=== PATIENT | female | born 1935 | race Caucasian/White ===

== ENCOUNTER → 2016-12-30 | Outpatient (CLI) | payer BC ==
[~2016-12-30] MED LIST: ACET-1047 PO; AZEL0.055 OP; AZEL137S6 NAE; AZEL30SP NAE; CEPH-571 PO; CHOL20007 PO; CYAN1SUB12 PO; DPH/ PO; FLUT0.0529 NAE; FLUT0.15 NAE; GABA-113 PO; GABA1CAP PO; HYDR-3983 PO; HYDR-5688 PO; LORA-741 PO; METR-163 PO; MULT-506 PO; NRN600 PO; OXYC-57 PO; PRED20TA PO; QSTP PO; RIVA1TAB4 PO; SACC250C3 PO; TRAM-10 PO; VNCS125 PO; VNTHFA/IN INH; [UNRECOGNIZED DRUG - CODE] PO
--- NOTE | 2016-12-30 09:59 | DIAGNOSTIC IMAGING REPORT ---
CT OF THE CHEST WITHOUT IV CONTRAST CLINICAL HISTORY: Right lung nodule. COMPARISON STUDY: Chest CT March 02, [address] of the abdomen and pelvis September 15, 2016. CT DOSE: 297.60 mGycm TECHNIQUE: Axial images of the chest were obtained without IV contrast. Images were reviewed in the axial, sagittal, and coronal planes. IV contrast was not administered for this examination. FINDINGS: No enlarged axillary, mediastinal or hilar lymph nodes are present. The heart is mildly enlarged. The central airways are patent. Scattered subpleural opacities represent atelectasis or scarring. There is no consolidation to suggest pneumonia. Note is made of a 7 mm right lower lobe nodule shown image 207 of [id number]. This is new since CT of March 02, 2016. This nodule has slightly decreased in size since exam of September 15, 2016 when it measured 9 mm. No new pulmonary nodules are present. The bony thorax and upper abdomen are unremarkable. IMPRESSION: 7 mm right lower lobe nodule. The nodule has likely slightly decreased in size since exam September 15, 2016. This nodule remains indeterminate and a follow-up chest CT in 6 months is recommended. Electronically signed by: Johnny Escalante M.D. 12/30/2016 9:58 AM Dictated Date/Time: 12/30/2016 9:38 AM
== END | disposition home or self-care (01) ==
LOC: C.CTS 09:19
PROVIDERS: ATTEND Internal Medicine Pulmonary Disease
DX: R91.1 Solitary pulmonary nodule (principal)

== ENCOUNTER → 2017-01-02 | Day surgery (SDC) | payer BC ==
[2016-12-25 13:24] VITALS: BMI 29.0
[~2017-01-02] VITALS: Ht 162.6 cm; Wt 75.5 kg
[~2017-01-02] MED LIST changes: +LIDOCAINE HCL 2% 2 ML VIAL (20MG/ML) ONE; +ONDANSETRON INJ 2 MG/ML 2 ML VIAL IV STA; +ONDANSETRON INJ 2 MG/ML 2 ML VIAL ONE; +PROPOFOL IV EMULSION 10 MG/ML 20 ML VIAL IV ONE
[2017-01-02 13:18] VITALS: Ht 162.6 cm; Wt 75.5 kg
--- NOTE | 2017-01-02 13:45 | Endo History and Physical ---
History & Physical Date of Service: Jan 02, 2017. Chief Complaint: hx c-diff and diverticulosis Referring Physician: Dr. Vasquez History of Present Illness For colonoscopy Past Medical History Arthritis, Hypertension, Kidney Disease, Other Past Surgical History Hx Cardiac Surgery: No Hx Internal Defibrillator: No Hx Pacemaker: No Hx Abdominal Surgery: Yes (D&C X4, HARMONY) Hx of Implantable Prosthesis: No Hx Post-Op Nausea and Vomiting: No Hx Cancer Surgery: No Hx Thoracic Surgery: No Hx Orthopedic: Yes (RT HEEL SURGERY FOR NODULE) Hx Urinary Tract Surgery: Yes (URETHRAL OPENING, KIDNEY STONE REMOVAL) Family History None Social History Smoking Status: Never Smoker Hx Substance Use: No Hx Alcohol Use: No Allergies Coded Allergies: Iodinated Diagnostic Agents (Verified Allergy, Intermediate, HIVES, ) Duloxetine (Verified Adverse Reaction, Mild, GI SYMPTOMS, 01/02/17) Headaches, Nauseated, Light Headed Fentanyl (Verified Adverse Reaction, Mild, GI SYMPTOMS, 01/02/17) Promethazine (Verified Adverse Reaction, Mild, MAKES HER LOOPY, 01/02/17) Sertraline (Verified Adverse Reaction, Mild, SHAKEY, 01/02/17) Current Medications Reported Home Medications Medications Dose Route/Sig Max Daily Dose Days Date Category Lomotil (Diphenoxylate W/ Atropine) 1 Tab Tab 1 Tab PO UD PRN 12/25/16 Reported Ventolin Hfa (Albuterol) 200 Puffs/05869 Mcg Aers 2-4 Puffs INH Q6H PRN 12/25/16 Reported Diltiazem Cd (Diltiazem Hcl Coated Beads) 300 Mg Cap 300 Mg PO QAM 09/06/16 Reported Xarelto (Rivaroxaban) 20 Mg Tab 20 Mg PO QPM 09/06/16 Reported Vitamin D3 (Cholecalciferol) 2,000 Unit Tab 2,000 Inter.unit PO QAM 09/06/16 Reported Ultram (Tramadol HCl) 50 Mg Tab 50 Mg PO Q4H PRN 03/02/16 Reported Multivitamin (Multivitamins) Tab 1 Tab PO QAM 02/03/14 Reported Ativan (Lorazepam) 0.5 Mg Tab 0.5-1 Mg PO BID PRN 02/03/14 Reported Flonase (Fluticasone Propionate (Nasal)) 50 Mcg/Act Spr 2 Sprays MAYDA AMHS PRN 02/03/14 Reported Vitamin B-12 (Cyanocobalamin) 2,500 Mcg Sub 2,500 Mcg PO QAM 02/03/14 Reported Astelin (Azelastine Hcl) 137 Mcg/Kula Spr 1 Kula MAYDA BID PRN 02/03/14 Reported Vital Signs Weight (Kilograms): 75.45 Height (Feet): 5 Height (Inches): 4 Date Time Temp Pulse Resp B/P Pulse Ox O2 Delivery O2 Flow Rate FiO2 01/02/17 13:31 36.9 92 18 148/83 96 Room Air Physical Exam General Appearance: WD/WN Respiratory/Chest: Respiratory effort: no dyspnea Cardiovascular: Heart Auscultation: RRR Abdomen: Inspection & Palpation: soft Assessment and Plan Diverticulitis for colonoscopy
--- NOTE | 2017-01-02 14:46 | GI REPORT ---
Procedure Date: 01/02/2017 1:58 PM Procedure: Colonoscopy Indications: Follow-up of diverticulitis Medicines: Propofol total dose 400 mg IV, Lidocaine 40 mg IV Complications: No immediate complications. Estimated Blood Loss: Estimated blood loss was minimal. Procedure: Pre-Anesthesia Assessment: - Prior to the procedure, a History and Physical was performed, and patient medications, allergies and sensitivities were reviewed. The patient's tolerance of previous anesthesia was reviewed. - The risks and benefits of the procedure and the sedation options and risks were discussed with the patient. All questions were answered and informed consent was obtained. After I obtained informed consent, the scope was passed under direct vision. Throughout the procedure, the patient's blood pressure, pulse, and oxygen saturations were monitored continuously. The scope was introduced through the anus and advanced to the cecum, identified by appendiceal orifice and ileocecal valve. The colonoscopy was performed without difficulty. The patient tolerated the procedure well. The quality of the bowel preparation was good. Findings: Multiple diverticula were found in the sigmoid colon. Non-bleeding internal hemorrhoids were found during endoscopy. The hemorrhoids were moderate. A 5 mm polyp was found in the distal transverse colon. The polyp was sessile. The polyp was removed with a hot snare. Resection and retrieval were complete. Estimated blood loss: none. A 5 mm polyp was found in the ascending colon. The polyp was sessile. The polyp was removed with a hot snare. Resection and retrieval were complete. Estimated blood loss: none. A 15 mm polyp was found at the hepatic flexure. The polyp was sessile. The polyp was removed with a piecemeal technique using a hot snare. Resection and retrieval were complete. To prevent bleeding post-intervention, one hemostatic clip was successfully placed (MR conditional). There was no bleeding at the end of the procedure. Impression: - Diverticulosis in the sigmoid colon. - Non-bleeding internal hemorrhoids. - One 5 mm polyp in the distal transverse colon, removed with a hot snare. Resected and retrieved. - One 5 mm polyp in the ascending colon, removed with a hot snare. Resected and retrieved. - One 15 mm polyp at the hepatic flexure, removed piecemeal using a hot snare. Resected and retrieved. Clip (MR conditional) was placed. Recommendation: - Discharge patient to home (ambulatory). - Continue present medications. - Await pathology results. - Return to primary care physician PRN. Mukesh Shah M.D. Mukesh Shah MD 01/02/2017 2:46:33 PM This report has been signed electronically. Note Initiated On: 01/02/2017 1:58 PM I attest to the content of the Intraoperative Record and orders documented therein, exceptions below
--- NOTE | 2017-01-02 14:47 | Discharge Instructions ---
Endoscopy Patient Instructions Date / Procedure(s) Performed Jan 02, 2017. Colonoscopy Allergy Information Coded Allergies: Iodinated Diagnostic Agents (Verified Allergy, Intermediate, HIVES, ) Duloxetine (Verified Adverse Reaction, Mild, GI SYMPTOMS, 01/02/17) Headaches, Nauseated, Light Headed Fentanyl (Verified Adverse Reaction, Mild, GI SYMPTOMS, 01/02/17) Promethazine (Verified Adverse Reaction, Mild, MAKES HER LOOPY, 01/02/17) Sertraline (Verified Adverse Reaction, Mild, SHAKEY, 01/02/17) Discharge Date / Findings Jan 02, 2017. Polyps, diverticulosis, hemorrhoids Medication Instructions Stopped Medication(s): don't take any supplements. Keep on her Xarelto. Restart Stopped Medication(s): resume meds Reported Home Medications Medications Dose Route/Sig Max Daily Dose Days Date Category Lomotil (Diphenoxylate W/ Atropine) 1 Tab Tab 1 Tab PO UD PRN 12/25/16 Reported Ventolin Hfa (Albuterol) 200 Puffs/43523 Mcg Aers 2-4 Puffs INH Q6H PRN 12/25/16 Reported Diltiazem Cd (Diltiazem Hcl Coated Beads) 300 Mg Cap 300 Mg PO QAM 09/06/16 Reported Xarelto (Rivaroxaban) 20 Mg Tab 20 Mg PO QPM 09/06/16 Reported Vitamin D3 (Cholecalciferol) 2,000 Unit Tab 2,000 Inter.unit PO QAM 09/06/16 Reported Ultram (Tramadol HCl) 50 Mg Tab 50 Mg PO Q4H PRN 03/02/16 Reported Multivitamin (Multivitamins) Tab 1 Tab PO QAM 02/03/14 Reported Ativan (Lorazepam) 0.5 Mg Tab 0.5-1 Mg PO BID PRN 02/03/14 Reported Flonase (Fluticasone Propionate (Nasal)) 50 Mcg/Act Spr 2 Sprays MAYDA AMHS PRN 02/03/14 Reported Vitamin B-12 (Cyanocobalamin) 2,500 Mcg Sub 2,500 Mcg PO QAM 02/03/14 Reported Astelin (Azelastine Hcl) 137 Mcg/Clear Spr 1 Clear MAYDA BID PRN 02/03/14 Reported Provider Instructions Activity Restrictions - No exercising or heavy lifting for 24 hours. - Do not drink alcohol the day of the procedure. - Do not drive a car or operate machinery until the day after the procedure. - Do not make any important decisions or sign important papers in 24 hours after the procedure. Following Day: - Return to full activity which may include returning to work/school. Diet Start your diet with liquids and light foods (jello, soup, juice, toast). Then eat your usual diet if not nauseated. Treatment For Common After Affects For mild abdominal pain, bloating, or excessive gas: - Rest - Eat lightly - Lie on right side Follow-Up Information Follow-up with Dr. Vasquez as scheduled Anesthesia Information What You Should Know You have had a procedure that required some medicine to reduce anxiety and discomfort. This treatment is called moderate sedation. After receiving the treatment, you may be sleepy, but you will be able to breathe on your own. The effects of the treatment may last for several hours. Follow these instructions along with Activity/Diet recommendations noted above: * Do NOT do anything where dizziness or clumsiness would be dangerous. * Rest quietly at home today, then you can be up and about tomorrow. * Have a responsible person stay with you the rest of today. * You may have had an I.V. today. If so, you may take the dressing off later today. Recommendations Call your doctor if: * Trouble breathing * Continuous vomiting for more than 24 hours * Temperature above 101 degrees * Severe abdominal pain or bloating * Pain not relieved by pain medicine ordered * There is increased drainage or redness from any incision * A large amount of rectal bleeding greater than 2-3 tablespoons. (If you had a polyp/s removed or have hemorrhoids, a small amount of blood - from the rectum is to be expected.) * You have any unanswered questions or concerns. IN THE EVENT OF A SERIOUS EMERGENCY, GO TO THE NEAREST EMERGENCY ROOM Your discharge instructions were prepared by provider Mukesh Shah. Patient Instructions Signature Page Janeth Newsome Patient (or Guardian) Signature/Date: I have read and understand the instructions given to me by my caregivers. Caregiver/RN/Doctor Signature/Date: The above-named patient and/or guardian has received patient instructions on this date. + Original Patient Signature Page (only) stays with chart. Please make copy for patient.
[2017-01-02 15:17] VITALS: BP 163/87; PULSE 87; O2SAT 98
--- NOTE | 2017-01-02 15:17 | Anesthesiology Progress Note ---
Anesthesia Post Op Note Date & Time Jan 02, 2017 at 15:16 Vital Signs Pain Intensity: 8 Vital Signs Past 12 Hours Date Time Temp Pulse Resp B/P Pulse Ox O2 Delivery O2 Flow Rate FiO2 01/02/17 15:02 91 18 170/80 100 Mask 10 01/02/17 15:02 88 18 172/75 100 Room Air 01/02/17 13:31 36.9 92 18 148/83 96 Room Air Notes Mental Status: alert / awake / arousable, participated in evaluation Pt Amnestic to Procedure: Yes Nausea / Vomiting: adequately controlled Pain: adequately controlled Airway Patency, RR, SpO2: stable & adequate BP & HR: stable & adequate Hydration State: stable & adequate Anesthetic Complications: no major complications apparent Patient had some abdominal discomfort in recovery room. Abdomen was soft, Dr Shah examined the patient and felt her pain to be related to gas. She is appropriate for home disposition
== END | disposition home or self-care (01) ==
LOC: C.GI 12:55
PROVIDERS: ATTEND Internal Medicine Gastroenterology
DX: D12.2 Benign neoplasm of ascending colon (principal); D12.3 Benign neoplasm of transverse colon; K57.30 Diverticulosis of large intestine without perforation or abscess without bleeding; K64.8 Other hemorrhoids; M19.90 Unspecified osteoarthritis, unspecified site; I10 Essential (primary) hypertension; Z98.890 Other specified postprocedural states; Z91.041 Radiographic dye allergy status; Z88.8 Allergy status to other drugs, medicaments and biological substances

== ENCOUNTER → 2017-03-25 | Outpatient (CLI) | payer BC ==
[~2017-03-25] MED LIST changes: -LIDOCAINE HCL 2% 2 ML VIAL (20MG/ML) ONE; -ONDANSETRON INJ 2 MG/ML 2 ML VIAL IV STA; -ONDANSETRON INJ 2 MG/ML 2 ML VIAL ONE; -PRED20TA PO; -PROPOFOL IV EMULSION 10 MG/ML 20 ML VIAL IV ONE
[2017-03-25 14:54] LABS: HEMATOCRIT 42.4 % (37-47); MEAN CELL VOLUME 88.3 fL (80-100); MEAN CORPUSCULAR HEMOGLOBIN 28.1 pg (25-34); MEAN CORPUSCULAR HGB CONC 31.8 g/dl (32-36); MEAN PLATELET VOLUME 10.6 fL (7.4-10.4); PLATELET COUNT 234 K/uL (130-400); WHITE BLOOD COUNT 8.09 K/uL (4.8-10.8)
[2017-03-25 15:08] LABS: URINE APPEARANCE CLEAR (CLEAR); URINE BILIRUBIN NEG (NEG); URINE COLOR YELLOW; URINE EPITHELIAL CELL AUTO >30 /lpf (0-5); URINE NITRITE NEG (NEG); URINE SPECIFIC GRAVITY 1.015 (1.000-1.030); UROBILINOGEN NEG (NEG)
[2017-03-25 15:10] LABS: MANUAL MICROSCOPIC REQUIRED? NO; REVIEW REQ? NO
[2017-03-25 15:12] LABS: BLOOD UREA NITROGEN 26 mg/dl (7-18); BUN/CREATININE RATIO 19.8 (10-20); CALCIUM 8.6 mg/dl (8.5-10.1); CARBON DIOXIDE 29 mmol/L (21-32); CHLORIDE 106 mmol/L (98-107); GLUCOSE 86 mg/dl (70-99); SODIUM 142 mmol/L (136-145)
[2017-03-25 15:13] LABS: PHOSPHORUS 2.5 mg/dl (2.5-4.9)
[2017-03-25 15:41] LABS: URINE PROTIEN/CREAT RATIO 0.1 (0-0.2); URINE TOTAL PROTEIN 13.3 mg/dl (0-11.9)
== END | disposition home or self-care (01) ==
LOC: C.LAB1850 12:00
PROVIDERS: ATTEND Internal Medicine Nephrology
DX: N18.3 Chronic kidney disease, stage 3 (moderate) (principal); I12.9 Hypertensive chronic kidney disease with stage 1 through stage 4 chronic kidney disease, or unspecified chronic kidney disease; E55.9 Vitamin D deficiency, unspecified

== ENCOUNTER 2017-07-09 11:21 | Emergency (ER) | payer BC ==
[~2017-07-09] VITALS: Ht 161.3 cm; Wt 82.0 kg
[~2017-07-09 11:21] MED LIST changes: -ACET-1047 PO; -AZEL0.055 OP; -AZEL30SP NAE; -CEPH-571 PO; -FLUT0.15 NAE; -GABA-113 PO; -GABA1CAP PO; -HYDR-3983 PO; -HYDR-5688 PO; -METR-163 PO; -NRN600 PO; -OXYC-57 PO; -QSTP PO; -SACC250C3 PO; -VNCS125 PO
[2017-07-09 11:26] VITALS: TEMP 36.9; Ht 161.3 cm; Wt 82.0 kg
[2017-07-09] MEDS ORDERED: HYDR-5688 PO ×2 (12:04→17:29)
[2017-07-09] MEDS ORDERED: AZEL0.055 OP (12:04)
[2017-07-09] MEDS ORDERED: FLUT0.15 NAE (12:04)
[2017-07-09] MEDS ORDERED: HYDROCODONE/ACETAMOPHEN 5/325MG TAB PO STA ×2 (12:16→15:28)
--- NOTE | 2017-07-09 12:45 | EMERGENCY ROOM VISIT NOTE ---
History Report prepared by Lanie: John Paul Karimi Under the Supervision of: Dr. Yrn Kim M.D. First contact with patient: 11:57 Chief Complaint: HIP PAIN Stated Complaint: HIP AND GROIN AREA-FELL X 2 DAYS DURING THE NIGHT History of Present Illness The patient is a 82 year old female who presents to the Emergency Room with complaints of worsening left hip pain starting two days ago after a fall. The patient states that she tripped over a rug, and her left leg got caught under her, and her fell on her left side and felt a pull in her groin area as well. She states that she did not hit her head during the fall. The patient denies any abdominal pain or shoulder pain. She states that she has chronic back pain. The patient denies any history of hip fracture. She states that she is currently on Xarelto for blood clots in her legs and lungs. Source of History: patient Onset: two days ago Position: other (left hip) Quality: other (pulling) Timing: worsening Associated Symptoms: + back pain, No abdominal pain Review of Systems See HPI for pertinent positives and negatives. A total of ten systems were reviewed and were otherwise negative. Past Medical & Surgical Medical Problems: (1) Acute on chronic renal insufficiency (2) Arthritis (3) C. difficile colitis (4) Chest wall contusion (5) Chest wall contusion (6) CKD (chronic kidney disease), stage III (7) Dehydration (8) Diverticulitis (9) Diverticulitis (10) Hypertension (11) IBS (irritable bowel syndrome) (12) Kidney stone (13) Monoclonal gammopathy (14) Near syncope (15) Nephrolithiasis (16) Right ventricular cardiac abnormality Surgical Problems: (1) Hx of cholecystectomy Family History Colon Polyp DAUGHTER (40s) Heart disease Hypertension Social History Smoking Status: Never Smoker Alcohol Use: none Drug Use: none Marital Status: Housing Status: lives with family Occupation Status: retired Current/Historical Medications Scheduled Azelastine Hcl (Ophth) (Azelastine Hcl), 1 DROPS OP BID Cholecalciferol (Vitamin D3), 2,000 INTER.UNIT PO QAM Cyanocobalamin (Vitamin B-12), 2,500 MCG PO QAM Diltiazem Hcl Coated Beads (Diltiazem Cd), 300 MG PO QAM Multivitamin (Multivitamin), 1 TAB PO QAM Rivaroxaban (Xarelto), 20 MG PO QPM Scheduled PRN Albuterol Hfa (Ventolin Hfa), 2-4 PUFFS INH Q6H PRN for Shortness of Breath Diphenoxylate W/ Atropine (Lomotil), 1 TAB PO UD PRN for Diarrhea Hydrocodone/Acetaminophen 5MG/325MG ([place] 5MG/325MG), 1 TAB PO TID PRN for back pain Hydrocodone/Acetaminophen 5MG/325MG ([place] 5MG/325MG), 1 TAB PO TID PRN for Pain Lorazepam (Ativan), 0.5-1 MG PO BID PRN for Anxiety Tramadol (Ultram), 50 MG PO Q4H PRN for Pain Miscellaneous Medications Fluticasone Propionate (Nasal) (Flonase Allergy Relief) Allergies Coded Allergies: Iodinated Diagnostic Agents (Verified Allergy, Intermediate, HIVES, ) Dicyclomine (Unverified Allergy, Unknown, nausea, 07/09/17) Duloxetine (Verified Adverse Reaction, Mild, GI SYMPTOMS, 07/09/17) Headaches, Nauseated, Light Headed Fentanyl (Verified Adverse Reaction, Mild, GI SYMPTOMS, 07/09/17) Promethazine (Verified Adverse Reaction, Mild, MAKES HER LOOPY, 07/09/17) Sertraline (Verified Adverse Reaction, Mild, SHAKEY, 07/09/17) Physical Exam Vital Signs Date Time Temp Pulse Resp B/P (MAP) Pulse Ox O2 Delivery O2 Flow Rate FiO2 07/09/17 17:52 87 139/81 95 07/09/17 14:45 82 18 141/77 92 Room Air 07/09/17 11:26 36.9 92 18 139/81 96 Room Air Physical Exam GENERAL: Awake, alert, well-appearing, in no distress HENT: Normocephalic, atraumatic. Oropharynx unremarkable. EYES: Normal conjunctiva. Sclera non-icteric. NECK: Supple. No nuchal rigidity. FROM. No JVD. RESPIRATORY: Clear to auscultation. CARDIAC: Regular rate, normal rhythm. Extremities warm and well perfused. Pulses equal. ABDOMEN: Soft, non-distended. No tenderness to palpation. No rebound or guarding. No masses. RECTAL: Deferred. MUSCULOSKELETAL: Diffuse back pain which is unchanged from baseline per patient. Chest examination reveals no tenderness. The back is symmetrical on inspection without obvious abnormality. There is no CVA tenderness to palpation. No joint edema. LOWER EXTREMITIES: Tenderness on the left inguinal area. No crepitus with external and internal rotation. Mild ecchymosis in the dorsal aspect of the left upper leg. No hematoma. Distal pulses and motor functions are intact. No shortening or passive rotation of the leg. Calves are equal size bilaterally and non-tender. No edema. No discoloration. NEURO: Normal sensorium. No sensory or motor deficits noted. SKIN: No rash or jaundice noted. Medical Decision & Procedures ER Provider Diagnostic Interpretation: Radiology results as stated below per my review and radiologist interpretation: LEFT FEMUR 2 VIEWS ROUTINE CLINICAL HISTORY: 82 years-old Female presenting with LEG PAIN, fall 2 days ago, left hip/groin pain. TECHNIQUE: Frontal and lateral views of the left femur were obtained. COMPARISON: None. FINDINGS: Degenerative changes of the hip. Relative joint space preservation. Tricompartmental degenerative change at the knee with relative preservation of the joint space. No acute fracture of the femur. Hip joint congruent. Small knee joint effusion may be present. IMPRESSION: No acute osseous injury of the left femur. Electronically signed by: Manuel Fletcher M.D. 07/09/2017 12:58 PM Dictated Date/Time: 07/09/2017 12:55 PM [~ rep ct add3]] LEFT PELVIS/UNILATERAL HIP 2-3VIEWS CLINICAL HISTORY: Left hip and groin pain following fall. COMPARISON: CT of the abdomen and pelvis September 15, 2016. FINDINGS: Sacroiliac joints and symphysis pubis are intact. There is no acute fracture within the pelvis or hips. There is mild to moderate arthritis of both hips with osteophytosis. IMPRESSION: No acute fracture within the pelvis or hips. Electronically signed by: Johnny Escalante M.D. 07/09/2017 12:56 PM Dictated Date/Time: 07/09/2017 12:53 PM LUMBAR SPINE WITHOUT HISTORY: 82 years-old Female acute low back pain status post fall COMPARISON: CT abdomen and pelvis of same day, CT abdomen and pelvis 09/15/2016 TECHNIQUE: Multiple axial CT images of the lumbar spine were obtained without contrast. A dose lowering technique was used consistent with the principals of ALARA. FINDINGS: No acute compression deformity identified. There is mild convex left curvature from L3-L5 of 10 degrees. No sacral fracture identified. The ribs at T12 are hypoplastic. Alternatively, there may be 6 lumbar segments, however for the purposes of the study 5 vertebral segments will be referenced. No acute fracture or dislocation is identified. The posterior elements appear intact. Bones are moderately demineralized. Severe multilevel intervertebral disc space narrowing, facet arthropathy and posterior disc osteophyte complex formation is present. These changes are most pronounced at L4-L5 where there is moderate to severe central canal and moderate bilateral foraminal narrowing. There is relative preservation of the disc space at L5-S1 and T12-L1. No acute intra-abdominal, intrapelvic or paraspinal abnormality identified. Please refer to the CT abdomen and pelvis study for further details. Colonic diverticulosis is present. There is atherosclerosis of the aorta. IMPRESSION: 1. Background moderate bone demineralization without acute lumbar spine fracture or subluxation. 2. Severe multilevel intervertebral disc space narrowing and facet arthropathy with posterior disc osteophyte complex formations. At L4-L5, there is moderate to severe central canal and moderate bilateral foraminal narrowing. 3. Colonic diverticulosis incidentally noted. The above report was generated using voice recognition software. It may contain grammatical, syntax or spelling errors. Electronically signed by: Kai Isaac M.D. 07/09/2017 4:30 PM Dictated Date/Time: 07/09/2017 4:25 PM ABD/PELVIS IV CONTRAST ONLY CLINICAL HISTORY: 82 years-old Female presenting with LEft hip pain, r/o occult fx / hematoma. TECHNIQUE: Multidetector CT of the abdomen and pelvis was performed after the administration of intravenous contrast. IV contrast: 112 mL of Optiray 320. A dose lowering technique was used consistent with the principles of ALARA (as low as reasonably achievable). COMPARISON: 09/15/2016. CT DOSE (mGy.cm): The estimated cumulative dose is 584.69 inclusive of the lumbar spine. FINDINGS: Television Analyzer topogram: Unremarkable. Lung bases: 7 mm solid pulmonary nodule in the right lower lobe (series 2 image 11). Minimal dependent changes likely atelectasis. Top normal heart size. No pericardial or pleural effusion. Liver: Normal morphology. No liver lesion. Patent hepatic vasculature. Biliary: Moderate intrahepatic and extrahepatic biliary ductal dilatation. This may in part be due to a reservoir effect in the post cholecystectomy state and advanced age. Gallbladder surgically absent. Pancreas: Moderate parenchymal atrophy. Spleen: Normal. Adrenal glands: Normal. Kidneys and ureters: Punctate nonobstructing calculus in the interpolar region of the right kidney (series 3 image 170). No hydronephrosis. Normal parenchymal enhancement. Ureters normal. Bladder: Normal. Pelvic organs: Uterus and ovaries normal. Bowel: Diverticulosis of the sigmoid and descending colon. Limited diverticulosis of the cecum. Normal appendix. No bowel obstruction. Small hiatal hernia. Peritoneal cavity: No free fluid or intraperitoneal gas. Vasculature: Atherosclerosis of the normal caliber abdominal aorta. IVC patent. Lymph nodes: No enlarged lymph nodes in the abdomen or pelvis. Abdominal wall: Normal. Musculoskeletal: Degenerative changes of the spine. No acute osseous injury. Specifically, the femoral necks are normal appearing. IMPRESSION: 1. No evidence of acute osseous injury. 2. No evidence of acute intra-abdominal pathology. 3. Punctate nonobstructing calculus in the right kidney. 4. 7 mm solid pulmonary nodule in the right lower lobe. Follow-up per Fleischner Society 2017 recommendations below. 5. Diverticulosis. 6. Biliary ductal dilatation is most likely due to a reservoir effect in the post cholecystectomy state and secondary to advanced age. Please refer to below summary of Fleischner Society 2017 recommendations for follow-up of incidental CT nodules (Kourtney Salguero et al. Guidelines for management of incidental pulmonary nodules detected on CT images: From the Fleischner Society 2017. Radiology 2017; 284: 228-243.) SOLID NODULES Single nodule; size <6 mm * Low risk patients: No routine follow-up * High risk patients: Optional CT at 12 months Single nodule; size 6-8 mm * Low risk patients: CT at 6-12 months, then consider CT at 18-24 months * High risk patients: CT at 6-12 months, then at 18-24 months Single nodule; size >8 mm * Either low or high risk patients: Considered CT at 3 months, PET/CT, or tissue sampling Multiple nodules; size <6 mm * Low risk patients: No routine follow up * High risk patients: Optional CT at 12 months Multiple nodules; size 6-8 mm * Low risk patients: CT at 3-6 months, then consider CT at 18-24 months * High risk patients: CT at 3-6 months, then at 18-24 months Multiple nodules; size >8 mm * Low risk patients: CT at 3-6 months, then consider at 18-24 months * High risk patients: CT at 3-6 months, then at 18-24 months Note: These guidelines apply to incidental nodules. These guidelines did not apply to patients younger than 35 years, immunocompromised patients, or patients with cancer. * Low risk patients: Minimal or absent history of smoking and/or other known risk factors * High risk patients: History of smoking, exposure to other carcinogens, emphysema, fibrosis, upper lobe location, family history of lung cancer, etc. * If a nodule up to 8 mm is partly solid or is ground glass further follow-up is required after 24 months to exclude possible slow growing adenocarcinoma SUBSOLID NODULES Single ground-glass nodule * Nodule size < 6 mm: No routine follow-up * Nodule size > or = 6 mm: CT at 6-12 months to confirm persistence, then CT every 2 years until 5 years Single part-solid nodule * Nodule size < 6 mm: No routine follow-up * Nodules size > or = 6 mm: CT at 3-6 months to confirm persistence. If unchanged and solid component remains < 6 mm, annual CT should be performed for 5 years Multiple nodules * Nodule size < 6 mm: CT at 3-6 months. If stable, consider CT at 2 and 4 years. * Nodules size > or = 6 mm: CT at 3-6 months. Subsequent management based on the most suspicious nodule(s) Electronically signed by: Manuel Fletcher M.D. 07/09/2017 4:26 PM Dictated Date/Time: 07/09/2017 4:21 PM Medications Administered Medications (Trade) Dose Ordered Sig/Rossy Route Start Time Stop Time Status Last Admin Dose Admin Acetaminophen/ Hydrocodone Bitart (Dol[place] 5/325 Tab) 1 tab NOW STAT PO 07/09/17 12:16 07/09/17 12:21 DC 07/09/17 12:25 1 TAB Acetaminophen/ Hydrocodone Bitart (D[place] 5/325 Tab) 1 tab NOW STAT PO 07/09/17 15:28 07/09/17 15:30 DC 07/09/17 15:46 1 TAB Prednisone (PredniSONE TAB) 60 mg NOW STAT PO 07/09/17 15:28 07/09/17 15:30 DC 07/09/17 15:45 60 MG Diphenhydramine HCl (Benadryl Cap) 25 mg NOW ONCE PO 07/09/17 15:30 07/09/17 15:31 DC 07/09/17 15:46 25 MG ED Course 1215: The patient was evaluated in room C8. A complete history and physical exam was performed. 1216: Dolton 5/325 1 Tab PO 1424: I reevaluated the patient, and she states that she still cannot walk. 1528: Prednisone 60mg PO, Dol[place] 5/325 1 Tab PO 1530: Benadryl Cap 25mg PO 1649: I reevaluated the patient, and I updated her on the treatment plan. I am going to talk to the trimming caser about getting her in-home PT. The patient agrees with the treatment plan. The patient will be discharged home. Medical Decision I reviewed the patient's past medical history, medications, and the nursing notes as described above. The patient's presentation and history were concerning for fracture, musculoskeletal strain, soft tissue injury. 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 Of note, denies HS or LOC. On arrival the patient is in NAD. AFVSS. ON exam the patient has mild ttp left hip and groin and minor echymosis on dorsal aspect of left upper leg without induration or fluctuance. . Has mild discomfort with ROM but FROM intact. XRays of pelvis, hip and femur negative for fx. However on re- evaluation the patient still reports significant pain and feels it is too difficulty to ambulate despite being given her home vicodin. Thus, CT of abd/ pelvis and Lspine done to r/o occult fx or hematoma. CTs were negative for acute injury. D/w patient likely need for PT. CM assisting and patient will f/u with her pcp to arrange home PT eval. Findings and plan for follow-up d/w patient. Patient agreeable and d/c'd per discharge instructions. Medication Reconcilliation Current Medication List: was personally reviewed by me Blood Pressure Screening Patient's blood pressure: Elevated blood pressure Blood pressure disposition: Elevated BP felt to be situational Impression Primary Impression: Muscle strain Additional Impressions: Contusion Groin strain Scribe Attestation The scribe's documentation has been prepared under my direction and personally reviewed by me in its entirety. I confirm that the note above accurately reflects all work, treatment, procedures, and medical decision making performed by me. Departure Information Dispostion Home / Self-Care Prescriptions Hydrocodone/Acetaminophen 5MG/325MG (Dolton 5MG/325MG) Tab 1 TAB PO TID Y for Pain for 3 Days, #9 TAB PRN PAIN Prov: Yrn Kim M.D. 07/09/17 Referrals Christiane Islas D.O. (PCP) Forms HOME CARE DOCUMENTATION FORM, IMPORTANT VISIT INFORMATION, WORK / SCHOOL INSTRUCTIONS Patient Instructions Bruises Contusions, ED Muscle Aching, ED Strain Groin, [facility] Additional Instructions Please follow up with your primary care physician in the next 1-3 days for re- evaluation. Your symptoms are likely due to a muscle strain and also a deep muscle bruise. Otherwise, your exam, extraneous, and CT scan did not show signs of an emergent condition at this time. Take Vicodin for pain as needed. Discussed with your doctor the possibility for arranging physical therapy. Return to the emergency department for worsening symptoms as described in the accompanying instructions. Problem Qualifiers
--- NOTE | 2017-07-09 12:57 | DIAGNOSTIC IMAGING REPORT ---
LEFT PELVIS/UNILATERAL HIP 2-3VIEWS CLINICAL HISTORY: Left hip and groin pain following fall. COMPARISON: CT of the abdomen and pelvis September 15, 2016. FINDINGS: Sacroiliac joints and symphysis pubis are intact. There is no acute fracture within the pelvis or hips. There is mild to moderate arthritis of both hips with osteophytosis. IMPRESSION: No acute fracture within the pelvis or hips. Electronically signed by: Johnny Escalante M.D. 07/09/2017 12:56 PM Dictated Date/Time: 07/09/2017 12:53 PM
--- NOTE | 2017-07-09 12:59 | DIAGNOSTIC IMAGING REPORT ---
LEFT FEMUR 2 VIEWS ROUTINE CLINICAL HISTORY: 82 years-old Female presenting with LEG PAIN, fall 2 days ago, left hip/groin pain. TECHNIQUE: Frontal and lateral views of the left femur were obtained. COMPARISON: None. FINDINGS: Degenerative changes of the hip. Relative joint space preservation. Tricompartmental degenerative change at the knee with relative preservation of the joint space. No acute fracture of the femur. Hip joint congruent. Small knee joint effusion may be present. IMPRESSION: No acute osseous injury of the left femur. Electronically signed by: Manuel Fletcher M.D. 07/09/2017 12:58 PM Dictated Date/Time: 07/09/2017 12:55 PM
--- NOTE | 2017-07-09 16:28 | DIAGNOSTIC IMAGING REPORT ---
ABD/PELVIS IV CONTRAST ONLY CLINICAL HISTORY: 82 years-old Female presenting with LEft hip pain, r/o occult fx / hematoma. TECHNIQUE: Multidetector CT of the abdomen and pelvis was performed after the administration of intravenous contrast. IV contrast: 112 mL of Optiray 320. A dose lowering technique was used consistent with the principles of ALARA (as low as reasonably achievable). COMPARISON: 09/15/2016. CT DOSE (mGy.cm): The estimated cumulative dose is 584.69 inclusive of the lumbar spine. FINDINGS: Feed Mill Supervisor topogram: Unremarkable. Lung bases: 7 mm solid pulmonary nodule in the right lower lobe (series 2 image 11). Minimal dependent changes likely atelectasis. Top normal heart size. No pericardial or pleural effusion. Liver: Normal morphology. No liver lesion. Patent hepatic vasculature. Biliary: Moderate intrahepatic and extrahepatic biliary ductal dilatation. This may in part be due to a reservoir effect in the post cholecystectomy state and advanced age. Gallbladder surgically absent. Pancreas: Moderate parenchymal atrophy. Spleen: Normal. Adrenal glands: Normal. Kidneys and ureters: Punctate nonobstructing calculus in the interpolar region of the right kidney (series 3 image 170). No hydronephrosis. Normal parenchymal enhancement. Ureters normal. Bladder: Normal. Pelvic organs: Uterus and ovaries normal. Bowel: Diverticulosis of the sigmoid and descending colon. Limited diverticulosis of the cecum. Normal appendix. No bowel obstruction. Small hiatal hernia. Peritoneal cavity: No free fluid or intraperitoneal gas. Vasculature: Atherosclerosis of the normal caliber abdominal aorta. IVC patent. Lymph nodes: No enlarged lymph nodes in the abdomen or pelvis. Abdominal wall: Normal. Musculoskeletal: Degenerative changes of the spine. No acute osseous injury. Specifically, the femoral necks are normal appearing. IMPRESSION: 1. No evidence of acute osseous injury. 2. No evidence of acute intra-abdominal pathology. 3. Punctate nonobstructing calculus in the right kidney. 4. 7 mm solid pulmonary nodule in the right lower lobe. Follow-up per Fleischner Society 2017 recommendations below. 5. Diverticulosis. 6. Biliary ductal dilatation is most likely due to a reservoir effect in the post cholecystectomy state and secondary to advanced age. Please refer to below summary of Fleischner Society 2017 recommendations for follow-up of incidental CT nodules (H Jose M et al. Guidelines for management of incidental pulmonary nodules detected on CT images: From the Fleischner Society 2017. Radiology 2017; 284: 228-243.) SOLID NODULES Single nodule; size <6 mm * Low risk patients: No routine follow-up * High risk patients: Optional CT at 12 months Single nodule; size 6-8 mm * Low risk patients: CT at 6-12 months, then consider CT at 18-24 months * High risk patients: CT at 6-12 months, then at 18-24 months Single nodule; size >8 mm * Either low or high risk patients: Considered CT at 3 months, PET/CT, or tissue sampling Multiple nodules; size <6 mm * Low risk patients: No routine follow up * High risk patients: Optional CT at 12 months Multiple nodules; size 6-8 mm * Low risk patients: CT at 3-6 months, then consider CT at 18-24 months * High risk patients: CT at 3-6 months, then at 18-24 months Multiple nodules; size >8 mm * Low risk patients: CT at 3-6 months, then consider at 18-24 months * High risk patients: CT at 3-6 months, then at 18-24 months Note: These guidelines apply to incidental nodules. These guidelines did not apply to patients younger than 35 years, immunocompromised patients, or patients with cancer. * Low risk patients: Minimal or absent history of smoking and/or other known risk factors * High risk patients: History of smoking, exposure to other carcinogens, emphysema, fibrosis, upper lobe location, family history of lung cancer, etc. * If a nodule up to 8 mm is partly solid or is ground glass further follow-up is required after 24 months to exclude possible slow growing adenocarcinoma SUBSOLID NODULES Single ground-glass nodule * Nodule size < 6 mm: No routine follow-up * Nodule size > or = 6 mm: CT at 6-12 months to confirm persistence, then CT every 2 years until 5 years Single part-solid nodule * Nodule size < 6 mm: No routine follow-up * Nodules size > or = 6 mm: CT at 3-6 months to confirm persistence. If unchanged and solid component remains < 6 mm, annual CT should be performed for 5 years Multiple nodules * Nodule size < 6 mm: CT at 3-6 months. If stable, consider CT at 2 and 4 years. * Nodules size > or = 6 mm: CT at 3-6 months. Subsequent management based on the most suspicious nodule(s) Electronically signed by: Manuel Fletcher M.D. 07/09/2017 4:26 PM Dictated Date/Time: 07/09/2017 4:21 PM
--- NOTE | 2017-07-09 16:32 | DIAGNOSTIC IMAGING REPORT ---
LUMBAR SPINE WITHOUT HISTORY: 82 years-old Female acute low back pain status post fall COMPARISON: CT abdomen and pelvis of same day, CT abdomen and pelvis 09/15/2016 TECHNIQUE: Multiple axial CT images of the lumbar spine were obtained without contrast. A dose lowering technique was used consistent with the principals of ALARA. FINDINGS: No acute compression deformity identified. There is mild convex left curvature from L3-L5 of 10 degrees. No sacral fracture identified. The ribs at T12 are hypoplastic. Alternatively, there may be 6 lumbar segments, however for the purposes of the study 5 vertebral segments will be referenced. No acute fracture or dislocation is identified. The posterior elements appear intact. Bones are moderately demineralized. Severe multilevel intervertebral disc space narrowing, facet arthropathy and posterior disc osteophyte complex formation is present. These changes are most pronounced at L4-L5 where there is moderate to severe central canal and moderate bilateral foraminal narrowing. There is relative preservation of the disc space at L5-S1 and T12-L1. No acute intra-abdominal, intrapelvic or paraspinal abnormality identified. Please refer to the CT abdomen and pelvis study for further details. Colonic diverticulosis is present. There is atherosclerosis of the aorta. IMPRESSION: 1. Background moderate bone demineralization without acute lumbar spine fracture or subluxation. 2. Severe multilevel intervertebral disc space narrowing and facet arthropathy with posterior disc osteophyte complex formations. At L4-L5, there is moderate to severe central canal and moderate bilateral foraminal narrowing. 3. Colonic diverticulosis incidentally noted. The above report was generated using voice recognition software. It may contain grammatical, syntax or spelling errors. Electronically signed by: Kai Isaac M.D. 07/09/2017 4:30 PM Dictated Date/Time: 07/09/2017 4:25 PM
[2017-07-09 17:52] VITALS: BP 139/81; PULSE 87; O2SAT 95
[2017-08-07] MEDS ORDERED: ACET-1047 PO (13:29)
[2017-08-07] MEDS ORDERED: SACC250C3 PO (13:29)
[2017-08-07] MEDS ORDERED: TRAM-10 PO (13:29)
[2017-08-07] MEDS ORDERED: LORA-741 PO (13:29)
[2017-08-07] MEDS ORDERED: VNCS125 PO (13:29)
[2017-08-07] MEDS ORDERED: QSTP PO (13:29)
== END 2017-07-09 17:53 | disposition home or self-care (01) ==
LOC: C.EDB 11:23 → C.EDC 17:53
DX: S76.012A Strain of muscle, fascia and tendon of left hip, initial encounter (principal); S39.011A Strain of muscle, fascia and tendon of abdomen, initial encounter; S70.02XA Contusion of left hip, initial encounter; S30.1XXA Contusion of abdominal wall, initial encounter; W01.0XXA Fall on same level from slipping, tripping and stumbling without subsequent striking against object, initial encounter; N20.0 Calculus of kidney; K57.30 Diverticulosis of large intestine without perforation or abscess without bleeding; M48.06 Spinal stenosis, lumbar region; I12.9 Hypertensive chronic kidney disease with stage 1 through stage 4 chronic kidney disease, or unspecified chronic kidney disease; N18.3 Chronic kidney disease, stage 3 (moderate); K57.92 Diverticulitis of intestine, part unspecified, without perforation or abscess without bleeding; K58.9 Irritable bowel syndrome, unspecified; Z87.442 Personal history of urinary calculi; Z86.19 Personal history of other infectious and parasitic diseases; Z87.828 Personal history of other (healed) physical injury and trauma; Z90.49 Acquired absence of other specified parts of digestive tract; Z79.899 Other long term (current) drug therapy; Z88.8 Allergy status to other drugs, medicaments and biological substances; Z91.041 Radiographic dye allergy status; Z82.49 Family history of ischemic heart disease and other diseases of the circulatory system; Z83.79 Family history of other diseases of the digestive system

== ENCOUNTER 2017-08-02 19:06 | Emergency (ER) | payer BC ==
[~2017-08-02] VITALS: Ht 160 cm; Wt 79.0 kg
[~2017-08-02 19:06] MED LIST changes: +AZEL0.055 OP; -AZEL137S6 NAE; -FLUT0.0529 NAE; +FLUT0.15 NAE; +HYDR-5688 PO
[2017-08-02 19:10] VITALS: TEMP 37.3; Ht 160 cm; Wt 79.0 kg
[2017-08-02] MEDS ORDERED: SODIUM CHLORIDE 0.9% 1000ML 1,000 ML IV STA (19:34)
[2017-08-02] MEDS ORDERED: ACETAMINOPHEN 325 MG TAB PO STA (19:34)
[2017-08-02] MEDS ORDERED: ONDANSETRON INJ 2 MG/ML 2 ML VIAL IV STA (19:34)
[2017-08-02] MEDS ORDERED: DiphenhydrAMINE HCL 50 MG/ML VIAL IV STA (19:34)
[2017-08-02] MEDS ORDERED: OPTIRAY 320 IV PRN (19:45)
[2017-08-02] MEDS: FENTANYL CITRATE INJ 50 MCG/1 ML 2 ML VIAL IV ONE ×2 (19:45→20:32)
[2017-08-02 20:29] LABS: BASO % 0.6 %; BASO ABS # 0.04 K/uL (0-0.2); COMPLETE YES; EOS % 0.7 %; HEMATOCRIT 41.1 % (37-47); IG% 0.1 %; LYMPH % 21.7 %; LYMPH ABS # 1.47 K/uL (1.2-3.4); MEAN CELL VOLUME 90.1 fL (80-100); MEAN CORPUSCULAR HEMOGLOBIN 28.1 pg (25-34); MEAN CORPUSCULAR HGB CONC 31.1 g/dl (32-36); NEUT % 67.9 %; PLATELET COUNT 227 K/uL (130-400); RED BLOOD COUNT 4.56 M/uL (4.2-5.4); WHITE BLOOD COUNT 6.76 K/uL (4.8-10.8)
[2017-08-02 20:45] LABS: ALT/SGPT 17 U/L (12-78); AST/SGOT 23 U/L (15-37); BLOOD UREA NITROGEN 14 mg/dl (7-18); CALCIUM 9.8 mg/dl (8.5-10.1); CARBON DIOXIDE 26 mmol/L (21-32); CHLORIDE 104 mmol/L (98-107); GLUCOSE 82 mg/dl (70-99); POTASSIUM 3.4 mmol/L (3.5-5.1); SODIUM 141 mmol/L (136-145)
--- NOTE | 2017-08-02 20:48 | DIAGNOSTIC IMAGING REPORT ---
CHEST ONE VIEW PORTABLE CLINICAL HISTORY: ABDOMINAL PAIN/GI COMPARISON STUDY: 03/19/2016 FINDINGS: The bones soft tissues and hemidiaphragms are normal. The cardiomediastinal silhouette is normal. The lungs are clear. The pulmonary vasculature is normal. IMPRESSION: Negative chest. The above report was generated using voice recognition software. It may contain grammatical, syntax or spelling errors. Electronically signed by: Leopoldo Díaz M.D. 08/02/2017 8:47 PM Dictated Date/Time: 08/02/2017 8:47 PM
[2017-08-02 20:50] LABS: ALKALINE PHOSPHATASE 156 U/L (45-117)
[2017-08-02 20:52] LABS: URINE APPEARANCE CLEAR (CLEAR); URINE BILIRUBIN NEG (NEG); URINE COLOR YELLOW; URINE EPITHELIAL CELL AUTO >30 /lpf (0-5); URINE NITRITE NEG (NEG); URINE PH 5.5 (4.5-7.5); URINE SPECIFIC GRAVITY 1.017 (1.000-1.030); UROBILINOGEN NEG (NEG); ZZUR CULT IF INDIC CLEAN CATCH YES
[2017-08-02 20:56] LABS: MANUAL MICROSCOPIC REQUIRED? NO; REVIEW REQ? NO
[2017-08-02] MEDS ORDERED: NRN600 PO (20:56)
[2017-08-02] MEDS ORDERED: CEFTRIAXONE SOD INJ 1 GM ADDVIAL IV STA (21:05)
[2017-08-02] MEDS ORDERED: MoRPHine SULFATE 10 MG/ML CARP/VIAL IV STA (21:28)
--- NOTE | 2017-08-02 21:43 | DIAGNOSTIC IMAGING REPORT ---
ABD/PELVIS IV CONTRAST ONLY CT DOSE: 503.16 mGy.cm HISTORY: Pain LLQ pain, prior h/o fall w/ L hip pain, on Xarelto TECHNIQUE: Multiaxial CT images of the abdomen and pelvis were performed following the use of intravenous contrast. A dose lowering technique was utilized adhering to the principles of ALARA. COMPARISON STUDY: 07/09/2017 FINDINGS: Lung bases are clear. Stable nodular density right lung base. Measurements remain 7 mm. Stable biliary ductal distention. Prior cholecystectomy. Spleen is uniform. Mild cortical scarring of the kidneys bilaterally. No evidence for hydronephrosis. Bowel pattern is considered nonobstructive. Moderate wall thickening of the sigmoid colon with no significant evidence of pericolonic infiltrative change. Mild wall thickening of the mid to distal descending colon. IMPRESSION: 1. Chronic sigmoid and descending colonic diverticulosis. 2. No evidence for acute diverticulitis. 3. No evidence for abscess collection or obstruction. 4. Stable nodule right lung base. The above report was generated using voice recognition software. It may contain grammatical, syntax or spelling errors. Electronically signed by: Leopoldo Díaz M.D. 08/02/2017 9:42 PM Dictated Date/Time: 08/02/2017 9:34 PM
[2017-08-02] MEDS ORDERED: TRAMADOL HCL 50 MG TAB PO STA (22:19)
[2017-08-02] MEDS ORDERED: ACETAMINOPHEN/CODEINE 300/30MG TAB PO ONE (22:30)
[2017-08-02] MEDS ORDERED: CEPH-571 PO (22:36)
[2017-08-02] MEDS ORDERED: TRAM-10 PO (22:36)
--- NOTE | 2017-08-02 22:37 | EMERGENCY ROOM VISIT NOTE ---
History Report prepared by Lanie: Steven Vuogn Under the Supervision of: Dr. Vitaliy Ledesma M.D. First contact with patient: 19:15 Chief Complaint: HIP PAIN Stated Complaint: PAIN IN LEFT HIP History of Present Illness The patient is a 82 year old white female with a past medical history who presents to the ED with a cc of persistent left hip pain beginning four weeks ago. Pain radiates into thigh and side. Was seen in the ED four weeks ago for a fall and had negative x-rays. Pain worsened two days ago. Sees a nurse and physical therapist at her house. Positive diarrhea, non-productive cough and nausea. Symptoms began along with worsened pain two days ago. Negative vomiting. Denies any recent trauma since her initial fall. Denies recent travel or recent antibiotic use. On Xarelto for DVT and PE. Hx of diverticulitis. Source of History: patient Onset: Four weeks ago Position: pelvis (left hip) Timing: other (persistent) Associated Symptoms: + cough (non-productive), + nausea, + diarrhea, No vomiting Review of Systems See HPI for pertinent positives and negatives. A total of ten systems were reviewed and were otherwise negative. Past Medical & Surgical Medical Problems: (1) Acute on chronic renal insufficiency (2) Arthritis (3) C. difficile colitis (4) Chest wall contusion (5) Chest wall contusion (6) CKD (chronic kidney disease), stage III (7) Dehydration (8) Diverticulitis (9) Diverticulitis (10) Hypertension (11) IBS (irritable bowel syndrome) (12) Kidney stone (13) Monoclonal gammopathy (14) Near syncope (15) Nephrolithiasis (16) Right ventricular cardiac abnormality Surgical Problems: (1) Hx of cholecystectomy Family History Colon Polyp DAUGHTER (40s) Heart disease Hypertension Social History Smoking Status: Never Smoker Alcohol Use: none Drug Use: none Marital Status: Housing Status: lives with family Occupation Status: retired Current/Historical Medications Scheduled Cephalexin (Keflex), 1 CAP PO BID Cholecalciferol (Vitamin D3), 2,000 INTER.UNIT PO QAM Cyanocobalamin (Vitamin B-12), 2,500 MCG PO QAM Diltiazem Hcl Coated Beads (Diltiazem Cd), 300 MG PO QAM Gabapentin (Gabapentin), 600 MG PO DAILY Multivitamin (Multivitamin), 1 TAB PO QAM Rivaroxaban (Xarelto), 20 MG PO QPM Scheduled PRN Albuterol Hfa (Ventolin Hfa), 2-4 PUFFS INH Q6H PRN for Shortness of Breath Diphenoxylate W/ Atropine (Lomotil), 1 TAB PO UD PRN for Diarrhea Hydrocodone/Acetaminophen 5MG/325MG ([place] 5MG/325MG), 1 TAB PO TID PRN for back pain Lorazepam (Ativan), 0.5-1 MG PO BID PRN for Anxiety Tramadol (Ultram), 50 MG PO Q4H PRN for Pain Tramadol (Ultram), 25 MG PO Q8H PRN for Pain Miscellaneous Medications Fluticasone Propionate (Nasal) (Flonase Allergy Relief) Allergies Coded Allergies: Fentanyl and Related (Unverified Allergy, Intermediate, VERY SICK, 08/02/17 ) Iodinated Diagnostic Agents (Verified Allergy, Intermediate, HIVES, ) Dicyclomine (Unverified Allergy, Unknown, nausea, 07/09/17) Acetaminophen (Unverified Adverse Reaction, Intermediate, NAUSEA, DIARHHEA , 08/02/17) Oxycodone (Unverified Adverse Reaction, Intermediate, NAUSEA, DIARHHEA, ) Duloxetine (Verified Adverse Reaction, Mild, GI SYMPTOMS, 07/09/17) Headaches, Nauseated, Light Headed Fentanyl (Verified Adverse Reaction, Mild, GI SYMPTOMS, 07/09/17) Promethazine (Verified Adverse Reaction, Mild, MAKES HER LOOPY, 07/09/17) Sertraline (Verified Adverse Reaction, Mild, SHAKEY, 07/09/17) Physical Exam Vital Signs Date Time Temp Pulse Resp B/P (MAP) Pulse Ox O2 Delivery O2 Flow Rate FiO2 08/02/17 22:22 99 18 178/93 92 Room Air 08/02/17 21:15 100 20 175/99 93 Room Air 08/02/17 20:38 96 08/02/17 19:10 37.3 96 18 166/95 98 Room Air Physical Exam GENERAL: Awake, alert, well-appearing, NAD HENT: Normocephalic, atraumatic. EYES: Normal conjunctiva. Sclera non-icteric. NECK: Supple. No nuchal rigidity. FROM. RESPIRATORY: CTAB, no rhonchi, wheezing, crackles CARDIAC: RRR, no MRG ABDOMEN: Soft, ND, BS+. LLQ TTP. MSK: No chest wall TTP, no LE edema. Left hip tenderness. Pain with straight leg raise and external rotation of the left leg. NVI distally in the LLE. NEURO: GCS 15, CN 2-12 intact, moves all 4s on command SKIN: No rash or jaundice noted. No areas of ecchymosis or petechiae. Medical Decision & Procedures ER Provider Diagnostic Interpretation: Radiology results as stated below per my review and radiologist interpretation: ABD/PELVIS IV CONTRAST ONLY FINDINGS: Lung bases are clear. Stable nodular density right lung base. Measurements remain 7 mm. Stable biliary ductal distention. Prior cholecystectomy. Spleen is uniform. Mild cortical scarring of the kidneys bilaterally. No evidence for hydronephrosis. Bowel pattern is considered nonobstructive. Moderate wall thickening of the sigmoid colon with no significant evidence of pericolonic infiltrative change. Mild wall thickening of the mid to distal descending colon. IMPRESSION: 1. Chronic sigmoid and descending colonic diverticulosis. 2. No evidence for acute diverticulitis. 3. No evidence for abscess collection or obstruction. 4. Stable nodule right lung base. The above report was generated using voice recognition software. It may contain grammatical, syntax or spelling errors. Electronically signed by: Leopoldo Díaz M.D. 08/02/2017 9:42 PM CHEST ONE VIEW PORTABLE FINDINGS: The bones soft tissues and hemidiaphragms are normal. The cardiomediastinal silhouette is normal. The lungs are clear. The pulmonary vasculature is normal. IMPRESSION: Negative chest. The above report was generated using voice recognition software. It may contain grammatical, syntax or spelling errors. Electronically signed by: Leopoldo Díaz M.D. 08/02/2017 8:47 PM Laboratory Results 08/02/17 20:15 Red Blood Count 4.56, Mean Corpuscular Volume 90.1, Mean Corpuscular Hemoglobin 28.1, Mean Corpuscular Hemoglobin Concent 31.1, Mean Platelet Volume 10.0, Neutrophils (%) (Auto) 67.9, Lymphocytes (%) (Auto) 21.7, Monocytes (%) (Auto) 9.0, Eosinophils (%) (Auto) 0.7, Basophils (%) (Auto) 0.6, Neutrophils # (Auto) 4.58, Lymphocytes # (Auto) 1.47, Monocytes # (Auto) 0.61, Eosinophils # (Auto) 0.05, Basophils # (Auto) 0.04 08/02/17 20:15 Test 08/02/17 20:15 08/02/17 20:36 White Blood Count 6.76 K/uL (4.8-10.8) Red Blood Count 4.56 M/uL (4.2-5.4) Hemoglobin 12.8 g/dL (12.0-16.0) Hematocrit 41.1 % (37-47) Mean Corpuscular Volume 90.1 fL (80-100) Mean Corpuscular Hemoglobin 28.1 pg (25-34) Mean Corpuscular Hemoglobin Concent 31.1 g/dl (32-36) Platelet Count 227 K/uL (130-400) Mean Platelet Volume 10.0 fL (7.4-10.4) Neutrophils (%) (Auto) 67.9 % Lymphocytes (%) (Auto) 21.7 % Monocytes (%) (Auto) 9.0 % Eosinophils (%) (Auto) 0.7 % Basophils (%) (Auto) 0.6 % Neutrophils # (Auto) 4.58 K/uL (1.4-6.5) Lymphocytes # (Auto) 1.47 K/uL (1.2-3.4) Monocytes # (Auto) 0.61 K/uL (0.11-0.59) Eosinophils # (Auto) 0.05 K/uL (0-0.5) Basophils # (Auto) 0.04 K/uL (0-0.2) RDW Standard Deviation 47.0 fL (36.4-46.3) RDW Coefficient of Variation 14.3 % (11.5-14.5) Immature Granulocyte % (Auto) 0.1 % Immature Granulocyte # (Auto) 0.01 K/uL (0.00-0.02) Anion Gap 11.0 mmol/L (3-11) Est Creatinine Clear Calc Drug Dose 34.3 ml/min Estimated GFR () 44.9 Estimated GFR (Non- 38.7 BUN/Creatinine Ratio 11.0 (10-20) Calcium Level 9.8 mg/dl (8.5-10.1) Total Bilirubin 0.7 mg/dl (0.2-1) Direct Bilirubin 0.1 mg/dl (0-0.2) Aspartate Amino Transf (AST/SGOT) 23 U/L (15-37) Alanine Aminotransferase (ALT/SGPT) 17 U/L (12-78) Alkaline Phosphatase 156 U/L (45-117) Troponin I < 0.015 ng/ml (0-0.045) Total Protein 6.6 gm/dl (6.4-8.2) Albumin 3.4 gm/dl (3.4-5.0) Lipase 78 U/L (73-393) Urine Color YELLOW Urine Appearance CLEAR (CLEAR) Urine pH 5.5 (4.5-7.5) Urine Specific [place] 1.017 (1.000-1.030) Urine Protein NEG (NEG) Urine Glucose (UA) NEG (NEG) Urine Ketones 1+ (NEG) Urine Occult Blood NEG (NEG) Urine Nitrite NEG (NEG) Urine Bilirubin NEG (NEG) Urine Urobilinogen NEG (NEG) Urine Leukocyte Esterase MODERATE (NEG) Urine WBC (Auto) 10-30 /hpf (0-5) Urine RBC (Auto) 0-4 /hpf (0-4) Urine Hyaline Casts (Auto) 5-10 /lpf (0-5) Urine Epithelial Cells (Auto) >30 /lpf (0-5) Urine Bacteria (Auto) NEG (NEG) Laboratory results reviewed by me Medications Administered Medications (Trade) Dose Ordered Sig/Rossy Route Start Time Stop Time Status Last Admin Dose Admin Sodium Chloride 1,000 ml @ 999 mls/hr Q1H1M STAT IV 08/02/17 19:34 08/02/17 20:34 DC 08/02/17 20:30 999 MLS/HR Ondansetron HCl (Zofran Inj) 4 mg NOW STAT IV 08/02/17 19:34 08/02/17 19:37 DC 08/02/17 20:31 4 MG Acetaminophen (Tylenol Tab) 650 mg NOW STAT PO 08/02/17 19:34 08/02/17 19:37 DC 08/02/17 20:32 650 MG Diphenhydramine HCl (Benadryl Inj) 25 mg NOW STAT IV 08/02/17 19:34 08/02/17 19:37 DC 08/02/17 20:31 25 MG Ceftriaxone Sodium (Rocephin Inj) 1 gm NOW STAT IV 08/02/17 21:05 08/02/17 21:06 DC 08/02/17 21:17 1 GM Morphine Sulfate (MoRPHine SULFATE INJ) 6 mg NOW STAT IV 08/02/17 21:28 08/02/17 21:29 DC 08/02/17 21:39 6 MG Tramadol HCl (Ultram Tab) 25 mg NOW STAT PO 08/02/17 22:19 08/02/17 22:20 DC 08/02/17 22:29 25 MG Acetaminophen/ Codeine Phosphate (Tylenol w/ Codeine #3 Tab) 1 tab NOW ONCE PO 08/02/17 22:30 08/02/17 22:31 DC 08/02/17 22:28 1 TAB ECG Indication: nausea Rate (beats per minute): 93 Rhythm: normal sinus Findings: RBBB, T-wave inversion (V1-V3, Lead 3 and AVF. ), other (Widened QRS) Comparison ECG Date: March 04, 2016 Change: no significant change ED Course 1920: The patient was evaluated in room C11B. A complete history and physical exam was performed. 2234: I reevaluated the patient. Discussed results and discharge instructions: she verbalized understanding and agreement. The patient is ready for discharge. Medical Decision The patient is a 82 year old white female with a past medical history who presents to the ED with a cc of persistent left hip pain beginning four weeks ago. Differential diagnosis: Etiologies such as fracture, dislocation, neurovascular compromise, compartment syndrome, soft tissue injury, as well as others were entertained. Patient was seen and evaluated at the bedside. Patient did have a prior fall approximately 1 month prior. Patient was still complaining of some mild left hip and left lower quadrant pain. Patient does have a history of diverticulitis. Patient said some mild diarrhea but without any blood. Patient had labs EKG troponin chest x-ray and CT of the abdomen pelvis. Patient 's pain improved. Patient's CT was negative. No diverticulitis and no blood within bellies given the prior history of Xarelto. Patient's labs are fairly unremarkable. Patient's UA questions infected. Patient was given antibiotics. Patient EKG no acute changes. Patient troponin negative. Patient was given strict follow-up, discharge, return precautions. Patient agreed with plan of care patient was safely discharged home. Medication Reconcilliation Current Medication List: was personally reviewed by me Blood Pressure Screening Patient's blood pressure: Elevated blood pressure Blood pressure disposition: Referred to PCP Impression Primary Impression: Left hip pain Additional Impression: UTI (urinary tract infection) Scribe Attestation The scribe's documentation has been prepared under my direction and personally reviewed by me in its entirety. I confirm that the note above accurately reflects all work, treatment, procedures, and medical decision making performed by me. Departure Information Dispostion Home / Self-Care Prescriptions Cephalexin (KEFLEX) 500 Mg Cap 1 CAP PO BID for 7 Days, #14 CAP Prov: Vitaliy Ledesma M.D. 08/02/17 Tramadol (Ultram) 50 Mg Tab 25 MG PO Q8H Y for Pain, #21 TAB Prov: Vitaliy Ledesma M.D. 08/02/17 Referrals Christiane Islas D.O. (PCP) Patient Instructions ED Sprain Hip, ED UTI Cystitis Female, Exercises Back Hip Lift, My [facility] Additional Instructions Please return to the emergency department if you have worsening or recurrent symptoms not amenable to at-home treatment. Please call for a follow-up appointment with her primary care physician. Please take your medications as prescribed. If you have other concerns and/or complaints please feel free to also call your primary care physician's office or return the ED for further evaluation, management, and treatment. You received narcotic or benzodiazepene medication while in the emergency room today. This is an addictive medication that may cause drowziness as well as constipation. Do not drive, operate heavy machinery, or drink alcohol under the influence of this medication. You may take tylenol 650 mg every 6 hours as needed for pain. Take tramadol for breakthrough pain. You have been examined and treated today on an emergency basis only. This is not a substitute for, or an effort to provide, complete comprehensive medical care. It is impossible to recognize and treat all injuries or illnesses in a single emergency department visit. It is therefore important that you follow up closely with [facility]. Call as soon as possible for an appointment. Thank you for your time and consideration. I look forward to speaking with you again soon. Please don't hesitate to call us if you have any questions. Problem Qualifiers Additional Impression: UTI (urinary tract infection) Urinary tract infection type: acute cystitis Hematuria presence: without hematuria Qualified Codes: N30.00 - Acute cystitis without hematuria
[2017-08-02 23:03] VITALS: BP 147/95; PULSE 101; O2SAT 92
[2017-08-07] MEDS ORDERED: ACET-1047 PO (13:29)
[2017-08-07] MEDS ORDERED: QSTP PO (13:29)
[2017-08-07] MEDS ORDERED: LORA-741 PO (13:29)
[2017-08-07] MEDS ORDERED: VNCS125 PO (13:29)
[2017-08-07] MEDS ORDERED: SACC250C3 PO (13:29)
[2017-08-07] MEDS ORDERED: TRAM-10 PO (13:29)
== END 2017-08-02 23:05 | disposition home or self-care (01) ==
LOC: C.EDB 19:07 → C.EDC 23:05
DX: M25.552 Pain in left hip (principal); N30.00 Acute cystitis without hematuria; Z86.718 Personal history of other venous thrombosis and embolism; Z86.711 Personal history of pulmonary embolism; M19.90 Unspecified osteoarthritis, unspecified site; N28.9 Disorder of kidney and ureter, unspecified; N18.3 Chronic kidney disease, stage 3 (moderate); K57.92 Diverticulitis of intestine, part unspecified, without perforation or abscess without bleeding; Z87.442 Personal history of urinary calculi; I12.9 Hypertensive chronic kidney disease with stage 1 through stage 4 chronic kidney disease, or unspecified chronic kidney disease; K58.9 Irritable bowel syndrome, unspecified; Z82.49 Family history of ischemic heart disease and other diseases of the circulatory system; Z79.899 Other long term (current) drug therapy; Z79.01 Long term (current) use of anticoagulants

== ENCOUNTER 2017-08-04 18:31 | Inpatient (IN) | payer BC, OTHER ==
[~2017-08-04] VITALS: Ht 160 cm; Wt 80.0 kg
[~2017-08-04 18:31] MED LIST changes: -AZEL0.055 OP; +CEPH-571 PO; +NRN600 PO
[2017-08-04] MEDS ORDERED: ONDANSETRON INJ 2 MG/ML 2 ML VIAL IV STA (19:59)
[2017-08-04] MEDS ORDERED: SODIUM CHLORIDE 0.9% 500ML 500 ML IV STA (19:59)
[2017-08-04] MEDS ORDERED: HYDROmorphone INJ 0.5 MG/0.5 ML SYR IV STA (19:59)
--- NOTE | 2017-08-04 20:15 | EMERGENCY ROOM VISIT NOTE ---
History Report prepared by Lanie: Adriana Boudreaux Under the Supervision of: Dr. Gustavo Altamirano M.D. First contact with patient: 19:52 Chief Complaint: NAUSEA Stated Complaint: NAUSEA, DIARRHEA History of Present Illness The patient is an 82 year old female who presents to the Emergency Room with complaints of persistent nausea starting 2 days ago. She is vomiting. She is unable to keep her medications down. She has also had diarrhea. She denies any abdominal pain. The patient was seen in the ED 2 days ago for hip pain. She was discharged on antibiotics for a UTI. She fell 4 weeks ago and has been having hip pain since. She has had imaging which did not show any fractures. She feels that there is something more wrong with her hip due to the persistent pain. She has taken oxycodone and hydrocodone for her pain since June. She is no longer taking either oxycodone or hydrocodone. Her thinks that the patient is having withdrawal symptoms. She is on Xarelto for a history of blood clots. Source of History: patient, spouse/significant other Onset: 2 days ago Position: other (global) Quality: other (nausea) Timing: other (persistent) Associated Symptoms: + vomiting, + diarrhea, No abdominal pain Note: Pt reports hip pain. Review of Systems See HPI for pertinent positives & negatives. A total of 10 systems reviewed and were otherwise negative. Past Medical & Surgical Medical Problems: (1) Acute on chronic renal insufficiency (2) Arthritis (3) C. difficile colitis (4) Chest wall contusion (5) Chest wall contusion (6) CKD (chronic kidney disease), stage III (7) Dehydration (8) Diverticulitis (9) Diverticulitis (10) Hypertension (11) IBS (irritable bowel syndrome) (12) Kidney stone (13) Monoclonal gammopathy (14) Near syncope (15) Nephrolithiasis (16) Right ventricular cardiac abnormality Surgical Problems: (1) Hx of cholecystectomy Family History Colon Polyp DAUGHTER (40s) Heart disease Hypertension Social History Smoking Status: Never Smoker Alcohol Use: none Drug Use: none Marital Status: Housing Status: lives with family Occupation Status: retired Current/Historical Medications Scheduled Azelastine Hcl-Fluticasone Pro (Dymista), 1 SPRY MAYDA BID Cephalexin (Keflex), 1 CAP PO BID Cholecalciferol (Vitamin D3), 2,000 INTER.UNIT PO QAM Cyanocobalamin (Vitamin B-12), 2,500 MCG PO QAM Diltiazem Hcl Coated Beads (Diltiazem Cd), 300 MG PO QAM Fluticasone Propionate (Nasal) (Flonase Allergy Relief), 2 SPRAYS MAYDA BID Gabapentin (Neurontin), 200 MG PO TID Gabapentin (Neurontin), 600 MG PO BID Metronidazole (Flagyl), 500 MG PO TID Multivitamin (Multivitamin), 1 TAB PO QAM Rivaroxaban (Xarelto), 20 MG PO QPM Scheduled PRN Albuterol Hfa (Ventolin Hfa), 2-4 PUFFS INH Q6H PRN for Shortness of Breath Diphenoxylate W/ Atropine (Lomotil), 1 TAB PO UD PRN for Diarrhea Hydrocodone/Acetaminophen 5MG/325MG ([place] 5MG/325MG), 1 TAB PO TID PRN for back pain Hydrocodone/Acetaminophen 7.5MG/325MG ([place] 7.5MG/325MG), 1 TAB PO TID PRN for Pain Lorazepam (Ativan), 0.5-1 MG PO BID PRN for Anxiety Oxycodone/Acetaminophen 5MG/325MG (Percocet 5MG/325MG), 1-2 TAB PO Q4H PRN for Pain Tramadol (Ultram), 50 MG PO Q4H PRN for Pain Tramadol (Ultram), 25 MG PO Q8H PRN for Pain Allergies Coded Allergies: Fentanyl and Related (Unverified Allergy, Intermediate, VERY SICK, 08/02/17 ) Iodinated Diagnostic Agents (Verified Allergy, Intermediate, HIVES, ) Dicyclomine (Unverified Allergy, Unknown, nausea, 07/09/17) Acetaminophen (Unverified Adverse Reaction, Intermediate, NAUSEA, DIARHHEA , 08/02/17) Oxycodone (Unverified Adverse Reaction, Intermediate, NAUSEA, DIARHHEA, ) Duloxetine (Verified Adverse Reaction, Mild, GI SYMPTOMS, 07/09/17) Headaches, Nauseated, Light Headed Fentanyl (Verified Adverse Reaction, Mild, GI SYMPTOMS, 07/09/17) Promethazine (Verified Adverse Reaction, Mild, MAKES HER LOOPY, 07/09/17) Sertraline (Verified Adverse Reaction, Mild, BASIL, 07/09/17) Physical Exam Vital Signs Date Time Temp Pulse Resp B/P (MAP) Pulse Ox O2 Delivery O2 Flow Rate FiO2 08/05/17 00:10 90 16 120/71 98 Room Air 08/04/17 22:11 92 20 195/97 94 Room Air 08/04/17 20:43 93 20 157/99 99 Room Air 08/04/17 20:43 95 08/04/17 18:41 36.8 87 22 174/99 99 Room Air Physical Exam GENERAL: Patient is a healthy-appearing well-nourished female HEAD: Normocephalic atraumatic EYES: Ocular movements intact pupils equal and react to light OROPHARYNX mucous membranes are moist no exudates present no erythema or edema present NECK: Supple no nuchal rigidity CHEST: Good equal expansion LUNGS: Clear and equal to auscultation CARDIAC: Normal S1 and S2 ABDOMEN: Soft nontender no guarding BACK: No CVA tenderness EXTREMITIES: No pain upon palpation normal muscle strength in all groups no clubbing cyanosis or edema. Good ROM of the left hip, left knee, left ankle. Neurovascularly intact. NEURO: Patient is following commands and answering questions appropriately. Alert and oriented x3 Cranial Nerves 2-12 grossly intact Medical Decision & Procedures ER Provider Diagnostic Interpretation: X-ray results as stated below per interpretation by me and the radiologist. Radiology results as stated below per my review and radiologist interpretation: PELVIS 1 OR 2 VIEW ROUTINE CLINICAL HISTORY: 82 years-old Female presenting with Pt c/o left hip pain. TECHNIQUE: Single frontal view of the pelvis was obtained. COMPARISON: Correlation made to CT of the abdomen and pelvis performed on 08/02/2017. FINDINGS: Osseous pelvis is intact. Degenerative changes of the pubic symphysis and lower lumbar spine. Hip joints congruent. Mild degenerative changes of the hips may be present. No joint space loss. IMPRESSION: No acute osseous injury of the pelvis. Mild degenerative changes of the left hip may be present. Electronically signed by: Manuel Fletcher M.D. 08/04/2017 8:45 PM Dictated Date/Time: 08/04/2017 8:43 PM L FEMUR 2 VIEWS ROUTINE CLINICAL HISTORY: 82 years-old Female presenting with Pt c/o left hip pain, fall one month ago, unable to bear weight. TECHNIQUE: Frontal and lateral views of the left femur were obtained. COMPARISON: 07/09/2017. FINDINGS: Left hip joint and knee joint congruent. Mild degenerative changes of the left hip joint suggested. No acute fracture or malalignment. More significant tricompartmental degenerative changes of the knee joint evident. IMPRESSION: 1. No acute osseous injury of the left femur. 2. Degenerative changes of the left knee. Electronically signed by: Manuel Fletcher M.D. 08/04/2017 8:47 PM Dictated Date/Time: 08/04/2017 8:45 PM PELVIS NO IV/ORAL CONT (CT) CLINICAL HISTORY: 82 years-old Female presenting with Pt c/o left hip pain. TECHNIQUE: Multidetector CT of the pelvis was performed without the use of intravenous contrast. IV contrast: None. A dose lowering technique was used consistent with the principles of ALARA (as low as reasonably achievable). COMPARISON: CT of the abdomen and pelvis from 08/02/2017. CT DOSE (mGy.cm): The estimated cumulative dose is 701.96 mGycm. FINDINGS: Product Mgr topogram: Unremarkable. Acute nondisplaced fracture of the superior and inferior left pubic rami subjacent to the pubic symphysis. In retrospect, this was present on the prior CT from 08/02/2017. Minimal extraperitoneal hemorrhage may be present along the superior aspect of the pubic symphysis. Sclerosis in the mid left inferior pubic ramus may suggest a second nondisplaced fracture, which may be acute or subacute (series 2 image 193). Adjacent ossification within the origin of the obturator externus may represent myositis ossificans. Degenerative changes of the lower lumbar spine. Sacroiliac joints and pubic symphysis congruent. Hip joints congruent. Mild degenerative changes of the hips may be present. No femoral neck fracture. Soft tissues of the pelvis demonstrate diverticulosis of the sigmoid colon. Normal noncontrast appearance of the uterus and ovaries. No free fluid in the pelvis. No inflammatory change. IMPRESSION: 1. Acute nondisplaced fracture of the superior and inferior left pubic rami subjacent to the pubic symphysis. A second fracture in the mid left inferior pubic ramus may be acute or subacute. Electronically signed by: Manuel Fletcher M.D. 08/04/2017 9:55 PM Dictated Date/Time: 08/04/2017 9:48 PM Laboratory Results 08/04/17 20:00 Red Blood Count 4.36, Mean Corpuscular Volume 90.1, Mean Corpuscular Hemoglobin 28.9, Mean Corpuscular Hemoglobin Concent 32.1, Mean Platelet Volume 10.0, Neutrophils (%) (Auto) 64.3, Lymphocytes (%) (Auto) 23.1, Monocytes (%) (Auto) 11.6, Eosinophils (%) (Auto) 0.4, Basophils (%) (Auto) 0.3, Neutrophils # (Auto ) 4.42, Lymphocytes # (Auto) 1.59, Monocytes # (Auto) 0.80, Eosinophils # (Auto ) 0.03, Basophils # (Auto) 0.02 08/04/17 20:00 Test 08/04/17 20:00 08/04/17 20:40 White Blood Count 6.88 K/uL (4.8-10.8) Red Blood Count 4.36 M/uL (4.2-5.4) Hemoglobin 12.6 g/dL (12.0-16.0) Hematocrit 39.3 % (37-47) Mean Corpuscular Volume 90.1 fL (80-100) Mean Corpuscular Hemoglobin 28.9 pg (25-34) Mean Corpuscular Hemoglobin Concent 32.1 g/dl (32-36) Platelet Count 225 K/uL (130-400) Mean Platelet Volume 10.0 fL (7.4-10.4) Neutrophils (%) (Auto) 64.3 % Lymphocytes (%) (Auto) 23.1 % Monocytes (%) (Auto) 11.6 % Eosinophils (%) (Auto) 0.4 % Basophils (%) (Auto) 0.3 % Neutrophils # (Auto) 4.42 K/uL (1.4-6.5) Lymphocytes # (Auto) 1.59 K/uL (1.2-3.4) Monocytes # (Auto) 0.80 K/uL (0.11-0.59) Eosinophils # (Auto) 0.03 K/uL (0-0.5) Basophils # (Auto) 0.02 K/uL (0-0.2) RDW Standard Deviation 47.2 fL (36.4-46.3) RDW Coefficient of Variation 14.3 % (11.5-14.5) Immature Granulocyte % (Auto) 0.3 % Immature Granulocyte # (Auto) 0.02 K/uL (0.00-0.02) Prothrombin Time 14.5 SECONDS (9.0-12.0) Prothromb Time International Ratio 1.3 (0.9-1.1) Anion Gap 15.0 mmol/L (3-11) Est Creatinine Clear Calc Drug Dose 37.4 ml/min Estimated GFR () 49.4 Estimated GFR (Non- 42.7 BUN/Creatinine Ratio 8.5 (10-20) Calcium Level 10.0 mg/dl (8.5-10.1) Total Bilirubin 0.6 mg/dl (0.2-1) Direct Bilirubin 0.2 mg/dl (0-0.2) Aspartate Amino Transf (AST/SGOT) 31 U/L (15-37) Alanine Aminotransferase (ALT/SGPT) 23 U/L (12-78) Alkaline Phosphatase 151 U/L (45-117) Total Protein 6.9 gm/dl (6.4-8.2) Albumin 3.6 gm/dl (3.4-5.0) Lipase 80 U/L (73-393) Urine Color DK YELLOW Urine Appearance CLEAR (CLEAR) Urine pH 5.5 (4.5-7.5) Urine Specific [place] 1.023 (1.000-1.030) Urine Protein 1+ (NEG) Urine Glucose (UA) NEG (NEG) Urine Ketones 3+ (NEG) Urine Occult Blood TRACE (NEG) Urine Nitrite NEG (NEG) Urine Bilirubin NEG (NEG) Urine Urobilinogen NEG (NEG) Urine Leukocyte Esterase NEG (NEG) Urine WBC (Auto) 1-5 /hpf (0-5) Urine RBC (Auto) 0-4 /hpf (0-4) Urine Hyaline Casts (Auto) 5-10 /lpf (0-5) Urine Epithelial Cells (Auto) >30 /lpf (0-5) Urine Bacteria (Auto) NEG (NEG) Urine Pathogenic Casts /lpf (0) Date/Time Source Procedure Growth Status 08/04/17 20:40 Stool C.difficile Toxin B Gene (PCR) - Final Positive for C. difficile toxin B gene Complete Labs reviewed by ED physician. Medications Administered Medications (Trade) Dose Ordered Sig/Rossy Route Start Time Stop Time Status Last Admin Dose Admin Sodium Chloride 500 ml @ 999 mls/hr Q31M STAT IV 08/04/17 19:59 08/04/17 20:29 DC 08/04/17 20:05 999 MLS/HR Hydromorphone HCl (Dilaudid Inj) 0.5 mg NOW STAT IV 08/04/17 19:59 08/04/17 20:02 DC 08/04/17 20:06 0.5 MG Ondansetron HCl (Zofran Inj) 4 mg NOW STAT IV 08/04/17 19:59 08/04/17 20:02 DC 08/04/17 20:06 4 MG Promethazine HCl 25 mg/Sodium Chloride 51 ml @ 204 mls/hr NOW STAT IV 08/04/17 21:30 08/04/17 21:44 DC 08/04/17 22:08 204 MLS/HR Metronidazole (Flagyl Tab) 500 mg NOW STAT PO 08/04/17 22:15 08/04/17 22:17 DC 08/04/17 22:50 500 MG ED Course 1953: Past medical records reviewed. The patient was evaluated in room B11B. A complete history and physical examination was performed. 1958: Zofran Inj 4 mg IV, Dilaudid Inj 0.5 mg IV, NSS 500 ml @ 999 mls/hr IV. 2129: Promethazine HCl 25 mg/Sodium Chloride 51 ml @ 204 mls/hr IV. 2214: Flagyl Tab 500 mg PO. 8: Upon reexamination the patient is resting comfortably. I discussed results and treatment plan with the patient. She verbalizes agreement and understanding. The patient will be evaluated for further management. 2235: I discussed the patient's case with Dr. Smith, [facility] [place], he has agreed to evaluate the patient for further management and care. 2334: Dr. Smith has evaluated the patient. He states that the patient would like to be discharged home and he believes that it is safe to do so. The patient will be discharged home. Medical Decision Differential diagnosis: Etiologies such as fracture, dislocation, neurovascular compromise, compartment syndrome, soft tissue injury, as well as others were entertained. This is an 82-year-old female who presents emergency department complaining of left hip pain. The patient has had multiple CAT scans. I first are with x- rays of the pelvis and femur which did not show any acute process. Because the patient continue to complain of pain I did send her for CAT scan of the pelvis. This was concerning for a pubic rami fracture. In addition the patient's stool is also positive for C. difficile. Based on post of these problems I recommended that the patient be admitted to the hospital. Medication Reconcilliation Current Medication List: was personally reviewed by me Blood Pressure Screening Patient's blood pressure: Elevated blood pressure Blood pressure disposition: Referred to PCP Consults Time Called: 2229 Consulting Physician: Dr. Smith, [facility] hospital[place] [facility] Returned Call: 2234 I discussed the patient's case with Dr. Smith, [facility] hospitalist service. He has agreed to evaluate the patient for further management and care. Impression Primary Impression: Pelvis fracture Additional Impression: C. difficile colitis Scribe Attestation The scribe's documentation has been prepared under my direction and personally reviewed by me in its entirety. I confirm that the note above accurately reflects all work, treatment, procedures, and medical decision making performed by me. Departure Information Dispostion Home / Self-Care Prescriptions Metronidazole (Flagyl) 500 Mg Tab 500 MG PO TID for 14 Days, #42 TAB Prov: Gustavo Altamirano MD 08/04/17 Oxycodone/Acetaminophen 5MG/325MG (PERCOCET 5MG/325MG) Tab 1-2 TAB PO Q4H Y for Pain, #14 TAB Prov: Gustavo Altamirano MD 08/04/17 Referrals No Doctor, Assigned (PCP) Christiane Islas D.O. [place], Douglas, M.D. Forms HOME CARE DOCUMENTATION FORM, IMPORTANT VISIT INFORMATION Patient Instructions Clostridium Difficile Toxin Stool, ED Fx Pelvis, My [facility] Additional Instructions Need follow up with Dr Bishop's office You were found to have an elevated blood pressure today (>120 sytolic or >90 diastolic). Per medicare guidelines, you need to follow up with this blood pressure screening with your Primary Care Physician (PCP). For a new PCP call [phone]. You received narcotic or benzodiazepene medication while in the emergency room today. This is an addictive medication that may cause drowziness as well as constipation. Do not drive, operate heavy machinery, or drink alcohol under the influence of this medication. Take Percocet for breakthrough pain You have been examined and treated today on an emergency basis only. This is not a substitute for, or an effort to provide, complete comprehensive medical care. It is impossible to recognize and treat all injuries or illnesses in a single emergency department visit. It is therefore important that you follow up closely with Dr Islas. Call as soon as possible for an appointment. Thank you for your time and consideration. I look forward to speaking with you again soon. Please don't hesitate to call us if you have any questions. Problem Qualifiers Primary Impression: Pelvis fracture Encounter type: initial encounter Pelvic bone location: unspecified part of pelvis Fracture type: closed Fracture alignment: nondisplaced Qualified Codes: S32.9XXA - Fracture of unspecified parts of lumbosacral spine and pelvis , initial encounter for closed fracture
[2017-08-04 20:16] LABS: BASO % 0.3 %; BASO ABS # 0.02 K/uL (0-0.2); COMPLETE YES; EOS % 0.4 %; HEMATOCRIT 39.3 % (37-47); IG% 0.3 %; LYMPH % 23.1 %; LYMPH ABS # 1.59 K/uL (1.2-3.4); MEAN CELL VOLUME 90.1 fL (80-100); MEAN CORPUSCULAR HEMOGLOBIN 28.9 pg (25-34); MEAN CORPUSCULAR HGB CONC 32.1 g/dl (32-36); MONO % 11.6 %; NEUT % 64.3 %; PLATELET COUNT 225 K/uL (130-400); RED BLOOD COUNT 4.36 M/uL (4.2-5.4); WHITE BLOOD COUNT 6.88 K/uL (4.8-10.8)
[2017-08-04] MEDS ORDERED: HYDR-3983 PO (20:22)
[2017-08-04] MEDS ORDERED: GABA1CAP PO (20:28)
[2017-08-04] MEDS ORDERED: GABA-113 PO (20:30)
[2017-08-04] MEDS ORDERED: AZEL30SP NAE (20:35)
--- NOTE | 2017-08-04 20:46 | DIAGNOSTIC IMAGING REPORT ---
PELVIS 1 OR 2 VIEW ROUTINE CLINICAL HISTORY: 82 years-old Female presenting with Pt c/o left hip pain. TECHNIQUE: Single frontal view of the pelvis was obtained. COMPARISON: Correlation made to CT of the abdomen and pelvis performed on 08/02/2017. FINDINGS: Osseous pelvis is intact. Degenerative changes of the pubic symphysis and lower lumbar spine. Hip joints congruent. Mild degenerative changes of the hips may be present. No joint space loss. IMPRESSION: No acute osseous injury of the pelvis. Mild degenerative changes of the left hip may be present. Electronically signed by: Manuel Fletcher M.D. 08/04/2017 8:45 PM Dictated Date/Time: 08/04/2017 8:43 PM
--- NOTE | 2017-08-04 20:48 | DIAGNOSTIC IMAGING REPORT ---
L FEMUR 2 VIEWS ROUTINE CLINICAL HISTORY: 82 years-old Female presenting with Pt c/o left hip pain, fall one month ago, unable to bear weight. TECHNIQUE: Frontal and lateral views of the left femur were obtained. COMPARISON: 07/09/2017. FINDINGS: Left hip joint and knee joint congruent. Mild degenerative changes of the left hip joint suggested. No acute fracture or malalignment. More significant tricompartmental degenerative changes of the knee joint evident. IMPRESSION: 1. No acute osseous injury of the left femur. 2. Degenerative changes of the left knee. Electronically signed by: Manuel Fletcher M.D. 08/04/2017 8:47 PM Dictated Date/Time: 08/04/2017 8:45 PM
[2017-08-04 20:52] LABS: BUN/CREATININE RATIO 8.5 (10-20); CREATININE 1.2 mg/dl (0.60-1.20); POTASSIUM 3.1 mmol/L (3.5-5.1)
[2017-08-04 21:11] LABS: URINE APPEARANCE CLEAR (CLEAR); URINE COLOR DK YELLOW; URINE EPITHELIAL CELL AUTO >30 /lpf (0-5); URINE NITRITE NEG (NEG); URINE PH 5.5 (4.5-7.5); URINE SPECIFIC GRAVITY 1.023 (1.000-1.030); UROBILINOGEN NEG (NEG)
[2017-08-04 21:16] LABS: MANUAL MICROSCOPIC REQUIRED? NO; REVIEW REQ? YES; URINE BILIRUBIN NEG (NEG)
[2017-08-04] MEDS ORDERED: PROMETHAZINE HCL INJ 25 MG in SODIUM CHLORIDE 0.9% 50ML 50 ML IV STA (21:30)
--- NOTE | 2017-08-04 21:57 | DIAGNOSTIC IMAGING REPORT ---
PELVIS NO IV/ORAL CONT (CT) CLINICAL HISTORY: 82 years-old Female presenting with Pt c/o left hip pain. TECHNIQUE: Multidetector CT of the pelvis was performed without the use of intravenous contrast. IV contrast: None. A dose lowering technique was used consistent with the principles of ALARA (as low as reasonably achievable). COMPARISON: CT of the abdomen and pelvis from 08/02/2017. CT DOSE (mGy.cm): The estimated cumulative dose is 701.96 mGycm. FINDINGS: [employer] [place] topogram: Unremarkable. Acute nondisplaced fracture of the superior and inferior left pubic rami subjacent to the pubic symphysis. In retrospect, this was present on the prior CT from 08/02/2017. Minimal extraperitoneal hemorrhage may be present along the superior aspect of the pubic symphysis. Sclerosis in the mid left inferior pubic ramus may suggest a second nondisplaced fracture, which may be acute or subacute (series 2 image 193). Adjacent ossification within the origin of the obturator externus may represent myositis ossificans. Degenerative changes of the lower lumbar spine. Sacroiliac joints and pubic symphysis congruent. Hip joints congruent. Mild degenerative changes of the hips may be present. No femoral neck fracture. Soft tissues of the pelvis demonstrate diverticulosis of the sigmoid colon. Normal noncontrast appearance of the uterus and ovaries. No free fluid in the pelvis. No inflammatory change. IMPRESSION: 1. Acute nondisplaced fracture of the superior and inferior left pubic rami subjacent to the pubic symphysis. A second fracture in the mid left inferior pubic ramus may be acute or subacute. Electronically signed by: Manuel Fletcher M.D. 08/04/2017 9:55 PM Dictated Date/Time: 08/04/2017 9:48 PM
[2017-08-04] MEDS ORDERED: METRONIDAZOLE 250 MG TAB PO STA (22:15)
[2017-08-04 22:45] LABS: INR 1.3 (0.9-1.1); PROTHROMBIN TIME (PATIENT) 14.5 SECONDS (9.0-12.0)
[2017-08-04] MEDS ORDERED: METR-163 PO (23:37)
[2017-08-04] MEDS ORDERED: OXYC-57 PO (23:37)
[2017-08-05] MEDS ORDERED: ALBUTEROL HFA 8 GM INHALER INH PRN (00:30)
[2017-08-05] MEDS ORDERED: LORAZEPAM 0.5 MG TAB PO PRN (00:30)
[2017-08-05] MEDS ORDERED: ALUMINUM/MAGNESIUM/SIMETH (MAALOX MAX) 30 ML UDC PO PRN (00:30)
[2017-08-05] MEDS ORDERED: ACETAMINOPHEN 325 MG TAB PO PRN (00:30)
--- NOTE | 2017-08-05 00:48 | History and Physical ---
History & Physical Date & Time of Service: Aug 05, 2017 at 00:21 Chief Complaint: Nausea, Diarrhea Primary Care Physician: Christiane Islas D.O. History of Present Illness Source: patient 82 y/o F Hx PE, HTN, renal calculi, CKD III, IBS - pt suffered a fall 3 days prior and has presented to the ER on 2 previous occasions c/o pelvic pain. An XR proved negative. She had a + UA and was discharged form the ER with a course of antibiotics. The pt presents to the ER once again with a complaint of worsening pelvic pain, difficulty ambulating and diarrhea. She denies fevers , vomiting or dysuria. She does state that she feels nauseous after taking her antibiotics. She was sent for a CT of the pelvis which revealed acute nondisplaced fractures of the superior and inferior left pubic rami and a second fracture in the mid left inferior pubic ramus. A stool sample proved + for C diff. The pt is able to ambulate with assistance and a walker, however, she is looked after by an elderly who is having difficulty with her current diarrhea and poor mobility. She is requesting placement in a rehab facility. Past Medical/Surgical History Medical Problems: (1) Arthritis Status: Chronic (2) Chest wall contusion Status: Resolved (3) Chest wall contusion Status: Resolved (4) Dehydration Status: Resolved (5) Diverticulitis Status: Resolved (6) Diverticulitis Status: Resolved (7) Hypertension Status: Chronic (8) IBS (irritable bowel syndrome) Status: Resolved (9) Kidney stone Status: Resolved (10) Near syncope Status: Resolved (11) Nephrolithiasis Status: Resolved Surgical Problems: (1) Hx of cholecystectomy Status: Resolved Family History Colon Polyp DAUGHTER (40s) Heart disease Hypertension Social History Smoking Status: Never Smoker Drug Use: none Marital Status: Occupational Status: retired Immunizations History of Influenza Vaccine: Yes History of Tetanus Vaccine?: No History of Pneumococcal: No History of Hepatitis B Vaccine: No Multi-Drug Resistant Organisms History of MDRO: No Allergies Coded Allergies: Fentanyl and Related (Unverified Allergy, Intermediate, VERY SICK, 08/02/17 ) Iodinated Diagnostic Agents (Verified Allergy, Intermediate, HIVES, ) Dicyclomine (Unverified Allergy, Unknown, nausea, 07/09/17) Acetaminophen (Unverified Adverse Reaction, Intermediate, NAUSEA, DIARHHEA , 08/02/17) Oxycodone (Unverified Adverse Reaction, Intermediate, NAUSEA, DIARHHEA, ) Duloxetine (Verified Adverse Reaction, Mild, GI SYMPTOMS, 07/09/17) Headaches, Nauseated, Light Headed Fentanyl (Verified Adverse Reaction, Mild, GI SYMPTOMS, 07/09/17) Promethazine (Verified Adverse Reaction, Mild, MAKES HER LOOPY, 07/09/17) Sertraline (Verified Adverse Reaction, Mild, SHAKEY, 07/09/17) Home Medications Scheduled Azelastine Hcl-Fluticasone Pro (Dymista), 1 SPRY MAYDA BID Cephalexin (Keflex), 1 CAP PO BID Cholecalciferol (Vitamin D3), 2,000 INTER.UNIT PO QAM Cyanocobalamin (Vitamin B-12), 2,500 MCG PO QAM Diltiazem Hcl Coated Beads (Diltiazem Cd), 300 MG PO QAM Fluticasone Propionate (Nasal) (Flonase Allergy Relief), 2 SPRAYS MAYDA BID Gabapentin (Neurontin), 200 MG PO TID Gabapentin (Neurontin), 600 MG PO BID Metronidazole (Flagyl), 500 MG PO TID Multivitamin (Multivitamin), 1 TAB PO QAM Rivaroxaban (Xarelto), 20 MG PO QPM Scheduled PRN Albuterol Hfa (Ventolin Hfa), 2-4 PUFFS INH Q6H PRN for Shortness of Breath Diphenoxylate W/ Atropine (Lomotil), 1 TAB PO UD PRN for Diarrhea Hydrocodone/Acetaminophen 5MG/325MG ([place] 5MG/325MG), 1 TAB PO TID PRN for back pain Hydrocodone/Acetaminophen 7.5MG/325MG ([place] 7.5MG/325MG), 1 TAB PO TID PRN for Pain Lorazepam (Ativan), 0.5-1 MG PO BID PRN for Anxiety Oxycodone/Acetaminophen 5MG/325MG (Percocet 5MG/325MG), 1-2 TAB PO Q4H PRN for Pain Tramadol (Ultram), 50 MG PO Q4H PRN for Pain Tramadol (Ultram), 25 MG PO Q8H PRN for Pain Review of Systems Constitutional: No fever, No chills, No sweats Eyes: No worsening of vision ENT: No hearing loss, No nasal symptoms Respiratory: No cough, No sputum, No wheezing Cardiovascular: No chest pain, No orthopnea, No PND Abdomen: + nausea, + diarrhea, No pain Musculoskeletal: + joint pain (pelvic pain) Genitourinary - Female: No dysuria, No urinary frequency, No urinary urgency Neurologic: No memory loss, No paralysis, No weakness Psychiatric: No depression symptoms Endocrine: No fatigue Hematologic / Lymphatic: No abnormal bleeding/bruising Integumentary: No rash Allergic / Immunologic: No environmental allergies Physical Exam Vital Signs Date Time Temp Pulse Resp B/P (MAP) Pulse Ox O2 Delivery O2 Flow Rate FiO2 08/05/17 00:10 90 16 120/71 98 Room Air 08/04/17 22:11 92 20 195/97 94 Room Air 08/04/17 20:43 93 20 157/99 99 Room Air 08/04/17 20:43 95 08/04/17 18:41 36.8 87 22 174/99 99 Room Air General Appearance: WD/WN, no apparent distress Head: normocephalic Eyes: normal inspection ENT: normal ENT inspection, pharynx normal Neck: supple, no JVD Respiratory/Chest: chest non-tender, lungs clear, normal breath sounds Cardiovascular: regular rate, rhythm, no edema, no gallop Abdomen/GI: normal bowel sounds, non tender, soft Back: normal inspection, no CVA tenderness, no muscle spasm Extremities/Musculoskelatal: normal inspection, no calf tenderness, normal capillary refill Neurologic/Psych: management trainee II-XII nml as tested, no motor/sensory deficits, alert, normal mood/affect, normal reflexes, oriented x 3 Skin: normal color, warm/dry Diagnostics Laboratory Results Results Past 24 Hours Test 08/04/17 20:00 08/04/17 20:40 Range/Units White Blood Count 6.88 4.8-10.8 K/uL Red Blood Count 4.36 4.2-5.4 M/uL Hemoglobin 12.6 12.0-16.0 g/dL Hematocrit 39.3 37-47 % Mean Corpuscular Volume 90.1 80-100 fL Mean Corpuscular Hemoglobin 28.9 25-34 pg Mean Corpuscular Hemoglobin Concent 32.1 32-36 g/dl Platelet Count 225 130-400 K/uL Mean Platelet Volume 10.0 7.4-10.4 fL Neutrophils (%) (Auto) 64.3 % Lymphocytes (%) (Auto) 23.1 % Monocytes (%) (Auto) 11.6 % Eosinophils (%) (Auto) 0.4 % Basophils (%) (Auto) 0.3 % Neutrophils # (Auto) 4.42 1.4-6.5 K/uL Lymphocytes # (Auto) 1.59 1.2-3.4 K/uL Monocytes # (Auto) 0.80 0.11-0.59 K/uL Eosinophils # (Auto) 0.03 0-0.5 K/uL Basophils # (Auto) 0.02 0-0.2 K/uL RDW Standard Deviation 47.2 36.4-46.3 fL RDW Coefficient of Variation 14.3 11.5-14.5 % Immature Granulocyte % (Auto) 0.3 % Immature Granulocyte # (Auto) 0.02 0.00-0.02 K/uL Prothrombin Time 14.5 9.0-12.0 SECONDS Prothromb Time International Ratio 1.3 0.9-1.1 Sodium Level 144 136-145 mmol/L Potassium Level 3.1 3.5-5.1 mmol/L Chloride Level 107 98-107 mmol/L Carbon Dioxide Level 22 21-32 mmol/L Anion Gap 15.0 3-11 mmol/L Blood Urea Nitrogen 10 7-18 mg/dl Creatinine 1.20 0.60-1.20 mg/dl Est Creatinine Clear Calc Drug Dose 37.4 ml/min Estimated GFR () 49.4 Estimated GFR (Non- 42.7 BUN/Creatinine Ratio 8.5 10-20 Random Glucose 81 70-99 mg/dl Calcium Level 10.0 8.5-10.1 mg/dl Total Bilirubin 0.6 0.2-1 mg/dl Direct Bilirubin 0.2 0-0.2 mg/dl Aspartate Amino Transf (AST/SGOT) 31 15-37 U/L Alanine Aminotransferase (ALT/SGPT) 23 12-78 U/L Alkaline Phosphatase 151 45-117 U/L Total Protein 6.9 6.4-8.2 gm/dl Albumin 3.6 3.4-5.0 gm/dl Lipase 80 73-393 U/L Urine Color DK YELLOW Urine Appearance CLEAR CLEAR Urine pH 5.5 4.5-7.5 Urine Specific [place] 1.023 1.000-1.030 Urine Protein 1+ NEG Urine Glucose (UA) NEG NEG Urine Ketones 3+ NEG Urine Occult Blood TRACE NEG Urine Nitrite NEG NEG Urine Bilirubin NEG NEG Urine Urobilinogen NEG NEG Urine Leukocyte Esterase NEG NEG Urine WBC (Auto) 1-5 0-5 /hpf Urine RBC (Auto) 0-4 0-4 /hpf Urine Hyaline Casts (Auto) 5-10 0-5 /lpf Urine Epithelial Cells (Auto) >30 0-5 /lpf Urine Bacteria (Auto) NEG NEG Urine Pathogenic Casts 0 /lpf Microbiology Results 08/04/17 C.difficile Toxin B Gene (PCR) - Final, Complete Positive for C. difficile toxin B gene 08/04/17 Shiga Toxin Test, Received Pending 08/04/17 Stool Culture, Received Pending Diagnostic Radiology CT Pelvis: Acute nondisplaced fracture of the superior and inferior left pubic rami subjacent to the pubic symphysis. A second fracture in the mid left inferior pubic ramus may be acute or subacute. Impression Assessment and Plan 82 y/o F Hx PE, HTN, renal calculi, CKD III, IBS - pt suffered a fall 3 days prior and has presented to the ER on 2 previous occasions c/o pelvic pain. An XR proved negative. She had a + UA and was discharged form the ER with a course of antibiotics. The pt presents to the ER once again with a complaint of worsening pelvic pain, difficulty ambulating and diarrhea. She denies fevers , vomiting or dysuria. She does state that she feels nauseous after taking her antibiotics. She was sent for a CT of the pelvis which revealed acute nondisplaced fractures of the superior and inferior left pubic rami and a second fracture in the mid left inferior pubic ramus. A stool sample proved + for C diff. The pt is able to ambulate with assistance and a walker, however, she is looked after by an elderly who is having difficulty with her current diarrhea and poor mobility. She is requesting placement in a rehab facility. 1) C diff colitis - pt placed on Vancocin as Flagyl may cause her nausea. Placed on isolation. 2) Pelvic fractures - will consult PT/OT - may require placement or home rehab - she could not proceed dierctly to rehab due to her C diff. 3) HTN - cont Diltiazem 4) CKD - IVF provided - creat at baseline 5) Hx of PE - pt takes daily Xarelto 6) UTI - UA is negative - will DC Keflex Full code - Xarelto prophylaxis Total time for this admit including review of labs, meds, imaging - discussion with pt and ER attending - 33 min Level of Care Med/Surg Resuscitation Status FULL RESUSCITATION VTE Prophylaxis VTE Risk Assessment Done? Y/N: Yes Risk Level: High Given or contraindicated: Other Anticoagulation
[2017-08-05] MEDS ORDERED: MAGNESIUM SULFATE 1GM / D5W 1 GM in PREMIXED IN D5W 100 ML IV ONE (02:15)
[2017-08-05] MEDS ORDERED: D5NSS + 20MEQ KCL 1,000 ML IV SCH (02:15)
[2017-08-05] MEDS: HYDROCODONE/ACETAMINOPHEN 7.5/325MG TAB PO PRN ×3 (02:23→21:43)
[2017-08-05] MEDS: ONDANSETRON INJ 2 MG/ML 2 ML VIAL IV PRN ×3 (02:23→15:33)
[2017-08-05 02:31] VITALS: BP 183/89; PULSE 86; TEMP 36.9; O2SAT 93; Ht 160 cm; Wt 80.0 kg
[2017-08-05] MEDS: POTASSIUM CHLR 10 MEQ / WTR 10 MEQ in PREMIXED WATER 100 ML IV SCH ×2 (03:04→03:47)
[2017-08-05] MEDS ORDERED: IV FLUIDS COMPLETED PRN (03:45)
[2017-08-05 04:28] VITALS: BP 175/82
[2017-08-05 07:06] VITALS: BP 168/79; PULSE 84; TEMP 36.9; O2SAT 91
[2017-08-05 08:25] LABS: BUN/CREATININE RATIO 8.1 (10-20); CREATININE 1.3 mg/dl (0.60-1.20); POTASSIUM 3.3 mmol/L (3.5-5.1)
[2017-08-05] MEDS ORDERED: POTASSIUM CHLORIDE 20 MEQ TABCR PO STA (08:44)
[2017-08-05] MEDS ORDERED: GABAPENTIN 300 MG CAP PO SCH (09:00)
[2017-08-05] MEDS: FLUTICASONE PROPIONATE NA SPR 16 GM BTL NAE SCH ×2 (09:00→20:22)
[2017-08-05] MEDS: GABAPENTIN 100 MG CAP PO SCH ×3 (09:00→20:23)
[2017-08-05] MEDS: MULTIVITAMIN TAB PO SCH (09:00)
[2017-08-05] MEDS: VANCOMYCIN HCL 125 MG/2.5ML SOLN PO SCH ×4 (09:08→20:23)
[2017-08-05] MEDS: RASPBERRY SYRUP 5 ML UDP PO SCH ×4 (09:09→20:23)
[2017-08-05] MEDS: CYANOCOBALAMIN 2,500 MCG SUBL TAB PO SCH (09:14)
[2017-08-05] MEDS: CHOLECALCIFEROL 1000 INTER.UNIT TAB PO SCH (09:15)
[2017-08-05 09:28] VITALS: BP 158/88; PULSE 92
[2017-08-05] MEDS: DILTIAZEM HCL 300 MG CAPCR PO SCH (09:29)
[2017-08-05] MEDS ORDERED: NURSING VERBAL MED ORDER ONE ×2 (14:45→21:30)
[2017-08-05] MEDS ORDERED: HYDROmorphone INJ 0.5 MG/0.5 ML SYR IV PRN (15:00)
[2017-08-05] MEDS ORDERED: PROMETHAZINE HCL INJ 12.5 MG in SODIUM CHLORIDE 0.9% 50ML 50 ML IV PRN (15:00)
[2017-08-05] MEDS ORDERED: HydrALAZINE HCL 20 MG/ML VIAL IV. PRN (15:15)
[2017-08-05 15:24] VITALS: BP 137/76; PULSE 76; TEMP 36.9; O2SAT 92
[2017-08-05] MEDS ORDERED: HYDROCODONE/ACETAMINOPHEN 7.5/325MG TAB PO ONE (15:30)
[2017-08-05] MEDS: NSS + 20MEQ KCL 1000ML 1,000 ML IV SCH (15:39)
--- NOTE | 2017-08-05 16:02 | Medical Student: [facility] ---
Med Student Progress Note Date of Service Aug 05, 2017. Subjective Pt evaluation today including: conversation w/ patient, physical exam, chart review, lab review, review of studies, review of inpatient medication list Pain: severe with movement PO Intake: decreased appetite due to pain Voiding: no voiding problems This is 82 year-old female with hx of DVT, PE, HTN, diverticulitis, IBS, arthritis, and recent UTI presented to ER on 08/04 with worsening left hip pain, difficulty ambulation, nausea, vomiting, and diarrhea. Of note, patient had a fall 5 weeks ago. She presented to the ER twice since on 07/09 and mostly recent on 08/02 with complaints of worsening left hip pain that interferes with her activity. Both times, X-ray pelvis 07/[address] abd/pelvis 08/02 showed no fractures. During ER visit on 08/02, her UA also showed elevated urine WBC and leukocyte esterase, and she was subsequently discharged on Keflex. Pt stated that she only took 1 pill of Keflex before throwing up and did not take anymore. Over the past 4 weeks, she also saw her PCP who prescribed her percocet which she could only took for 1 day before feeling nauseous, and then switched to [place]. Since 08/02, her pain got worse and she also developed diarrhea. She was tested with C-diff in the ER this time and CT pelvis also showed acute nondisplaced fracture of superior and inferior rami. She was put on 1 dose of Flagyl before switching to Vancomycin due to nausea. UA was clean so Keflex was stopped. She also received dilaudid injection for pain control. Today, patient states that her pain still bad, especially with movement. With movement, she rates her pain as 8-9/10 and if she sits still, it is 6/10. Pain is described as sharp pain located in groin area and goes deep to the left side/ hip, no radiation down left leg. She is able to ambulate but have severe pain when putting weight on her left leg. Left toes also feel numb, which comes and goes. She also feel nauseous with taking pills but did not vomit. Diarrhea is still frequent. She went 2x in the morning. Denies blood. No dysuria. Pt also denies SARAVIA, dizziness, fever, chills, chest pain, SOB, or abdominal pain. Review of Systems Constitutional: No fever, No chills, No sweats Respiratory: No cough, No sputum, No shortness of breath Cardiac: No chest pain Abdomen: + nausea, + vomiting, + diarrhea, No pain, No constipation Musculoskeletal: + joint pain, + muscle pain Female : No dysuria Neurologic: + numbness/tingling (numbness in left toes) Objective Vital Signs Date Time Temp Pulse Resp B/P (MAP) Pulse Ox O2 Delivery O2 Flow Rate FiO2 08/05/17 09:28 92 158/88 (111) 08/05/17 08:00 Room Air 08/05/17 07:06 36.9 84 16 168/79 (108) 91 Room Air 08/05/17 04:28 175/82 (113) 08/05/17 02:31 36.9 86 18 183/89 93 Room Air 08/05/17 01:04 87 08/05/17 00:10 90 16 120/71 98 Room Air 08/04/17 22:11 92 20 195/97 94 Room Air 08/04/17 20:43 93 20 157/99 99 Room Air 08/04/17 20:43 95 08/04/17 18:41 36.8 87 22 174/99 99 Room Air Physical Exam General Appearance: + moderate distress, + obese Eyes: bilateral eyes normal inspection ENT: hearing grossly normal Respiratory/Chest: lungs clear, normal breath sounds, no respiratory distress Cardiovascular: regular rate, rhythm, no murmur Abdomen: normal bowel sounds, non tender, soft Extremities: normal inspection, + pertinent finding (ROM restricted by pain. However, equal pedal pulses b/l) Neurologic/Psychiatric: alert, normal mood/affect, oriented x 3 Skin: no rash Laboratory Results Last 24 Hours Test 08/04/17 20:00 08/04/17 20:40 08/05/17 07:26 08/05/17 09:14 White Blood Count 6.88 K/uL Red Blood Count 4.36 M/uL Hemoglobin 12.6 g/dL Hematocrit 39.3 % Mean Corpuscular Volume 90.1 fL Mean Corpuscular Hemoglobin 28.9 pg Mean Corpuscular Hemoglobin Concent 32.1 g/dl Platelet Count 225 K/uL Mean Platelet Volume 10.0 fL Neutrophils (%) (Auto) 64.3 % Lymphocytes (%) (Auto) 23.1 % Monocytes (%) (Auto) 11.6 % Eosinophils (%) (Auto) 0.4 % Basophils (%) (Auto) 0.3 % Neutrophils # (Auto) 4.42 K/uL Lymphocytes # (Auto) 1.59 K/uL Monocytes # (Auto) 0.80 K/uL Eosinophils # (Auto) 0.03 K/uL Basophils # (Auto) 0.02 K/uL RDW Standard Deviation 47.2 fL RDW Coefficient of Variation 14.3 % Immature Granulocyte % (Auto) 0.3 % Immature Granulocyte # (Auto) 0.02 K/uL Prothrombin Time 14.5 SECONDS Prothromb Time International Ratio 1.3 Sodium Level 144 mmol/L 143 mmol/L Potassium Level 3.1 mmol/L 3.3 mmol/L Chloride Level 107 mmol/L 110 mmol/L Carbon Dioxide Level 22 mmol/L 25 mmol/L Anion Gap 15.0 mmol/L 8.0 mmol/L Blood Urea Nitrogen 10 mg/dl 11 mg/dl Creatinine 1.20 mg/dl 1.30 mg/dl Est Creatinine Clear Calc Drug Dose 37.4 ml/min 34.6 ml/min Estimated GFR () 49.4 44.9 Estimated GFR (Non- 42.7 38.7 BUN/Creatinine Ratio 8.5 8.1 Random Glucose 81 mg/dl 85 mg/dl Calcium Level 10.0 mg/dl 9.0 mg/dl Total Bilirubin 0.6 mg/dl Direct Bilirubin 0.2 mg/dl Aspartate Amino Transf (AST/SGOT) 31 U/L Alanine Aminotransferase (ALT/SGPT) 23 U/L Alkaline Phosphatase 151 U/L Total Protein 6.9 gm/dl Albumin 3.6 gm/dl Lipase 80 U/L Urine Color DK YELLOW Urine Appearance CLEAR Urine pH 5.5 Urine Specific [place] 1.023 Urine Protein 1+ Urine Glucose (UA) NEG Urine Ketones 3+ Urine Occult Blood TRACE Urine Nitrite NEG Urine Bilirubin NEG Urine Urobilinogen NEG Urine Leukocyte Esterase NEG Urine WBC (Auto) 1-5 /hpf Urine RBC (Auto) 0-4 /hpf Urine Hyaline Casts (Auto) 5-10 /lpf Urine Epithelial Cells (Auto) >30 /lpf Urine Bacteria (Auto) NEG Urine Pathogenic Casts /lpf 25-Hydroxy Vitamin D Total 36.2 ng/ml Medications Current Inpatient Medications Medications (Trade) Dose Ordered Sig/Rossy Route Start Time Stop Time Status Last Admin Dose Admin Vancomycin HCl (Vancomycin Oral Soln) 125 mg QID PO 08/05/17 09:00 08/19/17 08:59 08/05/17 12:45 125 MG Acetaminophen (Tylenol Tab) 650 mg Q4H PRN PO 08/05/17 00:30 09/04/17 00:29 Al Hydrox/Mg Hydrox/Simethicone (Maalox Max Susp) 15 ml Q4H PRN PO 08/05/17 00:30 09/04/17 00:29 Ondansetron HCl (Zofran Inj) 4 mg Q6H PRN IV 08/05/17 00:30 09/04/17 00:29 08/05/17 09:30 4 MG Albuterol (Ventolin Hfa Inhaler) 2 puffs Q6H PRN INH 08/05/17 00:30 09/04/17 00:29 Diltiazem HCl (Cardizem Cd Cap) 300 mg QAM PO 08/05/17 09:00 09/04/17 08:59 08/05/17 09:29 300 MG Fluticasone Propionate (Flonase Nasal [place]) 2 sprays BID MAYDA 08/05/17 09:00 09/04/17 08:59 Gabapentin (Neurontin Cap) 200 mg TID PO 08/05/17 09:00 09/04/17 08:59 Gabapentin (Neurontin Cap) 600 mg BID PO 08/05/17 09:00 09/04/17 08:59 Acetaminophen/ Hydrocodone Bitart ([place] 7.5/325 Tab) 1 tab TID PRN PO 08/05/17 00:30 08/19/17 00:29 08/05/17 11:28 1 TAB Lorazepam (Ativan Tab) 1 mg BID PRN PO 08/05/17 00:30 09/04/17 00:29 Multivitamins (Multivitamin Tab) 1 tab QAM PO 08/05/17 09:00 09/04/17 08:59 Rivaroxaban (Xarelto Tab) 20 mg QPM PO 08/05/17 21:00 09/04/17 20:59 Cholecalciferol (Vitamin D Tab) 2,000 inter.unit QAM PO 08/05/17 09:00 09/04/17 08:59 08/05/17 09:15 2,000 INTER.UNIT Cyanocobalamin (Vitamin B-12 Tab) 2,500 mcg QAM PO 08/05/17 09:00 09/04/17 08:59 08/05/17 09:14 2,500 MCG Raspberry (Raspberry Syrup 5ml Cup) 5 ml QID PO 08/05/17 09:00 08/19/17 08:59 08/05/17 12:45 5 ML Miscellaneous (Iv Fluids Completed) 1 ea PRN PRN N/A 08/05/17 03:45 08/05/18 03:44 Assessment and Plan Assessment and Plan: This is 82 year-old female with hx of DVT, PE, HTN, diverticulitis, IBS, arthritis, and recent UTI presented to ER on 08/04 with worsening left hip pain, difficulty ambulation, nausea, vomiting, and diarrhea after a fall 5 weeks ago. Left pelvic pain CT pelvis showed acute nondisplaced fracture of superior and inferior left rami. Pt has a lot of pain rated 8-9/10 and nausea - Ortho consulted. - OT/PT consulted. - Pain is not well-controlled. Add dilaudid IV for breakthrough pain. Continue [place] 7.5/325 - Promethazine for nausea - Vit D-25 is wnl (36.2). Recommend for patient to have DEXA scan in 6 months as outpatient to check for osteoporosis. C-diff infection Diarrhea is still ongoing. No blood in stool. - Vancomycin PO 125mg QID - Hydration - Check electrolytes daily. - Stool culture pending. Giardia and Norovirus result pending CKD stage 3 Cr today goes up slightly from yesterday 1.2->1.3, probably due to diarrhea and dehydration. - Monitor. - Hydration. HTN Not very well controlled (168/79 this morning). Could be due to pain - Continue diltiazem 300mg PO daily - Hydralazine IV prn. PE/DVT prophylaxis It does not seem like pt will need surgery for her fracture. There is confined small hemorrhage where the fractures are. - Continue Xarelto Continued [facility] stay due to: inadequate oral pain control, ambulation difficulties Discharge planning: rehab hospital
[2017-08-05] MEDS: RIVAROXABAN 10 MG TAB PO SCH (20:23)
[2017-08-05 22:55] VITALS: BP 162/82; PULSE 68; TEMP 36.8; O2SAT 94
--- NOTE | 2017-08-05 23:59 | Progress Note ---
Progress Note Date of Service Aug 05, 2017. Progress Note Admitted after midnight. Pt seen and examined earlier this afternoon. Diarrhea has slowed down, UOP low today, increased fluids. COntinues on po Vanco. Increased frequency of hydrocodone for pain and added IV dilaudid as was having severe pelvic pain left side especially with movement. Awaiting Ortho and PT evals for disposition and weight bearing status. Vitals reviewed NAD, sitting in chair, pleasant RRR no mgr CTAB no wcr Abd +BS, soft NT ND Ext no edema -continue pain control, treatment of C. diff. -if lacey po pain meds, could potentially discharge tomorrow
--- NOTE | 2017-08-06 00:41 | ORTHOPEDIC CONSULTATION ---
DATE OF CONSULTATION: 08/05/2017 HISTORY OF PRESENT ILLNESS: This is an 82-year-old female seen at the request of Buster Smith, Niya Singh and Christiane Islas DO, for new onset left-sided superior and inferior pubic rami fractures. The patient apparently had a fall sometime in June and then reportedly had another fall 3 days prior and presented to the Emergency Department on 2 prior occasions complaining of pelvic pain. She had radiographs on several occasions which demonstrated no obvious fractures. She had a positive UA and was discharged from the ER with a course of antibiotics. The patient then presented back to the ER earlier today at approximately midnight with worsening pelvic pain and difficulty ambulating with associated diarrhea. She had no fevers or chills, or vomiting or dysuria. She had nausea after taking her antibiotics. She had a CT of the pelvis which demonstrated an acute minimally displaced fracture of the left superior and inferior pubic ramus. She had a stool sample which was positive for C. difficile and was then admitted to the hospital for the above-noted complaints. PAST MEDICAL HISTORY: Arthritis, chest wall contusion, dehydration, diverticulitis, hypertension, irritable bowel syndrome, kidney stone, syncope, and nephrolithiasis. PAST SURGICAL HISTORY: Cholecystectomy. ALLERGIES: FENTANYL, IODINATED CONTRAST AGENTS, DICYCLOMINE, ACETAMINOPHEN, OXYCODONE, DULOXETINE, PROMETHAZINE AND SERTRALINE. MEDICATIONS: Please see the significant list present in the medical record. SOCIAL HISTORY: She denies tobacco, alcohol or drug use. She is and lives with her spouse. She is retired from [employer]. PHYSICAL EXAMINATION: GENERAL: This is an 82-year-old female sitting upright at her bedside hospital room. She is alert and oriented x3. Speech clear and fluent. Affect is appropriate. Cranial nerves II-XII grossly intact. Trachea is midline. No obvious JVD. EXTREMITIES: Examination of the lower extremities demonstrates skin warm, dry and intact. Cap refill less than 2 seconds. Dorsalis pedis and posterior tibial pulses are 2/4. She has no obvious bruising, ecchymosis or significant edema to either lower extremity. She does have tenderness to palpation of the left groin and left superior and inferior pubic ramus and adjacent to the symphysis pubis. She has some discomfort with bed transfers and with active hip flexion on the left. Negative heel strike, discomfort with log roll localized to the symphysis pubis. RADIOGRAPHS: CT scans were reviewed demonstrating a minimally displaced left superior and inferior pubic ramus fracture, also noted was mild to moderate degenerative changes of bilateral hips with subchondral sclerosis and marginal osteophytes. Lumbar spine degenerative disk disease L3, L4, L5. LABORATORY: Reviewed. IMPRESSION: 1. Minimally displaced fracture, left superior and inferior pubic rami fractures. 2. Degenerative joint disease, bilateral hips, mild to moderate. 3. Lumbar spine degenerative disk disease. RECOMMENDATIONS: For protected weightbearing with a walker, assist x1 with physical therapy and occupational therapy for bed transfers, mobility and safety cues. Maintain use walker with limited weightbearing, left lower extremity for a period of 6 [address] Follow up with Dr. Tapia in clinic 6 weeks for reassessment and radiographic evaluation of the pelvis.
[2017-08-06] MEDS: NSS + 20MEQ KCL 1000ML 1,000 ML IV SCH ×3 (03:04→22:18)
[2017-08-06] MEDS: HYDROCODONE/ACETAMINOPHEN 7.5/325MG TAB PO PRN ×2 (03:05→07:38)
[2017-08-06 06:12] LABS: BASO % 0.6 %; BASO ABS # 0.04 K/uL (0-0.2); COMPLETE YES; EOS % 5.4 %; HEMATOCRIT 36.5 % (37-47); IG% 0.3 %; LYMPH % 32.5 %; LYMPH ABS # 2.15 K/uL (1.2-3.4); MEAN CELL VOLUME 92.2 fL (80-100); MEAN CORPUSCULAR HEMOGLOBIN 29.3 pg (25-34); MEAN CORPUSCULAR HGB CONC 31.8 g/dl (32-36); MONO % 12.8 %; NEUT % 48.4 %; PLATELET COUNT 209 K/uL (130-400); RED BLOOD COUNT 3.96 M/uL (4.2-5.4); WHITE BLOOD COUNT 6.62 K/uL (4.8-10.8)
[2017-08-06 06:55] LABS: BUN/CREATININE RATIO 9.4 (10-20); CALCIUM 8.8 mg/dl (8.5-10.1); CREATININE 1.3 mg/dl (0.60-1.20); MAGNESIUM 1.8 mg/dl (1.8-2.4); POTASSIUM 4.2 mmol/L (3.5-5.1)
[2017-08-06 07:38] VITALS: BP 157/83; PULSE 67; TEMP 36.7; O2SAT 94
[2017-08-06] MEDS: DILTIAZEM HCL 300 MG CAPCR PO SCH (07:44)
[2017-08-06] MEDS: FLUTICASONE PROPIONATE NA SPR 16 GM BTL NAE SCH ×2 (07:45→21:00)
[2017-08-06] MEDS: MULTIVITAMIN TAB PO SCH (07:45)
[2017-08-06] MEDS: GABAPENTIN 100 MG CAP PO SCH ×3 (07:45→21:00)
[2017-08-06] MEDS: CYANOCOBALAMIN 2,500 MCG SUBL TAB PO SCH (09:08)
[2017-08-06] MEDS: VANCOMYCIN HCL 125 MG/2.5ML SOLN PO SCH ×4 (09:09→22:09)
[2017-08-06] MEDS: CHOLECALCIFEROL 1000 INTER.UNIT TAB PO SCH (09:09)
[2017-08-06] MEDS: RASPBERRY SYRUP 5 ML UDP PO SCH ×4 (09:09→22:09)
[2017-08-06] MEDS: ONDANSETRON INJ 2 MG/ML 2 ML VIAL IV PRN ×2 (09:15→16:08)
[2017-08-06 15:13] VITALS: BP 158/78; PULSE 70; TEMP 36.8; O2SAT 91
--- NOTE | 2017-08-06 16:20 | Hospitalist Progress Note ---
Hospitalist Progress Note Date of Service Aug 06, 2017. Subjective Pt evaluation today including: conversation w/ patient, conversation w/ family , physical exam Pt had some nausea today. Still having some diarrhea but has slowed down. No CP or SOB, some mild abd pain. Pelvic pain down to a 5/10 All Other Systems: Reviewed and Negative Objective Vital Signs Date Time Temp Pulse Resp B/P (MAP) Pulse Ox O2 Delivery O2 Flow Rate FiO2 08/06/17 15:13 36.8 70 18 158/78 (104) 91 Room Air 08/06/17 07:40 Room Air 08/06/17 07:38 36.7 67 16 157/83 (107) 94 Room Air 08/05/17 22:55 36.8 68 18 162/82 (108) 94 Room Air 08/05/17 20:03 Room Air 08/05/17 15:30 Room Air 08/05/17 15:24 36.9 76 18 137/76 (96) 92 Room Air Physical Exam General Appearance: WD/WN, no apparent distress (sitting in chair, very pleasant) Eyes: normal inspection, sclerae normal ENT: hearing grossly normal Neck: trachea midline Respiratory/Chest: lungs clear, normal breath sounds, no respiratory distress, no accessory muscle use Cardiovascular: regular rate, rhythm, no murmur, + pertinent finding (1+ pitting edema legs bilat) Abdomen: normal bowel sounds, soft, + tenderness (mild in lower abd without guarding or rebound) Extremities: non-tender, no calf tenderness Neurologic/Psychiatric: alert, normal mood/affect, oriented x 3 Skin: normal color, warm/dry, no rash Laboratory Results Last 24 Hours Test 08/06/17 05:42 White Blood Count 6.62 K/uL Red Blood Count 3.96 M/uL Hemoglobin 11.6 g/dL Hematocrit 36.5 % Mean Corpuscular Volume 92.2 fL Mean Corpuscular Hemoglobin 29.3 pg Mean Corpuscular Hemoglobin Concent 31.8 g/dl Platelet Count 209 K/uL Mean Platelet Volume 10.0 fL Neutrophils (%) (Auto) 48.4 % Lymphocytes (%) (Auto) 32.5 % Monocytes (%) (Auto) 12.8 % Eosinophils (%) (Auto) 5.4 % Basophils (%) (Auto) 0.6 % Neutrophils # (Auto) 3.20 K/uL Lymphocytes # (Auto) 2.15 K/uL Monocytes # (Auto) 0.85 K/uL Eosinophils # (Auto) 0.36 K/uL Basophils # (Auto) 0.04 K/uL RDW Standard Deviation 51.3 fL RDW Coefficient of Variation 15.2 % Immature Granulocyte % (Auto) 0.3 % Immature Granulocyte # (Auto) 0.02 K/uL Sodium Level 145 mmol/L Potassium Level 4.2 mmol/L Chloride Level 116 mmol/L Carbon Dioxide Level 22 mmol/L Anion Gap 7.0 mmol/L Blood Urea Nitrogen 12 mg/dl Creatinine 1.30 mg/dl Est Creatinine Clear Calc Drug Dose 34.6 ml/min Estimated GFR () 44.9 Estimated GFR (Non- 38.7 BUN/Creatinine Ratio 9.4 Random Glucose 77 mg/dl Calcium Level 8.8 mg/dl Magnesium Level 1.8 mg/dl Assessment and Plan Mrs. 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 She suffered a fall 4 weeks prior and has presented to the ER on 2 previous occasions c/o pelvic pain. An XR proved negative initially, as did a CT abd/ pel. She had a + UA and was discharged form the ER with a course of antibiotics. She took one dose of keflex and then developed profuse diarrhea the day prior to admission. She was found to have C. diff diarrhea on admission. She was sent for a CT of the pelvis which revealed acute nondisplaced fractures of the superior and inferior left pubic rami and a second fracture in the mid left inferior pubic ramus. The pt is able to ambulate with assistance and a walker, however, she is looked after by an elderly who is having difficulty with her current diarrhea and poor mobility. She is requesting placement in a rehab facility. C diff colitis - 1st recurrence, uncomplicated, precipitated by antibiotic usage -start probiotics -Vancomycin po 125mg qid x 10 days -cholestyramine for diarrhea but in past has caused heartburn -avoid antibiotic use in future unless absolutely necessary, consider prophylactic Vanco po along with antibiotics Nausea-seems to be related to opioid use for pain as this has been a chronic problem for her -Zofran, phenergan prn -try to take tramadol today instead of hydrocodone to see if helps -continue IVFs until taking adequate po Pelvic fractures - Ortho evaluated and recommended limited weight bearing on LLE x 6 weeks with assistance and PT -PT/OT recommend Acute Rehab-awaiting auth approval -f/u Ortho Dr. Tapia in 6 weeks -pain control with tramadol, hydrocodone, tylenol -Vit D level good at 36-continue Vit D supplementation -recommend DEXA scan within 6 months if not already being followed for osteoporosis HTN - uncontrolled here but in setting of significant pain -continue Diltiazem -cosider adding on another agent if needed -IV hydralazine prn BP>180/110 CKD Stage III - IVF provided -baseline belt cutter 1.2-1.3 -avoid nephrotoxins -OVF as above -renally dose meds Hx of PE & DVT-massive PE/saddle embolus in 02/2016 mentioned in previous documents that may have been provoked by sedentary lifestyle for several months leading up to it, but did have at least a partial hypercoag w/u from review of records. Elevated homocysteine level noted but I did not see MTHFR gene mutation testing. Other testing was negative. She has a h/o IgM monoclonal gammopathy and follows with Heme -continue Xarelto 20mg daily for prophylaxis Anemia of CKD-Hgb mildly low and at baseline, some dilutional effect as well. COlonoscopy no source of bleeding in 12/2016, had 3 TAs -follow CBC Anxiety -continue Ativan prn Pulm nodule- right lower lobe pulmonary nodule decreased in size to 7mm in 2016 from 9mm in 09/2016 -follows with Pulm -was supposed to have repeat Chest CT 06/2017-overdue -should have CT Chest after discharge in outpt setting Proph-Xarelto Dispo-FULL CODE, to rehab vs SNF when auth approved
--- NOTE | 2017-08-06 16:28 | Medical Student: [facility] ---
Med Student Progress Note Date of Service Aug 06, 2017. Subjective Pt evaluation today including: conversation w/ patient, physical exam, chart review, lab review, review of studies, review of inpatient medication list Pain: controlled with pain meds PO Intake: better Voiding: no voiding problems This is 82 year-old female with hx of DVT, PE, HTN, diverticulitis, IBS, arthritis, and recent UTI presented to ER on 08/04 with worsening left hip pain, difficulty ambulation, nausea, vomiting, and diarrhea. Ortho saw pt yesterday and recommended minimal weight bearing on the left leg for 6 weeks. PT/OT saw pt and she did well with exercise. Pain is well-controlled, rated 5/10. No more diarrhea this morning (3 bm with soft/mucous stools yesterday, no blood in stool ). Still feel nauseous with po antibiotics but attributes that to not having anything to eat before taking pills. Denies SARAVIA, fever, chills, vomiting, CP, SOB , or abdominal pain. Review of Systems Constitutional: No fever, No chills Respiratory: No cough, No sputum, No shortness of breath, No dyspnea on exertion Cardiac: No chest pain Abdomen: + nausea, No pain, No vomiting, No diarrhea Musculoskeletal: + problem reported (left-sided pain underneath abdomen ) Female : No dysuria Objective Vital Signs Date Time Temp Pulse Resp B/P (MAP) Pulse Ox O2 Delivery O2 Flow Rate FiO2 08/06/17 07:40 Room Air 08/06/17 07:38 36.7 67 16 157/83 (107) 94 Room Air 08/05/17 22:55 36.8 68 18 162/82 (108) 94 Room Air 08/05/17 20:03 Room Air 08/05/17 15:30 Room Air 08/05/17 15:24 36.9 76 18 137/76 (96) 92 Room Air Physical Exam General Appearance: no apparent distress, + obese ENT: hearing grossly normal Respiratory/Chest: lungs clear, normal breath sounds, no respiratory distress Cardiovascular: regular rate, rhythm, no murmur Abdomen: normal bowel sounds, non tender, soft Extremities: normal inspection, + pertinent finding (pedal pulses equally b/l) Neurologic/Psychiatric: alert, normal mood/affect, oriented x 3 Skin: normal color Laboratory Results Last 24 Hours Test 08/06/17 05:42 White Blood Count 6.62 K/uL Red Blood Count 3.96 M/uL Hemoglobin 11.6 g/dL Hematocrit 36.5 % Mean Corpuscular Volume 92.2 fL Mean Corpuscular Hemoglobin 29.3 pg Mean Corpuscular Hemoglobin Concent 31.8 g/dl Platelet Count 209 K/uL Mean Platelet Volume 10.0 fL Neutrophils (%) (Auto) 48.4 % Lymphocytes (%) (Auto) 32.5 % Monocytes (%) (Auto) 12.8 % Eosinophils (%) (Auto) 5.4 % Basophils (%) (Auto) 0.6 % Neutrophils # (Auto) 3.20 K/uL Lymphocytes # (Auto) 2.15 K/uL Monocytes # (Auto) 0.85 K/uL Eosinophils # (Auto) 0.36 K/uL Basophils # (Auto) 0.04 K/uL RDW Standard Deviation 51.3 fL RDW Coefficient of Variation 15.2 % Immature Granulocyte % (Auto) 0.3 % Immature Granulocyte # (Auto) 0.02 K/uL Sodium Level 145 mmol/L Potassium Level 4.2 mmol/L Chloride Level 116 mmol/L Carbon Dioxide Level 22 mmol/L Anion Gap 7.0 mmol/L Blood Urea Nitrogen 12 mg/dl Creatinine 1.30 mg/dl Est Creatinine Clear Calc Drug Dose 34.6 ml/min Estimated GFR () 44.9 Estimated GFR (Non- 38.7 BUN/Creatinine Ratio 9.4 Random Glucose 77 mg/dl Calcium Level 8.8 mg/dl Magnesium Level 1.8 mg/dl Medications Current Inpatient Medications Medications (Trade) Dose Ordered Sig/Rossy Route Start Time Stop Time Status Last Admin Dose Admin Vancomycin HCl (Vancomycin Oral Soln) 125 mg QID PO 08/05/17 09:00 08/19/17 08:59 08/06/17 12:49 125 MG Acetaminophen (Tylenol Tab) 650 mg Q4H PRN PO 08/05/17 00:30 09/04/17 00:29 Al Hydrox/Mg Hydrox/Simethicone (Maalox Max Susp) 15 ml Q4H PRN PO 08/05/17 00:30 09/04/17 00:29 08/06/17 11:13 15 ML Ondansetron HCl (Zofran Inj) 4 mg Q6H PRN IV 08/05/17 00:30 09/04/17 00:29 08/06/17 09:15 4 MG Albuterol (Ventolin Hfa Inhaler) 2 puffs Q6H PRN INH 08/05/17 00:30 09/04/17 00:29 Diltiazem HCl (Cardizem Cd Cap) 300 mg QAM PO 08/05/17 09:00 09/04/17 08:59 08/06/17 07:44 300 MG Fluticasone Propionate (Flonase Nasal [place]) 2 sprays BID MAYDA 08/05/17 09:00 09/04/17 08:59 Gabapentin (Neurontin Cap) 200 mg TID PO 08/05/17 09:00 09/04/17 08:59 Lorazepam (Ativan Tab) 1 mg BID PRN PO 08/05/17 00:30 09/04/17 00:29 Multivitamins (Multivitamin Tab) 1 tab QAM PO 08/05/17 09:00 09/04/17 08:59 Rivaroxaban (Xarelto Tab) 20 mg QPM PO 08/05/17 21:00 09/04/17 20:59 08/05/17 20:23 20 MG Cholecalciferol (Vitamin D Tab) 2,000 inter.unit QAM PO 08/05/17 09:00 09/04/17 08:59 08/06/17 09:09 2,000 INTER.UNIT Cyanocobalamin (Vitamin B-12 Tab) 2,500 mcg QAM PO 08/05/17 09:00 09/04/17 08:59 08/06/17 09:08 2,500 MCG Raspberry (Raspberry Syrup 5ml Cup) 5 ml QID PO 08/05/17 09:00 08/19/17 08:59 08/06/17 12:50 5 ML Miscellaneous (Iv Fluids Completed) 1 ea PRN PRN N/A 08/05/17 03:45 08/05/18 03:44 Hydromorphone HCl (Dilaudid Inj) 0.5 mg Q4 PRN IV 08/05/17 15:00 08/19/17 14:59 Promethazine HCl 12.5 mg/Sodium Chloride 50.5 ml @ 204 mls/hr Q6H PRN IV 08/05/17 15:00 09/04/17 14:59 Potassium Chloride/Sodium Chloride 1,000 ml @ 100 mls/hr Q10H IV 08/05/17 15:30 09/04/17 15:29 08/06/17 12:51 100 MLS/HR Acetaminophen/ Hydrocodone Bitart ([place] 7.5/325 Tab) 1 tab Q4H PRN PO 08/05/17 15:15 08/19/17 15:14 08/06/17 07:38 1 TAB Hydralazine HCl (HydrALAZINE INJ) 10 mg Q8H PRN IV. 08/05/17 15:15 09/04/17 15:14 Assessment and Plan Assessment and Plan: This is 82 year-old female with hx of DVT, PE, HTN, diverticulitis, IBS, arthritis, and recent UTI presented to ER on 08/04 with worsening left hip pain, difficulty ambulation, nausea, vomiting, and diarrhea after a fall 5 weeks ago. Left pelvic pain CT pelvis showed acute nondisplaced fracture of superior and inferior left rami. Pt has a lot of pain rated 8-9/10 and nausea - Ortho consulted - recommended minimal weight bearing on the left leg for [address] Tapia in 6 weeks. - OT/PT consulted. Recommended acute inpatient rehab - Pain is well-controlled. Pt did not have any Dilaudid injection today. [place] works well but cause patient nauseated. Will try Tramadol. - Promethazine for nausea but pt did not take any. Pt took zofran only - Compression stockings to reduce/prevent further swelling - Vit D-25 is wnl (36.2). Recommend for patient to have DEXA scan in 6 months as outpatient to check for osteoporosis. C-diff infection 1 bout of diarrhea today. No blood in stool. - Vancomycin PO 125mg QID - Hydration - Check electrolytes daily. - Stool culture - negative for salmonella. Giardia and Norovirus result pending CKD stage 3 Cr is stable around 1.3 today. - Monitor. - Hydration. HTN Not very well controlled but better compared to yesterday (158/78 this morning) . Could be due to pain - Continue diltiazem 300mg PO daily - Hydralazine IV prn. Hx of PE/DVT. Pt is currently on Xarelto for PE/DVT prophylaxis since the event. It does not seem like pt will need surgery for her fracture. There is confined small hemorrhage where the fractures are. - Continue Xarelto Continued [facility] stay due to: other (insurance clearance) Discharge planning: rehab hospital
[2017-08-06] MEDS ORDERED: SACCHAROMYCES BOUL (FLORASTOR) 250 MG CAP PO ONE (16:30)
[2017-08-06] MEDS: TRAMADOL HCL 50 MG TAB PO PRN ×2 (17:07→23:31)
[2017-08-06] MEDS: CHOLESTYRAMINE LIGHT 4 GM PKT PO SCH (20:56)
[2017-08-06] MEDS: RIVAROXABAN 10 MG TAB PO SCH (22:08)
[2017-08-06 23:38] VITALS: BP 161/76; PULSE 71; TEMP 37; O2SAT 94
[2017-08-07] MEDS: ONDANSETRON INJ 2 MG/ML 2 ML VIAL IV PRN (05:09)
[2017-08-07] MEDS: TRAMADOL HCL 50 MG TAB PO PRN ×2 (06:37→11:21)
[2017-08-07 06:42] LABS: BASO % 0.7 %; BASO ABS # 0.04 K/uL (0-0.2); COMPLETE YES; HEMATOCRIT 35.5 % (37-47); IG% 0.2 %; LYMPH % 31.9 %; LYMPH ABS # 1.76 K/uL (1.2-3.4); MEAN CELL VOLUME 92.7 fL (80-100); MEAN CORPUSCULAR HEMOGLOBIN 28.5 pg (25-34); MEAN CORPUSCULAR HGB CONC 30.7 g/dl (32-36); MEAN PLATELET VOLUME 10.3 fL (7.4-10.4); MONO % 14.7 %; NEUT % 46.5 %; PLATELET COUNT 178 K/uL (130-400); RED BLOOD COUNT 3.83 M/uL (4.2-5.4); WHITE BLOOD COUNT 5.52 K/uL (4.8-10.8)
[2017-08-07 07:23] LABS: BUN/CREATININE RATIO 7.8 (10-20); CALCIUM 8.6 mg/dl (8.5-10.1); CREATININE 0.97 mg/dl (0.60-1.20); MAGNESIUM 1.7 mg/dl (1.8-2.4); POTASSIUM 4.4 mmol/L (3.5-5.1)
[2017-08-07 07:24] VITALS: BP 153/81; PULSE 76; TEMP 36.5; O2SAT 94
[2017-08-07] MEDS: NSS + 20MEQ KCL 1000ML 1,000 ML IV SCH (08:45)
[2017-08-07] MEDS: DILTIAZEM HCL 300 MG CAPCR PO SCH (08:47)
[2017-08-07] MEDS: GABAPENTIN 100 MG CAP PO SCH ×2 (08:48→13:24)
[2017-08-07] MEDS: CHOLECALCIFEROL 1000 INTER.UNIT TAB PO SCH (08:48)
[2017-08-07] MEDS: FLUTICASONE PROPIONATE NA SPR 16 GM BTL NAE SCH (08:48)
[2017-08-07] MEDS: MULTIVITAMIN TAB PO SCH (08:48)
[2017-08-07] MEDS: VANCOMYCIN HCL 125 MG/2.5ML SOLN PO SCH ×2 (08:49→13:00)
[2017-08-07] MEDS: RASPBERRY SYRUP 5 ML UDP PO SCH ×2 (08:49→13:00)
[2017-08-07] MEDS: CYANOCOBALAMIN 2,500 MCG SUBL TAB PO SCH (08:50)
[2017-08-07] MEDS ORDERED: MAGNESIUM SULFATE 1GM / D5W 1 GM in PREMIXED IN D5W 100 ML IV ONE (09:00)
[2017-08-07] MEDS ORDERED: SACCHAROMYCES BOUL (FLORASTOR) 250 MG CAP PO SCH (09:00)
[2017-08-07] MEDS: CHOLESTYRAMINE LIGHT 4 GM PKT PO SCH (09:52)
[2017-08-07 10:12] VITALS: BP 168/80; PULSE 77; O2SAT 96
[2017-08-07 13:28] VITALS: BP 168/80; PULSE 77; TEMP 36.5; O2SAT 96
[2017-08-07] MEDS ORDERED: ACET-1047 PO (13:29)
[2017-08-07] MEDS ORDERED: QSTP PO (13:29)
[2017-08-07] MEDS ORDERED: TRAM-10 PO (13:29)
[2017-08-07] MEDS ORDERED: SACC250C3 PO (13:29)
[2017-08-07] MEDS ORDERED: LORA-741 PO (13:29)
[2017-08-07] MEDS ORDERED: VNCS125 PO (13:29)
--- NOTE | 2017-08-07 13:56 | Discharge Instructions ---
Discharge Instructions Date of Service Aug 07, 2017. Admission Reason for Admission: Clostridium Difficile Colitis, Pelvis Fractures Discharge Discharge Diagnosis / Problem: Clostridium Difficile Colitis, Pelvis Fractures Discharge Goals Goal(s): Improve disease control, Diagnostic testing, Therapeutic intervention Activity Recommendations Activity Level: Assistance Required Therapies: Physical Therapy, Weight Bearing Status (partial weight bearing on left x 6 weeks, with use of walker), Occupational Therapy . Additional Information Patient informed of condition: Yes Advance Directives: No DNR: No Level of Care: Skilled Communicable Disease: Yes (Clostridium difficile) Prognosis: Stable Oxygen at (LPM): N/A Pickard Catheter: No Instructions / Follow-Up Instructions / Follow-Up Mrs. 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 She suffered a fall 4 weeks prior and has presented to the ER on 2 previous occasions c/o pelvic pain. An XR proved negative initially, as did a CT abd/ pel. She had a + UA and was discharged form the ER with a course of antibiotics. She took one dose of keflex and then developed profuse diarrhea the day prior to admission. She was found to have C. diff diarrhea on admission. She was sent for a CT of the pelvis which revealed acute nondisplaced fractures of the superior and inferior left pubic rami and a second fracture in the mid left inferior pubic ramus. The pt is able to ambulate with assistance and a walker, however, she is looked after by an elderly who is having difficulty with her current diarrhea and poor mobility. She is requesting placement in a rehab facility. C diff colitis - 1st recurrence, uncomplicated, precipitated by antibiotic usage -continue probiotics daily with Florastor -Vancomycin po 125mg qid x 10 days-today day #3/10 -cholestyramine for diarrhea but in past has caused heartburn-tolerating ok here so far -avoid antibiotic use in future unless absolutely necessary, consider prophylactic Vanco po along with antibiotics Nausea-seems to be related to opioid use for pain as this has been a chronic problem for her-much improved with stopping hydrocodone and using Ultram instead -Zofran, phenergan given prn -discontinue IVFs Pelvic fractures - Ortho evaluated and recommended limited weight bearing on LLE x 6 weeks with assistance and PT -PT/OT to continue at [facility] -f/u Ortho Dr. Tapia in 6 weeks -pain control with tramadol, tylenol -Vit D level good at 36-continue Vit D supplementation -recommend DEXA scan within 6 months if not already being followed for osteoporosis HTN - uncontrolled here but in setting of significant pain, now is improved with pain control -continue Diltiazem CKD Stage III - IVF provided -baseline guidance secretary 1.2-1.3, guidance secretary on day of discharge is actually 0.97 -avoid nephrotoxins -renally dose meds Hx of PE & DVT-massive PE/saddle embolus in 02/2016 mentioned in previous documents that may have been provoked by sedentary lifestyle for several months leading up to it, but did have at least a partial hypercoag w/u from review of records. Elevated homocysteine level noted but I did not see MTHFR gene mutation testing. Other testing was negative. She has a h/o IgM monoclonal gammopathy and follows with Heme as an outpatient -continue Xarelto 20mg daily for prophylaxis Anemia of CKD-Hgb mildly low and at baseline, some dilutional effect as well. Colonoscopy no source of bleeding in 12/2016, had 3 TAs removed -follow CBC periodically -f/u with Hematology routinely as above Anxiety -continue Ativan prn Pulm nodule- right lower lobe pulmonary nodule decreased in size to 7mm in 2016 from 9mm in 09/2016 -follows with Pulm -was supposed to have repeat Chest CT 06/2017-overdue -should have CT Chest after discharge in outpt setting Proph-Xarelto Dispo-FULL CODE, to SNF today Current Hospital Diet Patient's current hospital diet: AHA Diet (Heart Healthy) Discharge Diet Recommended Diet: AHA Diet (Heart Healthy) Procedures Procedures Performed: CT pelvis Femur xray Pelvis xray Pending Studies Studies pending at discharge: no Physician Orders On Transfer Special Precautions: Fall risk Dressing Changes: None IV Therapy: None Vital Signs: Routine Weigh: Routine Additional Orders: F/u Orthopedics Dr. Tapia in 6 weeks POLST Discussion: Not Applicable Laboratory Results Last 24 Hours Test 08/07/17 06:15 White Blood Count 5.52 K/uL Red Blood Count 3.83 M/uL Hemoglobin 10.9 g/dL Hematocrit 35.5 % Mean Corpuscular Volume 92.7 fL Mean Corpuscular Hemoglobin 28.5 pg Mean Corpuscular Hemoglobin Concent 30.7 g/dl Platelet Count 178 K/uL Mean Platelet Volume 10.3 fL Neutrophils (%) (Auto) 46.5 % Lymphocytes (%) (Auto) 31.9 % Monocytes (%) (Auto) 14.7 % Eosinophils (%) (Auto) 6.0 % Basophils (%) (Auto) 0.7 % Neutrophils # (Auto) 2.57 K/uL Lymphocytes # (Auto) 1.76 K/uL Monocytes # (Auto) 0.81 K/uL Eosinophils # (Auto) 0.33 K/uL Basophils # (Auto) 0.04 K/uL RDW Standard Deviation 50.3 fL RDW Coefficient of Variation 14.8 % Immature Granulocyte % (Auto) 0.2 % Immature Granulocyte # (Auto) 0.01 K/uL Sodium Level 146 mmol/L Potassium Level 4.4 mmol/L Chloride Level 116 mmol/L Carbon Dioxide Level 24 mmol/L Anion Gap 6.0 mmol/L Blood Urea Nitrogen 8 mg/dl Creatinine 0.97 mg/dl Est Creatinine Clear Calc Drug Dose 46.3 ml/min Estimated GFR () 63.9 Estimated GFR (Non- 55.2 BUN/Creatinine Ratio 7.8 Random Glucose 77 mg/dl Calcium Level 8.6 mg/dl Magnesium Level 1.7 mg/dl Medical Emergencies . Who to Call and When: Medical Emergencies: If at any time you feel your situation is an emergency, please call 911 immediately. . Non-Emergent Contact Non-Emergency issues call your: Primary Care Provider Call Non-Emergent contact if: you have a fever, your pain is not controlled, your pain is worsening, your pain is unusual for you, your pain is concerning you, you have any medication questions . . "Provider Documentation" section prepared by Niya Singh. . Core Measure Problem Core Measures: None [place] Drug Monitoring Program Search Results: patient reviewed within database, no issues identified
--- NOTE | 2017-08-07 13:58 | Medical Student: [facility] ---
Med Student Progress Note Date of Service Aug 07, 2017. Subjective Pt evaluation today including: conversation w/ patient, physical exam, chart review, lab review, review of studies, review of inpatient medication list Pain: controlled with pain meds PO Intake: normal Voiding: no voiding problems This is 82 year-old female with hx of DVT, PE, HTN, diverticulitis, IBS, arthritis, and recent UTI presented to ER on 08/04 with worsening left hip pain, difficulty ambulation, nausea, vomiting, and diarrhea. Today, pain is controlled with Ultram, which does not cause patient nauseated. Mild nausea with abx but not as bad as yesterday. Pt still has diarrhea but states that it seems to get better each time. Had 1 diarrhea this morning. Some swelling in legs. Denies SARAVIA, fever, chills, vomiting, CP, SOB, or abdominal pain. Review of Systems Constitutional: No fever, No chills Respiratory: No cough, No sputum, No shortness of breath, No dyspnea on exertion Cardiac: No chest pain Abdomen: + nausea (mild), + diarrhea (better), No pain, No vomiting, No constipation Musculoskeletal: + problem reported (pain on left hip ) Female : No dysuria Objective Vital Signs Date Time Temp Pulse Resp B/P (MAP) Pulse Ox O2 Delivery O2 Flow Rate FiO2 08/07/17 07:24 36.5 76 18 153/81 (105) 94 Room Air 08/07/17 07:15 Room Air 08/06/17 23:38 37.0 71 16 161/76 (104) 94 Room Air 08/06/17 23:11 Room Air 08/06/17 15:40 Room Air 08/06/17 15:13 36.8 70 18 158/78 (104) 91 Room Air Physical Exam General Appearance: no apparent distress, + obese Eyes: bilateral eyes normal inspection ENT: hearing grossly normal Respiratory/Chest: lungs clear, normal breath sounds, no respiratory distress Cardiovascular: regular rate, rhythm, no murmur Abdomen: normal bowel sounds, non tender, soft Extremities: + swelling (mild, has stockings on), + pertinent finding (pedal pulses are equal 2+ b/l) Neurologic/Psychiatric: alert, normal mood/affect, oriented x 3 Skin: normal color Laboratory Results Last 24 Hours Test 08/07/17 06:15 White Blood Count 5.52 K/uL Red Blood Count 3.83 M/uL Hemoglobin 10.9 g/dL Hematocrit 35.5 % Mean Corpuscular Volume 92.7 fL Mean Corpuscular Hemoglobin 28.5 pg Mean Corpuscular Hemoglobin Concent 30.7 g/dl Platelet Count 178 K/uL Mean Platelet Volume 10.3 fL Neutrophils (%) (Auto) 46.5 % Lymphocytes (%) (Auto) 31.9 % Monocytes (%) (Auto) 14.7 % Eosinophils (%) (Auto) 6.0 % Basophils (%) (Auto) 0.7 % Neutrophils # (Auto) 2.57 K/uL Lymphocytes # (Auto) 1.76 K/uL Monocytes # (Auto) 0.81 K/uL Eosinophils # (Auto) 0.33 K/uL Basophils # (Auto) 0.04 K/uL RDW Standard Deviation 50.3 fL RDW Coefficient of Variation 14.8 % Immature Granulocyte % (Auto) 0.2 % Immature Granulocyte # (Auto) 0.01 K/uL Sodium Level 146 mmol/L Potassium Level 4.4 mmol/L Chloride Level 116 mmol/L Carbon Dioxide Level 24 mmol/L Anion Gap 6.0 mmol/L Blood Urea Nitrogen 8 mg/dl Creatinine 0.97 mg/dl Est Creatinine Clear Calc Drug Dose 46.3 ml/min Estimated GFR () 63.9 Estimated GFR (Non- 55.2 BUN/Creatinine Ratio 7.8 Random Glucose 77 mg/dl Calcium Level 8.6 mg/dl Magnesium Level 1.7 mg/dl Medications Current Inpatient Medications Medications (Trade) Dose Ordered Sig/Rossy Route Start Time Stop Time Status Last Admin Dose Admin Vancomycin HCl (Vancomycin Oral Soln) 125 mg QID PO 08/05/17 09:00 08/19/17 08:59 08/07/17 08:49 125 MG Acetaminophen (Tylenol Tab) 650 mg Q4H PRN PO 08/05/17 00:30 09/04/17 00:29 Al Hydrox/Mg Hydrox/Simethicone (Maalox Max Susp) 15 ml Q4H PRN PO 08/05/17 00:30 09/04/17 00:29 08/06/17 11:13 15 ML Ondansetron HCl (Zofran Inj) 4 mg Q6H PRN IV 08/05/17 00:30 09/04/17 00:29 08/07/17 05:09 4 MG Albuterol (Ventolin Hfa Inhaler) 2 puffs Q6H PRN INH 08/05/17 00:30 09/04/17 00:29 Diltiazem HCl (Cardizem Cd Cap) 300 mg QAM PO 08/05/17 09:00 09/04/17 08:59 08/07/17 08:47 300 MG Fluticasone Propionate (Flonase Nasal [place]) 2 sprays BID MAYDA 08/05/17 09:00 09/04/17 08:59 Gabapentin (Neurontin Cap) 200 mg TID PO 08/05/17 09:00 09/04/17 08:59 08/06/17 21:00 200 MG Lorazepam (Ativan Tab) 1 mg BID PRN PO 08/05/17 00:30 09/04/17 00:29 Multivitamins (Multivitamin Tab) 1 tab QAM PO 08/05/17 09:00 09/04/17 08:59 Rivaroxaban (Xarelto Tab) 20 mg QPM PO 08/05/17 21:00 09/04/17 20:59 08/06/17 22:08 20 MG Cholecalciferol (Vitamin D Tab) 2,000 inter.unit QAM PO 08/05/17 09:00 09/04/17 08:59 08/07/17 08:48 2,000 INTER.UNIT Cyanocobalamin (Vitamin B-12 Tab) 2,500 mcg QAM PO 08/05/17 09:00 09/04/17 08:59 08/07/17 08:50 2,500 MCG Raspberry (Raspberry Syrup 5ml Cup) 5 ml QID PO 08/05/17 09:00 08/19/17 08:59 08/07/17 08:49 5 ML Miscellaneous (Iv Fluids Completed) 1 ea PRN PRN N/A 08/05/17 03:45 08/05/18 03:44 Hydromorphone HCl (Dilaudid Inj) 0.5 mg Q4 PRN IV 08/05/17 15:00 08/19/17 14:59 Promethazine HCl 12.5 mg/Sodium Chloride 50.5 ml @ 204 mls/hr Q6H PRN IV 08/05/17 15:00 09/04/17 14:59 Potassium Chloride/Sodium Chloride 1,000 ml @ 100 mls/hr Q10H IV 08/05/17 15:30 09/04/17 15:29 08/07/17 08:45 100 MLS/HR Acetaminophen/ Hydrocodone Bitart ([place] 7.5/325 Tab) 1 tab Q4H PRN PO 08/05/17 15:15 08/19/17 15:14 08/06/17 07:38 1 TAB Hydralazine HCl (HydrALAZINE INJ) 10 mg Q8H PRN IV. 08/05/17 15:15 09/04/17 15:14 Cholestyramine Resin (Questran Powder Light) 4 gm BID@, PO 08/06/17 22:00 09/05/17 21:59 08/07/17 09:52 4 GM Tramadol HCl (Ultram Tab) 50 mg Q4H PRN PO 08/06/17 16:15 09/05/17 16:14 08/07/17 06:37 50 MG Saccharomyces Boulardii (Florastor Cap) 250 mg DAILY PO 08/07/17 09:00 09/06/17 08:59 08/07/17 08:47 250 MG Assessment and Plan Assessment and Plan: This is 82 year-old female with hx of DVT, PE, HTN, diverticulitis, IBS, arthritis, and recent UTI presented to ER on 08/04 with worsening left hip pain, difficulty ambulation, nausea, vomiting, and diarrhea after a fall 5 weeks ago. Left pelvic pain CT pelvis showed acute nondisplaced fracture of superior and inferior left rami. Pt has a lot of pain rated 8-9/10 and nausea - Ortho consulted - recommended minimal weight bearing on the left leg for [address] Tapia in 6 weeks. - OT/PT consulted. Recommended acute inpatient rehab - Tramadol works. Not cause patient nauseated. Stop [place]. Increase Tramadol to 100mg - Continue zofran for nausea, which is getting better. - Continue compression stockings to reduce/prevent further swelling - Vit D-25 is wnl (36.2). Recommend for patient to have DEXA scan in 6 months as outpatient to check for osteoporosis. C-diff infection Diarrhea is getting better. - Continue Vancomycin PO 125mg QID for total 10 days. - Hydration - Check electrolytes daily. Mg is low today 1.7. Mg Sulfate 1g administered. - Stool culture - negative for salmonella. Giardia and Norovirus result pending CKD stage 3 Cr is better at 0.97 - Monitor. - Stop IVF. Patient has elevated Na and Cl, probably 2/2 to IVF Anemia Hgb continues to go down 10.9 today (11.6 yesterday and 13.5 in March 2017). No blood visible in stool. If blood is positive, could be due to C-diff infection. Pt has colonoscopy in Dec 2016 with no source of bleeding - Monitor Hgb - Check CBC again as outpatient after C-diff is cleared. - Follow with Heme HTN Not very well controlled but better compared to yesterday (153/81 this morning) . Could be due to pain - Continue diltiazem 300mg PO daily - Hydralazine IV prn. - Follow with PCP as outpatient for medication adjustment if continue having persistent high blood pressure. Hx of PE/DVT. Pt is currently on Xarelto for PE/DVT prophylaxis since the event. It does not seem like pt will need surgery for her fracture. There is confined small hemorrhage where the fractures are. - Continue Xarelto 20mg for prophylaxis Dispo: [facility]. Full code. Continued [facility] stay due to: other (insurance clearance) Discharge planning: fdc facility
--- NOTE | 2017-08-07 14:06 | Discharge Summary ---
Discharge Summary Date of Service Aug 07, 2017. 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 Immunizations: Have You Had Influenza Vaccine: Yes History of Tetanus Vaccine?: No History of Pneumococcal: No History of Hepatitis B Vaccine: No Procedures: CT Pelvis Pelvis xray Femur xray Consultations: Orthopedics Medication Reconciliation New Medications: Acetaminophen (Mapap) 325 Mg Tab 650 MG PO Q4H PRN for Pain or Fever for 30 Days Cholestyramine (Cholestyramine Light) 4 Gm Pack 4 GM PO BID@10,22 for 7 Days Saccharomyces Boulardii (Florastor) 250 Mg Cap 250 MG PO DAILY for 30 Days, #30 CAP Vancomycin HCl (Vancomycin HCl) 125 Mg/2.5 Ml Susp 125 MG PO QID for 7 Days Changed Medications: Lorazepam (Ativan) 0.5 Mg Tab 0.5 MG PO BID PRN for Anxiety for 3 Days, #6 TAB (Changed from: 0.5-1 MG) Tramadol (Ultram) 50 Mg Tab 100 MG PO Q6H PRN for Pain for 3 Days, #24 TAB (Changed from: 50 MG; Q4H) Continued Medications: Albuterol Hfa (Ventolin Hfa) 200 Puffs/36000 Mcg Aers 2-4 PUFFS INH Q6H PRN for Shortness of Breath Azelastine Hcl-Fluticasone Pro (Dymista) 1 Spr Spr 1 SPRY MAYDA BID, GM Cholecalciferol (Vitamin D3) 2,000 Unit Tab 2000 INTER.UNIT PO QAM Cyanocobalamin (Vitamin B-12) 2,500 Mcg Sub 2500 MCG PO QAM Diltiazem Hcl Coated Beads (Diltiazem Cd) 300 Mg Cap 300 MG PO QAM Gabapentin (Neurontin) 100 Mg Cap 200 MG PO TID, CAP Multivitamin (Multivitamin) Tab 1 TAB PO QAM Rivaroxaban (Xarelto) 20 Mg Tab 20 MG PO QPM, TAB Discontinued Medications: Cephalexin (Keflex) 500 Mg Cap 1 CAP PO BID for 7 Days, #14 CAP Diphenoxylate W/ Atropine (Lomotil) 1 Tab Tab 1 TAB PO UD PRN for Diarrhea Fluticasone Propionate (Nasal) (Flonase Allergy Relief) 50 Mcg/Act Spr 2 SPRAYS MAYDA BID Gabapentin (Neurontin) 300 Mg Cap 600 MG PO BID, CAP Hydrocodone/Acetaminophen 5MG/325MG ([place] 5MG/325MG) Tab 1 TAB PO TID PRN for back pain for 30 Days, #60 TAB PRN PAIN Hydrocodone/Acetaminophen 7.5MG/325MG ([place] 7.5MG/325MG) Tab 1 TAB PO TID PRN for Pain, TAB PRN PAIN Metronidazole (Flagyl) 500 Mg Tab 500 MG PO TID for 14 Days, #42 TAB Oxycodone/Acetaminophen 5MG/325MG (Percocet 5MG/325MG) Tab 1-2 TAB PO Q4H PRN for Pain, #14 TAB Tramadol (Ultram) 50 Mg Tab 25 MG PO Q8H PRN for Pain, #21 TAB Discharge Exam Feeling much better, no nausea, pain controlled with tramadol, diarrhea has slowed down. Afebrile. Physical Exam General Appearance: WD/WN, no apparent distress (sitting in chair, very pleasant) Eyes: normal inspection, sclerae normal ENT: hearing grossly normal Neck: trachea midline Respiratory/Chest: lungs clear, normal breath sounds, no respiratory distress, no accessory muscle use Cardiovascular: regular rate, rhythm, no murmur, + pertinent finding (1+ pitting edema legs bilat) Abdomen: normal bowel sounds, soft, no TTP Extremities: non-tender, no calf tenderness Neurologic/Psychiatric: alert, normal mood/affect, oriented x 3 Skin: normal color, warm/dry, no rash Review of Systems: Constitutional: No fever, No chills Eyes: No problem reported ENT: No problem reported Respiratory: No shortness of breath Cardiovascular: No chest pain Abdomen: + diarrhea (but has slowed way down), No pain, No nausea, No vomiting Musculoskeletal: + joint pain (left hip) Genitourinary - Female: No problem reported Neurologic: No problem reported Psychiatric: No problem reported Endocrine: No problem reported Hematologic / Lymphatic: + clotting problems Integumentary: No problem reported Hospital Course Mrs. 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 She suffered a fall 4 weeks prior and has presented to the ER on 2 previous occasions c/o pelvic pain. An XR proved negative initially, as did a CT abd/ pel. She had a + UA and was discharged form the ER with a course of antibiotics. She took one dose of keflex and then developed profuse diarrhea the day prior to admission. She was found to have C. diff diarrhea on admission. She was sent for a CT of the pelvis which revealed acute nondisplaced fractures of the superior and inferior left pubic rami and a second fracture in the mid left inferior pubic ramus. The pt is able to ambulate with assistance and a walker, however, she is looked after by an elderly who is having difficulty with her current diarrhea and poor mobility. She is requesting placement in a rehab facility. C diff colitis - 1st recurrence, uncomplicated, precipitated by antibiotic usage -continue probiotics daily with Florastor -Vancomycin po 125mg qid x 10 days-today day #310 -cholestyramine for diarrhea but in past has caused heartburn-tolerating ok here so far -avoid antibiotic use in future unless absolutely necessary, consider prophylactic Vanco po along with antibiotics Nausea-seems to be related to opioid use for pain as this has been a chronic problem for her-much improved with stopping hydrocodone and using Ultram instead -Zofran, phenergan given prn -discontinue IVFs Pelvic fractures - Ortho evaluated and recommended limited weight bearing on LLE x 6 weeks with assistance and PT -PT/OT to continue at [facility] -f/u Ortho Dr. Tapia in 6 weeks -pain control with tramadol, tylenol -Vit D level good at 36-continue Vit D supplementation -recommend DEXA scan within 6 months if not already being followed for osteoporosis HTN - uncontrolled here but in setting of significant pain, now is improved with pain control -continue Diltiazem CKD Stage III - IVF provided -baseline cardiovascular tech 1.2-1.3, cardiovascular tech on day of discharge is actually 0.97 -avoid nephrotoxins -renally dose meds Hx of PE & DVT-massive PE/saddle embolus in 02/2016 mentioned in previous documents that may have been provoked by sedentary lifestyle for several months leading up to it, but did have at least a partial hypercoag w/u from review of records. Elevated homocysteine level noted but I did not see MTHFR gene mutation testing. Other testing was negative. She has a h/o IgM monoclonal gammopathy and follows with Heme as an outpatient -continue Xarelto 20mg daily for prophylaxis Anemia of CKD-Hgb mildly low and at baseline, some dilutional effect as well. Colonoscopy no source of bleeding in 12/2016, had 3 TAs removed -follow CBC periodically -f/u with Hematology routinely as above Anxiety -continue Ativan prn Pulm nodule- right lower lobe pulmonary nodule decreased in size to 7mm in 2016 from 9mm in 09/2016 -follows with Pulm -was supposed to have repeat Chest CT 06/2017-overdue -should have CT Chest after discharge in outpt setting Proph-Xarelto Dispo-FULL CODE, to SNF today Total Time Spent: Greater than 30 minutes This includes examination of the patient, discharge planning, medication reconciliation, and communication with other providers. Discharge Instructions Please refer to the electronic Patient Visit Report (Discharge Instructions) for additional information. Follow-Up PCP in 1-2 weeks after discharge from [facility] in 6 weeks Additional Copies To Carlos Tapia D.O.; Christiane Islas D.O.
[2017-08-07] MEDS ORDERED: TRAMADOL HCL 50 MG TAB PO PRN (14:30)
--- NOTE | 2017-08-07 16:26 | Medical Student: [facility] ---
Discharge Summary Admission Date: Aug 06, 2017 at 11:54 Discharge Date: Aug 07, 2017 Discharge Disposition: longterm facility Principal Diagnosis: Pelvic fractures, C.diff infection Problems/Secondary Diagnoses: DVT, PE, HTN, diverticulitis, IBS, arthritis, kidney stone, and CKD stage III Immunizations: Have You Had Influenza Vaccine: Yes History of Tetanus Vaccine?: No History of Pneumococcal: No History of Hepatitis B Vaccine: No Procedures: none Consultations: Dr. Tapia, Orthopaedic consultation Medications: Current Inpatient Medications Medications (Trade) Dose Ordered Sig/Rossy Route Start Time Stop Time Status Last Admin Dose Admin Vancomycin HCl (Vancomycin Oral Soln) 125 mg QID PO 08/05/17 09:00 08/19/17 08:59 08/07/17 13:00 125 MG Acetaminophen (Tylenol Tab) 650 mg Q4H PRN PO 08/05/17 00:30 09/04/17 00:29 Al Hydrox/Mg Hydrox/Simethicone (Maalox Max Susp) 15 ml Q4H PRN PO 08/05/17 00:30 09/04/17 00:29 08/06/17 11:13 15 ML Ondansetron HCl (Zofran Inj) 4 mg Q6H PRN IV 08/05/17 00:30 09/04/17 00:29 08/07/17 05:09 4 MG Albuterol (Ventolin Hfa Inhaler) 2 puffs Q6H PRN INH 08/05/17 00:30 09/04/17 00:29 Diltiazem HCl (Cardizem Cd Cap) 300 mg QAM PO 08/05/17 09:00 09/04/17 08:59 08/07/17 08:47 300 MG Fluticasone Propionate (Flonase Nasal [place]) 2 sprays BID MAYDA 08/05/17 09:00 09/04/17 08:59 Gabapentin (Neurontin Cap) 200 mg TID PO 08/05/17 09:00 09/04/17 08:59 08/06/17 21:00 200 MG Lorazepam (Ativan Tab) 1 mg BID PRN PO 08/05/17 00:30 09/04/17 00:29 Multivitamins (Multivitamin Tab) 1 tab QAM PO 08/05/17 09:00 09/04/17 08:59 Rivaroxaban (Xarelto Tab) 20 mg QPM PO 08/05/17 21:00 09/04/17 20:59 08/06/17 22:08 20 MG Cholecalciferol (Vitamin D Tab) 2,000 inter.unit QAM PO 08/05/17 09:00 09/04/17 08:59 08/07/17 08:48 2,000 INTER.UNIT Cyanocobalamin (Vitamin B-12 Tab) 2,500 mcg QAM PO 08/05/17 09:00 09/04/17 08:59 08/07/17 08:50 2,500 MCG Raspberry (Raspberry Syrup 5ml Cup) 5 ml QID PO 08/05/17 09:00 08/19/17 08:59 08/07/17 13:00 5 ML Miscellaneous (Iv Fluids Completed) 1 ea PRN PRN N/A 08/05/17 03:45 08/05/18 03:44 Hydromorphone HCl (Dilaudid Inj) 0.5 mg Q4 PRN IV 08/05/17 15:00 08/19/17 14:59 Promethazine HCl 12.5 mg/Sodium Chloride 50.5 ml @ 204 mls/hr Q6H PRN IV 08/05/17 15:00 09/04/17 14:59 Hydralazine HCl (HydrALAZINE INJ) 10 mg Q8H PRN IV. 08/05/17 15:15 09/04/17 15:14 Cholestyramine Resin (Questran Powder Light) 4 gm BID@10,22 PO 08/06/17 22:00 09/05/17 21:59 08/07/17 09:52 4 GM Saccharomyces Boulardii (Florastor Cap) 250 mg DAILY PO 08/07/17 09:00 09/06/17 08:59 08/07/17 08:47 250 MG Tramadol HCl (Ultram Tab) 100 mg Q6H PRN PO 08/07/17 14:30 09/05/17 14:29 Discharge Exam Review of Systems: Constitutional: No fever, No chills Respiratory: No cough, No sputum, No shortness of breath, No dyspnea on exertion, No dyspnea at rest Cardiovascular: No chest pain Abdomen: + nausea (mild), + diarrhea (better), No pain, No vomiting Musculoskeletal: + problem reported (left hip pain) Genitourinary - Female: No dysuria Neurologic: No vertigo Physical Exam: General Appearance: no apparent distress, + obese Eyes: normal inspection ENT: hearing grossly normal Respiratory/Chest: lungs clear, normal breath sounds, no respiratory distress Cardiovascular: regular rate, rhythm, no murmur Abdomen / GI: normal bowel sounds, non tender, soft Extremities: no calf tenderness, + swelling (1+), + pertinent finding ( stocking in place) Neurologic/Psychiatric: alert, normal mood/affect, oriented x 3 Skin: normal color Hospital Course This is 82 year-old female with hx of DVT, PE, HTN, diverticulitis, IBS, arthritis, and recent UTI presented to ER on 08/04 with worsening left hip pain, difficulty ambulation, nausea, vomiting, and diarrhea. Of note, patient had a fall 5 weeks ago. She presented to the ER twice since on 07/09 and mostly recent on 08/02 with complaints of worsening left hip pain that interferes with her activity. Both times, X-ray pelvis 07/[address] abd/pelvis 08/02 showed no fractures. During ER visit on 08/02, her UA also showed elevated urine WBC and leukocyte esterase, and she was subsequently discharged on Keflex. Pt stated that she only took 1 pill of Keflex before throwing up and did not take anymore. Over the past 4 weeks, she also saw her PCP who prescribed her percocet which she could only took for 1 day before feeling nauseous, and then switched to [place]. Since 08/02, her pain got worse and she also developed diarrhea. She was tested with C-diff in the ER this time and CT pelvis also showed acute nondisplaced fracture of superior and inferior rami. She was put on 1 dose of Flagyl before switching to Vancomycin due to nausea. UA was clean so Keflex was stopped. She also received dilaudid injection for pain control. Left pelvic pain CT pelvis also showed acute nondisplaced fracture of superior and inferior rami. - Ortho consulted - recommended minimal weight bearing on the left leg for 6 weeks. Patient will follow with Dr. Tapia in 6 weeks. - Pain is well-controlled with Tramadol. Nausea is controlled with zofran - Vit D-25 is wnl (36.2). Recommend for patient to have DEXA scan in 6 months as outpatient to check for osteoporosis. C-diff infection Symptoms get better. - Vancomycin PO 125mg QID day 3 of 10-day course. Finish course of Abx - Hydration - Stool culture - negative for salmonella. Giardia and Norovirus result pending CKD stage 3 - stable. - Pt has elevated Cr at 1.3, probably due to dehydration. IVF was administered during stay and Cr at discharge is 0.97 Anemia Pt has chronic anemia. She has colonoscopy in 12/2016 with no source of bleeding. Hgb at discharge is 10.9 - Could be due to anemia of chronic disease with normochromic and normocytic or 2/2 C.diff infection. - Follow with Heme as outpatient. ?CBC again after C-diff is clear. HTN Not very well controlled BP hovers around 150s/80s. - Pt continue take diltiazem 300mg PO daily and have hydralazine as needed but patient did not need it during her stay. - Follow with PCP if persistent elevated BP. Hx of PE/DVT. Pt has hx of DVT and massive PE 02/2016. Pt is currently on Xarelto for PE/DVT prophylaxis since the event. - Continue Xarelto 20mg PO. - Follow with insurance professional. Total Time Spent: Greater than 30 minutes This includes examination of the patient, discharge planning, medication reconciliation, and communication with other providers. Discharge Instructions You were admitted to the hospital due to difficulty ambulating secondary to a fall. CT showed that you have fractures in your pelvic bone. You saw Dr. Tapia during your stay here and he recommended minimal weight bearing on your left leg. You also got C.diff infection and were treated with antibiotic vancomycin. When you go to [facility] and later home, please: - Take Tramadol (Ultram) 100mg every 6 hours as needed for pain. - Avoid bearing weight on your left leg. - Continue taking vancomycin 125mg 4x a day for the next 7 days to complete 10- day course. - Continue taking cholestyramine, probiotic, and Florastor capsule to help your diarrhea. Keep yourself hydrated. - Resume the rest of your home medications. Follow-Up - Follow with your PCP in 1 week when you go home. - Follow up with Dr. Tapia in 6 weeks. - Follow with your insurance professional.
[2017-08-08 18:09] LABS: NOROVIRUS RNA** TC 19098X NOT DETECTED; O&P GIARDIA AG NOT DETECTED (NOT DETECTED)
== END 2017-08-07 15:35 | DRG 372 ==
LOC: C.EDB 18:34 → C.MSN 08-05 00:20 → ENRESERV 08-05 01:26 → OBSVTOIN 08-06 11:54
PROVIDERS: ADMIT Internal Medicine; ATTEND Family Medicine
DX: A04.7 Enterocolitis due to Clostridium difficile (principal); N39.0 Urinary tract infection, site not specified; S32.502A Unspecified fracture of left pubis, initial encounter for closed fracture; W19.XXXA Unspecified fall, initial encounter; T36.1X5A Adverse effect of cephalosporins and other beta-lactam antibiotics, initial encounter; R11.0 Nausea; T40.2X5A Adverse effect of other opioids, initial encounter; M16.0 Bilateral primary osteoarthritis of hip; M51.36 Other intervertebral disc degeneration, lumbar region; I12.9 Hypertensive chronic kidney disease with stage 1 through stage 4 chronic kidney disease, or unspecified chronic kidney disease; N18.3 Chronic kidney disease, stage 3 (moderate); D63.1 Anemia in chronic kidney disease; D47.2 Monoclonal gammopathy; E55.9 Vitamin D deficiency, unspecified; F41.9 Anxiety disorder, unspecified; R91.1 Solitary pulmonary nodule; Z86.711 Personal history of pulmonary embolism; Z87.442 Personal history of urinary calculi; Z87.19 Personal history of other diseases of the digestive system; Z90.49 Acquired absence of other specified parts of digestive tract; Z79.01 Long term (current) use of anticoagulants; Z79.899 Other long term (current) drug therapy; Z82.49 Family history of ischemic heart disease and other diseases of the circulatory system; Z83.79 Family history of other diseases of the digestive system; Z91.041 Radiographic dye allergy status; Z88.5 Allergy status to narcotic agent; Z88.6 Allergy status to analgesic agent; Z88.8 Allergy status to other drugs, medicaments and biological substances

== ENCOUNTER → 2017-09-24 | Outpatient (CLI) | payer BC ==
[~2017-09-24] MED LIST changes: +ACET-1047 PO; +AZEL30SP NAE; -CEPH-571 PO; -DPH/ PO; -FLUT0.15 NAE; +GABA1CAP PO; -HYDR-5688 PO; -NRN600 PO; +QSTP PO; +SACC250C3 PO; +VNCS125 PO
[2017-09-24 16:53] LABS: HEMATOCRIT 38.8 % (37-47); MEAN CELL VOLUME 89.4 fL (80-100); MEAN CORPUSCULAR HGB CONC 32.5 g/dl (32-36); MEAN PLATELET VOLUME 10.5 fL (7.4-10.4); PLATELET COUNT 253 K/uL (130-400); RED BLOOD COUNT 4.34 M/uL (4.2-5.4); WHITE BLOOD COUNT 8.27 K/uL (4.8-10.8)
[2017-09-24 17:11] LABS: URINE APPEARANCE CLOUDY (CLEAR); URINE COLOR DK YELLOW; URINE EPITHELIAL CELL AUTO >30 /lpf (0-5); URINE NITRITE NEG (NEG); URINE SPECIFIC GRAVITY 1.024 (1.000-1.030); UROBILINOGEN NEG (NEG)
[2017-09-24 17:16] LABS: MANUAL MICROSCOPIC REQUIRED? NO; REVIEW REQ? YES
[2017-09-24 17:17] LABS: URINE BILIRUBIN NEG (NEG)
[2017-09-24 17:55] LABS: URINE TOTAL PROTEIN 31.9 mg/dl (0-11.9)
[2017-09-24 18:00] LABS: BLOOD UREA NITROGEN 20 mg/dl (7-18); BUN/CREATININE RATIO 13.3 (10-20); CALCIUM 9.4 mg/dl (8.5-10.1); CARBON DIOXIDE 24 mmol/L (21-32); CHLORIDE 105 mmol/L (98-107); CREATININE 1.48 mg/dl (0.60-1.20); GLUCOSE 84 mg/dl (70-99); POTASSIUM 3.3 mmol/L (3.5-5.1); SODIUM 139 mmol/L (136-145)
[2017-09-24 18:01] LABS: PHOSPHORUS 2.5 mg/dl (2.5-4.9)
== END | disposition home or self-care (01) ==
LOC: C.LAB1850 15:57
PROVIDERS: ATTEND Internal Medicine Nephrology
DX: E55.9 Vitamin D deficiency, unspecified (principal)

== ENCOUNTER → 2017-11-30 | Outpatient (CLI) | payer BC ==
--- NOTE | 2017-11-30 13:11 | DIAGNOSTIC IMAGING REPORT ---
(CHEST) THORAX WITHOUT CT DOSE: 397.61 mGy.cm CLINICAL HISTORY: 82 years-old Female with R91.1 Pulmonary nodule, right TECHNIQUE: Multiaxial CT images of the chest were performed without contrast. A dose lowering technique was utilized adhering to the principles of ALARA. COMPARISON: CT chest 12/30/2016, CT abdomen and pelvis 09/15/2016 and 09/06/2016. CTA of the chest 03/02/2016. FINDINGS: Thyroid is mildly heterogeneous. Mildly enlarged subcarinal lymph node measures 1.8 x 1.1 cm. Mildly prominent right paratracheal lymph node measures 8 mm in short axis. These findings are unchanged from prior study and are indeterminate. Heart is normal in size without pericardial effusion. Coronary arterial disease. Mild atherosclerosis of the aorta. There is no pneumothorax, pleural effusion or focal airspace consolidation. Linear subsegmental areas of consolidative type opacity are present within the left lung apex and lung bases suggesting areas of pleural-parenchymal scarring. 7 x 5 mm ovoid solid pulmonary nodule of the right lower lobe is again seen on image 23 series 4 which is unchanged from study dated 12/30/2016 and has decreased in size from 09/06/2016. No new or enlarging pulmonary nodules are identified. 3 mm area of pleural-based nodularity adjacent to the posterior basal segment left lower lobe is unchanged and may reflect a focal area of scarring. Central airways are patent. Curvilinear 4 mm calcification is seen within the anterior aspect of the interpolar right kidney which is unchanged compatible with calculus. 2 mm nonobstructing calculus involves the posterior interpolar right kidney. No acute amount the of the imaged upper abdomen. Soft tissues are unremarkable. Bones appear intact. Multilevel endplate spurring of the spine. IMPRESSION: 1. Unchanged size and appearance of the ovoid solid pulmonary nodule of the right lower lobe measuring 7 x 5 mm. This has decreased in size from study dated 09/06/2016 where it measured almost 9 mm. 2. No new or enlarging pulmonary nodules identified. 3. No acute intrathoracic abnormality. 4. Mildly prominent peritracheal and mildly enlarged subcarinal lymph nodes are unchanged and likely reactive. 5. Right-sided nephrolithiasis. Please refer to below summary of Fleischner criteria recommendations for follow-up of incidental CT nodules (Kourtney Salguero, Guidelines for management of small pulmonary nodules detected on CT scans: A statement from the Fleischner Society, Radiology 237: [id number].) SOLID NODULES Solitary nodule size: 6-8 mm * Low risk patients: follow-up at 6-12 months, then consider further follow-up at 18-24 months * high risk patients: initial follow-up CT at 6-12 months and then at 18-24 months if no change Note: newly detected indeterminate nodule in persons 35 years of age or older. * Low risk patients: minimal or absent history of smoking and/or other known risk factors * high risk patients: history of smoking or of other known risk factors (e.g. first degree relative with lung cancer, or exposure to asbestos, radon, uranium) * if a nodule up to 8 mm is partly solid or is ground glass further follow-up is required after 24 months to exclude possible slow growing adenocarcinoma (OMAR) The above report was generated using voice recognition software. It may contain grammatical, syntax or spelling errors. Electronically signed by: Kai Isaac M.D. 11/30/2017 1:10 PM Dictated Date/Time: 11/30/2017 1:00 PM
== END | disposition home or self-care (01) ==
LOC: C.CTS 12:34
PROVIDERS: ATTEND Internal Medicine Critical Care Medicine
DX: R91.1 Solitary pulmonary nodule (principal); N20.0 Calculus of kidney

== ENCOUNTER → 2018-01-19 | Outpatient (CLI) | payer BC ==
[~2018-01-19] MED LIST changes: +GABA100C13 PO; -GABA1CAP PO
--- NOTE | 2018-01-19 14:45 | DIAGNOSTIC IMAGING REPORT ---
(CHEST) THORAX WITHOUT CT DOSE: 457.97 mGycm CLINICAL HISTORY: 83 years-old Female with R91.1 Pulmonary nodule, [id number] Mediastinal adenopathyI do un. Follow-up study in a patient with pulmonary nodules TECHNIQUE: Multiaxial CT images of the chest were performed without contrast. A dose lowering technique was utilized adhering to the principles of ALARA. COMPARISON: CT chest 11/30/2017, 12/30/2016, CTA of the chest 03/02/2016. FINDINGS: No dominant thyroid nodule identified. Unchanged mildly enlarged subcarinal lymph node measuring up to 11 mm in short axis. Right paratracheal lymph node has slightly decreased in size, now 7 mm. No additional pathologically enlarged lymph nodes about the chest are identified. Heart is normal in size without pericardial effusion. Coronary arterial disease. There is no thoracic aortic aneurysm that a 5. Mild atherosclerosis of the aorta. There is no pneumothorax or pleural effusion. Ovoid solid nodule of the posterior basal segment right lower lobe seen on image 182 series 4 has slightly decreased in size from comparison study 11/30/2017, now measuring 6 x 4 mm, previously 7 x 5 mm. Linear subsegmental left lower lobe and left upper lobe pleural-based opacities are unchanged suggesting areas of scarring. Unchanged 2 mm solid nodule of the right lung apex. No new or enlarging pulmonary nodules are identified. Central airways are patent. No acute abnormality of the imaged upper abdomen. The soft tissues are unremarkable. The bones appear intact. IMPRESSION: 1. No acute intrathoracic abnormality identified. 2. Slightly decreased size of the solid pulmonary nodule of the posterior basal segment right lower lobe, now measuring 6 x 4 mm. Unchanged 2 mm solid nodule of the right lung apex. 3. Subsegmental pleural-parenchymal scarring of the lung bases and apical posterior segment left upper lobe. 4. Indeterminate mild subcarinal adenopathy redemonstrated. Please refer to below summary of Fleischner criteria recommendations for follow-up of incidental CT nodules (Kourtney Salguero, Guidelines for management of small pulmonary nodules detected on CT scans: A statement from the Fleischner Society, Radiology 237: [phone].) SOLID NODULES Solitary nodule size: <6 mm * Low risk patients: no follow-up needed * high risk patients: optional CT at 12 months Solitary nodule size: 6-8 mm * Low risk patients: follow-up at 6-12 months, then consider further follow-up at 18-24 months * high risk patients: initial follow-up CT at 6-12 months and then at 18-24 months if no change Solitary nodule size: >8 mm * either low or high risk patients - consider follow-up CT at 3 months, and/or CT-PET, and/or biopsy Multiple nodules size: <6 mm * Low risk patients: no routine follow-up * high risk patients: optional CT at 12 months Multiple nodules size: 6-8 mm * Low risk patients: follow-up at 3-6 months, then consider further follow-up at 18-24 months * high risk patients: follow-up at 3-6 months, then at 18-24 months if no change Multiple nodules size: >8 mm * Low risk patients: follow-up at 3-6 months, then consider further follow-up at 18-24 months * high risk patients: follow-up at 3-6 months, then at 18-24 months if no change Note: newly detected indeterminate nodule in persons 35 years of age or older. * Low risk patients: minimal or absent history of smoking and/or other known risk factors * high risk patients: history of smoking or of other known risk factors (e.g. first degree relative with lung cancer, or exposure to asbestos, radon, uranium) * if a nodule up to 8 mm is partly solid or is ground glass further follow-up is required after 24 months to exclude possible slow growing adenocarcinoma (OMAR) The above report was generated using voice recognition software. It may contain grammatical, syntax or spelling errors. Electronically signed by: Kai Isaac M.D. 01/19/2018 2:44 PM Dictated Date/Time: 01/19/2018 2:34 PM
== END | disposition home or self-care (01) ==
LOC: C.CTS 14:13
PROVIDERS: ATTEND Internal Medicine Critical Care Medicine
DX: R59.0 Localized enlarged lymph nodes (principal); R91.8 Other nonspecific abnormal finding of lung field; J98.4 Other disorders of lung

== ENCOUNTER 2019-04-04 18:53 | Inpatient (IN) ==
[2019-04-04] MEDS ORDERED: ONDANSETRON 4 MG TAB PO STA (20:08)
[2019-04-04] MEDS ORDERED: MoRPHine SULFATE 4 MG/ML 1 ML CARP\\VIAL IM STA (20:08)
[2019-04-04] MEDS ORDERED: ONDANSETRON 4 MG OD TAB ONE (20:15)
--- NOTE | 2019-04-04 20:40 | XRay Report ---
XR ribs LT min 3V w CXR1V CLINICAL HISTORY: fall onto left side, pleuritic pain, tender ribs trauma. Pain. COMPARISON STUDY: No previous studies for comparison. FINDINGS: Negative chest. Fracture left seventh rib midaxillary line. Remaining ribs are unremarkable. No evidence pneumothorax . IMPRESSION: Healing fracture left seventh rib. Lungs are clear. The above report was generated using voice recognition software. It may contain grammatical, syntax or spelling errors. Electronically signed by: Leopoldo Díaz M.D. 04/04/2019 8:38 PM
[2019-04-04] MEDS ORDERED: HYDROmorphone INJ 0.5 MG/0.5 ML SYR IV STA (21:05)
--- NOTE | 2019-04-04 21:22 | Emergency Department Note ---
ED Visit Note I, Madelyn Fry, PGY-2, saw and assisted in the care of this patient with Dr. Rich. . Resident Activity Tracking Resident Involvement: Resident Care Provided Care Provided: Adult ED
[2019-04-04 22:07] LABS: Alanine Aminotransferase 84 U/L (12-78); Albumin Level 3.5 gm/dl (3.4-5.0); Aspartate Aminotransferase 24 U/L (15-37); BUN Creatinine Ratio 13.1 (10-20); Blood Urea Nitrogen 18 mg/dl (7-18); Calcium 9.9 mg/dl (8.5-10.1); Carbon Dioxide 26 mmol/L (21-32); Chloride 104 mmol/L (98-107); Est GFR (African American) 41.5; Est GFR (Non-African American) 35.8; Glucose 85 mg/dl (70-99); Potassium 3.7 mmol/L (3.5-5.1); Sodium 141 mmol/L (136-145)
[2019-04-04 22:10] LABS: Alkaline Phosphatase 168 U/L (45-117); Bilirubin,Total 0.6 mg/dl (0.2-1); Globulin 3.6 gm/dl (2.5-4.0); Total Protein 7.1 gm/dl (6.4-8.2)
[2019-04-04 23:10] LABS: Basophils # (auto) 0.02 K/uL (0-0.2); Basophils % (auto) 0.2 %; Eosinophils # (auto) 0.04 K/uL (0-0.5); Eosinophils % (auto) 0.5 %; Hematocrit (blood only) 39.7 % (37-47); Immature Granulocytes # (auto) 0.03 K/uL (0.00-0.02); Immature Granulocytes % (auto) 0.3 %; Lymphocytes # (auto) 1.95 K/uL (1.2-3.4); Lymphocytes % (auto) 22.5 %; Mean Corpuscular Hgb Conc 32.7 g/dL (32-36); Mean Corpuscular Volume 86.7 fL (80-100); Mean Platelet Volume 9.7 fL (7.4-10.4); Monocytes # (auto) 0.94 K/uL (0.11-0.59); Monocytes % (auto) 10.9 %; Neutrophils # (auto) 5.68 K/uL (1.4-6.5); Neutrophils % (auto) 65.6 %; Platelet Count 234 K/uL (130-400); RDW Coefficient of Variation 14.8 % (11.5-14.5); RDW Standard Deviation 46.8 fL (36.4-46.3); Red Blood Count 4.58 M/uL (4.2-5.4); White Blood Count 8.66 K/uL (4.8-10.8)
--- NOTE | 2019-04-04 23:48 | History & Physical Report ---
Date of Service April 04, 2019 Assessment & Plan (1) Back contusion: Intractable back pain/healing left seventh rib fracture/back contusion- Patient had been seen at the ED on 04/01, with a negative work-up at that time, was sent home with additional pain medication in the form of oxycodone, to go along with her recently increased Butrans. Her pain was not able to be controlled, and she represented to the emergency department today, 04/04. The use of anti-inflammatories is somewhat limited due to her being on apixaban. We will try Voltaren gel to be used topically 4 times daily, K pad, continuing her baseline Butrans dose, tramadol as needed mild pain, hydrocodone as needed moderate pain, and Dilaudid IV as needed severe pain. We will consult [facility], as she has been seen by Dr. Bishop in the past for other orthopedic issues Present on Admission?: Yes (2) Broken rib: As above. Present on Admission?: Yes (3) Intractable pain: As above. Present on Admission?: Yes (4) Failure of outpatient treatment: As noted above. Present on Admission?: Yes (5) DVT (deep venous thrombosis): DVT/PE history- Continue apixaban 5 mg p.o. twice daily. Present on Admission?: Yes (6) Pulmonary embolism: As above. Present on Admission?: Yes (7) Hypertension: Continue Cardizem CD 300 mg p.o. every morning Present on Admission?: Yes (8) GERD (gastroesophageal reflux disease): Continue pantoprazole 40 mg daily Present on Admission?: Yes History of Present Illness Chief Complaint: The patient presents to the emergency department with complaint of persistent severe posterior left lower rib cage to left pelvic girdle pain for which she was first seen at the ED on 04/01 after a fall on 03/29. Primary Care Provider: Christiane Islas DO The patient is an 84-year-old female who fell on 03/29, injuring her left back area. She was seen in the emergency department on 04/01, had negative CT of chest, abdomen and pelvis, thoracic spine and lumbar spine. She was given oxycodone to take at home, in addition to recently increased Butrans, however, her pain has not improved, and she presents to the emergency department for reassessment tonight. X-ray tonight shows a healing left seventh posterior rib fracture. She does report chronic arthritic pain in most of her joints, for which her Butrans was recently increased in the outpatient setting. Allergies Allergy/AdvReac Type Severity Reaction Status Date / Time fentanyl Allergy Intermediate VERY SICK Verified 04/01/19 15:41 Iodinated Contrast- Oral and Allergy Intermediate HIVES Verified 04/01/19 15:41 IV Dye dicyclomine Allergy Unknown nausea Verified 04/01/19 15:41 oxycodone AdvReac Intermediate NAUSEA, Verified 04/01/19 15:41 DIARRHEA duloxetine AdvReac Mild GI SYMPTOMS Verified 04/01/19 15:41 metronidazole AdvReac Mild Vomiting Verified 04/01/19 15:41 promethazine AdvReac Mild MAKES HER Verified 04/01/19 15:41 LOOPY sertraline AdvReac Mild SHAKEY Verified 04/01/19 15:41 Home Medications Home Medications Medication Instructions Recorded Confirmed Type albuterol sulfate 2 puff INHALATION Q6H PRN 08/01/18 04/04/19 History azelastine 1 spray INTRANASAL DAILY PRN 08/01/18 04/04/19 History cholecalciferol (vitamin D3) 2,000 unit PO QAM 08/01/18 04/04/19 History [Vitamin D3] cyanocobalamin (vitamin B-12) 2,500 mcg PO QAM 08/01/18 04/04/19 History fluticasone propionate [Flonase 2 spray INTRANASAL BID PRN 08/01/18 04/04/19 History Allergy Relief] tramadol 50 mg PO BID PRN 08/01/18 04/04/19 History apixaban 5 mg tablet 5 mg PO BID 12/16/18 04/04/19 History buprenorphine 10 mcg/hour weekly 1 patch TD WK 12/16/18 04/04/19 History transdermal patch lorazepam 0.5 mg tablet 0.5 mg PO BID PRN tab 12/16/18 04/04/19 History multivitamin tablet 1 tab PO QAM 12/16/18 04/04/19 History ondansetron 4 mg disintegrating 4 mg PO TID PRN 12/16/18 04/04/19 History tablet pantoprazole 40 mg tablet,delayed 40 mg PO QAM 12/16/18 04/04/19 History release diltiazem HCl 300 mg PO QAM 01/14/19 04/04/19 History budesonide 9 mg PO DAILY 04/01/19 04/04/19 History hydrocortisone-pramoxine 1 applic NC TID 04/01/19 04/04/19 History [Proctofoam HC] ketoconazole 1 applic TOPICAL BID 04/01/19 04/04/19 History oxycodone 5 mg PO Q6H PRN #8 tab 04/01/19 04/04/19 Rx Past Med/Surg History Medical History DVT (deep venous thrombosis) (Chronic) legs Pulmonary embolism (Resolved) Nephrolithiasis (Resolved) IBS (irritable bowel syndrome) (Resolved) Hypertension (Chronic) Arthritis (Chronic) CKD (chronic kidney disease), stage III (Chronic) 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) Anxiety Blindness of right eye Diverticular disease GERD (gastroesophageal reflux disease) Kidney stones On anticoagulant therapy eliquis Sleep apnea cpap Surgical History History of cholecystectomy (Resolved) History of bilateral cataract extraction History of colonoscopy History of cystoscopy History of dilatation and curettage x3 History of esophagogastroduodenoscopy (EGD) History of tooth extraction upper teeth Hx of left breast biopsy benign Hx of right breast biopsy benign S/P foot surgery, right benign nodule Family History Father Myocardial infarction Other No family history of adverse response to anesthesia Social History Preferred Language: Moroccan Communication Ability: Effective Masonry 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 Required: No Beliefs That Will Affect Care: None marital status: Current Living Situation: Spouse Feels Safe at Home: Yes Safety Concerns: Feels Safe At This Time Smoking Status: Never smoker Second Hand Exposure: Yes ( smoked) Hx Alcohol Use: No Hx Substance Use: No Review of Systems Review of Systems: The patient denies chest pain, palpitations, shortness of breath, dyspnea on exertion, cough, lower extremity swelling, sore throat, fevers, chills, sweats, weight change, fatigue, nausea, vomiting, diarrhea , constipation, abdominal pain, pelvic pain, blood in urine or stool, dysuria, urinary frequency or urgency, lightheadedness, dizziness, headache, memory loss, loss of consciousness, rash, abnormal bruising or bleeding, focal or generalized weakness, neck pain, or night sweats. The review of systems is otherwise negative other than for that already noted above, and at least 10 systems have been reviewed. Physical Exam Physical Exam: The patient is awake, alert and oriented 3, well developed and well nourished, normocephalic and atraumatic, lying in bed and in no acute distress. HEENT--PERRL, EOMI, mucous membranes and oropharynx dry. Neck--supple. No JVD. No bruits. Thyroid normal, trachea midline, no adenopathy. Heart--normal S1 and S2. No murmurs, rubs or gallops. Lungs--clear bilaterally, no respiratory distress, no accessory muscle use. Abdomen--normal bowel sounds and soft. Nontender. Nondistended, no hernias or masses, no organomegaly. Extremities--no cyanosis or clubbing. No edema. There are good distal pulses b/l. Dermatologic--normal skin turgor, normal color, no abnormal lymph nodes, no rash. Neurologic--cranial nerves II through XII grossly intact. Rheumatologic--range of motion limited by pain, in particular reproducible over left lower rib cage area. Psychiatric--normal affect. Results & Data Vital Signs (Past 12 Hours) Vital Signs Temp Pulse Pulse Resp BP BP Pulse Ox 04/04/19 23:13 78 16 182/100 H 99 04/04/19 22:19 82 L 04/04/19 22:00 75 20 163/91 H 95 04/04/19 21:09 74 20 149/89 H 96 04/04/19 19:09 98.1 F 90 20 138/114 H 95 Laboratory Results Laboratory Results WBC 8.66 K/uL (4.8-10.8) 04/04/19 23:02 RBC 4.58 M/uL (4.2-5.4) 04/04/19 23:02 Hgb 13.0 g/dL (12.0-16.0) 04/04/19 23:02 Hct 39.7 % (37-47) 04/04/19 23:02 MCV 86.7 fL (80-100) 04/04/19 23:02 MCH 28.4 pg (25-34) 04/04/19 23:02 MCHC 32.7 g/dL (32-36) 04/04/19 23:02 RDW Std Deviation 46.8 fL (36.4-46.3) H 04/04/19 23:02 RDW Coeff of Deny 14.8 % (11.5-14.5) H 04/04/19 23:02 Plt Count 234 K/uL (130-400) 04/04/19 23:02 MPV 9.7 fL (7.4-10.4) 04/04/19 23:02 Immature Gran % (Auto) 0.3 % 04/04/19 23:02 Neut % (Auto) 65.6 % 04/04/19 23:02 Lymph % (Auto) 22.5 % 04/04/19 23:02 [place] % (Auto) 10.9 % 04/04/19 23:02 Eos % (Auto) 0.5 % 04/04/19 23:02 Baso % (Auto) 0.2 % 04/04/19 23:02 Immature Gran # (Auto) 0.03 K/uL (0.00-0.02) H 04/04/19 23:02 Neut # (Auto) 5.68 K/uL (1.4-6.5) 04/04/19 23:02 Lymph # (Auto) 1.95 K/uL (1.2-3.4) 04/04/19 23:02 [place] # (Auto) 0.94 K/uL (0.11-0.59) H 04/04/19 23:02 Eos # (Auto) 0.04 K/uL (0-0.5) 04/04/19 23:02 Baso # (Auto) 0.02 K/uL (0-0.2) 04/04/19 23:02 Absolute Nucleated RBC Cancelled 04/04/19 21:06 Nucleated RBC % (auto) Cancelled 04/04/19 21:06 Cancelled 04/04/19 21:06 Cancelled 04/04/19 21:06 Cancelled 04/04/19 21:06 Cancelled 04/04/19 21:06 Reactive Lymphs % (Man) Cancelled 04/04/19 21:06 Cancelled 04/04/19 21:06 Cancelled 04/04/19 21:06 Cancelled 04/04/19 21:06 Metamyelocytes % (Man) Cancelled 04/04/19 21:06 Myelocytes % (Man) Cancelled 04/04/19 21:06 Promyelocytes % (Man) Cancelled 04/04/19 21:06 Cancelled 04/04/19 21:06 Plasma Cell % (Manual) Cancelled 04/04/19 21:06 Cancelled 04/04/19 21:06 Nucleated RBC % Cancelled 04/04/19 21:06 Cancelled 04/04/19 21:06 Band Neutrophils # Cancelled 04/04/19 21:06 Total Absolute Neuts Cancelled 04/04/19 21:06 Cancelled 04/04/19 21:06 Cancelled 04/04/19 21:06 Reactive Lymphs # Cancelled 04/04/19 21:06 Total Abs Lymphocytes Cancelled 04/04/19 21:06 Cancelled 04/04/19 21:06 Cancelled 04/04/19 21:06 Cancelled 04/04/19 21:06 Metamyelocytes # (Man) Cancelled 04/04/19 21:06 Cancelled 04/04/19 21:06 Promyelocytes # (Man) Cancelled 04/04/19 21:06 Blast Cells # (Man) Cancelled 04/04/19 21:06 Plasma Cell # (Manual) Cancelled 04/04/19 21:06 Cancelled 04/04/19 21:06 Nucleated RBCs # (Man) Cancelled 04/04/19 21:06 Hypersegmented Neuts Cancelled 04/04/19 21:06 Hyposegmented Neuts Cancelled 04/04/19 21:06 Hypogranular Neuts Cancelled 04/04/19 21:06 Large Granular Lymphs Cancelled 04/04/19 21:06 # Lrg Granular Lymphs Cancelled 04/04/19 21:06 Cancelled 04/04/19 21:06 Cancelled 04/04/19 21:06 Cancelled 04/04/19 21:06 Cancelled 04/04/19 21:06 Cancelled 04/04/19 21:06 Cancelled 04/04/19 21:06 Cancelled 04/04/19 21:06 Cancelled 04/04/19 21:06 Cancelled 04/04/19 21:06 Cancelled 04/04/19 21:06 Cancelled 04/04/19 21:06 RBC Morphology Cancelled 04/04/19 21:06 Cancelled 04/04/19 21:06 Cancelled 04/04/19 21:06 Cancelled 04/04/19 21:06 Cancelled 04/04/19 21:06 Cancelled 04/04/19 21:06 Cancelled 04/04/19 21:06 Cancelled 04/04/19 21:06 Cancelled 04/04/19 21:06 Cancelled 04/04/19 21:06 Cancelled 04/04/19 21:06 Cancelled 04/04/19 21:06 Cancelled 04/04/19 21:06 Cancelled 04/04/19 21:06 Cancelled 04/04/19 21:06 Cancelled 04/04/19 21:06 Cancelled 04/04/19 21:06 Acanthocytes (Spur) Cancelled 04/04/19 21:06 Rouleaux Cancelled 04/04/19 21:06 Cancelled 04/04/19 21:06 Cancelled 04/04/19 21:06 RBC Morph Comment Cancelled 04/04/19 21:06 Sezary Cell Cancelled 04/04/19 21:06 Sodium 141 mmol/L (136-145) 04/04/19 21:06 Potassium 3.7 mmol/L (3.5-5.1) 04/04/19 21:06 Chloride 104 mmol/L (98-107) 04/04/19 21:06 Carbon Dioxide 26 mmol/L (21-32) 04/04/19 21:06 10.0 (3-11) 04/04/19 21:06 BUN 18 mg/dl (7-18) 04/04/19 21:06 1.37 mg/dl (0.6-1.2) H 04/04/19 21:06 Est Cr Clr Drug Dosing Not Reportable 04/04/19 21:06 Est GFR ( Amer) 41.5 04/04/19 21:06 Est GFR (Non-Af Amer) 35.8 04/04/19 21:06 13.1 (10-20) 04/04/19 21:06 Glucose 85 mg/dl (70-99) 04/04/19 21:06 Calcium 9.9 mg/dl (8.5-10.1) 04/04/19 21:06 0.6 mg/dl (0.2-1) 04/04/19 21:06 AST 24 U/L (15-37) 04/04/19 21:06 ALT 84 U/L (12-78) H 04/04/19 21:06 168 U/L (45-117) H 04/04/19 21:06 7.1 gm/dl (6.4-8.2) 04/04/19 21:06 3.5 gm/dl (3.4-5.0) 04/04/19 21:06 3.6 gm/dl (2.5-4.0) 04/04/19 21:06 1.0 (0.9-2) 04/04/19 21:06 Diagnostic Findings [place] [phone] CT Scan Report Patient: MILANA CARTER DAdmit Date: 04/01/19 MR#: [id number]: [address] [facility] Acct ID:[id number]: Date: 1935[facility] Zip: [place] [address] Age: 84Location: ED Sex: F Room/Bed: Att Phy: Diagnosis: FALL, BACK PAIN Liane Phy: Christiane Islas D.O.Service Date: 04/01/19 Fam Phy: Interpreting Phy: Leopoldo Díaz MD Admit Phy: Ordering Phy: Ru Carr DO cc: ~ CT thoracic spine wo con CT DOSE: HISTORY: Pain fall back pain TECHNIQUE: Multiaxial CT images of the thoracic spine were performed and reformatted in the sagittal and coronal plane without the use of contrast. A dose lowering technique was utilized adhering to the principles of ALARA. COMPARISON: None. FINDINGS: No fractures. No subluxation. Paraspinal soft tissues are unremarkable. IMPRESSION: No fractures within the thoracic spine. Moderate degenerative disc changes throughout The above report was generated using voice recognition software. It may contain grammatical, syntax or spelling errors. Electronically signed by: Leopoldo Díaz M.D. 04/01/2019 4:45 PM Dictated: 04/01/191642 Transcribed: 04/01/191642 [facility], [place] [phone] CT Scan Report Patient: MILANA CARTER Date: 04/01/19 MR#: [id number]: [address] [place] [address] Acct ID:[id number]: Date: 1935[facility] Zip: [place] [address] Age: 84Location: ED Sex: F Room/Bed: Att Phy: Diagnosis: FALL, BACK PAIN Liane Phy: Christiane Islas D.O.Service Date: 04/01/19 Fam Phy: Interpreting Phy: Leopoldo Díaz MD Admit Phy: Ordering Phy: Ru Carr DO cc: ~ CT thoracic spine wo con CT DOSE: HISTORY: Pain fall back pain TECHNIQUE: Multiaxial CT images of the thoracic spine were performed and reformatted in the sagittal and coronal plane without the use of contrast. A dose lowering technique was utilized adhering to the principles of ALARA. COMPARISON: None. FINDINGS: No fractures. No subluxation. Paraspinal soft tissues are unremarkable. IMPRESSION: No fractures within the thoracic spine. Moderate degenerative disc changes throughout The above report was generated using voice recognition software. It may contain grammatical, syntax or spelling errors. Electronically signed by: Leopoldo Díaz M.D. 04/01/2019 4:45 PM Dictated: 04/01/191642 Transcribed: 04/01/191642 [facility], [place] [phone] CT Scan Report Patient: MILANA CARTER Date: 04/01/19 MR#: [id number]: [address] [place] [address] Acct ID:[id number]: Date: 1935[facility] Zip: [place] [address] Age: 84Location: ED Sex: F Room/Bed: Att Phy: Diagnosis: FALL, BACK PAIN Liane Phy: Christiane IslasDBarryO.Service Date: 04/01/19 Fam Phy: Interpreting Phy: Omer Gavin MD Admit Phy: Ordering Phy: Ru Carr, DO cc: ~ ABDOMEN AND PELVIS CT WITHOUT CONTRAST CT DOSE: 886.64 mGy.cm HISTORY: fall lower back pain TECHNIQUE: Multiaxial CT images of the abdomen and pelvis were performed without contrast. A dose lowering technique was utilized adhering to the principles of ALARA. COMPARISON STUDY: Abdomen and pelvis CT 08/01/2018. FINDINGS: Stable 5 mm nodule within the right lower lobe. No pneumoperitoneum. No pneumatosis. Old, healed left pubic bone fractures. No acute fractures identified. The gallbladder is surgically absent. The unenhanced pancreas, spleen, and adrenal glands are unremarkable. Bilateral nephrolithiasis. No hydronephrosis. A 6 mm exophytic hypodense lesion within the left kidney is too small to characterize but favors a cyst. Moderate intrahepatic bile duct dilatation has slightly progressed. No retroperitoneal lymphadenopathy. The uterus and bilateral adnexa are unremarkable. Mild bladder wall thickening with associated fast rating. Colonic diverticulosis. No evidence for diverticulitis. Suboptimal evaluation for bowel pathology due to the lack of intravenous and oral contrast. However, there is no definite bowel wall thickening or obstruction. Normal appendix. IMPRESSION: 1. No acute traumatic process within the abdomen or pelvis. 2. Bilateral nephrolithiasis. No hydronephrosis. 3. Slight progression of the moderate intrahepatic bile duct dilatation. Recommend correlation with LFTs to exclude an obstructive process. Nonemergent GI consultation should also be considered for further evaluation. 4. Stable 5 mm nodule within the right lower lobe. Electronically signed by: Omer Gavin M.D. 04/01/2019 4:55 PM Dictated: 04/01/191645 Transcribed: 04/01/19 164 [place], [place] [phone] CT Scan Report Patient: MILANA CARTER DAdpaual Date: 04/01/19 MR#: [id number]: [address] [place] [address] Acct ID:[id number]: Date: 1935[facility] Zip: [place] [address] Age: 84Location: ED Sex: F Room/Bed: Att Phy: Diagnosis: FALL, BACK PAIN Liane Phy: Christiane Islas D.OBarryService Date: 04/01/19 [facility] Phy: Interpreting Phy: Leopoldo Díaz MD Admit Phy: Ordering Phy: Ru Carr DO cc: ~ CT chest wo con CT DOSE: HISTORY: Pain. Trauma. diffuse l sided back pain s/p fall TECHNIQUE: Multiaxial CT images of the chest were performed without contrast. A dose lowering technique was utilized adhering to the principles of ALARA. COMPARISON: 01/19/2018 FINDINGS: Lungs are considered clear. Moderate atherosclerotic change thoracic aorta unchanged. No focal infiltrate. Several small mediastinal and/or hilar nodes unchanged from the prior study. No new or interval finding. IMPRESSION: No acute process. The above report was generated using voice recognition software. It may contain grammatical, syntax or spelling errors. Electronically signed by: Leopoldo Díaz M.D. 04/01/2019 4:43 PM Dictated: 04/01/19 [facility] Transcribed: 04/01/[address] [place] [address] XRay Report Patient: MILANA CARTER Date: 04/04/19 MR#: [id number]: [address] [facility] Acct ID:[id number]: Date: 1935[facility] Zip: [place] [address] Age: 84Location: ED Sex: F Room/Bed: Att Phy: Diagnosis: BACK PAIN Liane Phy: Christiane Islas D.O.Service Date: 04/04/19 [facility] Phy: Interpreting Phy: Leopoldo Díaz MD Admit Phy: Ordering Phy: Madelyn Fry MD cc: ~ XR ribs LT min 3V w [id number] CLINICAL HISTORY: fall onto left side, pleuritic pain, tender ribs trauma. Pain. COMPARISON STUDY: No previous studies for comparison. FINDINGS: Negative chest. Fracture left seventh rib midaxillary line. Remaining ribs are unremarkable. No evidence pneumothorax. IMPRESSION: Healing fracture left seventh rib. Lungs are clear. The above report was generated using voice recognition software. It may contain grammatical, syntax or spelling errors. Electronically signed by: Leopoldo Díaz M.D. 04/04/2019 8:38 PM Code Status & VTE Plan Code Status Full code VTE Prophylaxis Plan VTE Prophylaxis will be ordered: Yes (1) Back contusion Encounter type: initial encounter Laterality: unspecified laterality Qualified Code(s): S20.229A - Contusion of unspecified back wall of thorax, initial encounter (2) Broken rib Encounter type: initial encounter Fracture type: closed Laterality: left Rib fracture type: single rib Qualified Code(s): S22.32XA - Fracture of one rib, left side, initial encounter for closed fracture (3) Hypertension Hypertension type: essential hypertension Qualified Code(s): I10 - Essential (primary) hypertension
--- NOTE | 2019-04-04 23:50 | Emergency Department Note ---
Entered by Trixie Gutierrez acting as a scribe for Robin Rich MD History of Present Illness General Chief complaint: Back Injury/Pain Stated complaint: BACK PAIN Time Seen by Provider: 04/04/19 19:30 Source: patient History of Present Illness Onset (ago): day(s) 6 Location: back Pain Consistency: + other (worsening ) Maximum Pain Intensity: 8 Relieved By: not by medication (Motrin and Percocet) Associated symptoms: + other (positive difficulty walking; negative urinary symptoms; negative problems with bowel movements; negative numbness; negative tingling ) Treatments prior to arrival: other (Percocet and Motrin) The patient is a 84 year old female who presents to the Emergency Room with complaints of worsening back pain that began 6 days prior to arrival. The patient states that she fell prior to her back pain beginning and hit her back during her fall. The patient states that she was seen in the ED 3 days after her fall. She states that her pain has now localized to the left side of her rib cage and down her back. The patient states that she has had trouble walking during this time. The patient denies urinary symptoms, problems with bowel movements, numbness, and tingling, incontinence, abdominal pain, difficulty breathing. The patient states that she took Percocet and Motrin at home for her symptoms, but states that this did not relieve her symptoms. Home Medications Home Medications Medication Instructions Recorded Confirmed Type albuterol sulfate 2 puff INHALATION Q6H PRN 08/01/18 04/04/19 History azelastine 1 spray INTRANASAL DAILY PRN 08/01/18 04/04/19 History cholecalciferol (vitamin D3) 2,000 unit PO QAM 08/01/18 04/04/19 History [Vitamin D3] cyanocobalamin (vitamin B-12) 2,500 mcg PO QAM 08/01/18 04/04/19 History fluticasone propionate [Flonase 2 spray INTRANASAL BID PRN 08/01/18 04/04/19 History Allergy Relief] tramadol 50 mg PO BID PRN 08/01/18 04/04/19 History apixaban 5 mg tablet 5 mg PO BID 12/16/18 04/04/19 History buprenorphine 10 mcg/hour weekly 1 patch TD WK 12/16/18 04/04/19 History transdermal patch lorazepam 0.5 mg tablet 0.5 mg PO BID PRN tab 12/16/18 04/04/19 History multivitamin tablet 1 tab PO QAM 12/16/18 04/04/19 History ondansetron 4 mg disintegrating 4 mg PO TID PRN 12/16/18 04/04/19 History tablet pantoprazole 40 mg tablet,delayed 40 mg PO QAM 12/16/18 04/04/19 History release diltiazem HCl 300 mg PO QAM 01/14/19 04/04/19 History budesonide 9 mg PO DAILY 04/01/19 04/04/19 History hydrocortisone-pramoxine 1 applic NM TID 04/01/19 04/04/19 History [Proctofoam HC] ketoconazole 1 applic TOPICAL BID 04/01/19 04/04/19 History oxycodone 5 mg PO Q6H PRN #8 tab 04/01/19 04/04/19 Rx Allergies Allergy/AdvReac Type Severity Reaction Status Date / Time fentanyl Allergy Intermediate VERY SICK Verified 04/01/19 15:41 Iodinated Contrast- Oral and Allergy Intermediate HIVES Verified 04/01/19 15:41 IV Dye dicyclomine Allergy Unknown nausea Verified 04/01/19 15:41 oxycodone AdvReac Intermediate NAUSEA, Verified 04/01/19 15:41 DIARRHEA duloxetine AdvReac Mild GI SYMPTOMS Verified 04/01/19 15:41 metronidazole AdvReac Mild Vomiting Verified 04/01/19 15:41 promethazine AdvReac Mild MAKES HER Verified 04/01/19 15:41 LOOPY sertraline AdvReac Mild SHAKEY Verified 04/01/19 15:41 Past Med/Surg History Medical History DVT (deep venous thrombosis) (Chronic) legs Pulmonary embolism (Resolved) Nephrolithiasis (Resolved) IBS (irritable bowel syndrome) (Resolved) Hypertension (Chronic) Arthritis (Chronic) CKD (chronic kidney disease), stage III (Chronic) 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) Anxiety Blindness of right eye Diverticular disease GERD (gastroesophageal reflux disease) Kidney stones On anticoagulant therapy eliquis Sleep apnea cpap Surgical History History of cholecystectomy (Resolved) History of bilateral cataract extraction History of colonoscopy History of cystoscopy History of dilatation and curettage x3 History of esophagogastroduodenoscopy (EGD) History of tooth extraction upper teeth Hx of left breast biopsy benign Hx of right breast biopsy benign S/P foot surgery, right benign nodule Family History Father Myocardial infarction Other No family history of adverse response to anesthesia Social History Preferred Language: Vincentian Communication Ability: Effective Beliefs That Will Affect Care: None marital status: Current Living Situation: Spouse Feels Safe at Home: Yes Smoking Status: Never smoker Second Hand Exposure: Yes ( smoked) Hx Alcohol Use: No Hx Substance Use: No Review of Systems See HPI for pertinent positives & negatives. and A total of 10 systems reviewed and were otherwise negative Physical Exam Vital Signs Vital Signs - 24 hr 04/04/19 19:09 04/04/19 21:09 04/04/19 22:00 Temperature 36.7 C Temperature Source Oral Sepsis Recent Fever Within 48 Hours No Sepsis New/Unexplained Change in Mental Status No Sepsis Action Taken by Nursing No Action Required Pulse Rate 90 Pulse Rate [Finger] 74 75 Respiratory Rate 20 20 20 Blood Pressure 138/114 H Blood Pressure [Right Arm] 149/89 H 163/91 H Blood Pressure Mean 122 Blood Pressure Mean [Right Arm] 109 115 Pulse Oximetry 95 96 95 Oxygen Delivery Method Room Air Room Air Room Air Oxygen Flow Rate 04/04/19 22:19 04/04/19 23:13 Temperature Temperature Source Sepsis Recent Fever Within 48 Hours Sepsis New/Unexplained Change in Mental Status Sepsis Action Taken by Nursing Pulse Rate Pulse Rate [Finger] 78 Respiratory Rate 16 Blood Pressure Blood Pressure [Right Arm] 182/100 H Blood Pressure Mean Blood Pressure Mean [Right Arm] 127 Pulse Oximetry 82 L 99 Oxygen Delivery Method Room Air Nasal Cannula Nasal Cannula Oxygen Flow Rate 0 2 Constitutional: Vital signs reviewed. Eyes: Pupils are equal round reactive to light. Conjunctiva are noninjected. ENT: Pharynx is clear without erythema or exudate. Mucous membranes are moist. Neck supple without meningeal signs. Respiratory: Clear to auscultation bilaterally. Breath sounds are equal bilaterally. Cardiovascular: Regular rate and rhythm. No rubs or gallops. GI: Soft, nondistended and nontender. Bowel sounds are present. Musculoskeletal: No peripheral edema. No lower extremity tenderness. Significant tenderness to the left lower ribs in axillary line without crepitus or flail segment. Integumentary: No cyanosis. Neurological: The patient is awake and alert. No focal deficits. Psychiatric: Normal affect. Course 0: The patient was seen and evaluated by the resident Madelyn Fry. 2007: The patient was evaluated in room C7, and a complete history and physical examination were performed. 2103: I reevaluated the patient and she states that she has worsening rib pain because of the movement from her x-rays. 2213: Dr. Fry discussed the case with Dr. [facility] who accepts the patient for further evaluation. Administered Medications Discontinued Medications Hydromorphone HCl (Dilaudid) 0.5 mg IV NOW STA Stop: 04/04/19 21:06 Last Admin: 04/04/19 21:54 Dose: 0.5 mg Documented by: [id number] Morphine Sulfate (Morphine Sulfate) 4 mg IM NOW STA Stop: 04/04/19 20:09 Last Admin: 04/04/19 20:19 Dose: 4 mg Documented by: [id number] Ondansetron HCl (Zofran) 4 mg PO NOW STA Stop: 04/04/19 20:09 Last Admin: 04/04/19 20:20 Dose: Not Given Documented by: [id number] Ondansetron HCl (Zofran Odt) Confirm Administered Dose 4 mg .ROUTE .STK-MED ONE Stop: 04/04/19 20:16 Last Admin: 04/04/19 20:20 Dose: 4 mg Documented by: [id number] Medical Decision Making Differential Diagnosis Differential diagnoses include rib fracture, rib contusion, pneumothorax, hemothorax, strain, and others were considered. Medical Records Attestation: I reviewed the patient's medical records. (The patient was seen in the ED on 04/01/19 after a mechanical fall with back pain. Multiple scans were done of the patient's abdomen and back. The patient was diagnosed with a contusion. The patient also had elevated LFTs and was referred to GI. ) Home Medications Current Medication List: was personally reviewed by me Laboratory Data Attestation: I reviewed the patient's lab results. Result diagrams: 04/04/19 23:02 04/04/19 21:06 Lab Results 04/04/19 04/04/19 04/04/19 Range/Units 21:06 21:06 23:02 WBC Cancelled 8.66 RBC Cancelled 4.58 Hgb Cancelled 13.0 Hct Cancelled 39.7 MCV Cancelled 86.7 MCH Cancelled 28.4 MCHC Cancelled 32.7 RDW Std Deviation Cancelled 46.8 H RDW Coeff of Deny Cancelled 14.8 H Plt Count Cancelled 234 MPV Cancelled 9.7 Immature Gran % (Auto) Cancelled 0.3 Neut % (Auto) Cancelled 65.6 Lymph % (Auto) Cancelled 22.5 [place] % (Auto) Cancelled 10.9 Eos % (Auto) Cancelled 0.5 Baso % (Auto) Cancelled 0.2 Immature Gran # (Auto) Cancelled 0.03 H Neut # (Auto) Cancelled 5.68 Lymph # (Auto) Cancelled 1.95 [place] # (Auto) Cancelled 0.94 H Eos # (Auto) Cancelled 0.04 Baso # (Auto) Cancelled 0.02 Absolute Nucleated RBC Cancelled Nucleated RBC % (auto) Cancelled Neutrophils % (Manual) Cancelled Band Neutrophils % Cancelled Lymphocytes % (Manual) Cancelled Prolymphocyte % Cancelled Reactive Lymphs % (Man) Cancelled Monocytes % (Manual) Cancelled Eosinophils % (Manual) Cancelled Basophils % (Manual) Cancelled Metamyelocytes % (Man) Cancelled Myelocytes % (Man) Cancelled Promyelocytes % (Man) Cancelled Blast Cells % (Manual) Cancelled Plasma Cell % (Manual) Cancelled Other Cells % Cancelled Nucleated RBC % Cancelled Neutrophils # (Manual) Cancelled Band Neutrophils # Cancelled Total Absolute Neuts Cancelled Lymphocytes # (Manual) Cancelled Prolymphocyte # Cancelled Reactive Lymphs # Cancelled Total Abs Lymphocytes Cancelled Monocytes # (Manual) Cancelled Eosinophils # (Manual) Cancelled Basophils # (Manual) Cancelled Metamyelocytes # (Man) Cancelled Myelocytes # (Manual) Cancelled Promyelocytes # (Man) Cancelled Blast Cells # (Man) Cancelled Plasma Cell # (Manual) Cancelled Other Cells # Cancelled Nucleated RBCs # (Man) Cancelled Hypersegmented Neuts Cancelled Hyposegmented Neuts Cancelled Hypogranular Neuts Cancelled Large Granular Lymphs Cancelled # Lrg Granular Lymphs Cancelled Hairy Cells Cancelled Smudge Cells Cancelled Toxic Granulation Cancelled Toxic Vacuolation Cancelled Dohle Bodies Cancelled Iggy Rods Cancelled Platelet Estimate Cancelled Hypogranular Platelets Cancelled Clumped Platelets Cancelled Giant Platelets Cancelled Platelet Satelliting Cancelled RBC Morphology Cancelled Polychromasia Cancelled Hypochromasia Cancelled Poikilocytosis Cancelled Basophilic Stippling Cancelled Anisocytosis Cancelled Microcytosis Cancelled Macrocytosis Cancelled Spherocytes Cancelled Pappenheimer Bodies Cancelled Sickle Cells Cancelled Target Cells Cancelled Tear Drop Cells Cancelled Ovalocytes Cancelled Stomatocytes Cancelled [place] Bodies Cancelled Echinocytes Cancelled Acanthocytes (Spur) Cancelled Rouleaux Cancelled RBC Agglutinates Cancelled Schistocytes Cancelled RBC Morph Comment Cancelled Sezary Cell Cancelled Sodium 141 (136-145) mmol/L Potassium 3.7 (3.5-5.1) mmol/L Chloride 104 (98-107) mmol/L Carbon Dioxide 26 (21-32) mmol/L Anion Gap 10.0 (3-11) BUN 18 (7-18) mg/dl Creatinine 1.37 H (0.6-1.2) mg/dl Est Cr Clr Drug Dosing Not Reportable Est GFR ( Amer) 41.5 Est GFR (Non-Af Amer) 35.8 BUN/Creatinine Ratio 13.1 (10-20) Glucose 85 (70-99) mg/dl Calcium 9.9 (8.5-10.1) mg/dl Total Bilirubin 0.6 (0.2-1) mg/dl AST 24 (15-37) U/L ALT 84 H (12-78) U/L Alkaline Phosphatase 168 H (45-117) U/L Total Protein 7.1 (6.4-8.2) gm/dl Albumin 3.5 (3.4-5.0) gm/dl Globulin 3.6 (2.5-4.0) gm/dl Albumin/Globulin Ratio 1.0 (0.9-2) Imaging Data Radiologist's Impression: Radiology results as stated below per my review and the radiologist's interpretation: XR ribs LT min 3V w CXR1V CLINICAL HISTORY: fall onto left side, pleuritic pain, tender ribs trauma. Pain. COMPARISON STUDY: No previous studies for comparison. FINDINGS: Negative chest. Fracture left seventh rib midaxillary line. Remaining ribs are unremarkable. No evidence pneumothorax. IMPRESSION: Healing fracture left seventh rib. Lungs are clear. The above report was generated using voice recognition software. It may contain grammatical, syntax or spelling errors. Electronically signed by: Leopoldo Díaz M.D. 04/04/2019 8:38 PM Blood Pressure Blood Pressure Findings: Elevated blood pressure Blood Pressure Disposition: further management by hospitalist MDM Narrative I did evaluate the patient as noted above. The patient is presenting with persistent pain after her fall several days ago. She was given IM morphine for pain. On exam she is tender over the left lower ribs. I did order and personally reviewed the images of the patient's chest/rib x-ray as described above. She does have a nondisplaced seventh rib fracture. On reassessment the patient states her pain is worse. She stated that moving around for the x-ray made it worse. IV access was established. I did treat her with Dilaudid 0.5 mg IV. I did order and review the patient's blood work as noted in the electronic medical record. Her white count is not elevated. She is not anemic. Her LFTs are improved from her previous visit. On reassessment her pain is not improved. She is chronically on opiates and so she may be opiate tolerant. She will be hospitalized for further care and evaluation as she cannot move about. The case was discussed with the hospitalist and manager of case management. Resident Physician Supervision Note: I did perform an independent evaluation and examination of this patient as described. I also saw this patient in conjunction with the resident, Dr. Fry, and guided management for the patient. Impression & Plan Broken rib, Intractable pain Discharge Plan Visit Data Chief Complaint: Back Injury/Pain Stated Complaint: BACK PAIN ED Provider: Robin Rich ED Midlevel Provider: Madelyn Fry Discharge Problem: Broken rib, Intractable pain Patient Disposition: Being Evaluated by Hospitalist Forms Stand Alone Forms: My [employer] Prescriptions Prescriptions: No Action lorazepam 0.5 mg tablet 0.5 mg PO BID PRN (Reason: Anxiety) RF: 0 apixaban [Eliquis] 5 mg tablet 5 mg PO BID RF: 0 multivitamin tablet 1 tab PO QAM RF: 0 pantoprazole [Protonix] 40 mg tablet,delayed release (DR/EC) 40 mg PO QAM RF: 0 ondansetron 4 mg tablet,disintegrating 4 mg PO TID PRN (Reason: Nausea) RF: 0 buprenorphine [Butrans] 10 mcg/hour patch weekly 1 patch TD WK RF: 0 albuterol sulfate 90 mcg/actuation Hfa Aerosol Inhaler 2 puff INHALATION Q6H PRN (Reason: Wheezing) RF: 0 cholecalciferol (vitamin D3) [Vitamin D3] 2,000 unit Tablet 2,000 unit PO QAM RF: 0 cyanocobalamin (vitamin B-12) 2,500 mcg Tablet,Chewable 2,500 mcg PO QAM RF: 0 azelastine 137 mcg (0.1 %) aerosol,spray 1 spray Intranasal DAILY PRN (Reason: Allergic Symptoms) RF: 0 tramadol 50 mg Tablet 50 mg PO BID PRN (Reason: Pain) RF: 0 fluticasone propionate [Flonase Allergy Relief] 50 mcg/actuation [place],Suspension 2 spray INTRANASAL BID PRN (Reason: Allergy Symptoms) RF: 0 diltiazem HCl 300 mg Tablet Extended Release 24 Hr 300 mg PO QAM RF: 0 Proctofoam HC 1-1 % Foam 1 applic NM TID RF: 0 ketoconazole 2 % Cream 1 applic TOPICAL BID RF: 0 budesonide 9 mg Tablet,Delayed And Ext.Release 9 mg PO DAILY RF: 0 oxycodone 5 mg tablet 5 mg PO Q6H PRN (Reason: pain) Qty: 8 RF: 0 Referrals Referrals: Christiane Islas DO [Primary Care Provider] - Discharge Problem: Broken rib Qualifiers: Encounter type: initial encounter Rib fracture type: single rib Fracture type: closed Laterality: left Qualified Code(s): S22.32XA - Fracture of one rib, left side, initial encounter for closed fracture The scribe's documentation has been prepared under my direction and personally reviewed by me in its entirety. I confirm that the note above accurately reflects all work, treatment, procedures, and medical decision making performed by me.
[2019-04-05] MEDS ORDERED: OXYCODONE HCL IR 5 MG TAB (IMMEDIATE RELEASE) PO PRN ×2 (00:41→11:00)
[2019-04-05] MEDS ORDERED: LORazepam 0.5 MG TAB PO PRN (00:41)
[2019-04-05] MEDS ORDERED: ACETAMINOPHEN 325 MG TAB PO PRN (00:41)
[2019-04-05] MEDS ORDERED: ONDANSETRON 4 MG OD TAB PO PRN (00:41)
[2019-04-05] MEDS ORDERED: POLYETHYLENE (MIRALAX) 17 GM PACK PO PRN (00:41)
[2019-04-05] MEDS ORDERED: ALUMINUM/MAGNESIUM SUSP 30 ML UDC PO PRN (00:41)
[2019-04-05] MEDS ORDERED: ALBUTEROL HFA 8 GM INHALER INH PRN (00:41)
[2019-04-05] MEDS ORDERED: MAGNESIUM HYDROXIDE SUSP 30 ML UDC PO PRN (00:41)
[2019-04-05] MEDS: APIXABAN 5 MG TABLET PO SCH ×3 (02:24→21:02)
[2019-04-05] MEDS: TRAMADOL HCL 50 MG TABLET PO PRN ×3 (02:30→15:50)
[2019-04-05] MEDS: HYDROmorphone INJ 0.5 MG/0.5 ML SYR IV PRN ×3 (05:47→22:20)
[2019-04-05] MEDS: AZELASTINE~ORDER AWAITING ACTION SCH ×2 (08:58→15:34)
[2019-04-05] MEDS: CYANOCOBALAMIN (VITAMIN B-12) 2,500 MCG TAB.SUBL SL SCH (08:59)
[2019-04-05] MEDS: dilTIAZem HCL 300 MG CAPCR PO SCH (08:59)
[2019-04-05] MEDS: CHOLECALCIFEROL 1,000 UNITS TAB PO SCH (08:59)
[2019-04-05] MEDS: BUDESONIDE EC 3 MG CAP PO SCH ×2 (08:59→09:10)
[2019-04-05] MEDS: KETOCONAZOLE 2% CR 15 GM TUBE EXT SCH ×2 (09:00→21:03)
[2019-04-05] MEDS: MULTIVITAMIN TAB PO SCH ×2 (09:00→09:12)
[2019-04-05] MEDS: PANTOprazole 40 MG TAB PO SCH (09:04)
[2019-04-05] MEDS: ONDANSETRON INJ 2 MG/ML 2 ML VIAL IV PRN ×2 (09:16→18:50)
[2019-04-05] MEDS: DICLOFENAC SOD 1% GEL 100 GM TUBE EXT SCH ×4 (11:08→21:02)
--- NOTE | 2019-04-05 19:02 | Hospitalist Progress Note ---
Date of Service April 05, 2019 Assessment & Plan (1) Back contusion: - Recent fall resulting in L 7th Rib Fx/Contusion - XR shows healing of this fx - admitted for intractable pain from Rib Fx - Difficulty with pain management - she was seen in the ED on 04/01 and was prescribed Oxycodone 5 mg which the patient reports had minimal relief -- Reports this made her nauseous and since she only had 8 tablets she rationed the supply out as long as possible so pain usually was unbearable when she would take something - Her Buprenorphine patch was recently increased - new patch applied on Thursday and is changed weekly - Given that she is not opiate niave the dose given likely would have limited effects and unfortunately seemed to give extra GI upset - Tolerating Tramadol and Dilaudid - did increase Tramadol to Q6H but do have limitations given her underlying renal function - Continue Voltaren gel, K-pad, other supportive measures - Orthopedics consulted on admission - unlikely need for intervention - appreciate any further modalities? Present on Admission?: Yes (2) Failure of outpatient treatment: - As described above - multifactorial between smaller dose in a non-opiate naive patient vs rationing of limited supply until pain is unbearable (3) Abnormal transaminases: - ON 04/01 she was noted to have an elevated AST/ALT with normal Bili - no GI issues at the time and currently ALT slightly elevated but improved and AST WNL - She does endorse having recent diarrhea and taking Budesonide to help these symptoms - maybe a viral GI bug? - However, her CT from 04/01 showed a slight progression of the moderate intrahepatic bile duct dilatation - She continues to have a normal bili so likely not obstructive process; she does follow with GI - Dr. Shah and was supposed to see him today actually - May need a thorough workup to include Hepatitis panel (Hep C) possibly liver U/S; trend LFTs (which again are already improving) - some of this may have alr maggie been completed as outpatient - no abdominal pain/no jaundice - can be assessed in outpatient setting (4) DVT (deep venous thrombosis): - H/O DVT/PE - Continue Eliquis 5 mg BID -- Given her age and nearing a Cr of 1.5 this will neeed to be monitored as outpatient for possible reduction of dose to 2.5 mg BID if Cr continues to rise (5) Hypertension: - Continue Diltiazem 300 mg daily (6) GERD (gastroesophageal reflux disease): - Continue Pantoprazole 40 mg daily (7) DVT prophylaxis: - Eliquis Disposition: Pending pain regimen developed, possible home tomorrow Subjective Pt reports feeling overall well but continues with pain rated in 8-10 range. Reports some pain relief with oral medications but did require IV medication this AM. Throughout the day not requiring much in regards to pain medication Did discuss utilizing a pillow to help brace for coughing, etc. She did have her pain patch recently increased as well. Does seem to get nauseous from Oxy and morphine - doing well with Tramadol and Dilaudid She is not opiate niave so likely her original dosing of Oxycodone wouldn't really supply relief. No signs of sedation or respiratory compromise She states she was told she could not use Tylenol because of her blood thinner. Not sure why this would have been said however she did have an acute rise in her LFTs a few days ago which are already improving - possibly this was from Tylenol use as she reports she was taking some vs maybe even viral illness as she reports a few days of diarrhea. She recently finished a course of Budesonide to help with the diarrhea Review of Systems Constitutional: no fever, no chills, no body aches and no anorexia Eyes: no worsening vision Ear, Nose, Mouth, Throat: no nasal congestion, no dry mouth and no sore throat Respiratory: no cough and no dyspnea Cardiovascular: + chest pain (correlation with known rib fracture/recent fall); no palpitations and no edema Gastrointestinal: + nausea; no abdominal pain, no vomiting, no constipation and no diarrhea/loose stools Genitourinary: no dysuria Integumentary: no rash Neurologic: + falls Physical Exam Constitutional: WD/WN, vitals as above Eyes: + anicteric sclerae ENMT: Ears: no hearing impairment Neck: normal visual inspection and trachea midline Respiratory: normal respiratory effort, lungs clear to auscultation Cardiovascular: RRR, no murmur, no edema Gastrointestinal (Abdomen): Inspection/Auscultation: normal bowel sounds Percussion/Palpation: abdomen soft; abdomen nontender Musculoskeletal: Head/Neck/Chest: normocephalic and head atraumatic Extremities: no cyanosis and no clubbing Skin: no rashes, warm and dry Neurologic: moves all extremities Psychiatric: A+Ox3, euthymic affect Results & Data Vital Signs (Past 12 Hours) Vital Signs Temp Pulse Resp BP Pulse Ox 04/05/19 15:01 36.8 C 69 17 130/77 95 04/05/19 07:19 36.6 C 73 15 132/74 94 (1) Back contusion Encounter type: initial encounter Laterality: unspecified laterality Qualified Code(s): S20.229A - Contusion of unspecified back wall of thorax, initial encounter (2) Hypertension Hypertension type: essential hypertension Qualified Code(s): I10 - Essential (primary) hypertension
--- NOTE | 2019-04-05 21:50 | Orthopedic Consultation ---
Date of Consultation April 05, 2019 Assessment & Plan (1) Broken rib: Pain control with lidoderm patches. PT/OT, activity modification. Return to office for repeat XRs in 2 weeks, . Return to nearest ED if developing SOB or CP. Thank you for the consultation. History of Present Illness Reason for Consultation: Left flank pain/rib fracture Attending Physician: Elliott Kelly DO History of Present Illness The patient is a 84 year old female who presents secondary to intractable left flank pain after a fall sustained on 03/30/19. Seen in ED on 04/01/[address], returned 04/04/19 with a positive XR for healing rib fracture. Denies associated injury. + localized tenderness at the level of her rib fracture. Worse with twisting, better with rest. Allergies Allergy/AdvReac Type Severity Reaction Status Date / Time fentanyl Allergy Intermediate VERY SICK Verified 04/01/19 15:41 Iodinated Contrast- Oral and Allergy Intermediate HIVES Verified 04/01/19 15:41 IV Dye dicyclomine Allergy Unknown nausea Verified 04/01/19 15:41 oxycodone AdvReac Intermediate NAUSEA, Verified 04/01/19 15:41 DIARRHEA duloxetine AdvReac Mild GI SYMPTOMS Verified 04/01/19 15:41 metronidazole AdvReac Mild Vomiting Verified 04/01/19 15:41 promethazine AdvReac Mild MAKES HER Verified 04/01/19 15:41 LOOPY sertraline AdvReac Mild SHAKEY Verified 04/01/19 15:41 Home Medications Home Medications Medication Instructions Recorded Confirmed Type albuterol sulfate 2 puff INHALATION Q6H PRN 08/01/18 04/04/19 History azelastine 1 spray INTRANASAL DAILY PRN 08/01/18 04/04/19 History cholecalciferol (vitamin D3) 2,000 unit PO QAM 08/01/18 04/04/19 History [Vitamin D3] cyanocobalamin (vitamin B-12) 2,500 mcg PO QAM 08/01/18 04/04/19 History fluticasone propionate [Flonase 2 spray INTRANASAL BID PRN 08/01/18 04/04/19 History Allergy Relief] tramadol 50 mg PO BID PRN 08/01/18 04/04/19 History apixaban 5 mg tablet 5 mg PO BID 12/16/18 04/04/19 History buprenorphine 10 mcg/hour weekly 1 patch TD WK 12/16/18 04/04/19 History transdermal patch lorazepam 0.5 mg tablet 0.5 mg PO BID PRN tab 12/16/18 04/04/19 History multivitamin tablet 1 tab PO QAM 12/16/18 04/04/19 History ondansetron 4 mg disintegrating 4 mg PO TID PRN 12/16/18 04/04/19 History tablet pantoprazole 40 mg tablet,delayed 40 mg PO QAM 12/16/18 04/04/19 History release diltiazem HCl 300 mg PO QAM 01/14/19 04/04/19 History hydrocortisone-pramoxine 1 applic SC TID 04/01/19 04/04/19 History [Proctofoam HC] ketoconazole 1 applic TOPICAL BID 04/01/19 04/04/19 History oxycodone 5 mg PO Q6H PRN #8 tab 04/01/19 04/04/19 Rx Patient History Medical History DVT (deep venous thrombosis) (Chronic) legs Pulmonary embolism (Resolved) Nephrolithiasis (Resolved) IBS (irritable bowel syndrome) (Resolved) Hypertension (Chronic) Arthritis (Chronic) CKD (chronic kidney disease), stage III (Chronic) 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) Anxiety Blindness of right eye Diverticular disease GERD (gastroesophageal reflux disease) Kidney stones On anticoagulant therapy eliquis Sleep apnea cpap Surgical History History of cholecystectomy (Resolved) History of bilateral cataract extraction History of colonoscopy History of cystoscopy History of dilatation and curettage x3 History of esophagogastroduodenoscopy (EGD) History of tooth extraction upper teeth Hx of left breast biopsy benign Hx of right breast biopsy benign S/P foot surgery, right benign nodule Family History Father Myocardial infarction Other No family history of adverse response to anesthesia Social History Preferred Language: Persian Communication Ability: Effective Legal Project Manager Required: No Beliefs That Will Affect Care: None marital status: Current Living Situation: Spouse Feels Safe at Home: Yes Safety Concerns: Feels Safe At This Time Smoking Status: Never smoker Second Hand Exposure: Yes ( smoked) Hx Alcohol Use: No Hx Substance Use: No Review of Systems Review of Systems: All systems reviewed & are unremarkable except as noted in HPI & below Constitutional: as per Subjective / HPI Physical Exam Physical Exam: Localized point tenderness to the left flank at the level of the 7th rib. No CVA tenderness. Negative straight leg raise. Constitutional: WD/WN, vitals as above Results & Data Vital Signs (Past 12 Hours) Vital Signs Temp Pulse Resp BP Pulse Ox 04/05/19 15:01 36.8 C 69 17 130/77 95 Diagnostic Findings [place] [phone] XRay Report Patient: MILANA CARTER Date: 04/04/19 MR#: [id number]: 100 [facility] Acct ID:[id number]: Date: 1935[facility] Zip: [place] [address] Age: 84Location: ED Sex: F Room/Bed: Att Phy: Diagnosis: BACK PAIN Liane Phy: Christiane Islas,D.OBarryService Date: 04/04/19 Fam Phy: Interpreting Phy: Leopoldo Díaz MD Admit Phy: Ordering Phy: Madelyn Fry MD cc: ~ XR ribs LT min 3V w CXR1V CLINICAL HISTORY: fall onto left side, pleuritic pain, tender ribs trauma. Pain. COMPARISON STUDY: No previous studies for comparison. FINDINGS: Negative chest. Fracture left seventh rib midaxillary line. Remaining ribs are unremarkable. No evidence pneumothorax. IMPRESSION: Healing fracture left seventh rib. Lungs are clear. (1) Broken rib Encounter type: initial encounter Fracture type: closed Laterality: left Rib fracture type: single rib Qualified Code(s): S22.32XA - Fracture of one rib, left side, initial encounter for closed fracture
[2019-04-06] MEDS: AZELASTINE~ORDER AWAITING ACTION SCH ×2 (01:07→07:03)
[2019-04-06 08:11] LABS: Albumin Level 2.9 gm/dl (3.4-5.0); BUN Creatinine Ratio 12.9 (10-20); Calcium 9.3 mg/dl (8.5-10.1); Creatinine Clr Calc Pharmacy 31.2 ml/min; Est GFR (African American) 41.9; Est GFR (Non-African American) 36.1; Potassium 4.1 mmol/L (3.5-5.1)
[2019-04-06 08:14] LABS: Albumin Globulin Ratio 0.9 (0.9-2); Bilirubin,Total 0.5 mg/dl (0.2-1); Globulin 3.2 gm/dl (2.5-4.0); Total Protein 6.1 gm/dl (6.4-8.2)
[2019-04-06] MEDS: KETOCONAZOLE 2% CR 15 GM TUBE EXT SCH (08:53)
[2019-04-06] MEDS: DICLOFENAC SOD 1% GEL 100 GM TUBE EXT SCH ×2 (08:55→12:23)
[2019-04-06] MEDS: MULTIVITAMIN TAB PO SCH (08:56)
[2019-04-06] MEDS: APIXABAN 5 MG TABLET PO SCH (08:57)
[2019-04-06] MEDS: dilTIAZem HCL 300 MG CAPCR PO SCH (08:57)
[2019-04-06] MEDS: PANTOprazole 40 MG TAB PO SCH (08:57)
[2019-04-06] MEDS: CYANOCOBALAMIN (VITAMIN B-12) 2,500 MCG TAB.SUBL SL SCH (08:58)
[2019-04-06] MEDS: CHOLECALCIFEROL 1,000 UNITS TAB PO SCH (08:58)
[2019-04-06] MEDS ORDERED: LIDOCAINE 5% 1 PATCH TD SCH (09:00)
[2019-04-06] MEDS: ONDANSETRON INJ 2 MG/ML 2 ML VIAL IV PRN (09:40)
[2019-04-06] MEDS: TRAMADOL HCL 50 MG TABLET PO PRN (09:44)
[2019-04-06 14:07] VITALS: BP 162/84; PULSE 74; TEMP 97.9; O2SAT 95
--- NOTE | 2019-04-06 17:48 | Discharge Summary ---
Date of Service April 06, 2019 Admission HPI Per Admitting Provider The patient is an 84-year-old female who fell on 03/29, injuring her left back area. She was seen in the emergency department on 04/01, had negative CT of chest, abdomen and pelvis, thoracic spine and lumbar spine. She was given oxycodone to take at home, in addition to recently increased Butrans, however, her pain has not improved, and she presents to the emergency department for reassessment tonight. X-ray tonight shows a healing left seventh posterior rib fracture. She does report chronic arthritic pain in most of her joints, for which her Butrans was recently increased in the outpatient setting. Principal Diagnosis Intractable Pain related to Back Contusion/Healing L 7th Rib Fracture Discharge Exam Constitutional WD/WN, vitals as above Eyes + anicteric sclerae ENMT Ears: no hearing impairment Neck normal visual inspection and trachea midline Respiratory normal respiratory effort, lungs clear to auscultation Cardiovascular RRR, no murmur, no edema Gastrointestinal (Abdomen) Inspection/Auscultation: normal bowel sounds Percussion/Palpation: abdomen soft; abdomen nontender Musculoskeletal Head/Neck/Chest: normocephalic and head atraumatic Extremities: no cyanosis and no clubbing Skin no rashes, warm and dry Neurologic moves all extremities Psychiatric A+Ox3, euthymic affect Discharge Data Allergies Allergy/AdvReac Type Severity Reaction Status Date / Time fentanyl Allergy Intermediate VERY SICK Verified 04/01/19 15:41 Iodinated Contrast- Oral and Allergy Intermediate HIVES Verified 04/01/19 15:41 IV Dye dicyclomine Allergy Unknown nausea Verified 04/01/19 15:41 oxycodone AdvReac Intermediate NAUSEA, Verified 04/01/19 15:41 DIARRHEA duloxetine AdvReac Mild GI SYMPTOMS Verified 04/01/19 15:41 metronidazole AdvReac Mild Vomiting Verified 04/01/19 15:41 promethazine AdvReac Mild MAKES HER Verified 04/01/19 15:41 LOOPY sertraline AdvReac Mild SHAKEY Verified 04/01/19 15:41 Consultations 04/04/19 22:16 ED Decision to Admit Stat 04/05/19 00:41 Consult Case Management - Discharge Planning Routine 04/05/19 03:35 Consult Orthopedic Surgery Routine Hospital Course (1) Back contusion: - Recent fall resulting in L 7th Rib Fx/Contusion - XR shows healing of this fx - admitted for intractable pain from Rib Fx - Difficulty with pain management - she was seen in the ED on 04/01 and was prescribed Oxycodone 5 mg which the patient reports had minimal relief -- Reports this made her nauseous and since she only had 8 tablets she rationed the supply out as long as possible so pain usually was unbearable when she would take something - Her Buprenorphine patch was recently increased - new patch applied on Thursday and is changed weekly - Given that she is not opiate naive the dose given likely would have limited effects and unfortunately seemed to give extra GI upset - Tolerating Tramadol and Dilaudid - did increase Tramadol to Q6H but do have limitations given her underlying renal function and Rx provided for Tramadol - Continue Voltaren gel (if insurance covers, heating pad, other supportive measures - Orthopedics consulted on admission - plan to F/U in 2 weeks with repeat XRays (2) Failure of outpatient treatment: - As described above - multifactorial between smaller dose in a non-opiate naive patient vs rationing of limited supply until pain is unbearable (3) Abnormal transaminases: - On 04/01 she was noted to have an elevated AST/ALT with normal Bili - no GI issues at the time and currently now WNL - She does endorse having recent diarrhea and taking Budesonide to help these symptoms - maybe a viral GI bug? - However, her CT from 04/01 showed a slight progression of the moderate intrahepatic bile duct dilatation - She continues to have a normal bili so likely not obstructive process; she does follow with GI - Dr. Shah and was supposed to see him on 04/05 but was here - Maybe medication induced? - May need a thorough workup to include Hepatitis panel (Hep C) possibly liver U/S; trend LFTs (which again are already resolved) - some of this may have already been completed as outpatient - no abdominal pain/no jaundice - can be assessed in outpatient setting (4) DVT (deep venous thrombosis): - H/O DVT/PE - Continue Eliquis 5 mg BID -- Given her age and nearing a Cr of 1.5 this will need to be monitored as outpatient for possible reduction of dose to 2.5 mg BID if Cr continues to rise (5) Hypertension: - Continue Diltiazem 300 mg daily (6) GERD (gastroesophageal reflux disease): - Continue Pantoprazole 40 mg daily Total Time Total Time Spent Total Time Spent (In Minutes): Greater than 30 minutes Discharge Plan Discharge Items Patient Disposition: Home - Self-Care Reason For Visit: INTRACTABLE BACK PAIN Discharge Diagnosis: Pain related to Rib Fracture Discharge Goals: Decrease discomfort, Improve disease control and Increase independence Activity: Resume your previous activity Non-emergency contact: Primary Care Provider Call non-emergency contact if: you have any medication questions, your symptoms worsen and your pain is worsening Follow-up/Referrals: Christiane Islas DO [Primary Care Provider] - Diet: Heart Healthy Addtl Provider Instructions: Back contusion/Rib Fracture - Thankfully the XRay shows that this rib fracture is healing - this is located on the left side on the 7th rib - Tramadol seems to be the pain medication that is working the best for you. This can be taken every 6 hours as needed for pain. - Hopefully the pain continues to lessen each day. - If you do need to cough or do a lot of moving, sometimes a pillow to help splint the ribs can help. - Continue your current pain patch and can use over the counter patches. Will send a prescription for some Voltaren, but unfortunately like the patches a lot of times insurance will not pay for these. But there will be a prescription if by chance they do - Can continue utilizing a heating pad to this area if it helps - Your orthopedic doctors recommend to follow-up with them in 2 weeks for repeat Xray. If you do not get a call from them in a couple days please call their office Elevated Liver Tests: - The other day your liver tests were bumped up above the normal range. Today they are normal. - This could have been from an acute GI illness, medications,.... - Recommend to have these routinely checked. You do have a widened bile duct but no obvious signs of obstruction in this to cause your bump in the liver - Your family doctor or GI doctor may want to do more tests to see if there is some fatty liver changes (caused by cholesterol, etc) or maybe check you for hepatitis. As some people could have had exposures to hepatitis when they were younger (you may have seen commercials on TV for Hepatitis C). This is a blood test, your family doctor may have already done this routinely so you can talk with her about this. Prescriptions: New diclofenac sodium 1 % gel 4 gm TOP QID 7 Days Qty: 112 RF: 0 tramadol 50 mg Tablet 50 mg PO Q6H PRN (Reason: pain) 20 Days Qty: 60 RF: 0 ondansetron 4 mg Tablet,Disintegrating 4 mg PO TID PRN (Reason: nausea and vomiting) 7 Days Qty: 21 RF: 0 Continued lorazepam 0.5 mg tablet 0.5 mg PO BID PRN (Reason: Anxiety) RF: 0 apixaban [Eliquis] 5 mg tablet 5 mg PO BID RF: 0 multivitamin tablet 1 tab PO QAM RF: 0 pantoprazole [Protonix] 40 mg tablet,delayed release (DR/EC) 40 mg PO QAM RF: 0 buprenorphine [Butrans] 10 mcg/hour patch weekly 1 patch TD WK RF: 0 albuterol sulfate 90 mcg/actuation Hfa Aerosol Inhaler 2 puff INHALATION Q6H PRN (Reason: Wheezing) RF: 0 cholecalciferol (vitamin D3) [Vitamin D3] 2,000 unit Tablet 2,000 unit PO QAM RF: 0 cyanocobalamin (vitamin B-12) 2,500 mcg Tablet,Chewable 2,500 mcg PO QAM RF: 0 azelastine 137 mcg (0.1 %) aerosol,spray 1 spray Intranasal DAILY PRN (Reason: Allergic Symptoms) RF: 0 fluticasone propionate [Flonase Allergy Relief] 50 mcg/actuation Goldvein,Suspension 2 spray INTRANASAL BID PRN (Reason: Allergy Symptoms) RF: 0 diltiazem HCl 300 mg Tablet Extended Release 24 Hr 300 mg PO QAM RF: 0 Proctofoam HC 1-1 % Foam 1 applic IN TID RF: 0 ketoconazole 2 % Cream 1 applic TOPICAL BID RF: 0 ondansetron 4 mg tablet,disintegrating 4 mg PO TID PRN (Reason: Nausea) 5 Days Qty: 15 RF: 0 Discontinued tramadol 50 mg Tablet 50 mg PO BID PRN (Reason: Pain) RF: 0 oxycodone 5 mg tablet 5 mg PO Q6H PRN (Reason: pain) Qty: 8 RF: 0 Stand-Alone Forms: [employer] [facility] [employer], Op[facility] Pain [facility] [employer]/Other Patient Handouts: Spirometer Incentive Discharge Orders: Discharge Order (Routine); Ordered 04/06/19 Ordered By: Elliott Kelly Admission Data Admit Date/Time: 04/04/19 23:47 Attending Provider: Elliott Kelly Admit Provider: Adonis Dominguez Primary Care Provider: Christiane Islas Other Providers: Adonis Dominguez ; Mike Shaffer Service: Medical Other Interventions: Discharge Summary Assessment (RN) Last Done: 04/06/19 10:09 DC Date/Time DO NOT enter until pt leaves facility: 04/06/19 13:47 Supervising Physician Co-Signing Physician Notes Attending note: patient seen and examined with Ramandeep Lubin PA-C. I agree with her discharge summary. Patient feeling well, minimal left rib pain from fracture. Went all night without needing Ultram. Took one this morning around 1030. Eating well, breathing is stable. Reminded patient of the importance of taking deep breaths. - Left rib fracture, intractable pain improved with Ultram will d/c to home, PCP follow up
== END 2019-04-06 13:47 | disposition home or self-care (01) | DRG 948 ==
LOC: ED 18:53 → 3W 23:47 → SUATTDRO 23:47 → 3W 04-05 00:11
DX: Z88.6 Allergy status to analgesic agent; M15.9 Polyosteoarthritis, unspecified; Z86.718 Personal history of other venous thrombosis and embolism; N18.3 Chronic kidney disease, stage 3 (moderate); S30.1XXA Contusion of abdominal wall, initial encounter; R74.0 Nonspecific elevation of levels of transaminase and lactic acid dehydrogenase [LDH]; Z88.5 Allergy status to narcotic agent; Z91.041 Radiographic dye allergy status; R79.89 Other specified abnormal findings of blood chemistry; Z79.01 Long term (current) use of anticoagulants; Z86.711 Personal history of pulmonary embolism; Z79.891 Long term (current) use of opiate analgesic; S22.069A Unspecified fracture of T7-T8 vertebra, initial encounter for closed fracture; G47.30 Sleep apnea, unspecified; Z79.899 Other long term (current) drug therapy; K21.9 Gastro-esophageal reflux disease without esophagitis; W19.XXXA Unspecified fall, initial encounter; Z88.1 Allergy status to other antibiotic agents; D47.2 Monoclonal gammopathy; K83.8 Other specified diseases of biliary tract; G89.11 Acute pain due to trauma; Z88.8 Allergy status to other drugs, medicaments and biological substances; I12.9 Hypertensive chronic kidney disease with stage 1 through stage 4 chronic kidney disease, or unspecified chronic kidney disease; S20.229A Contusion of unspecified back wall of thorax, initial encounter; Z77.22 Contact with and (suspected) exposure to environmental tobacco smoke (acute) (chronic)

== ENCOUNTER 2020-09-03 15:03 | Inpatient (IN) ==
[2020-09-03] MEDS ORDERED: DEXAMETHASONE SOD INJ 10 MG/ML VIAL IV ONE (15:28)
[2020-09-03] MEDS ORDERED: ALBUT/IPRATROP 3MG/0.5MG NEB 3 ML VIAL INH STA (15:28)
[2020-09-03] MEDS ORDERED: ACETAMINOPHEN 500 MG TAB PO STA (15:31)
[2020-09-03 16:11] LABS: Basophils # (auto) 0.01 K/uL (0-0.2); Basophils % (auto) 0.2 %; Hematocrit (blood only) 36.7 % (37-47); Hemoglobin 11.5 g/dL (12.0-16.0); Immature Granulocytes # (auto) 0.02 K/uL (0.00-0.02); Immature Granulocytes % (auto) 0.3 %; Lymphocytes % (auto) 19.4 %; Mean Corpuscular Hemoglobin 26.9 pg (25-34); Mean Corpuscular Hgb Conc 31.3 g/dL (32-36); Mean Corpuscular Volume 85.9 fL (80-100); Mean Platelet Volume 11.5 fL (7.4-10.4); Monocytes # (auto) 0.87 K/uL (0.11-0.59); Neutrophils % (auto) 66.1 %; Platelet Count 182 K/uL (130-400); RDW Coefficient of Variation 15.1 % (11.5-14.5); RDW Standard Deviation 47.1 fL (36.4-46.3); Red Blood Count 4.27 M/uL (4.2-5.4)
[2020-09-03 16:29] LABS: Albumin Level 2.7 gm/dl (3.4-5.0); BUN Creatinine Ratio 15.3 (10-20); Calcium 8.5 mg/dl (8.5-10.1); Creatinine Clr Calc Pharmacy 18.9 ml/min; Est GFR (African American) 24.7; Est GFR (Non-African American) 21.4; Magnesium 1.9 mg/dl (1.8-2.4); Potassium 3.8 mmol/L (3.5-5.1)
[2020-09-03 16:34] LABS: Albumin Globulin Ratio 0.7 (0.9-2); Bilirubin,Total 0.9 mg/dl (0.2-1); Globulin 3.7 gm/dl (2.5-4.0); Total Protein 6.4 gm/dl (6.4-8.2); Troponin I 0.035 ng/ml (0-0.045)
[2020-09-03 16:38] LABS: INR 1.2 (0.9-1.1); Partial Thromboplastin Ratio 1.3; Partial Thromboplastin Time 35.3 Seconds (21.0-31.0)
[2020-09-03 16:55] LABS: D Dimer 1540 ug/L FEU (0-500)
[2020-09-03] MEDS ORDERED: SODIUM CHLORIDE 0.9% 250 ML IV ONE (17:18)
--- NOTE | 2020-09-03 17:22 | XRay Report ---
XR chest 1V portable HISTORY: 85 years-old Female Dyspnea acute shortness of breath COMPARISON: Chest and rib radiographs 04/04/2019 TECHNIQUE: Portable AP view of the chest FINDINGS: Cardiac silhouette is mildly enlarged. Unchanged right hemidiaphragmatic elevation. There is no pneum othorax, pleural effusion or overt pulmonary edema. Patchy bilateral alveolar opacities are most pron ounced within the mid lung zones, right greater than left and left lung base. Degenerative changes of the shoulders and spine. IMPRESSION: Patchy bilateral alveolar opacities are suggestive of multifocal pneumonia. Follow-up nayla ging after treatment course is recommended to document resolution. ACT 112: Negative or not required by law. The above report was generated using voice recognition software. It may contain grammatical, syntax o r spelling errors. Electronically signed by: Kai Isaac M.D. 09/03/2020 5:21 PM
[2020-09-03] MEDS ORDERED: SODIUM CHLORIDE 0.9% 1000ML 1,000 ML IV SCH (17:30)
--- NOTE | 2020-09-03 19:55 | History & Physical Report ---
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 and came to the ED because her O2 sats were low on home pulse ox in the setting of known COVID Sats mid-90s on 2L b/l multifocal PNA noted on CXR Started on zosyn (2) COVID-19: COVID + on 08/24 + and admitted to [facility] currently Prior asx Ddimer 1540 (3) Essential hypertension: continue home meds (4) Hypothyroidism: continue home meds (5) GERD without esophagitis: continue home meds (6) Pulmonary emboli: Eliquis as prior (7) CKD (chronic kidney disease), stage III: Baseline cr 1.4-1.8 Cr 2.0 on admission Monitor on IVF (8) IBS (irritable bowel syndrome): Noted (9) DVT prophylaxis: Eliquis as prior History of Present Illness Primary Care Provider: Christiane Islas, DO 85 y/o F c/o low O2 sats and fever. Pt's was dx with COVID. She was tested and found to be positive on 08/24. She has felt fine until yesterday evening, when she started having "shakes all over". Her has COPD and therefore there is a pulse ox in their home. She slept with it on and noted it was getting lower. She continued to feel worse today and her daughter came over. She states that her pulse ox was in the 70s at home. She denies any SOB, she just felt very fatigued and noted a fever. Her daughter thought she should come to the ED. Pt denies chest pain, abd pain, n/v/c/d, LE pain or swelling. Allergies Allergy/AdvReac Type Severity Reaction Status Date / Time fentanyl Allergy Intermediate VERY SICK Verified 09/03/20 18:39 Iodinated Contrast Media Allergy Intermediate HIVES Verified 09/03/20 18:39 dicyclomine Allergy Unknown nausea Verified 09/03/20 18:39 oxycodone AdvReac Intermediate NAUSEA, Verified 09/03/20 18:39 DIARRHEA duloxetine AdvReac Mild GI SYMPTOMS Verified 09/03/20 18:39 metronidazole AdvReac Mild Vomiting Verified 09/03/20 18:39 promethazine AdvReac Mild MAKES HER Verified 09/03/20 18:39 LOOPY sertraline AdvReac Mild SHAKEY Verified 09/03/20 18:39 Home Medications Home Medications Medication Instructions Recorded Confirmed Type cholecalciferol (vitamin D3) 2,000 unit PO QAM 08/01/18 09/03/20 History [Vitamin D3] cyanocobalamin (vitamin B-12) 2,500 mcg PO QAM 08/01/18 09/03/20 History fluticasone propionate [Flonase 2 spray INTRANASAL BID PRN 08/01/18 09/03/20 History Allergy Relief] lorazepam 0.5 mg tablet 0.5 mg PO BID PRN tab 12/16/18 09/03/20 History multivitamin 1 tab PO QAM 12/16/18 09/03/20 History pantoprazole 40 mg tablet,delayed 40 mg PO QAM 12/16/18 09/03/20 History release diltiazem HCl 300 mg PO QAM 01/14/19 09/03/20 History azelastine 137 mcg (0.1 %) nasal 1 spray INTRANASAL BID ml 05/23/19 09/03/20 History spray aerosol ondansetron HCl 8 mg tablet 8 mg PO DAILY PRN tab 05/23/19 09/03/20 History Lactobacillus acidophilus 1 cap PO DAILY 07/14/19 09/03/20 History apixaban 5 mg tablet 5 mg PO BID 07/14/19 09/03/20 History pramoxine 1 % topical foam See Rx Instructions .ROUTE 07/14/19 09/03/20 History .COMPLEX gm tramadol 50 mg tablet 50 mg PO DAILY PRN tab 07/14/19 09/03/20 History albuterol sulfate 90 mcg/actuation 2 puff INHALATION Q6H PRN 07/30/20 09/03/20 History aerosol inhaler buprenorphine [Butrans] 20 mcg TRANSDERMAL Q7D 09/03/20 09/03/20 History Past Med/Surg History Medical History Anxiety Arthritis Blindness of right eye CKD (chronic kidney disease), stage III Diverticular disease DVT (deep venous thrombosis) legs Epidermal cyst GERD (gastroesophageal reflux disease) Hypertension IBS (irritable bowel syndrome) Kidney stones Monoclonal gammopathy Nephrolithiasis On anticoagulant therapy eliquis Pulmonary embolism Right ventricular cardiac abnormality Sleep apnea cpap Vitamin D deficiency Surgical History History of bilateral cataract extraction History of cholecystectomy History of colonoscopy History of cystoscopy History of dilatation and curettage x3 History of epidermal inclusion cyst excision (04/27/20) Excision of chest wall cyst in clinic on [address] Santiago History of esophagogastroduodenoscopy (EGD) History of tooth extraction upper teeth Hx of left breast biopsy benign Hx of right breast biopsy benign S/P foot surgery, right benign nodule Family History Father Myocardial infarction Hypertension Other No family history of adverse response to anesthesia Social History (Updated 09/03/20 @ 19:49 by Marifer Rose DO) Smoking Status: Never smoker Second Hand Exposure: Yes ( smoked, but not in the home); Hx Alcohol Use: No Hx Substance Use: No Preferred Language: [place] Communication Ability: Effective Chain Saw Driver Required: No Beliefs That Will Affect Care: None marital status: Current Living Situation: Spouse current occupational status: retired Feels Safe at Home: Yes Assistive Devices: CPAP, Denture - Upper, Glasses and Walker Review of Systems Review of Systems: Pertinent positives and negatives reviewed in HPI--all others negative Physical Exam Constitutional: WD/WN, vitals as above Eyes: normal visual guzman by confrontation and + anicteric sclerae Neck: normal visual inspection and trachea midline Respiratory: normal respiratory effort; no respiratory distress Auscultation: + diminished lung sounds and + crackles; no wheezes Cardiovascular: Rate/Rhythm: regular rate and regular rhythm Gastrointestinal (Abdomen): Inspection/Auscultation: abdomen not distended Percussion/Palpation: abdomen soft; abdomen nontender Musculoskeletal: Head/Neck/Chest: normocephalic and head atraumatic negative for edema, peripheral pulses intact Skin: no rashes, warm and dry Neurologic: awake; not confused Speech / Cognition: normal speech Psychiatric: A+Ox3, euthymic affect Results & Data Results & Data ([facility]) Vital Signs (Past 12 Hours) Vital Signs Temp Pulse Pulse Resp BP Pulse Ox 09/03/20 19:00 68 17 106/56 L 95 09/03/20 18:39 68 20 108/46 L 96 09/03/20 18:00 72 16 103/54 L 95 09/03/20 17:30 70 19 103/50 L 95 09/03/20 17:18 37.1 C 09/03/20 17:17 74 21 103/49 L 93 09/03/20 16:29 76 22 102/47 L 96 09/03/20 16:11 74 16 98 09/03/20 16:00 79 24 111/56 L 96 09/03/20 15:31 96 09/03/20 15:30 84 24 117/56 L 97 09/03/20 15:23 37.6 C H 84 28 H 116/61 88 L Diagnostic Findings CXR: b/l multifocal PNA ECG Findings: + RBBB Code Status & VTE Plan Code Status Full code VTE Prophylaxis Plan VTE Prophylaxis will be ordered: Yes PG Care Time/CCT Total # of Minutes Spent Total Time Spent with Patient: Total time spent is greater than 50% in coordination of care (as documented) at patient's floor/unit and/or counseling patient: Coding Level of Care Code 30860 Initial Inpt Care Lvl 3 Diagnoses PNA (pneumonia) J18.9 COVID-19 U07.1 Essential hypertension I10 Hypothyroidism E03.9 GERD without esophagitis K21.9 Pulmonary emboli I26.92 Pulmonary embolism type: saddle Chronicity: chronic Acute cor pulmonale presence: without acute cor pulmonale CKD (chronic kidney disease), stage III N18.3 IBS (irritable bowel syndrome) K58.9 DVT prophylaxis Z29.9 (1) Pulmonary emboli Pulmonary embolism type: saddle Chronicity: chronic Acute cor pulmonale presence: without acute cor pulmonale Qualified Code(s): I26.92 - Saddle embolus of pulmonary artery without acute cor pulmonale
[2020-09-03] MEDS ORDERED: INFLUENZA VIRUS QUAD VACCINE 0.5 ML SYR IM ONE (20:57)
[2020-09-03] MEDS ORDERED: INFLUENZA ADMINISTRATION CHARGE ONE (20:57)
[2020-09-03] MEDS ORDERED: FLUTICASONE PROPIONATE NA SPR 16 GM BTL PRN (20:59)
[2020-09-03] MEDS ORDERED: ACETAMINOPHEN 325 MG TAB PO PRN (20:59)
[2020-09-03] MEDS ORDERED: MAGNESIUM HYDROXIDE SUSP 30 ML UDC PO PRN (20:59)
[2020-09-03] MEDS ORDERED: NON-FORMULARY MEDICATION (Ondansetron Hcl 8 MG) PO PRN (20:59)
[2020-09-03] MEDS ORDERED: ALBUTEROL HFA 8 GM INHALER INH PRN (20:59)
[2020-09-03] MEDS ORDERED: PIPERACILL/TAZOBAC CONSULT ACTIVE PRN (20:59)
[2020-09-03] MEDS ORDERED: ONDANSETRON 4 MG OD TAB PO PRN (21:25)
[2020-09-03] MEDS ORDERED: PIPERACILLIN/TAZOBACTAM 3.375 GM in DEXTROSE 5% 100 ML IV ONE (21:30)
[2020-09-03] MEDS: SODIUM CHLORIDE 0.45 % 1,000 ML IV SCH (21:57)
[2020-09-03] MEDS: APIXABAN 5 MG TABLET PO SCH (21:58)
[2020-09-03] MEDS: AZELASTINE~ORDER AWAITING ACTION SCH (21:58)
--- NOTE | 2020-09-04 00:37 | Emergency Department Note ---
History of Present Illness General Chief complaint: Shortness of Breath/Dyspnea Time Seen by Provider: 09/03/20 15:06 Source: patient and RN notes reviewed Mode of arrival: ambulatory Limitations: no limitations History of Present Illness Provider complaint: Shortness of breath Maximum Pain Intensity: 9 This patient is an 85-year-old female who presents emergency department with complaints of shortness of breath that made escalated over the last 24 to 48 hours. Patient states her is currently admitted to the hospital with Covid. She has been using his oxygen concentrator at home today. She has had a low-grade fever less than 101 degrees. She has not taken any Tylenol today. Patient states she has been fatigued with body aches and chills but denies any severe chest pain. She has not had any vomiting or diarrhea. Home Medications Home Medications Medication Instructions Recorded Confirmed Type cholecalciferol (vitamin D3) 2,000 unit PO QAM 08/01/18 09/03/20 History [Vitamin D3] cyanocobalamin (vitamin B-12) 2,500 mcg PO QAM 08/01/18 09/03/20 History fluticasone propionate [Flonase 2 spray INTRANASAL BID PRN 08/01/18 09/03/20 History Allergy Relief] lorazepam 0.5 mg tablet 0.5 mg PO BID PRN tab 12/16/18 09/03/20 History multivitamin 1 tab PO QAM 12/16/18 09/03/20 History pantoprazole 40 mg tablet,delayed 40 mg PO QAM 12/16/18 09/03/20 History release diltiazem HCl 300 mg PO QAM 01/14/19 09/03/20 History azelastine 137 mcg (0.1 %) nasal 1 spray INTRANASAL BID ml 05/23/19 09/03/20 History spray aerosol ondansetron HCl 8 mg tablet 8 mg PO DAILY PRN tab 05/23/19 09/03/20 History Lactobacillus acidophilus 1 cap PO DAILY 07/14/19 09/03/20 History apixaban 5 mg tablet 5 mg PO BID 07/14/19 09/03/20 History pramoxine 1 % topical foam See Rx Instructions .ROUTE 07/14/19 09/03/20 History .COMPLEX gm tramadol 50 mg tablet 50 mg PO DAILY PRN tab 07/14/19 09/03/20 History albuterol sulfate 90 mcg/actuation 2 puff INHALATION Q6H PRN 07/30/20 09/03/20 History aerosol inhaler buprenorphine [Butrans] 20 mcg TRANSDERMAL Q7D 09/03/20 09/03/20 History Allergies Allergy/AdvReac Type Severity Reaction Status Date / Time fentanyl Allergy Intermediate VERY SICK Verified 09/03/20 18:39 Iodinated Contrast Media Allergy Intermediate HIVES Verified 09/03/20 18:39 dicyclomine Allergy Unknown nausea Verified 09/03/20 18:39 oxycodone AdvReac Intermediate NAUSEA, Verified 09/03/20 18:39 DIARRHEA duloxetine AdvReac Mild GI SYMPTOMS Verified 09/03/20 18:39 metronidazole AdvReac Mild Vomiting Verified 09/03/20 18:39 promethazine AdvReac Mild MAKES HER Verified 09/03/20 18:39 LOOPY sertraline AdvReac Mild SHAKEY Verified 09/03/20 18:39 Past Med/Surg History Medical History (Updated 09/05/20 @ 23:23 by Martina Valderrama MD) Anxiety Arthritis Blindness of right eye CKD (chronic kidney disease), stage III Diverticular disease DVT (deep venous thrombosis) legs Epidermal cyst GERD (gastroesophageal reflux disease) Hypertension IBS (irritable bowel syndrome) Kidney stones Monoclonal gammopathy Nephrolithiasis On anticoagulant therapy eliquis Pulmonary embolism Right ventricular cardiac abnormality Sleep apnea cpap Vitamin D deficiency Surgical History History of bilateral cataract extraction History of cholecystectomy History of colonoscopy History of cystoscopy History of dilatation and curettage x3 History of epidermal inclusion cyst excision (04/27/20) Excision of chest wall cyst in clinic on [address] Santiago History of esophagogastroduodenoscopy (EGD) History of tooth extraction upper teeth Hx of left breast biopsy benign Hx of right breast biopsy benign S/P foot surgery, right benign nodule Family History Father Myocardial infarction Hypertension Other No family history of adverse response to anesthesia Social History Smoking Status: Never smoker Second Hand Exposure: Yes ( smoked, but not in the home); Hx Alcohol Use: No Hx Substance Use: No Preferred Language: Gibraltarian Communication Ability: Effective Advertising Executive Required: No Beliefs That Will Affect Care: None marital status: Current Living Situation: Spouse current occupational status: retired Other Information That Helps Us Care for You: No Feels Safe at Home: Yes Safety Concerns: Feels Safe At This Time Assistive Devices: Oxygen - Continuous Review of Systems See HPI for pertinent positives & negatives. and A total of 10 systems reviewed and were otherwise negative Physical Exam Vital Signs Vital Signs - 24 hr 09/03/20 15:23 09/03/20 15:30 09/03/20 15:31 Temperature 37.6 C H Temperature Source Oral Pulse Rate 84 84 Pulse Rate [Right Finger] Pulse Rate from SpO2 Sensor 84 Respiratory Rate 28 H 24 Respiratory Effort / Characteristics Spontaneous Short of Breath Respiratory Depth Normal Respiratory Pattern Regular Blood Pressure 116/61 117/56 L Blood Pressure Mean 79 73 Blood Pressure Position Lying Pulse Oximetry 88 L 97 96 Oxygen Delivery Method Room Air Nasal Cannula Nasal Cannula Nasal Cannula Oxygen Flow Rate 0 3 3 Sepsis Recent Fever Within 48 Hours Yes Sepsis New/Unexplained Change in Mental Status N/A Sepsis Action Taken by Nursing No Action Required Fraction of Inspired Oxygen - Titration 3 Pulse Oximetry Post Tiitration 96 09/03/20 16:00 09/03/20 16:11 09/03/20 16:29 Temperature Temperature Source Pulse Rate 79 76 Pulse Rate [Right Finger] 74 Pulse Rate from SpO2 Sensor 80 76 Respiratory Rate 24 16 22 Respiratory Effort / Characteristics Non-Labored Spontaneous Respiratory Depth Respiratory Pattern Blood Pressure 111/56 L 102/47 L Blood Pressure Mean 84 75 Blood Pressure Position Pulse Oximetry 96 98 96 Oxygen Delivery Method Nasal Cannula Nasal Cannula Nasal Cannula Oxygen Flow Rate 3 3 3 Sepsis Recent Fever Within 48 Hours Sepsis New/Unexplained Change in Mental Status Sepsis Action Taken by Nursing Fraction of Inspired Oxygen - Titration Pulse Oximetry Post Tiitration 09/03/20 17:17 09/03/20 17:18 09/03/20 17:30 Temperature 37.1 C Temperature Source Oral Pulse Rate 74 70 Pulse Rate [Right Finger] Pulse Rate from SpO2 Sensor 73 70 Respiratory Rate 21 19 Respiratory Effort / Characteristics Respiratory Depth Respiratory Pattern Blood Pressure 103/49 L 103/50 L Blood Pressure Mean 66 66 Blood Pressure Position Pulse Oximetry 93 95 Oxygen Delivery Method Nasal Cannula Nasal Cannula Oxygen Flow Rate 3 3 Sepsis Recent Fever Within 48 Hours Sepsis New/Unexplained Change in Mental Status Sepsis Action Taken by Nursing Fraction of Inspired Oxygen - Titration Pulse Oximetry Post Tiitration 09/03/20 18:00 09/03/20 18:39 09/03/20 19:00 Temperature Temperature Source Pulse Rate 72 68 68 Pulse Rate [Right Finger] Pulse Rate from SpO2 Sensor 71 68 Respiratory Rate 16 20 17 Respiratory Effort / Characteristics Respiratory Depth Respiratory Pattern Blood Pressure 103/54 L 108/46 L 106/56 L Blood Pressure Mean 66 57 73 Blood Pressure Position Pulse Oximetry 95 96 95 Oxygen Delivery Method Nasal Cannula Nasal Cannula Nasal Cannula Oxygen Flow Rate 3 4 3 Sepsis Recent Fever Within 48 Hours Sepsis New/Unexplained Change in Mental Status Sepsis Action Taken by Nursing Fraction of Inspired Oxygen - Titration Pulse Oximetry Post Tiitration 09/03/20 19:30 09/03/20 19:31 Temperature Temperature Source Pulse Rate 61 59 L Pulse Rate [Right Finger] Pulse Rate from SpO2 Sensor 62 60 Respiratory Rate 17 16 Respiratory Effort / Characteristics Respiratory Depth Respiratory Pattern Blood Pressure 98/52 L Blood Pressure Mean 75 Blood Pressure Position Pulse Oximetry 93 94 Oxygen Delivery Method Oxygen Flow Rate Sepsis Recent Fever Within 48 Hours Sepsis New/Unexplained Change in Mental Status Sepsis Action Taken by Nursing Fraction of Inspired Oxygen - Titration Pulse Oximetry Post Tiitration Vital signs reviewed. Noted to be hypoxic on room air General: Well-appearing 85-year-old female HEENT: No scleral icterus, PERRLA, neck supple. Cardiovascular: Regular rate and rhythm, no extra sounds. Pulmonary: Coarse breath sounds bilaterally, normal work of breathing. Abdomen: Soft, nontender, nondistended, positive bowel sounds. Musculoskeletal: No peripheral edema, atraumatic Neurologic: Patient awake alert and oriented x 3 Skin: Warm, dry, no rash Course Administered Medications Acetaminophen (Acetaminophen 325 Mg Tab) 650 mg PO Q4H PRN PRN Reason: Pain or Fever Stop: 10/03/20 20:58 Last Admin: 09/04/20 03:32 Dose: 650 mg Documented by: [id number] Apixaban (Apixaban 5 Mg Tablet) 5 mg PO BID ROSA ELENA Stop: 10/03/20 20:59 Last Admin: 09/05/20 20:57 Dose: 5 mg Documented by: [id number] Admin: 09/05/20 07:43 Dose: 5 mg Documented by: [id number] Admin: 09/04/20 19:35 Dose: 5 mg Documented by: [id number] Admin: 09/04/20 09:32 Dose: 5 mg Documented by: [id number] Admin: 09/03/20 21:58 Dose: 5 mg Documented by: [id number] Azithromycin (Azithromycin 250 Mg Tab) 250 mg PO DAILY@1700 [facility] Stop: 09/08/20 17:01 Last Admin: 09/05/20 16:55 Dose: 250 mg Documented by: [id number] Calcium Carbonate (Calcium Carbonate 500 Mg Chewable Tab) 1,000 mg PO TID PRN PRN Reason: Indigestion Stop: 10/04/20 16:17 Last Admin: 09/04/20 18:26 Dose: 1,000 mg Documented by: [id number] Cyanocobalamin (Cyanocobalamin 500 Mcg Tablet (Vitamin B-12)) 2,500 mcg [facility] Stop: 10/04/20 08:59 Last Admin: 09/05/20 08:21 Dose: 2,500 mcg Documented by: [id number] Admin: 09/04/20 08:04 Dose: 2,500 mcg Documented by: [id number] Dexamethasone (Dexamethasone 1 Mg Tab) 6 mg PO DAILY [facility] Stop: 09/14/20 16:29 Last Admin: 09/05/20 07:43 Dose: 6 mg Documented by: [id number] Admin: 09/04/20 18:28 Dose: 6 mg Documented by: [id number] Diltiazem HCl (Diltiazem Hcl 300 Mg Capcr) 300 mg PO [facility]AJIM [facility] Stop: 10/04/20 08:59 Last Admin: 09/05/20 08:21 Dose: 300 mg Documented by: [id number] Admin: 09/04/20 08:04 Dose: 300 mg Documented by: [id number] Ceftriaxone Sodium 1,000 mg/ (Dextrose) 50 mls @ 100 mls/hr IV Q24H [facility]; Protocol Stop: 09/11/20 16:59 Last Infusion: 09/05/20 17:24 Dose: 0 mls/hr Documented by: [id number] Admin: 09/05/20 16:54 Dose: 100 mls/hr Documented by: [id number] Infusion: 09/04/20 20:01 Dose: 0 mls/hr Documented by: [id number] Admin: 09/04/20 19:03 Dose: 100 mls/hr Documented by: [id number] Lactobacillus Acidoph/Casei/Rhamnos (Advanced Probiotic 1250 Mg Capsule) 2 cap PO DAILY ROSA ELENA Stop: 10/04/20 08:59 Last Admin: 09/05/20 08:21 Dose: 2 cap Documented by: [id number] Admin: 09/04/20 08:04 Dose: 2 cap Documented by: [id number] Loperamide HCl (Loperamide Hcl 2 Mg Cap) 2 mg PO Q6H PRN PRN Reason: Diarrhea Stop: 10/04/20 16:17 Last Admin: 09/05/20 21:29 Dose: 2 mg Documented by: [id number] Admin: 09/05/20 17:35 Dose: 2 mg Documented by: [id number] Admin: 09/04/20 18:28 Dose: 2 mg Documented by: [id number] Lorazepam (Lorazepam 0.5 Mg Tab) 0.5 mg PO BID PRN PRN Reason: Anxiety Stop: 10/03/20 20:58 Last Admin: 09/05/20 21:29 Dose: 0.5 mg Documented by: [id number] Admin: 09/05/20 08:51 Dose: 0.5 mg Documented by: [id number] Admin: 09/04/20 19:35 Dose: 0.5 mg Documented by: [id number] Admin: 09/04/20 09:39 Dose: 0.5 mg Documented by: [id number] Miscellaneous (Azelastine~Order Awaiting Action) 1 ea N/A QS ROSA ELENA Stop: 10/03/20 21:29 Last Admin: 09/05/20 22:38 Dose: Not Given Documented by: [id number] Admin: 09/05/20 16:27 Dose: Not Given Documented by: [id number] Admin: 09/05/20 09:20 Dose: Not Given Documented by: [id number] Admin: 09/05/20 01:40 Dose: Not Given Documented by: [id number] Admin: 09/04/20 15:13 Dose: Not Given Documented by: [id number] Admin: 09/04/20 07:41 Dose: Not Given Documented by: [id number] Admin: 09/04/20 01:11 Dose: Not Given Documented by: [id number] Admin: 09/03/20 21:58 Dose: Not Given Documented by: [id number] Miscellaneous (Proctofoam Hc~Order Awaiting Action) 1 ea N/A QS ROSA ELENA Stop: 10/04/20 07:59 Last Admin: 09/05/20 22:38 Dose: Not Given Documented by: [id number] Admin: 09/05/20 16:27 Dose: Not Given Documented by: [id number] Admin: 09/05/20 09:20 Dose: Not Given Documented by: [id number] Admin: 09/05/20 01:41 Dose: Not Given Documented by: [id number] Admin: 09/04/20 15:13 Dose: Not Given Documented by: [id number] Admin: 09/04/20 07:42 Dose: Not Given Documented by: [id number] Miscellaneous (Check Butrans Patch Placement) 1 ea N/A QS [facility] Stop: 10/04/20 00:00 Last Admin: 09/05/20 16:27 Dose: 1 ea Documented by: [id number] Admin: 09/05/20 08:21 Dose: 1 ea Documented by: [id number] Admin: 09/05/20 01:40 Dose: 1 ea Documented by: [id number] Admin: 09/04/20 15:43 Dose: 1 ea Documented by: [id number] Admin: 09/04/20 08:05 Dose: 1 ea Documented by: [id number] Admin: 09/04/20 00:00 Dose: 1 ea Documented by: [id number] Multivitamins (Multivitamin Tab) 1 tab PO [facility] Stop: 10/04/20 08:59 Last Admin: 09/05/20 08:20 Dose: 1 tab Documented by: [id number] Admin: 09/04/20 08:04 Dose: 1 tab Documented by: [id number] Ondansetron HCl (Ondansetron Inj 2 Mg/Ml 2 Ml Vial) 4 mg IV Q6H PRN PRN Reason: Nausea Stop: 10/03/20 20:58 Last Admin: 09/05/20 08:51 Dose: 4 mg Documented by: [id number] Admin: 09/04/20 10:46 Dose: 4 mg Documented by: [id number] Ondansetron HCl (Ondansetron 4 Mg Od Tab) 8 mg PO DAILY PRN PRN Reason: Nausea Stop: 10/03/20 21:24 Last Admin: 09/04/20 18:28 Dose: 8 mg Documented by: [id number] Pantoprazole Sodium (Pantoprazole 40 Mg Tab) 40 [facility] Stop: 10/04/20 08:59 Last Admin: 09/05/20 08:20 Dose: 40 mg Documented by: [id number] Admin: 09/04/20 08:04 Dose: 40 mg Documented by: [id number] Tramadol HCl (Tramadol Hcl 50 Mg Tablet) 50 mg PO DAILY PRN PRN Reason: Pain Stop: 10/03/20 20:58 Last Admin: 09/05/20 21:28 Dose: 50 mg Documented by: [id number] Admin: 09/05/20 08:51 Dose: 50 mg Documented by: [id number] Admin: 09/04/20 19:35 Dose: 50 mg Documented by: [id number] Admin: 09/04/20 13:53 Dose: 50 mg Documented by: [id number] Vitamin D (Cholecalciferol 1,000 Units 25 Mcg Tab) 2,000 units PO QAM ROSA ELENA Stop: 10/04/20 08:59 Last Admin: 09/05/20 08:21 Dose: 2,000 units Documented by: [id number] Admin: 09/04/20 08:04 Dose: 2,000 units Documented by: [id number] Discontinued Medications Acetaminophen (Acetaminophen 500 Mg Tab) 1,000 mg PO NOW STA Stop: 09/03/20 15:32 Last Admin: 09/03/20 15:50 Dose: 1,000 mg Documented by: [id number] Albuterol (Albut/Ipratrop 3mg/0.5mg Neb 3 Ml Vial) 3 ml INH NOW STA Stop: 09/03/20 15:29 Last Admin: 09/03/20 16:11 Dose: 3 ml Documented by: [id number] Azithromycin (Azithromycin 250 Mg Tab) 500 mg PO NOW ONE Stop: 09/04/20 16:21 Last Admin: 09/04/20 18:28 Dose: 500 mg Documented by: [id number] Dexamethasone (Dexamethasone Sod Inj 10 Mg/Ml Vial) 6 mg IV NOW ONE Stop: 09/03/20 15:29 Last Admin: 09/03/20 15:50 Dose: 6 mg Documented by: [id number] Sodium Chloride (Nss) 250 mls @ 999 mls/hr IV .Q16M ONE Stop: 09/03/20 17:33 Last Infusion: 09/03/20 17:39 Dose: 0 mls/hr Documented by: [id number] Admin: 09/03/20 17:23 Dose: 999 mls/hr Documented by: [id number] Sodium Chloride (Nss 1000ml) 1,000 mls @ 150 mls/hr IV .[id number] ROSA ELENA Stop: 10/03/20 17:29 Last Infusion: 09/03/20 21:54 Dose: 0 mls/hr Documented by: [id number] Admin: 09/03/20 17:23 Dose: 150 mls/hr Documented by: [id number] Sodium Chloride (1/2 Nss) 1,000 mls @ 80 mls/hr IV .[id number] ROSA ELENA Stop: 10/03/20 20:58 Last Infusion: 09/04/20 19:19 Dose: 0 mls/hr Documented by: [id number] Admin: 09/04/20 10:46 Dose: 80 mls/hr Documented by: [id number] Infusion: 09/04/20 10:27 Dose: 80 mls/hr Documented by: [id number] Admin: 09/03/20 21:57 Dose: 80 mls/hr Documented by: [id number] Piperacillin Sod/Tazobactam (Sod 3.375 gm/ Dextrose) 115 mls @ 28.75 mls/hr IV Q8H ROSA ELENA; Protocol Stop: 09/11/20 01:59 Last Infusion: 09/04/20 13:42 Dose: 0 mls/hr Documented by: [id number] Admin: 09/04/20 09:33 Dose: 30 mls/hr Documented by: [id number] Infusion: 09/04/20 06:25 Dose: 0 mls/hr Documented by: [id number] Admin: 09/04/20 02:25 Dose: 28.8 mls/hr Documented by: [id number] Piperacillin Sod/Tazobactam (Sod 3.375 gm/ Dextrose) 115 mls @ 230 mls/hr IV ONE ONE; Protocol Stop: 09/03/20 21:59 Last Infusion: 09/03/20 23:01 Dose: 0 mls/hr Documented by: [id number] Admin: 09/03/20 21:57 Dose: 230 mls/hr Documented by: [id number] Influenza Virus Vaccine Quadrival (Influenza Virus Quad Vaccine 0.5 Ml Syr) 0.5 ml IM .ONCE ONE Stop: 09/03/20 20:58 Last Admin: 09/04/20 07:39 Dose: Not Given Documented by: [id number] Miscellaneous (Butrans Patch~Order Awaiting Action) 1 ea N/A QS ROSA ELENA Stop: 10/03/20 21:29 Last Admin: 09/04/20 01:21 Dose: Not Given Documented by: [id number] Admin: 09/04/20 01:11 Dose: Not Given Documented by: [id number] Medical Decision Making Differential Diagnosis Reactive airway disease, pneumonia, pneumothorax, COPD, CHF, infections, cardiac ischemia, pulmonary embolism, musculoskeletal, gastrointestinal, as well as other pathologies. Medical Records Attestation: I reviewed the patient's medical records. Home Medications Current Medication List: was personally reviewed by me Laboratory Data Attestation: I reviewed the patient's lab results. Result diagrams: 09/05/20 07:10 09/05/20 07:10 Lab Results 09/03/20 09/03/20 09/03/20 Range/Units 15:44 15:44 15:44 WBC 6.20 (4.8-10.8) K/uL RBC 4.27 (4.2-5.4) M/uL Hgb 11.5 L (12.0-16.0) g/dL Hct 36.7 L (37-47) % MCV 85.9 (80-100) fL MCH 26.9 (25-34) pg MCHC 31.3 L (32-36) g/dL RDW Std Deviation 47.1 H (36.4-46.3) fL RDW Coeff of Deny 15.1 H (11.5-14.5) % Plt Count 182 (130-400) K/uL MPV 11.5 H (7.4-10.4) fL Immature Gran % (Auto) 0.3 % Neut % (Auto) 66.1 % Lymph % (Auto) 19.4 % Riley % (Auto) 14.0 % Eos % (Auto) 0.0 % Baso % (Auto) 0.2 % Neut # (Auto) 4.10 (1.4-6.5) K/uL Lymph # (Auto) 1.20 (1.2-3.4) K/uL Riley # (Auto) 0.87 H (0.11-0.59) K/uL Eos # (Auto) 0.00 (0-0.5) K/uL Baso # (Auto) 0.01 (0-0.2) K/uL Immature Gran # (Auto) 0.02 (0.00-0.02) K/uL PT 13.0 H (9.0-12.0) Seconds INR 1.2 H (0.9-1.1) APTT 35.3 H (21.0-31.0) Seconds PTT Ratio 1.3 D-Dimer 1540 H* (0-500) ug/L FEU Sodium 137 (136-145) mmol/L Potassium 3.8 (3.5-5.1) mmol/L Chloride 103 (98-107) mmol/L Carbon Dioxide 31 (21-32) mmol/L Anion Gap 3.0 (3-11) BUN 32 H (7-18) mg/dl Creatinine 2.09 H (0.6-1.2) mg/dl Est Cr Clr Drug Dosing 18.9 ml/min Est GFR ( Amer) 24.7 Est GFR (Non-Af Amer) 21.4 BUN/Creatinine Ratio 15.3 (10-20) Glucose 87 (70-99) mg/dl Calcium 8.5 (8.5-10.1) mg/dl Magnesium 1.9 (1.8-2.4) mg/dl Total Bilirubin 0.9 (0.2-1) mg/dl AST 45 H (15-37) U/L ALT 28 (12-78) U/L Alkaline Phosphatase 114 (45-117) U/L Troponin I 0.035 (0-0.045) ng/ml Total Protein 6.4 (6.4-8.2) gm/dl Albumin 2.7 L (3.4-5.0) gm/dl Globulin 3.7 (2.5-4.0) gm/dl Albumin/Globulin Ratio 0.7 L (0.9-2) Imaging Data Attestation: I personally reviewed and interpreted this imaging study as follows: Radiologist's Impression: XR chest 1V portable HISTORY: 85 years-old Female Dyspnea acute shortness of breath COMPARISON: Chest and rib radiographs 04/04/2019 TECHNIQUE: Portable AP view of the chest FINDINGS: Cardiac silhouette is mildly enlarged. Unchanged right hemidiaphragmatic elevation. There is no pneumothorax, pleural effusion or overt pulmonary edema. Patchy bilateral alveolar opacities are most pronounced within the mid lung zones, right greater than left and left lung base. Degenerative changes of the shoulders and spine. IMPRESSION: Patchy bilateral alveolar opacities are suggestive of multifocal pneumonia. Follow-up imaging after treatment course is recommended to document resolution. ACT 112: Negative or not required by law. The above report was generated using voice recognition software. It may contain grammatical, syntax or spelling errors. Electronically signed by: Kai Isaac M.D. 09/03/2020 5:21 PM Dictated: 09/03/201718 Transcribed: 09/03/201718 ECG Data Attestation: I personally reviewed and interpreted this ECG as follows: Indication: + SOB/dyspnea Rate (beats per minute): 78 Rhythm: + normal sinus ECG Intervals/blocks: + Left anterior fascicular block, + Right Bundle branch block and + Normal QT-c ECG ST segments: + Normal ST segments ECG Findings: no PACs and no PVCs Blood Pressure Blood Pressure Findings: Low blood pressure Blood Pressure Disposition: further management by hospitalist MDM Narrative This patient was evaluated and appeared to be in no significant distress. Patient does have an oxygen requirement but is maintained on nasal cannula. IV access was obtained and laboratory work was drawn. An order for cardiac monitoring was placed and the patient is noted to be in a normal sinus rhythm at 84 bpm. Chest x-ray was obtained and reveals a multifocal pneumonia consistent with her known Covid diagnosis. Patient was given 6 mg of IV dexamethasone, a DuoNeb treatment and hydrated with normal saline solution. Patient was given 1000 mg of p.o. Tylenol. Case was discussed with the hospitalist service who will evaluate the patient for further management. Impression & Plan Pneumonia due to 2019 novel coronavirus, Hypoxia Discharge Plan Visit Data Chief Complaint: Shortness of Breath/Dyspnea ED Provider: Martina Valderrama Discharge Problem: Pneumonia due to 2019 novel coronavirus, Hypoxia Patient Disposition: Admitted As Inpatient Discharge Instructions Interventions: ED Discharge Assessment Last Done: 09/03/20 20:20
[2020-09-04] MEDS: AZELASTINE~ORDER AWAITING ACTION SCH ×3 (01:11→15:13)
[2020-09-04] MEDS: PIPERACILLIN/TAZOBACTAM 3.375 GM in DEXTROSE 5% 100 ML IV SCH ×2 (02:25→09:33)
[2020-09-04 03:47] LABS: Appearance Urine Turbid (Clear); Bacteria Urine Automated 3+ (Negative); Blood Urine 1+ (Negative); Color Urine Dark Yellow; Epithelial Cell Urine Auto >30 /lpf (0-5); Glucose Urine UA Negative (Negative); Ketones Urine Trace (Negative); Leukocyte Esterase Urine 2+ (Negative); Nitrite Urine Negative (Negative); Protein Urine 1+ (Negative); Specific Gravity Urine 1.023 (1.000-1.030); Urobilinogen Urine Negative (Negative); WBC Urine Automated >30 /hpf (0-5)
[2020-09-04 04:10] LABS: Bilirubin Urine 1+ (Negative); Ictotest Urine Positive (Negative)
[2020-09-04 04:15] LABS: RBC Urine Automated 0-4 /hpf (0-4)
--- NOTE | 2020-09-04 05:38 | Electrocardiogram Report ---
Test Reason : Blood Pressure : / mmHG Vent. Rate : 078 BPM Atrial Rate : 078 BPM P-R Int : 154 ms QRS Dur : 142 ms QT Int : 396 ms P-R-T Axes : -18 -56 013 degrees QTc Int : 451 ms Normal sinus rhythm Right bundle branch block Left anterior fascicular block Bifascicular block Moderate voltage criteria for LVH, may be normal variant Abnormal ECG When compared with ECG of 01-APR-2019 15:31, No significant change was found Confirmed by Boris Blanchard ([id number]) on 09/04/2020 5:38:01 AM Referred By: Confirmed By:Boris Blanchard
[2020-09-04 07:06] LABS: Basophils # (auto) 0.01 K/uL (0-0.2); Basophils % (auto) 0.2 %; Hematocrit (blood only) 35.7 % (37-47); Hemoglobin 10.9 g/dL (12.0-16.0); Immature Granulocytes # (auto) 0.01 K/uL (0.00-0.02); Immature Granulocytes % (auto) 0.2 %; Lymphocytes # (auto) 0.87 K/uL (1.2-3.4); Lymphocytes % (auto) 19.3 %; Mean Corpuscular Hemoglobin 26.3 pg (25-34); Mean Corpuscular Hgb Conc 30.5 g/dL (32-36); Mean Platelet Volume 10.5 fL (7.4-10.4); Monocytes # (auto) 0.29 K/uL (0.11-0.59); Monocytes % (auto) 6.4 %; Neutrophils # (auto) 3.33 K/uL (1.4-6.5); Neutrophils % (auto) 73.9 %; Platelet Count 165 K/uL (130-400); RDW Coefficient of Variation 15.2 % (11.5-14.5); RDW Standard Deviation 48.2 fL (36.4-46.3); Red Blood Count 4.15 M/uL (4.2-5.4); White Blood Count 4.51 K/uL (4.8-10.8)
[2020-09-04 07:41] LABS: BUN Creatinine Ratio 18.1 (10-20); Calcium 8.3 mg/dl (8.5-10.1); Creatinine Clr Calc Pharmacy 18.5 ml/min; Est GFR (African American) 24.5; Est GFR (Non-African American) 21.1; Phosphorus 3.3 mg/dl (2.5-4.9); Potassium 3.8 mmol/L (3.5-5.1)
[2020-09-04] MEDS: MULTIVITAMIN TAB PO SCH (08:04)
[2020-09-04] MEDS: ADVANCED PROBIOTIC 1250 MG CAPSULE PO SCH (08:04)
[2020-09-04] MEDS: dilTIAZem HCL 300 MG CAPCR PO SCH (08:04)
[2020-09-04] MEDS: CYANOCOBALAMIN 500 MCG TABLET (VITAMIN B-12) PO SCH (08:04)
[2020-09-04] MEDS: CHOLECALCIFEROL 1,000 UNITS 25 MCG TAB PO SCH (08:04)
[2020-09-04] MEDS: PANTOprazole 40 MG TAB PO SCH (08:04)
[2020-09-04] MEDS: [UNRECOGNIZED DRUG - OTHER] SCH ×3 (08:05→15:43)
[2020-09-04] MEDS ORDERED: LACTOBACILLUS ACIDOPHILUS PO SCH (09:00)
[2020-09-04] MEDS: APIXABAN 5 MG TABLET PO SCH ×2 (09:32→19:35)
[2020-09-04] MEDS: LORazepam 0.5 MG TAB PO PRN ×2 (09:39→19:35)
[2020-09-04] MEDS: ONDANSETRON INJ 2 MG/ML 2 ML VIAL IV PRN (10:46)
[2020-09-04] MEDS: SODIUM CHLORIDE 0.45 % 1,000 ML IV SCH (10:46)
[2020-09-04] MEDS: traMADol HCL 50 MG TABLET PO PRN ×2 (13:53→19:35)
--- NOTE | 2020-09-04 16:12 | Hospitalist Progress Note ---
Date of Service September 04, 2020 Assessment & Plan (1) PNA (pneumonia): Hypoxic on RA on presentation. B/l multifocal PNA noted on CXR on admission. - Continue ceftriaxone/azithromycin - Start dexamethasone for - Procalcitonin in AM (2) COVID-19: COVID + on 08/24. - Will start dexamethasone given new O2 requirement (3) Essential hypertension: BP presently 110/60. - Continue home diltiazem (4) Hypothyroidism: Last TSH was in 03/2020. - Continue home levothyroxine - Check TSH in the AM (5) GERD without esophagitis: No GERD today. - Continue home med (6) CKD (chronic kidney disease), stage III: Baseline Cr. 1.6-1.8, eGFR ~25. - Cr 2.0 on admission; presumed to be pre-renal from some dehydration due to sickness. - Was on IV fluids; will hold now as she is taking good PO intake - Monitor Cr (7) Pulmonary emboli: Prior PE. - Continue Eliquis (given this was for DVT/PE, NO renal dosing per UpToDate) (8) IBS (irritable bowel syndrome): Noted. Presently having diarrhea, possibly IBS vs. Covid. - Will check C. diff given hx of it - If negative, Imodium PRN (9) DVT prophylaxis: Eliquis Admission and Anticipated Discharge Date Admission Date: September 03, 2020 Subjective Doing well today overall. No major concerns. No shortness of breath. Minimal cough. Reports no fevers/chills, chest pain, abdominal pain, nausea, or vomiting. Physical Exam Constitutional: WD/WN, vitals as above Eyes: EOM intact bilaterally; no conjunctival abnormality ENMT: external ear and nose normal, oropharynx normal Neck: trachea midline, no thyromegaly normal visual inspection Respiratory: normal respiratory effort, lungs clear to auscultation no respiratory distress Cardiovascular: RRR, no murmur, no edema Gastrointestinal (Abdomen): Inspection/Auscultation: abdomen normal to inspection; abdomen not distended Musculoskeletal: no cyanosis or clubbing, extremities motor strength 5/5 Skin: no rashes, warm and dry Neurologic: moves all extremities and awake Psychiatric: Orientation: alert, oriented to person and cooperative Results & Data Results & Data ([facility]) Vital Signs (Past 12 Hours) Vital Signs Temp Pulse Resp BP Pulse Ox Pulse Ox 09/04/20 15:41 93 09/04/20 15:40 36.2 C L 57 L 16 111/61 85 L 09/04/20 12:05 36.4 C L 60 16 122/56 L 92 09/04/20 11:42 85 L 09/04/20 08:03 36.5 C 62 18 114/68 95 09/04/20 07:54 36.3 C L 61 18 105/66 95 PG Care Time/CCT Total # of Minutes Spent Total Time Spent with Patient: Total time spent is greater than 50% in coordination of care (as documented) at patient's floor/unit and/or counseling patient: Coding Level of Care Code 00285 Subseq Hosp Care Lvl 3 Diagnoses PNA (pneumonia) J18.9 COVID-19 U07.1 Essential hypertension I10 Hypothyroidism E03.9 GERD without esophagitis K21.9 CKD (chronic kidney disease), stage III N18.3 Pulmonary emboli 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
[2020-09-04] MEDS ORDERED: CALCIUM CARBONATE 500 MG CHEWABLE TAB PO PRN (16:18)
[2020-09-04] MEDS ORDERED: AZITHROMYCIN 250 MG TAB PO ONE (16:20)
[2020-09-04] MEDS: dexAMETHasone 1 MG TAB PO SCH (18:28)
[2020-09-04] MEDS: LOPERAMIDE HCL 2 MG CAP PO PRN (18:28)
[2020-09-04] MEDS: cefTRIAXone SODIUM 1,000 MG in DEXTROSE 5% 50 ML IV SCH (19:03)
[2020-09-05] MEDS: [UNRECOGNIZED DRUG - OTHER] SCH ×3 (01:40→16:27)
[2020-09-05] MEDS: AZELASTINE~ORDER AWAITING ACTION SCH ×4 (01:40→22:38)
[2020-09-05] MEDS: APIXABAN 5 MG TABLET PO SCH ×2 (07:43→20:57)
[2020-09-05] MEDS: dexAMETHasone 1 MG TAB PO SCH (07:43)
[2020-09-05 07:51] LABS: Hemoglobin 11.1 g/dL (12.0-16.0); Mean Corpuscular Hemoglobin 26.9 pg (25-34); Mean Corpuscular Hgb Conc 32.6 g/dL (32-36); Mean Corpuscular Volume 82.5 fL (80-100); Mean Platelet Volume 11.1 fL (7.4-10.4); Platelet Count 222 K/uL (130-400); RDW Coefficient of Variation 14.9 % (11.5-14.5); RDW Standard Deviation 44.8 fL (36.4-46.3); Red Blood Count 4.12 M/uL (4.2-5.4); White Blood Count 11.75 K/uL (4.8-10.8)
[2020-09-05] MEDS: MULTIVITAMIN TAB PO SCH (08:20)
[2020-09-05] MEDS: PANTOprazole 40 MG TAB PO SCH (08:20)
[2020-09-05] MEDS: CHOLECALCIFEROL 1,000 UNITS 25 MCG TAB PO SCH (08:21)
[2020-09-05] MEDS: CYANOCOBALAMIN 500 MCG TABLET (VITAMIN B-12) PO SCH (08:21)
[2020-09-05] MEDS: ADVANCED PROBIOTIC 1250 MG CAPSULE PO SCH (08:21)
[2020-09-05] MEDS: dilTIAZem HCL 300 MG CAPCR PO SCH (08:21)
[2020-09-05 08:24] LABS: BUN Creatinine Ratio 20.9 (10-20); Calcium 8.8 mg/dl (8.5-10.1); Creatinine Clr Calc Pharmacy 19.6 ml/min; Est GFR (African American) 26.3; Est GFR (Non-African American) 22.7; Magnesium 1.8 mg/dl (1.8-2.4); Potassium 3.6 mmol/L (3.5-5.1)
[2020-09-05 08:35] LABS: Phosphorus 3.3 mg/dl (2.5-4.9); Thyroid Stimulating Hormone 0.751 uIu/ml (0.300-4.500)
[2020-09-05] MEDS: ONDANSETRON INJ 2 MG/ML 2 ML VIAL IV PRN (08:51)
[2020-09-05] MEDS: traMADol HCL 50 MG TABLET PO PRN ×2 (08:51→21:28)
[2020-09-05] MEDS: LORazepam 0.5 MG TAB PO PRN ×2 (08:51→21:29)
[2020-09-05] MEDS: cefTRIAXone SODIUM 1,000 MG in DEXTROSE 5% 50 ML IV SCH (16:54)
[2020-09-05] MEDS: AZITHROMYCIN 250 MG TAB PO SCH (16:55)
[2020-09-05] MEDS: LOPERAMIDE HCL 2 MG CAP PO PRN ×2 (17:35→21:29)
--- NOTE | 2020-09-05 21:18 | Hospitalist Progress Note ---
Date of Service September 05, 2020 Assessment & Plan (1) PNA (pneumonia): Hypoxic on RA on presentation. B/l multifocal PNA noted on CXR on admission. - Started dexamethasone for severe Covid on 09/04 - 6 mg PO daily x 10 days. - S/p convalescent plasma on 09/05. - Patient declined remdesivir as she wants to go home tomorrow. - Procalcitonin on 09/05 was 0.95 - Continue ceftriaxone/azithromycin for possible bacterial superinfection. (2) COVID-19: COVID + on 08/24. - Started dexamethasone given new O2 requirement - as above - Convalescent plasma as above (3) Essential hypertension: BP presently 130/75. - Continue home diltiazem (4) Hypothyroidism: Last TSH was in 03/2020. This admission, TSH was 0.75. - Continue home levothyroxine (5) GERD without esophagitis: No GERD today. - Continue home med (6) CKD (chronic kidney disease), stage III: Baseline Cr. 1.6-1.8, eGFR ~25. - Cr 2.0 on admission; presumed to be pre-renal from some dehydration due to sickness. - Was on IV fluids; will hold now as she is taking good PO intake - Monitor Cr -> Still stable today. Possibly new baseline? Patient appears euvolemic on exam and not critically ill. (7) Pulmonary emboli: Prior PE. - Continue Eliquis (given this was for DVT/PE, NO renal dosing per UpToDate) (8) IBS (irritable bowel syndrome): Noted. Presently having diarrhea, possibly IBS vs. Covid vs. abx. C.diff negative on 09/05. - Imodium PRN (9) DVT prophylaxis: Eliquis Admission and Anticipated Discharge Date Admission Date: September 03, 2020 Subjective Overall feels quite well. Reports no fevers/chills, chest pain, shortness of breath, abdominal pain, nausea, or vomiting. Physical Exam Constitutional: WD/WN, vitals as above Eyes: EOM intact bilaterally; no conjunctival abnormality ENMT: external ear and nose normal, oropharynx normal Neck: trachea midline, no thyromegaly normal visual inspection Respiratory: normal respiratory effort, lungs clear to auscultation no respiratory distress Cardiovascular: RRR, no murmur, no edema Gastrointestinal (Abdomen): Inspection/Auscultation: abdomen normal to inspection; abdomen not distended Musculoskeletal: no cyanosis or clubbing, extremities motor strength 5/5 Skin: no rashes, warm and dry Neurologic: moves all extremities and awake Psychiatric: Orientation: alert, oriented to person and cooperative Results & Data Results & Data ([facility]) Vital Signs (Past 12 Hours) Vital Signs Temp Pulse Pulse Resp BP Pulse Ox 09/05/20 19:35 37.3 C 75 18 128/75 91 09/05/20 15:53 68 09/05/20 15:26 36.9 C 66 20 118/69 92 09/05/20 11:01 36.6 C 68 18 114/71 94 PG Care Time/CCT Total # of Minutes Spent Total Time Spent with Patient: Total time spent is greater than 50% in coordination of care (as documented) at patient's floor/unit and/or counseling patient: Coding Level of Care Code 34507 Subseq Hosp Care Lvl 3 Diagnoses PNA (pneumonia) J18.9 COVID-19 U07.1 Essential hypertension I10 Hypothyroidism E03.9 GERD without esophagitis K21.9 CKD (chronic kidney disease), stage III N18.3 Pulmonary emboli 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
[2020-09-06] MEDS: [UNRECOGNIZED DRUG - OTHER] SCH ×4 (00:05→23:48)
[2020-09-06 05:58] LABS: Hematocrit (blood only) 29.6 % (37-47); Hemoglobin 9.6 g/dL (12.0-16.0); Mean Corpuscular Hemoglobin 26.7 pg (25-34); Mean Corpuscular Hgb Conc 32.4 g/dL (32-36); Mean Corpuscular Volume 82.5 fL (80-100); Mean Platelet Volume 10.8 fL (7.4-10.4); Nucleated RBC # (auto) 0.02 K/uL (0-0); Nucleated RBC % (auto) 0.2 %; Platelet Count 234 K/uL (130-400); RDW Coefficient of Variation 14.9 % (11.5-14.5); RDW Standard Deviation 45.4 fL (36.4-46.3); Red Blood Count 3.59 M/uL (4.2-5.4); White Blood Count 8.12 K/uL (4.8-10.8)
[2020-09-06 06:34] LABS: BUN Creatinine Ratio 25.9 (10-20); Calcium 8.4 mg/dl (8.5-10.1); Creatinine Clr Calc Pharmacy 23.4 ml/min; Est GFR (African American) 32.5; Potassium 3.5 mmol/L (3.5-5.1)
[2020-09-06] MEDS: LORazepam 0.5 MG TAB PO PRN ×2 (08:03→21:00)
[2020-09-06] MEDS: ONDANSETRON INJ 2 MG/ML 2 ML VIAL IV PRN (08:03)
[2020-09-06] MEDS: traMADol HCL 50 MG TABLET PO PRN ×2 (08:03→21:00)
[2020-09-06] MEDS: CHOLECALCIFEROL 1,000 UNITS 25 MCG TAB PO SCH (08:04)
[2020-09-06] MEDS: APIXABAN 5 MG TABLET PO SCH ×2 (08:04→20:43)
[2020-09-06] MEDS: PANTOprazole 40 MG TAB PO SCH (08:04)
[2020-09-06] MEDS: MULTIVITAMIN TAB PO SCH (08:04)
[2020-09-06] MEDS: CYANOCOBALAMIN 500 MCG TABLET (VITAMIN B-12) PO SCH (08:04)
[2020-09-06] MEDS: ADVANCED PROBIOTIC 1250 MG CAPSULE PO SCH (08:04)
[2020-09-06] MEDS: dexAMETHasone 1 MG TAB PO SCH (08:05)
[2020-09-06] MEDS: dilTIAZem HCL 300 MG CAPCR PO SCH (08:05)
[2020-09-06] MEDS: AZELASTINE~ORDER AWAITING ACTION SCH ×2 (08:06→16:53)
--- NOTE | 2020-09-06 12:07 | Hospitalist Progress Note ---
Date of Service September 06, 2020 Assessment & Plan (1) PNA (pneumonia): Hypoxic on RA on presentation. B/l multifocal PNA noted on CXR on admission. - Started dexamethasone for severe Covid on 09/04 - 6 mg PO daily x 10 days. - S/p convalescent plasma on 09/05. - Patient declined remdesivir - Procalcitonin on 09/05 was 0.95 - Continue ceftriaxone/azithromycin for possible bacterial superinfection, treat for 5-7 days hold on discharge today as still on 3L and desaturates easily family more comfortable with her in the hospital (2) COVID-19: COVID + on 08/24. - Started dexamethasone given new O2 requirement - as above - Convalescent plasma as above with mild hypoxia (3) Essential hypertension: BP stable - Continue home diltiazem (4) Hypothyroidism: Last TSH was in 03/2020. This admission, TSH was 0.75. - Continue home levothyroxine (5) GERD without esophagitis: No GERD today. - Continue home med (6) CKD (chronic kidney disease), stage III: Baseline Cr. 1.6-1.8, eGFR ~25. - Cr 2.0 on admission; presumed to be pre-renal from some dehydration due to sickness. - Was on IV fluids; will hold now as she is taking good PO intake - Monitor Cr -> 1.6 today (7) Pulmonary emboli: Prior PE. - Continue Eliquis (given this was for DVT/PE, NO renal dosing per UpToDate) (8) IBS (irritable bowel syndrome): Noted. Presently having diarrhea, possibly IBS vs. Covid vs. abx. C.diff negative on 09/05. - Imodium PRN (9) DVT prophylaxis: Eliquis Admission and Anticipated Discharge Date Admission Date: September 03, 2020 Subjective patient not in any distress, she is on 3L NC the RN took her off the nasal canula and she dropped into the 70's on room air she is eating okay she says she is quite weak reviewed chart, reviewed labs, urine culture with E coli, she is on Rocephin discussed possible discharge but I feel it might be a little too soon, she lives alone, she is weaker than normal she agrees, will see how she does the next 24-48 hours and look into discharge Review of Systems Review of Systems: All systems reviewed & are unremarkable except as noted in Subjective Constitutional: + fatigue and + weakness; no fever, no chills and no sweats Respiratory: + cough, + dyspnea and + dyspnea on exertion; no sputum productio n Cardiovascular: no chest pain and no edema Gastrointestinal: no abdominal pain, no nausea, no vomiting, no constipation and no diarrhea/loose stools Physical Exam Constitutional: well developed, well nourished, cooperative and comfortable; no acute distress Neck: trachea midline, no thyromegaly Respiratory: normal respiratory effort, lungs clear to auscultation Cardiovascular: RRR, no murmur, no edema Gastrointestinal (Abdomen): normal bowel sounds, soft, nontender, no hepatosplenomegaly Musculoskeletal: no cyanosis or clubbing, extremities motor strength 5/5 Skin: no rashes, warm and dry Neurologic: patellar DTR's 2+ bilat, sensation intact and PERRL, EOMI, accommodation nl, no face palsy, no dysarthria Psychiatric: A+Ox3, euthymic affect Lymphatic: no cervical or axillary lymphadenopathy Results & Data Results & Data ([facility]) Vital Signs (Past 12 Hours) Vital Signs Temp Pulse Pulse Resp BP BP Pulse Ox 09/06/20 11:47 36.6 C 70 18 122/74 90 09/06/20 08:15 91 09/06/20 08:01 36.5 C 76 18 135/64 76 L 09/06/20 04:13 36.8 C 77 22 131/67 93 09/06/20 00:15 36.8 C 72 18 125/73 90 09/06/20 00:13 36.9 C 72 18 125/73 90 Laboratory Results Laboratory Results - last 24 hr 09/05/20 09/05/20 09/06/20 11:36 16:00 05:24 WBC 8.12 RBC 3.59 L Hgb 9.6 L Hct 29.6 L MCV 82.5 MCH 26.7 MCHC 32.4 RDW Std Deviation 45.4 RDW Coeff of Deny 14.9 H Plt Count 234 MPV 10.8 H Absolute Nucleated RBC 0.02 H Nucleated RBC % (auto) 0.2 Sodium Potassium Chloride Carbon Dioxide Anion Gap BUN Creatinine Est Cr Clr Drug Dosing Est GFR ( Amer) Est GFR (Non-Af Amer) BUN/Creatinine Ratio Glucose Calcium Stl C. diff Tox B Gene Negative Cdiff Gene Blood Type O Positive Antibody Screen NEGATIVE 09/06/20 05:24 WBC RBC Hgb Hct MCV MCH MCHC RDW Std Deviation RDW Coeff of Deny Plt Count MPV Absolute Nucleated RBC Nucleated RBC % (auto) Sodium 137 Potassium 3.5 Chloride 104 Carbon Dioxide 30 Anion Gap 3.0 BUN 43 H Creatinine 1.67 H D Est Cr Clr Drug Dosing 23.4 Est GFR ( Amer) 32.5 Est GFR (Non-Af Amer) 28.0 BUN/Creatinine Ratio 25.9 H Glucose 115 H Calcium 8.4 L Stl C. diff Tox B Gene Blood Type Antibody Screen Medications Administered Current Inpatient Medications Acetaminophen (Acetaminophen 325 Mg Tab) 650 mg PO Q4H PRN PRN Reason: Pain or Fever Stop: 10/03/20 20:58 Last Admin: 09/04/20 03:32 Dose: 650 mg Documented by: Albuterol (Albuterol Hfa 8 Gm Inhaler) 2 puffs INH Q6H PRN PRN Reason: Shortness Of Breath Stop: 10/03/20 20:58 Apixaban (Apixaban 5 Mg Tablet) 5 mg PO BID COUNT INCLUDES THE [facility] Stop: 10/03/20 20:59 Last Admin: 09/06/20 08:04 Dose: 5 mg Documented by: Azithromycin (Azithromycin 250 Mg Tab) 250 mg PO DAILY@1700 COUNT INCLUDES THE [facility] Stop: 09/08/20 17:01 Last Admin: 09/05/20 16:55 Dose: 250 mg Documented by: Calcium Carbonate (Calcium Carbonate 500 Mg Chewable Tab) 1,000 mg PO TID PRN PRN Reason: Indigestion Stop: 10/04/20 16:17 Last Admin: 09/04/20 18:26 Dose: 1,000 mg Documented by: Cyanocobalamin (Cyanocobalamin 500 Mcg Tablet (Vitamin B-12)) 2,500 mcg PO QAM COUNT INCLUDES THE [facility] Stop: 10/04/20 08:59 Last Admin: 09/06/20 08:04 Dose: 2,500 mcg Documented by: Dexamethasone (Dexamethasone 1 Mg Tab) 6 mg PO DAILY COUNT INCLUDES THE [facility] Stop: 09/14/20 16:29 Last Admin: 09/06/20 08:05 Dose: 6 mg Documented by: Diltiazem HCl (Diltiazem Hcl 300 Mg Capcr) 300 mg PO QAM COUNT INCLUDES THE [facility] Stop: 10/04/20 08:59 Last Admin: 09/06/20 08:05 Dose: 300 mg Documented by: Fluticasone Propionate (Fluticasone Propionate Na Spr 16 Gm Btl) 2 sprays NA BID PRN PRN Reason: Allergy Symptoms Stop: 10/03/20 20:58 Ceftriaxone Sodium 1,000 mg/ (Dextrose) 50 mls @ 100 mls/hr IV Q24H ROSA ELENA; Protocol Stop: 09/11/20 16:59 Last Infusion: 09/05/20 17:24 Dose: Infused Documented by: Lactobacillus Acidoph/Casei/Rhamnos (Advanced Probiotic 1250 Mg Capsule) 2 cap PO DAILY ROSA ELENA Stop: 10/04/20 08:59 Last Admin: 09/06/20 08:04 Dose: 2 cap Documented by: Loperamide HCl (Loperamide Hcl 2 Mg Cap) 2 mg PO Q6H PRN PRN Reason: Diarrhea Stop: 10/04/20 16:17 Last Admin: 09/05/20 21:29 Dose: 2 mg Documented by: Lorazepam (Lorazepam 0.5 Mg Tab) 0.5 mg PO BID PRN PRN Reason: Anxiety Stop: 10/03/20 20:58 Last Admin: 09/06/20 08:03 Dose: 0.5 mg Documented by: Magnesium Hydroxide (Magnesium Hydroxide Susp 30 Ml Udc) 30 ml PO Q12H PRN PRN Reason: Constipation Stop: 10/03/20 20:58 Miscellaneous (Azelastine~Order Awaiting Action) 1 ea N/A QS ROSA ELENA Stop: 10/03/20 21:29 Last Admin: 09/06/20 08:06 Dose: Not Given Documented by: Miscellaneous (Proctofoam Hc~Order Awaiting Action) 1 ea N/A QS ROSA ELENA Stop: 10/04/20 07:59 Last Admin: 09/06/20 08:06 Dose: Not Given Documented by: Miscellaneous (Check Butrans Patch Placement) 1 ea N/A QS ROSA ELENA Stop: 10/04/20 00:00 Last Admin: 09/06/20 08:05 Dose: 1 ea Documented by: Miscellaneous (Butrans Patch~Order Awaiting Action) 1 ea N/A QS ROSA ELENA Stop: 10/06/20 07:59 Last Admin: 09/06/20 09:13 Dose: Not Given Documented by: Miscellaneous (Butrans Patch Remove & Waste) 1 ea N/A Q7D@0859 COUNT INCLUDES THE [facility] Stop: 10/07/20 08:58 Multivitamins (Multivitamin Tab) 1 tab PO [facility] Stop: 10/04/20 08:59 Last Admin: 09/06/20 08:04 Dose: 1 tab Documented by: Ondansetron HCl (Ondansetron Inj 2 Mg/Ml 2 Ml Vial) 4 mg IV Q6H PRN PRN Reason: Nausea Stop: 10/03/20 20:58 Last Admin: 09/06/20 08:03 Dose: 4 mg Documented by: Ondansetron HCl (Ondansetron 4 Mg Od Tab) 8 mg PO DAILY PRN PRN Reason: Nausea Stop: 10/03/20 21:24 Last Admin: 09/04/20 18:28 Dose: 8 mg Documented by: Pantoprazole Sodium (Pantoprazole 40 Mg Tab) 40 mg PO [facility] Stop: 10/04/20 08:59 Last Admin: 09/06/20 08:04 Dose: 40 mg Documented by: Tramadol HCl (Tramadol Hcl 50 Mg Tablet) 50 mg PO DAILY PRN PRN Reason: Pain Stop: 10/03/20 20:58 Last Admin: 09/06/20 08:03 Dose: 50 mg Documented by: Vitamin D (Cholecalciferol 1,000 Units 25 Mcg Tab) 2,000 units PO [facility] Stop: 10/04/20 08:59 Last Admin: 09/06/20 08:04 Dose: 2,000 units Documented by: PG Care Time/CCT Total # of Minutes Spent Total Time Spent with Patient: Total time spent is greater than 50% in coordination of care (as documented) at patient's floor/unit and/or counseling patient: Coding Level of Care Code 04390 Subseq Hosp Care Lvl 3 Diagnoses PNA (pneumonia) J18.9 COVID-19 U07.1 Essential hypertension I10 Hypothyroidism E03.9 GERD without esophagitis K21.9 CKD (chronic kidney disease), stage III N18.3 Pulmonary emboli I26.92 Acute cor pulmonale presence: without acute cor pulmonale Chronicity: chronic Pulmonary embolism type: saddle IBS (irritable bowel syndrome) K58.9 DVT prophylaxis Z29.9 (1) Pulmonary emboli Acute cor pulmonale presence: without acute cor pulmonale Chronicity: chronic Pulmonary embolism type: saddle Qualified Code(s): I26.92 - Saddle embolus of pulmonary artery without acute cor pulmonale
[2020-09-06] MEDS: AZITHROMYCIN 250 MG TAB PO SCH (16:52)
[2020-09-06] MEDS: cefTRIAXone SODIUM 1,000 MG in DEXTROSE 5% 50 ML IV SCH (16:53)
[2020-09-06] MEDS: LOPERAMIDE HCL 2 MG CAP PO PRN (18:17)
[2020-09-07] MEDS: AZELASTINE~ORDER AWAITING ACTION SCH ×3 (01:24→16:23)
[2020-09-07 05:56] LABS: Hematocrit (blood only) 30.7 % (37-47); Hemoglobin 9.7 g/dL (12.0-16.0); Mean Corpuscular Hemoglobin 26.6 pg (25-34); Mean Corpuscular Hgb Conc 31.6 g/dL (32-36); Mean Corpuscular Volume 84.1 fL (80-100); Mean Platelet Volume 10.9 fL (7.4-10.4); Platelet Count 256 K/uL (130-400); RDW Standard Deviation 46.8 fL (36.4-46.3); Red Blood Count 3.65 M/uL (4.2-5.4); White Blood Count 5.96 K/uL (4.8-10.8)
[2020-09-07 06:37] LABS: BUN Creatinine Ratio 25.7 (10-20); Calcium 8.9 mg/dl (8.5-10.1); Creatinine Clr Calc Pharmacy 24.9 ml/min; Est GFR (Non-African American) 30.2; Potassium 4.1 mmol/L (3.5-5.1)
[2020-09-07] MEDS: APIXABAN 5 MG TABLET PO SCH ×2 (08:14→20:35)
[2020-09-07] MEDS: CHOLECALCIFEROL 1,000 UNITS 25 MCG TAB PO SCH (08:14)
[2020-09-07] MEDS: dexAMETHasone 1 MG TAB PO SCH (08:15)
[2020-09-07] MEDS: CYANOCOBALAMIN 500 MCG TABLET (VITAMIN B-12) PO SCH (08:15)
[2020-09-07] MEDS: ADVANCED PROBIOTIC 1250 MG CAPSULE PO SCH (08:16)
[2020-09-07] MEDS: PANTOprazole 40 MG TAB PO SCH (08:16)
[2020-09-07] MEDS: dilTIAZem HCL 300 MG CAPCR PO SCH (08:16)
[2020-09-07] MEDS: MULTIVITAMIN TAB PO SCH (08:16)
[2020-09-07] MEDS: [UNRECOGNIZED DRUG - OTHER] SCH ×2 (08:17→16:23)
[2020-09-07] MEDS: traMADol HCL 50 MG TABLET PO PRN ×2 (08:31→20:32)
[2020-09-07] MEDS: LORazepam 0.5 MG TAB PO PRN ×2 (08:31→20:33)
[2020-09-07] MEDS ORDERED: BUTRANS PATCH REMOVE & WASTE SCH ×2 (08:59→15:00)
[2020-09-07] MEDS ORDERED: BUTRANS 20 MCG EXT SCH (15:00)
[2020-09-07] MEDS: cefTRIAXone SODIUM 1,000 MG in DEXTROSE 5% 50 ML IV SCH (16:48)
[2020-09-07] MEDS: AZITHROMYCIN 250 MG TAB PO SCH (16:48)
[2020-09-07] MEDS: LOPERAMIDE HCL 2 MG CAP PO PRN (16:58)
--- NOTE | 2020-09-07 17:06 | Hospitalist Progress Note ---
Date of Service September 07, 2020 Assessment & Plan (1) PNA (pneumonia): Hypoxic on RA on presentation. B/l multifocal PNA noted on CXR on admission. - Started dexamethasone for severe Covid on 09/04 - 6 mg PO daily x 10 days. - S/p convalescent plasma on 09/05. - Patient declined remdesivir, at this point it would be too late in disease - Procalcitonin on 09/05 was 0.95 - Continue ceftriaxone/azithromycin for possible bacterial superinfection, treat for 5-7 days can transfer to PO Zithromax and Cefdinir on discharge will get two step tomorrow, plan for discharge to home tomorrow afternoon (2) COVID-19: COVID + on 08/24. - Started dexamethasone given new O2 requirement - as above - Convalescent plasma as above with mild hypoxia at 3L, stable for three days plan for two step tomorrow (3) Essential hypertension: BP stable - Continue home diltiazem (4) Hypothyroidism: Last TSH was in 03/2020. This admission, TSH was 0.75. - Continue home levothyroxine (5) GERD without esophagitis: No GERD today. - Continue home med (6) CKD (chronic kidney disease), stage III: Baseline Cr. 1.6-1.8, eGFR ~25. - Cr 2.0 on admission; presumed to be pre-renal from some dehydration due to sickness. - Was on IV fluids; will hold now as she is taking good PO intake - Monitor Cr -> 1.5 today (7) Pulmonary emboli: Prior PE. - Continue Eliquis (given this was for DVT/PE, NO renal dosing per UpToDate) (8) IBS (irritable bowel syndrome): Noted. - Imodium PRN no diarrhea at this time (9) DVT prophylaxis: Eliquis Admission and Anticipated Discharge Date Admission Date: September 03, 2020 Subjective patient is breathing comfortably, still on 3L, she ambulated from her bed to the sink and toilet no need for walker or assistance she is eating well reviewed labs, CBC and BMP stable discussed going home tomorrow, will get a two step prior to discharge updated her daughter over the phone, she agrees with patient going home tomorrow Review of Systems Review of Systems: All systems reviewed & are unremarkable except as noted in Subjective Constitutional: + weakness; no fever, no chills, no sweats and no fatigue Respiratory: + cough, + dyspnea, + dyspnea on exertion and + sputum production Cardiovascular: no chest pain and no edema Gastrointestinal: no abdominal pain, no nausea, no vomiting, no constipation and no diarrhea/loose stools Physical Exam Constitutional: well developed, well nourished, cooperative and comfortable; no acute distress Neck: trachea midline, no thyromegaly Respiratory: normal respiratory effort, lungs clear to auscultation Cardiovascular: RRR, no murmur, no edema Gastrointestinal (Abdomen): normal bowel sounds, soft, nontender, no hepatosplenomegaly Musculoskeletal: no cyanosis or clubbing, extremities motor strength 5/5 Skin: no rashes, warm and dry Neurologic: patellar DTR's 2+ bilat, sensation intact and PERRL, EOMI, accommodation nl, no face palsy, no dysarthria Psychiatric: A+Ox3, euthymic affect Lymphatic: no cervical or axillary lymphadenopathy Results & Data Results & Data ([facility]) Vital Signs (Past 12 Hours) Vital Signs Temp Pulse Resp BP Pulse Ox 09/07/20 16:03 36.2 C L 54 L 24 143/72 H 93 09/07/20 11:22 36.4 C L 59 L 19 148/66 H 91 09/07/20 07:52 36.7 C 67 18 157/71 H 90 Laboratory Results Laboratory Results - last 24 hr 09/07/20 09/07/20 05:30 05:30 WBC 5.96 RBC 3.65 L Hgb 9.7 L Hct 30.7 L MCV 84.1 MCH 26.6 MCHC 31.6 L RDW Std Deviation 46.8 H RDW Coeff of Dney 15.0 H Plt Count 256 MPV 10.9 H Sodium 139 Potassium 4.1 D Chloride 106 Carbon Dioxide 29 Anion Gap 4.0 BUN 40 H Creatinine 1.57 H Est Cr Clr Drug Dosing 24.9 Est GFR ( Amer) 35.0 Est GFR (Non-Af Amer) 30.2 BUN/Creatinine Ratio 25.7 H Glucose 123 H Calcium 8.9 Medications Administered Current Inpatient Medications Acetaminophen (Acetaminophen 325 Mg Tab) 650 mg PO Q4H PRN PRN Reason: Pain or Fever Stop: 10/03/20 20:58 Last Admin: 09/04/20 03:32 Dose: 650 mg Documented by: Albuterol (Albuterol Hfa 8 Gm Inhaler) 2 puffs INH Q6H PRN PRN Reason: Shortness Of Breath Stop: 10/03/20 20:58 Apixaban (Apixaban 5 Mg Tablet) 5 mg PO BID [facility] Stop: 10/03/20 20:59 Last Admin: 09/07/20 08:14 Dose: 5 mg Documented by: Azithromycin (Azithromycin 250 Mg Tab) 250 mg PO DAILY@1700 [facility] Stop: 09/08/20 17:01 Last Admin: 09/07/20 16:48 Dose: 250 mg Documented by: Calcium Carbonate (Calcium Carbonate 500 Mg Chewable Tab) 1,000 mg PO TID PRN PRN Reason: Indigestion Stop: 10/04/20 16:17 Last Admin: 09/04/20 18:26 Dose: 1,000 mg Documented by: Cyanocobalamin (Cyanocobalamin 500 Mcg Tablet (Vitamin B-12)) 2,500 mcg PO QAM [facility] Stop: 10/04/20 08:59 Last Admin: 09/07/20 08:15 Dose: 2,500 mcg Documented by: Dexamethasone (Dexamethasone 1 Mg Tab) 6 mg PO DAILY [facility] Stop: 09/14/20 16:29 Last Admin: 09/07/20 08:15 Dose: 6 mg Documented by: Diltiazem HCl (Diltiazem Hcl 300 Mg Capcr) 300 mg PO QAM [facility] Stop: 10/04/20 08:59 Last Admin: 09/07/20 08:16 Dose: 300 mg Documented by: Fluticasone Propionate (Fluticasone Propionate Na Spr 16 Gm Btl) 2 sprays NA BID PRN PRN Reason: Allergy Symptoms Stop: 10/03/20 20:58 Ceftriaxone Sodium 1,000 mg/ (Dextrose) 50 mls @ 100 mls/hr IV Q24H [facility]; Protocol Stop: 09/11/20 16:59 Last Infusion: 09/07/20 17:18 Dose: Infused Documented by: Lactobacillus Acidoph/Casei/Rhamnos (Advanced Probiotic 1250 Mg Capsule) 2 cap PO DAILY [facility] Stop: 10/04/20 08:59 Last Admin: 09/07/20 08:16 Dose: 2 cap Documented by: Loperamide HCl (Loperamide Hcl 2 Mg Cap) 2 mg PO Q6H PRN PRN Reason: Diarrhea Stop: 10/04/20 16:17 Last Admin: 09/07/20 16:58 Dose: 2 mg Documented by: Lorazepam (Lorazepam 0.5 Mg Tab) 0.5 mg PO BID PRN PRN Reason: Anxiety Stop: 10/03/20 20:58 Last Admin: 09/07/20 08:31 Dose: 0.5 mg Documented by: Magnesium Hydroxide (Magnesium Hydroxide Susp 30 Ml Udc) 30 ml PO Q12H PRN PRN Reason: Constipation Stop: 10/03/20 20:58 Miscellaneous (Azelastine~Order Awaiting Action) 1 ea N/A QS [facility] Stop: 10/03/20 21:29 Last Admin: 09/07/20 16:23 Dose: Not Given Documented by: Miscellaneous (Proctofoam Hc~Order Awaiting Action) 1 ea N/A QS [facility] Stop: 10/04/20 07:59 Last Admin: 09/07/20 16:24 Dose: Not Given Documented by: Miscellaneous (Check Butrans Patch Placement) 1 ea N/A QS [facility] Stop: 10/04/20 00:00 Last Admin: 09/07/20 16:23 Dose: 1 ea Documented by: Miscellaneous (Butrans Patch~Order Awaiting Action) 1 ea N/A QS [facility] Stop: 10/06/20 07:59 Last Admin: 09/07/20 16:23 Dose: Not Given Documented by: Miscellaneous (Butrans Patch Remove & Waste) 1 ea N/A TODAY@1500 [facility] Stop: 09/07/20 23:59 Last Admin: 09/07/20 16:22 Dose: Not Given Documented by: Miscellaneous (Butrans Patch Remove & Waste) 1 ea N/A Q7D@0859 [facility] Stop: 10/08/20 08:58 Multivitamins (Multivitamin Tab) 1 tab PO QAM [facility] Stop: 10/04/20 08:59 Last Admin: 09/07/20 08:16 Dose: 1 tab Documented by: Butrans 20 Mcg Patch - Non-Formulary Patient's Own Med 1 ea EXT TODAY@1500 [facility] Stop: 09/07/20 23:59 Last Admin: 09/07/20 16:22 Dose: Not Given Documented by: Ondansetron HCl (Ondansetron Inj 2 Mg/Ml 2 Ml Vial) 4 mg IV Q6H PRN PRN Reason: Nausea Stop: 10/03/20 20:58 Last Admin: 09/06/20 08:03 Dose: 4 mg Documented by: Ondansetron HCl (Ondansetron 4 Mg Od Tab) 8 mg PO DAILY PRN PRN Reason: Nausea Stop: 10/03/20 21:24 Last Admin: 09/04/20 18:28 Dose: 8 mg Documented by: Pantoprazole Sodium (Pantoprazole 40 Mg Tab) 40 mg PO QAM [facility] Stop: 10/04/20 08:59 Last Admin: 09/07/20 08:16 Dose: 40 mg Documented by: Tramadol HCl (Tramadol Hcl 50 Mg Tablet) 50 mg PO DAILY PRN PRN Reason: Pain Stop: 10/03/20 20:58 Last Admin: 09/07/20 08:31 Dose: 50 mg Documented by: Vitamin D (Cholecalciferol 1,000 Units 25 Mcg Tab) 2,000 units PO [facility] Stop: 10/04/20 08:59 Last Admin: 09/07/20 08:14 Dose: 2,000 units Documented by: PG Care Time/CCT Total # of Minutes Spent Total Time Spent with Patient: Total time spent is greater than 50% in coordination of care (as documented) at patient's floor/unit and/or counseling patient: Coding Level of Care Code 59506 Subseq Hosp Care Lvl 2 Diagnoses PNA (pneumonia) J18.9 COVID-19 U07.1 Essential hypertension I10 Hypothyroidism E03.9 GERD without esophagitis K21.9 CKD (chronic kidney disease), stage III N18.3 Pulmonary emboli I26.92 Acute cor pulmonale presence: without acute cor pulmonale Chronicity: chronic Pulmonary embolism type: saddle IBS (irritable bowel syndrome) K58.9 DVT prophylaxis Z29.9 (1) Pulmonary emboli Acute cor pulmonale presence: without acute cor pulmonale Chronicity: chronic Pulmonary embolism type: saddle Qualified Code(s): I26.92 - Saddle embolus of pulmonary artery without acute cor pulmonale
[2020-09-08] MEDS: AZELASTINE~ORDER AWAITING ACTION SCH ×2 (00:58→08:04)
[2020-09-08] MEDS: [UNRECOGNIZED DRUG - OTHER] SCH ×2 (00:58→08:04)
[2020-09-08] MEDS ORDERED: SODIUM CHLORIDE 0.65% NA SOLN 45 ML (OCEAN) ONE (03:21)
[2020-09-08] MEDS: dexAMETHasone 1 MG TAB PO SCH (08:11)
[2020-09-08] MEDS: PANTOprazole 40 MG TAB PO SCH (08:11)
[2020-09-08] MEDS: dilTIAZem HCL 300 MG CAPCR PO SCH (08:11)
[2020-09-08] MEDS: MULTIVITAMIN TAB PO SCH (08:11)
[2020-09-08] MEDS: CHOLECALCIFEROL 1,000 UNITS 25 MCG TAB PO SCH (08:11)
[2020-09-08] MEDS: ADVANCED PROBIOTIC 1250 MG CAPSULE PO SCH (08:11)
[2020-09-08] MEDS: APIXABAN 5 MG TABLET PO SCH (08:12)
[2020-09-08] MEDS: CYANOCOBALAMIN 500 MCG TABLET (VITAMIN B-12) PO SCH (08:12)
[2020-09-08] MEDS ORDERED: BUTRANS PATCH REMOVE & WASTE SCH (08:59)
[2020-09-08] MEDS: traMADol HCL 50 MG TABLET PO PRN (09:22)
[2020-09-08] MEDS: LORazepam 0.5 MG TAB PO PRN (09:22)
--- NOTE | 2020-09-08 16:37 | Discharge Summary ---
Date of Service September 08, 2020 Admission HPI Per Admitting Provider 85 y/o F c/o low O2 sats and fever. Pt's was dx with COVID. She was tested and found to be positive on 08/24. She has felt fine until yesterday evening, when she started having "shakes all over". Her has COPD and therefore there is a pulse ox in their home. She slept with it on and noted it was getting lower. She continued to feel worse today and her daughter came over. She states that her pulse ox was in the 70s at home. She denies any SOB, she just felt very fatigued and noted a fever. Her daughter thought she should come to the ED. Pt denies chest pain, abd pain, n/v/c/d, LE pain or swelling. Principal Diagnosis COVID 19 pneumonia Discharge Exam Constitutional well developed, well nourished, cooperative and comfortable; no acute distress Neck trachea midline, no thyromegaly Respiratory normal respiratory effort, lungs clear to auscultation Cardiovascular RRR, no murmur, no edema Gastrointestinal (Abdomen) normal bowel sounds, soft, nontender, no hepatosplenomegaly Musculoskeletal no cyanosis or clubbing, extremities motor strength 5/5 Skin no rashes, warm and dry Neurologic patellar DTR's 2+ bilat, sensation intact and PERRL, EOMI, accommodation nl, no face palsy, no dysarthria Psychiatric A+Ox3, euthymic affect Lymphatic no cervical or axillary lymphadenopathy Discharge Data Allergies Allergy/AdvReac Type Severity Reaction Status Date / Time fentanyl Allergy Intermediate VERY SICK Verified 09/03/20 18:39 Iodinated Contrast Media Allergy Intermediate HIVES Verified 09/03/20 18:39 dicyclomine Allergy Unknown nausea Verified 09/03/20 18:39 oxycodone AdvReac Intermediate NAUSEA, Verified 09/03/20 18:39 DIARRHEA duloxetine AdvReac Mild GI SYMPTOMS Verified 09/03/20 18:39 metronidazole AdvReac Mild Vomiting Verified 09/03/20 18:39 promethazine AdvReac Mild MAKES HER Verified 09/03/20 18:39 LOOPY sertraline AdvReac Mild SHAKEY Verified 09/03/20 18:39 Consultations 09/03/20 17:59 ED Decision to Admit Stat 09/03/20 20:59 Consult Case Management - Discharge Planning Routine Hospital Course (1) PNA (pneumonia): Hypoxic on RA on presentation. B/l multifocal PNA noted on CXR on admission. - Started dexamethasone for severe Covid on 09/04 - 6 mg PO daily x 10 days will complete 4 more days at home, responded well - S/p convalescent plasma on 09/05. - Patient declined remdesivir, at this point it would be too late in disease - Procalcitonin on 09/05 was 0.95 - treated with ceftriaxone/azithromycin for possible bacterial superinfection, completed 6 days of antibiotics, no further treatment needed on discharge two step today shows she needs 2L at rest and 5L on exertion (2) COVID-19: COVID + on 08/24. - Started dexamethasone given new O2 requirement - as above - Convalescent plasma as above finish 4 more days of Dexamethasone at home oxygen: 2L at rest and 5L on exertion, anticipate coming off oxygen after 2 weeks (3) Essential hypertension: BP stable - Continue home diltiazem (4) Hypothyroidism: Last TSH was in 03/2020. This admission, TSH was 0.75. - Continue home levothyroxine (5) GERD without esophagitis: No GERD today. - Continue home med (6) CKD (chronic kidney disease), stage III: Baseline Cr. 1.6-1.8, eGFR ~25. - Cr 2.0 on admission; presumed to be pre-renal from some dehydration due to sickness. - Was on IV fluids; will hold now as she is taking good PO intake - Monitor Cr -> 1.5 today (7) Pulmonary emboli: Prior PE. - Continue Eliquis (given this was for DVT/PE, NO renal dosing per UpToDate) (8) IBS (irritable bowel syndrome): Noted. - Imodium PRN no diarrhea at this time Total Time Total Time Spent Total Time Spent (In Minutes): 39 minutes Total Time Includes: Examination of the Patient, Discharge Planning, Medication Reconciliation and Other (15 minute talk with daughter over the phone) Discharge Plan Discharge Items Patient Disposition: Home - Self-Care Reason For Visit: PNA, HYPOXIA Discharge Diagnosis: COVID 19 pneumonia Acute hypoxic respiratory failure Condition on Discharge: Good Goals: improve strength and mobility stay well hydrated and well nourished gradually wean off oxygen Activity: Resume your previous activity Bathing: No limitations Exercise/Sports: Gradually increase as tolerated Non-emergency contact: Primary Care Provider Call non-emergency contact if: you have any medication questions, your symptoms worsen and you have a fever Follow-up/Referrals: Christiane Islas DO [Primary Care Provider] - Diet: Regular Addtl Attending Provider Instructions: Medications: - DEXAMETHASONE: 6mg every morning for 4 more days, that will complete 10 days total COVID 19 pneumonia with hypoxia (low oxygen) you were treated inpatient with 6 days of Dexamethasone and 6 days of antibiotics no further need for antibiotics complete 4 more days of dexamethasone at this time you need 2L oxygen at rest and at night and you can increase to 5L with exertion around the house I would anticipate you can be weaned off oxygen in the next 2 weeks, you can check your pulse ox at home, want you > 90% please get rest, stay well hydrated and well nourished, you should fully recover in another week I would remain on quarantine in your home until next Thursday if your family comes into help you they should wear a mask and they should stay briefly Pending Studies at Discharge: No Stand-Alone Forms: My [facility] DailyLook, Smoking Cessation Medications and DC Order Prescriptions: New dexamethasone 2 mg tablet 6 mg PO DAILY 4 Days Qty: 12 RF: 0 Continued lorazepam 0.5 mg tablet 0.5 mg PO BID PRN (Reason: Anxiety) RF: 0 multivitamin tablet 1 tab PO QAM RF: 0 pantoprazole [Protonix] 40 mg tablet,delayed release (DR/EC) 40 mg PO QAM RF: 0 ondansetron HCl 8 mg tablet 8 mg PO DAILY PRN (Reason: Nausea) RF: 0 tramadol 50 mg tablet 50 mg PO DAILY PRN (Reason: Pain) RF: 0 pramoxine 1 % foam See Rx Instructions .ROUTE .COMPLEX RF: 0 Lactobacillus acidophilus [Acidophilus] capsule 1 cap PO DAILY RF: 0 apixaban 5 mg tablet 5 mg PO BID RF: 0 albuterol sulfate 90 mcg/actuation HFA aerosol inhaler 2 puff inhalation Q6H PRN (Reason: Shortness Of Breath) RF: 0 cholecalciferol (vitamin D3) [Vitamin D3] 2,000 unit Tablet 2,000 unit PO QAM RF: 0 cyanocobalamin (vitamin B-12) 2,500 mcg Tablet,Chewable 2,500 mcg PO QAM RF: 0 fluticasone propionate [Flonase Allergy Relief] 50 mcg/actuation [place],Suspension 2 spray INTRANASAL BID PRN (Reason: Allergy Symptoms) RF: 0 azelastine 137 mcg (0.1 %) aerosol,spray 1 spray Intranasal BID RF: 0 diltiazem HCl 300 mg Tablet Extended Release 24 Hr 300 mg PO QAM RF: 0 buprenorphine [Butrans] 20 mcg/hour patch weekly 20 mcg transdermal Q7D RF: 0 Discharge Orders: Discharge Order (Routine); Ordered 09/08/20 Ordered By: Elliott Coats/Other Patient Handouts: 2019-nCoV, COVID-19 Home Care, Using Oxygen Safely, Preventing Deep Vein Thrombosis, Using an Oxygen Tank at Home, If Oxygen Is Prescribed, How COVID-19 Spreads Admission Data Admit Date/Time: 09/03/20 19:44 Attending Provider: Elliott Kelly Admit Provider: Marifer Rose Primary Care Provider: Christiane Islas Other Providers: Morris Royal Other Interventions: Discharge Summary Assessment (RN) Last Done: 09/08/20 11:17 Coding Level of Care Code D/C Day Management >30 mins Diagnoses PNA (pneumonia) J18.9 COVID-19 U07.1 Essential hypertension I10 Hypothyroidism E03.9 GERD without esophagitis K21.9 CKD (chronic kidney disease), stage III N18.3 Pulmonary emboli I26.92 Acute cor pulmonale presence: without acute cor pulmonale Chronicity: chronic Pulmonary embolism type: saddle IBS (irritable bowel syndrome) K58.9
[2020-09-14] MEDS ORDERED: BUTRANS PATCH REMOVE & WASTE SCH (08:59)
== END 2020-09-08 16:15 | disposition home or self-care (01) | DRG 177 ==
LOC: ED 15:03 → SUATTDRO 19:44 → 2S 19:44

== ENCOUNTER 2022-11-27 15:57 | Observation (INO) ==
[2022-11-27 16:48] LABS: Basophils # (auto) 0.07 K/uL (0-0.2); Basophils % (auto) 0.8 %; Eosinophils # (auto) 0.16 K/uL (0-0.50); Eosinophils % (auto) 1.9 %; Hematocrit (blood only) 43.4 % (34.1-44.9); Immature Granulocytes # (auto) 0.04 K/uL (0.00-0.02); Immature Granulocytes % (auto) 0.5 %; Lymphocytes % (auto) 18.2 %; Mean Corpuscular Hemoglobin 29.2 pg (25.0-34.0); Mean Corpuscular Hgb Conc 32.3 g/dL (32.0-36.0); Mean Corpuscular Volume 90.6 fL (80.0-100.0); Mean Platelet Volume 10.1 fL (9.4-12.3); Monocytes # (auto) 0.73 K/uL (0.24-0.82); Monocytes % (auto) 8.8 %; Neutrophils # (auto) 5.76 K/uL (1.4-6.5); Neutrophils % (auto) 69.8 %; Platelet Count 280 K/uL (130-400); RDW Coefficient of Variation 15.5 % (11.5-14.5); RDW Standard Deviation 51.3 fL (36.4-46.3); Red Blood Count 4.79 M/uL (3.93-5.22); White Blood Count 8.26 K/ul (4.8-10.8)
[2022-11-27 17:01] LABS: Partial Thromboplastin Time 27.2 Seconds (21.0-31.0)
[2022-11-27 17:14] LABS: Albumin Globulin Ratio 1.3 (0.9-2); Albumin Level 4.1 gm/dl (3.4-5.0); BUN Creatinine Ratio 23.2 (10-20); Bilirubin,Total 0.7 mg/dl (0.2-1.0); Est GFR (African American) 38.9 ml/min; Est GFR (Non-African American) 33.6 ml/min; Globulin 3.1 gm/dl (2.5-4.0); Magnesium 1.9 mg/dl (1.7-2.4); Potassium 4.1 mmol/L (3.5-5.1); Total Protein 7.2 gm/dl (6.0-8.3)
--- NOTE | 2022-11-27 17:40 | XRay Report ---
XR chest 1V portable HISTORY: Shortness of breath. COMPARISON: Chest 03/14/2022. FINDINGS: There is mild elevation of the right hemidiaphragm, unchanged. The cardiac silhouette remai ns mildly enlarged. No focal lung consolidations to suggest a pneumonia. No evidence for pulmonary ed liana. No pleural effusions. No pneumothorax. IMPRESSION: No significant change compared to the prior study. No acute process. ACT 112: Negative or not required by law. Electronically signed by: Omer Gavin M.D. 11/27/2022 5:39 PM
--- NOTE | 2022-11-27 18:05 | Emergency Department Note ---
Impression & Plan Exertional dyspnea ED Provider Note INFORMANT: Patient ED PROVIDER(S): Gustavo Sheldon DO CHIEF COMPLAINT: PLAN: Disposition: Home Condition: Good Outpatient prescription management: none Referral: I spoke with the hospitalist, who will see the patient for admission/observation and further evaluation and consultation. MEDICAL DECISION MAKING: This is an 87-year-old female presents to the ED with a chief complaint of exertional dyspnea. The patient states that she has been having the symptoms for months although seems to be worse the past week or so. She saw her family doctor today and they told her that her EKG looked different than its baseline and therefore sent her here for evaluation. She does have a history of PEs. She is chronically on apixaban. The patient denies any chest pains. She has not had any fevers or recent illness. Her exam was unremarkable. Vital signs were normal. Her saturations was 87 to 88% and the room. They have 91% in t riage. She was hypertensive. She is not on oxygen here. A twelve-lead EKG shows a sinus rhythm at a rate of 89 with PACs. She has a right bundle branch block. This looks comparable to a previous EKG from March 2022. Some slight changes but nothing that appears significant. CBC was normal. The BUN is 33 and the creatinine is 1.4. These are baseline for the patient. No electrolyte abnormality. Chest x-ray did not show acute process. Troponin is mildly elevated at 15. Given the patient's exertional symptoms that could be ischemia related as well as the mildly elevated troponin, she will be seen by the hospitalist, I spoke with for further evaluation and care. Triage Nursing notes reviewed. Vital Signs: reviewed Prior /Outside records reviewed: Pain management note from 11/19/2022 show some chronic myofascial pain. Differential diagnosis: Differential includes acute coronary syndrome, myocardial infarction, CVA, TIA, anemia, infection, pneumonia, UTI, pyelonephritis, poor nutrition, dehydration, electrolyte disturbance,hypoglycemia. Diagnostics, as interpreted by me: 12 lead ECG: Sinus rhythm at a rate of 89 with PACs. Right bundle branch block. Compared to 03/14/2022, right bundle branch block is chronic. Cardiac Monitoring: none Medical decision rules: none Imaging studies: Chest x-ray: No acute disease. No pneumothorax or pneumonia. Procedures: none. Critical care: none. HPI: See MDM above. PAST MEDICAL HISTORY: See Below PAST SURGICAL HISTORY: See Below SOCIAL HISTORY: See Below HOME MEDICATIONS: See Below ALLERGIES: See Below VITALS: See Below PHYSICAL EXAMINATION: CONSTITUTIONAL/VITAL SIGNS: Reviewed GENERAL: Non-toxic in appearance. INTEGUMENTARY: Warm, dry, and [place]. HEAD: Normocephalic. EYES: without scleral icterus. ENT/OROPHARYNX: clear and moist. RESPIRATORY: No increased work of breathing. Lungs clear. CARDIOVASCULAR: Regular rate. Regular rhythm. GI/ABDOMEN: Soft and nontender. . EXTREMITIES: Normal NEUROLOGICAL: Intact without focal deficits. PSYCHIATRIC: Normal affect. MUSCULOSKELETAL: Normal. TRIAGE NURSING DOCUMENTATION REVIEWED. Past Med/Surg History Medical History Anxiety Arthritis Blindness of right eye CKD (chronic kidney disease), stage III Diverticular disease DVT (deep venous thrombosis) legs Epidermal cyst GERD (gastroesophageal reflux disease) Hypertension IBS (irritable bowel syndrome) Kidney stones Monoclonal gammopathy Nephrolithiasis On anticoagulant therapy eliquis Pulmonary embolism Right ventricular cardiac abnormality Sleep apnea cpap Vitamin D deficiency Surgical History History of bilateral cataract extraction History of cholecystectomy History of colonoscopy History of cystoscopy History of dilatation and curettage x3 History of epidermal inclusion cyst excision (04/27/20) Excision of chest wall cyst in clinic on [address] Santiago History of esophagogastroduodenoscopy (EGD) History of tooth extraction upper teeth Hx of left breast biopsy benign Hx of right breast biopsy benign S/P foot surgery, right benign nodule Family History Father Myocardial infarction Hypertension Other No family history of adverse response to anesthesia Social History Smoking Status: Never smoker Second Hand Exposure: Yes ( smoked, but not in the home); Hx Alcohol Use: No Hx Substance Use: No Preferred Language: Tamazight Communication Ability: Effective Boat Designer Required: No Beliefs That Will Affect Care: None marital status: Current Living Situation: Spouse current occupational status: retired Feels Safe at Home: Yes Assistive Devices: Oxygen - Continuous Allergies Allergies Allergy/AdvReac Type Severity Reaction Status Date / Time fentanyl Allergy Intermediate VERY SICK Verified 11/19/22 14:43 Iodinated Contrast Media Allergy Intermediate HIVES Verified 11/19/22 14:43 dicyclomine Allergy Mild nausea Verified 11/19/22 14:43 duloxetine AdvReac Intermediate GI SYMPTOMS Verified 11/19/22 14:43 metronidazole AdvReac Intermediate Vomiting Verified 11/19/22 14:43 oxycodone AdvReac Intermediate NAUSEA, Verified 11/19/22 14:43 DIARRHEA promethazine AdvReac Intermediate MAKES HER Verified 11/19/22 14:43 LOOPY sertraline AdvReac Intermediate SHAKEY, Verified 11/19/22 14:43 DIARRHEA Home Meds Home Medications Medication Instructions Recorded Confirmed cholecalciferol (vitamin D3) 50 2,000 unit PO QAM 08/01/18 11/19/22 mcg (2,000 unit) tablet (Vitamin D3) cyanocobalamin (vitamin B-12) 2,500 mcg PO QAM 08/01/18 11/19/22 2,500 mcg chewable tablet fluticasone propionate 50 2 spray intranasal BID PRN Allergy 08/01/18 11/19/22 mcg/actuation nasal Symptoms spray,suspension (Flonase Allergy Relief) lorazepam 0.5 mg tablet 0.5 mg PO BID PRN Anxiety 12/16/18 11/19/22 multivitamin 1 tab PO QAM 12/16/18 11/19/22 pantoprazole 40 mg tablet,delayed 40 mg PO QAM 12/16/18 11/19/22 release (Protonix) azelastine 137 mcg (0.1 %) nasal 1 spray intranasal BID Allergic 05/23/19 11/19/22 spray aerosol Symptoms ondansetron HCl 8 mg tablet 8 mg PO DAILY PRN Nausea 05/23/19 11/19/22 buprenorphine 20 mcg/hour weekly 20 mcg transdermal Q7D 09/03/20 11/19/22 transdermal patch (Butrans) apixaban 2.5 mg tablet 2.5 mg PO Q12H 05/27/21 11/19/22 diltiazem HCl 240 mg capsule,24 240 mg PO DAILY 08/15/21 11/19/22 hr,extended release polyethylene glycol 3350 17 17 g PO DAILY PRN constipation 08/15/21 11/19/22 gram/dose oral powder (Miralax) Hydrocortisone/Lidocaine Supp. 25 mg MA DIRECTED PRN 03/14/22 11/19/22 DIRECTED diclofenac sodium 1 % topical gel 2 g topical QID PRN Pain 03/14/22 11/19/22 psyllium husk 3.4 gram/5.4 gram 1 tbsp PO DAILY 03/14/22 11/19/22 oral powder (Metamucil) Previous Rx's Medication Instructions Recorded nortriptyline 25 mg capsule 25 mg PO DAILY #30 caps 11/19/22 Results & Data (ED) Vital Signs Vital Signs - 24 hr 11/27/22 16:04 11/27/22 17:06 11/27/22 17:06 Temperature 37.0 C Temperature Source Temporal Artery Scan Pulse Rate 85 Pulse Rate [Apical] Respiratory Rate 18 Respiratory Effort / Characteristics Non-Labored Spontaneous Respiratory Depth Normal Blood Pressure 143/82 H Blood Pressure [Right Radial Artery] Blood Pressure Mean 102 Blood Pressure Mean [Right Radial Artery] Pulse Oximetry 96 Oxygen Delivery Method Room Air Room Air Room Air Sepsis Recent Fever Within 48 Hours No Sepsis New/Unexplained Change in Mental Status N/A Sepsis Action Taken by Nursing No Action Required 11/27/22 17:07 11/27/22 17:33 Temperature Temperature Source Pulse Rate Pulse Rate [Apical] 91 H Respiratory Rate 18 Respiratory Effort / Characteristics Non-Labored Spontaneous Respiratory Depth Blood Pressure Blood Pressure [Right Radial Artery] 191/95 H Blood Pressure Mean Blood Pressure Mean [Right Radial Artery] 127 Pulse Oximetry 95 Oxygen Delivery Method Room Air Sepsis Recent Fever Within 48 Hours Sepsis New/Unexplained Change in Mental Status Sepsis Action Taken by Nursing Laboratory Data 11/27/22 16:33 11/27/22 16:33 Lab Results 11/27/22 11/27/22 11/27/22 Range/Units 16:33 16:33 16:33 WBC 8.26 (4.8-10.8) K/ul RBC 4.79 (3.93-5.22) M/uL Hgb 14.0 (12.0-16.0) g/dl Hct 43.4 (34.1-44.9) % MCV 90.6 (80.0-100.0) fL MCH 29.2 (25.0-34.0) pg MCHC 32.3 (32.0-36.0) g/dL RDW Std Deviation 51.3 H (36.4-46.3) fL RDW Coeff of Deny 15.5 H (11.5-14.5) % Plt Count 280 (130-400) K/uL MPV 10.1 (9.4-12.3) fL Immature Gran % (Auto) 0.5 % Neut % (Auto) 69.8 % Lymph % (Auto) 18.2 % Dillon % (Auto) 8.8 % Eos % (Auto) 1.9 % Baso % (Auto) 0.8 % Neut # (Auto) 5.76 (1.4-6.5) K/uL Lymph # (Auto) 1.50 (1.2-3.4) K/uL Dillon # (Auto) 0.73 (0.24-0.82) K/uL Eos # (Auto) 0.16 (0-0.50) K/uL Baso # (Auto) 0.07 (0-0.2) K/uL Immature Gran # (Auto) 0.04 H (0.00-0.02) K/uL PT 11.0 (9.0-12.0) Seconds INR 1.0 (0.9-1.1) APTT 27.2 (21.0-31.0) Seconds PTT Ratio 1.0 Sodium 139 (136-145) mmol/L Potassium 4.1 (3.5-5.1) mmol/L Chloride 103 (98-107) mmol/L Carbon Dioxide 27 (21-32) mmol/L Anion Gap 9 (3-11) BUN 33 H (6-23) mg/dl Creatinine 1.42 H (0.6-1.2) mg/dl Est Cr Clr Drug Dosing 25.0 ml/min Est GFR ( Amer) 38.9 ml/min Est GFR (Non-Af Amer) 33.6 ml/min BUN/Creatinine Ratio 23.2 H (10-20) Glucose 98 (70-99(Fasting)) mg/dl Calcium 10.0 (8.5-10.1) mg/dl Magnesium 1.9 (1.7-2.4) mg/dl Total Bilirubin 0.7 (0.2-1.0) mg/dl AST 22 (13-39) U/L ALT 15 (7-52) U/L Alkaline Phosphatase 110 H (34-104) U/L Troponin I High Sens (0-14) pg/ml Total Protein 7.2 (6.0-8.3) gm/dl Albumin 4.1 (3.4-5.0) gm/dl Globulin 3.1 (2.5-4.0) gm/dl Albumin/Globulin Ratio 1.3 (0.9-2) 11/27/22 Range/Units 16:33 WBC (4.8-10.8) K/ul RBC (3.93-5.22) M/uL Hgb (12.0-16.0) g/dl Hct (34.1-44.9) % MCV (80.0-100.0) fL MCH (25.0-34.0) pg MCHC (32.0-36.0) g/dL RDW Std Deviation (36.4-46.3) fL RDW Coeff of Deny (11.5-14.5) % Plt Count (130-400) K/uL MPV (9.4-12.3) fL Immature Gran % (Auto) % Neut % (Auto) % Lymph % (Auto) % Dillon % (Auto) % Eos % (Auto) % Baso % (Auto) % Neut # (Auto) (1.4-6.5) K/uL Lymph # (Auto) (1.2-3.4) K/uL Dillon # (Auto) (0.24-0.82) K/uL Eos # (Auto) (0-0.50) K/uL Baso # (Auto) (0-0.2) K/uL Immature Gran # (Auto) (0.00-0.02) K/uL PT (9.0-12.0) Seconds INR (0.9-1.1) APTT (21.0-31.0) Seconds PTT Ratio Sodium (136-145) mmol/L Potassium (3.5-5.1) mmol/L Chloride (98-107) mmol/L Carbon Dioxide (21-32) mmol/L Anion Gap (3-11) BUN (6-23) mg/dl Creatinine (0.6-1.2) mg/dl Est Cr Clr Drug Dosing ml/min Est GFR ( Amer) ml/min Est GFR (Non-Af Amer) ml/min BUN/Creatinine Ratio (10-20) Glucose (70-99(Fasting)) mg/dl Calcium (8.5-10.1) mg/dl Magnesium (1.7-2.4) mg/dl Total Bilirubin (0.2-1.0) mg/dl AST (13-39) U/L ALT (7-52) U/L Alkaline Phosphatase (34-104) U/L Troponin I High Sens 15.1 H (0-14) pg/ml Total Protein (6.0-8.3) gm/dl Albumin (3.4-5.0) gm/dl Globulin (2.5-4.0) gm/dl Albumin/Globulin Ratio (0.9-2) Imaging Data Radiologist's Impression: Chest X-Ray 11/27/22 16:14 XR chest 1V portable HISTORY: Shortness of breath. COMPARISON: Chest 03/14/2022. FINDINGS: There is mild elevation of the right hemidiaphragm, unchanged. The cardiac silhouette remains mildly enlarged. No focal lung consolidations to suggest a pneumonia. No evidence for pulmonary edema. No pleural effusions. No pneumothorax. IMPRESSION: No significant change compared to the prior study. No acute process. ACT 112: Negative or not required by law. Electronically signed by: Omer Gavin M.D. 11/27/2022 5:39 PM Discharge Plan Visit Data Chief Complaint: Abnormal Labs/Diagnostic Testing Stated Complaint: REF BY DOC,ABNORMAL LABS WITH EKG ED Provider: Gustavo Sheldon Discharge Problem: Exertional dyspnea Forms Stand Alone Forms: My [facility] Prescriptions Prescriptions: No Action apixaban 2.5 mg tablet 2.5 mg PO Q12H lorazepam 0.5 mg tablet 0.5 mg PO BID PRN (Reason: Anxiety) multivitamin tablet 1 tab PO QAM pantoprazole [Protonix] 40 mg tablet,delayed release (DR/EC) 40 mg PO QAM nortriptyline 25 mg capsule 25 mg PO DAILY Qty: 30 2RF diltiazem HCl 240 mg capsule,extended release 24 hr 240 mg PO DAILY polyethylene glycol 3350 [Miralax] 17 gram/dose powder 17 g PO DAILY PRN (Reason: constipation) ondansetron HCl 8 mg tablet 8 mg PO DAILY PRN (Reason: Nausea) cholecalciferol (vitamin D3) [Vitamin D3] 2,000 unit Tablet 2,000 unit PO QAM cyanocobalamin (vitamin B-12) 2,500 mcg Tablet,Chewable 2,500 mcg PO QAM fluticasone propionate [Flonase Allergy Relief] 50 mcg/actuation [place],Suspension 2 spray INTRANASAL BID PRN (Reason: Allergy Symptoms) azelastine 137 mcg (0.1 %) aerosol,spray 1 spray Intranasal BID buprenorphine [Butrans] 20 mcg/hour patch weekly 20 mcg transdermal Q7D Rx Instructions: "allergic to off brand patch" diclofenac sodium [Voltaren] 1 % Gel 2 g TOPICAL QID PRN (Reason: Pain) Metamucil 3.4 gram/5.4 gram Powder 1 tbsp PO DAILY Hydrocortisone/Lidocaine Supp. 25 mg MA DIRECTED PRN (Reason: DIRECTED) Referrals Referrals: Christiane Islas DO [Primary Care Provider] -
--- NOTE | 2022-11-27 18:59 | History & Physical Report ---
Date of Service November 27, 2022 Assessment & Plan (1) Dyspnea: Plan: 87yo female with a history of HTN, RBBB, history of PE (2016, on eliquis), RA, and CKD3 presents with a few-day history of dyspnea on exertion. Dyspnea on exertion Patient presents with a 2-3 day history of worsening dyspnea on exertion SpO2 adequate on room air, no leukocytosis or anemia, no electrolyte abnormalities CXR without acute process Initial hsTroponin slightly elevated to 15.1 but two-hour repeat fell to 14.8 Admit to med/telemetry Echo ordered for AM Incentive spirometry Supplemental oxygen as-needed D-dimer elevated to 0 Lower extremity doppler ordered - if positive, recommend starting heparin gtt overnight Given patient's eGFR is low (33.6), will order V/Q scan (for 11/27 in AM) instead of CTA History of PE (2015) Patient has a history of PE in 2015 and is on eliquis 2.5mg twice daily Moderate risk for PE (Wells score 4.5) D-dimer elevated - ordering doppler tonight and V/Q scan for tomorrow AM as noted above Continue eliquis for now - if LE doppler is positive, recommend holding eliquis and starting heparin gtt Hypertension BP on admission elevated to 190s/90s Patient is without signs/symptoms of hypertensive emergency Patient has been adherent with her home regimen (diltiazem 240mg PO daily) Hydralazine 5mg (x1) ordered, will continue to monitor overnight CKD3 Creatinine on admission 1.42 (baseline ~1.3) Avoid nephrotoxins, renally dose meds, encourage PO intake, trend BMP Elevated troponin On admission, hsTroponin elevated to 15.1 EKG is without overt sign of ischemic change Patient without CP at this time Repeat hsTroponin 14.8; no further monitoring indicated at this time FEN: heart healthy diet Code status: full code DVT ppx: home eliquis PT/OT: ordered Dispo: med/telemetry (2) Osteoarthritis: (3) Hypertension: (4) CKD (chronic kidney disease), stage III: (5) Chronic renal insufficiency: History of Present Illness Primary Care Provider: Christiane Islas DO 87yo female with a history of HTN, RBBB, history of PE (2016, on eliquis), RA, and CKD3 presents with a few-day history of dyspnea on exertion. Symptoms started gradually and are occurring with less and less exertion over the past few days. Patient saw her PCP earlier today, who referred patient to the ED due to possible concerning EKG changes. Patient denies palpitations or chest pain. Patient does have a history of PE for which she is on eliquis - patient notes she has not missed a dose. Of note, patient started nortriptyline one week ago for arthritis pain; patient stopped taking nortriptyline today out of concern it was causing her TAMEZ. Patient denies fever, chills, vision changes, CP, edema, abdominal pain, nausea, vomiting, dysuria, numbness, tingling, or other symptoms. Upon arrival, vitals were notable for elevated BP (140-190s/80-90s); no tachycardia, no tachypnea, patient afebrile, spO2 adequate on room air. Initial labs were notable for elevated creatinine (1.42, baseline ~1.3), mildly- elevated alkphos (110), and minimally-elevated hsTroponin (15.1); no leukocytosis, no anemia, platelets wnl, no electrolyte abnormalities, Tbili not elevated, covid/flu/RSV negative. EKG: sinus rhythm with PACs, RBBB noted, no overt ischemic change CXR: no acute process Surrogate decision-maker in case of an emergency: daughter Aubree Youssef (land: [phone], cell: [phone]) Allergies Allergy/AdvReac Type Severity Reaction Status Date / Time fentanyl Allergy Intermediate VERY SICK Verified 11/19/22 14:43 Iodinated Contrast Media Allergy Intermediate HIVES Verified 11/19/22 14:43 dicyclomine Allergy Mild nausea Verified 11/19/22 14:43 duloxetine AdvReac Intermediate GI SYMPTOMS Verified 11/19/22 14:43 metronidazole AdvReac Intermediate Vomiting Verified 11/19/22 14:43 oxycodone AdvReac Intermediate NAUSEA, Verified 11/19/22 14:43 DIARRHEA promethazine AdvReac Intermediate MAKES HER Verified 11/19/22 14:43 LOOPY sertraline AdvReac Intermediate SHAKEY, Verified 11/19/22 14:43 DIARRHEA Home Medications Medication Instructions Recorded Confirmed Type cholecalciferol (vitamin D3) 50 2,000 unit PO QAM 08/01/18 11/27/22 History mcg (2,000 unit) tablet (Vitamin D3) cyanocobalamin (vitamin B-12) 2,500 mcg PO QAM 08/01/18 11/27/22 History 2,500 mcg chewable tablet fluticasone propionate 50 2 spray intranasal BID PRN Allergy 08/01/18 11/27/22 History mcg/actuation nasal Symptoms spray,suspension (Flonase Allergy Relief) lorazepam 0.5 mg tablet 0.5 mg PO BID PRN Anxiety 12/16/18 11/27/22 History multivitamin 1 tab PO QAM 12/16/18 11/27/22 History pantoprazole 40 mg tablet,delayed 40 mg PO QAM 12/16/18 11/27/22 History release (Protonix) azelastine 137 mcg (0.1 %) nasal 1 spray intranasal BID Allergic 05/23/19 11/27/22 History spray aerosol Symptoms buprenorphine 20 mcg/hour weekly 20 mcg transdermal Q7D 09/03/20 11/27/22 History transdermal patch (Butrans) apixaban 2.5 mg tablet 2.5 mg PO Q12H 05/27/21 11/27/22 History diltiazem HCl 240 mg capsule,24 240 mg PO DAILY 08/15/21 11/27/22 History hr,extended release polyethylene glycol 3350 17 17 g PO DAILY PRN constipation 08/15/21 11/27/22 History gram/dose oral powder (Miralax) diclofenac sodium 1 % topical gel 2 g topical QID PRN Pain 03/14/22 11/27/22 History psyllium husk 3.4 gram/5.4 gram 1 tbsp PO DAILY 03/14/22 11/27/22 History oral powder (Metamucil) nortriptyline 25 mg capsule 25 mg PO DAILY #30 caps 11/19/22 11/27/22 Rx ondansetron 4 mg disintegrating 4 mg PO UD PRN Nausea 11/27/22 11/27/22 History tablet Past Med/Surg History Medical History Anxiety Arthritis Blindness of right eye CKD (chronic kidney disease), stage III Diverticular disease DVT (deep venous thrombosis) legs Epidermal cyst GERD (gastroesophageal reflux disease) Hypertension IBS (irritable bowel syndrome) Kidney stones Monoclonal gammopathy Nephrolithiasis On anticoagulant therapy eliquis Pulmonary embolism Right ventricular cardiac abnormality Sleep apnea cpap Vitamin D deficiency Surgical History History of bilateral cataract extraction History of cholecystectomy History of colonoscopy History of cystoscopy History of dilatation and curettage x3 History of epidermal inclusion cyst excision (04/27/20) Excision of chest wall cyst in clinic on [address] Santiago History of esophagogastroduodenoscopy (EGD) History of tooth extraction upper teeth Hx of left breast biopsy benign Hx of right breast biopsy benign S/P foot surgery, right benign nodule Family History Father Myocardial infarction Hypertension Other No family history of adverse response to anesthesia Social History Smoking Status: Never smoker Second Hand Exposure: Yes ( smoked, but not in the home); Hx Alcohol Use: No Hx Substance Use: No Preferred Language: Albanian Communication Ability: Effective Director Cost Required: No Beliefs That Will Affect Care: None marital status: Current Living Situation: Spouse current occupational status: retired Feels Safe at Home: Yes Assistive Devices: Oxygen - Continuous Review of Systems Review of Systems: See HPI Physical Exam Physical Exam: Constitutional: well-appearing, no acute distress CV: regular rhythm, no murmur appreciated, extremities well-perfused, no LE edema Resp: CTABL, no wheezes/rales/rhonchi appreciated, no increased work of breathing GI: soft, nondistended, nontender, BS normoactive Neuro: alert, oriented, no focal neurologic deficit appreciated Results & Data Results & Data ([facility]) Vital Signs (Past 12 Hours) Vital Signs Temp Pulse Pulse Resp BP BP Pulse Ox 11/27/22 17:33 91 H 18 191/95 H 95 11/27/22 17:06 11/27/22 17:06 11/27/22 16:04 37.0 C 85 18 143/82 H 96 O2 Del Method 11/27/22 17:33 Room Air 11/27/22 17:06 Room Air 11/27/22 17:06 Room Air 11/27/22 16:04 Room Air Supervising Physician Co-Signing Physician Notes Patient seen and examined, chart reviewed, case discussed with Vitaliy Falcon and I agree with the assessment and plan as above except as otherwise noted above. 87yo FHTN, CKD3, PE 2015 on Eliquis, RA, GEORGE who presents with 2 to 3 days of dyspnea. Started nortryptaline last Thursday prior to sx onset, EKG in outpatient not available but by report had interval changes. No chest pain, has had TAMEZ. No lightheadedness, dizziness, syncope, presyncope. Hypertensive, mildly tachycardic on admit. Cr 1.42 from 1.3, trop 15.1. EKG at admit nsr with PVCs, right bundle but similar morphology compared to March [address]/T wave changes. CXR naf. Lungs are clear on exam. Minimally elevated troponin, will trend and obtain echo. Low suspicion for ACS on admission and without acute ST changes. Creatinine is slightly elevated from most recent baseline, although has trended as high as 2. BMP daily, renally dosed medications for creatinine clearance of 25. ?Dyspnea. Low suspicion for DOAC failure, ?post-PE dyspnea. Agree completion of cardiac eval and with tx above. Resident Activity Tracking Resident Involvement: Resident Care Provided and Laborer Drying Department Coverage Note Care Provided: Adult Hospital Medicine (1) Hypertension Hypertension type: essential hypertension Qualified Code(s): I10 - Essential (primary) hypertension
[2022-11-27] MEDS ORDERED: POLYETHYLENE (MIRALAX) 17 GM PACK PO PRN (19:27)
[2022-11-27 20:10] LABS: Influenza A virus by PCR Negative (Neg); Influenza B virus by PCR Negative (Neg); RSV by PCR Negative (Neg); SARS CoV2 RNA(COVID-19) Ceph NEGATIVE (Negative)
[2022-11-27 21:11] LABS: D Dimer 2110 ug/L FEU (0-500)
[2022-11-27] MEDS: APIXABAN 2.5 MG TAB PO SCH (21:29)
[2022-11-27] MEDS ORDERED: SODIUM CHLORIDE 0.9% 1000ML 1,000 ML IV SCH (21:45)
[2022-11-28] MEDS: LORazepam 0.5 MG TAB PO PRN ×3 (01:26→22:36)
--- NOTE | 2022-11-28 06:58 | Ultrasound Report ---
ULTRASOUND BILATERAL LOWER EXTREMITY VENOUS CLINICAL HISTORY: Dyspnea. History of venous thrombosis. COMPARISON STUDY: Right lower extremity venous ultrasound dated 03/14/2022. TECHNIQUE: Real-time, grayscale, and color Doppler sonography of the deep veins of the right and left lower extremity was performed from the inguinal crease to the calf. Compression and augmentation wer e utilized. FINDINGS: Mild stranding within both popliteal veins suggests trace chronic thrombus. There is no son ographic evidence of acute deep venous thrombosis identified in the right or left lower extremity. Th e common femoral, superficial femoral, and popliteal veins are patent and normally compressible bilat erally. The greater saphenous vein and the profunda femoris vein at the junction with the common femo ral vein are clear in both legs. The visualized calf veins are patent bilaterally. A small right popl iteal cyst measures 3.8 x 0.7 x 0.8 cm. IMPRESSION: 1. There is no sonographic evidence of acute deep venous thrombosis identified in the right or left l ower extremity. 2. Mild stranding within both popliteal veins suggests trace chronic thrombus. 3. Right-sided [place]'s cyst. ACT 112: Negative or not required by law. Electronically signed by: Mateo Hood M.D. 11/28/2022 6:56 AM
[2022-11-28 07:38] LABS: Hematocrit (blood only) 43.6 % (34.1-44.9); Mean Corpuscular Hemoglobin 28.8 pg (25.0-34.0); Mean Corpuscular Hgb Conc 32.1 g/dL (32.0-36.0); Mean Corpuscular Volume 89.7 fL (80.0-100.0); Mean Platelet Volume 10.2 fL (9.4-12.3); Platelet Count 310 K/uL (130-400); RDW Coefficient of Variation 15.6 % (11.5-14.5); RDW Standard Deviation 51.5 fL (36.4-46.3); Red Blood Count 4.86 M/uL (3.93-5.22)
[2022-11-28] MEDS: APIXABAN 2.5 MG TAB PO SCH ×2 (07:53→20:13)
[2022-11-28] MEDS: PANTOprazole 40 MG TAB PO SCH (07:54)
[2022-11-28] MEDS: PSYLLIUM or GUAR GUM FIBER POWDER PACKET PO SCH (07:54)
[2022-11-28] MEDS: dilTIAZem HCL 240 MG CAPCR PO SCH (07:54)
[2022-11-28 10:17] LABS: Calcium 9.7 mg/dl (8.5-10.1); Creatinine Clr Calc Pharmacy 31.4 ml/min; Est GFR (African American) 51.3 ml/min; Est GFR (Non-African American) 44.3 ml/min; Magnesium 1.9 mg/dl (1.7-2.4); Potassium 3.9 mmol/L (3.5-5.1)
--- NOTE | 2022-11-28 10:52 | Nuclear Medicine Report ---
NM pul perfusion CLINICAL HISTORY: Shortness of breath.. COMPARISON STUDY: Chest x-ray 11/27/2022. TECHNIQUE: Immediately following the intravenous administration of 5.6 mCi of technetium 99 M MAA for the perfusion scan, anterior, oblique, lateral, and posterior views of the chest were obtained. A ve ntilation scan was not performed due to coronavirus portable. FINDINGS: Questionable focal defect within the left lung apex. Otherwise, the remaining lung parenchy ma demonstrates normal perfusion. There is prominence of the cardiac silhouette and elevation of the right hemidiaphragm. IMPRESSION: Questionable focal defect within the left lung apex which could be due to overlying chente fact. Otherwise, normal perfusion throughout the lungs. ACT 112: Negative or not required by law. Electronically signed by: Omer Gavin M.D. 11/28/2022 10:51 AM
--- NOTE | 2022-11-28 12:12 | XCELERA ---
[id number]
--- NOTE | 2022-11-28 12:59 | Hospitalist Progress Note ---
Date of Service November 28, 2022 Assessment & Plan (1) Dyspnea: Plan: No evidence of congestive heart failure. Chest x-ray is unremarkable. Ventilation/perfusion scan is negative for acute PE. Oxygen saturation 96% on room air. I suppose this could represent underlying occult coronary artery disease. Cardiology consultation is pending. She will be considered for stress testing either as an inpatient or outpatient. Venous Doppler studies of the legs are negative for DVT. (2) Osteoarthritis: Plan: Stable with current medical management (3) Hypertension: Plan: Stable with current medical management (4) CKD (chronic kidney disease), stage III: Plan: Monitor intake and output. Serial labs (5) Chronic renal insufficiency: Plan: Monitor intake and output. Serial labs Plan Await cardiology recommendations. Hopefully home soon Admission and Anticipated Discharge Date Admission Date: November 27, 2022 Subjective Alert and oriented. Currently asymptomatic. Cardiac echo reveals severe left ventricular hypertrophy with no regional wall motion abnormalities. Ventilation/perfusion scan is negative for acute PE. She was recently started on nortriptyline and this could possibly be the cause of her dyspnea on exertion. Her washer machine was consulted for consideration for stress testing prior to discharge. She has some left upper extremity bruising when something at home fell on her arm but there is no evidence of fracture and she probably has bruising due to her Eliquis therapy. OT and PT assessments are requested. EKG reveals evidence of chronic right bundle branch block/left anterior hemib lock, and she also has PACs. Venous Doppler studies of her legs are negative for DVT. Hopefully she can go home tomorrow, November 29 Review of Systems Review of Systems: Constitutional-no fever or chills ENT-no blurred vision, no double vision, no epistaxis, no sore throat Respiratory-no cough, no wheezing. Shortness of breath with exertion has lasted for weeks Cardiac-no palpitations, no chest pain, no syncope. She denies any chest discomfort GI-no nausea, vomiting, diarrhea, melena, hematochezia -no urinary retention, no urinary incontinence, no dysuria, no hematuria Musculoskeletal-no joint pain, no muscle tenderness Skin-no bruising, no rashes, no pruritus Neuro-no isolated weakness, no paresthesia, no weakness Psych-no depression, no anxiety Physical Exam Physical Exam: General-alert and oriented x3, no fevers, no chills HEENT-head atraumatic and normocephalic, pupils equal and reactive to light, extraocular muscles intact Neck-no lymphadenopathy or thyromegaly, trachea midline Chest-clear to auscultation percussion. No rales wheezing or rhonchi Cardiac-regular rate and rhythm, normal S1 and S2 Abdomen-normal bowel sounds, nontender, no hepatosplenomegaly Extremities-no cyanosis, clubbing, or edema. Some bruising in the left biceps area noted. No fracture. Normal range of motion Neuro-cranial nerves II through XII intact, motor and sensory function within normal limits, strength symmetrical , no focal deficits Psych-normal affect, normal mood Results & Data Results & Data ([facility]) Vital Signs (Past 12 Hours) Vital Signs Temp Pulse Pulse Resp BP BP Pulse Ox 11/28/22 11:30 36.6 C 89 18 145/81 H 94 11/28/22 07:45 36.6 C 83 18 155/80 H 96 11/28/22 07:11 102 H 11/28/22 01:43 92 H 11/28/22 01:33 36.8 C 91 H 16 157/90 H 96 11/28/22 01:33 11/28/22 01:01 86 14 179/86 H 94 O2 Del Method 11/28/22 11:30 Room Air 11/28/22 07:45 Room Air 11/28/22 07:11 11/28/22 01:43 11/28/22 01:33 Room Air 11/28/22 01:33 Room Air 11/28/22 01:01 Room Air Laboratory Results 11/28/22 07:15 11/28/22 07:15 PG Care Time/CCT Total # of Minutes Spent Total Time Spent with Patient: Total time spent is greater than 50% in coordination of care (as documented) at patient's floor/unit and/or counseling patient: Coding Level of Care Code 70446 SUB INP/OBS CARE 3/50MIN Diagnoses Dyspnea R06.00 Osteoarthritis M19.90 Hypertension I10 Hypertension type: essential hypertension CKD (chronic kidney disease), stage III N18.3 Chronic renal insufficiency N18.9 (1) Hypertension Hypertension type: essential hypertension Qualified Code(s): I10 - Essential (primary) hypertension
--- NOTE | 2022-11-28 15:16 | Electrocardiogram Report ---
Test Reason : Blood Pressure : / mmHG Vent. Rate : 089 BPM Atrial Rate : 089 BPM P-R Int : 178 ms QRS Dur : 132 ms QT Int : 388 ms P-R-T Axes : 077 -61 057 degrees QTc Int : 472 ms Poor data quality, interpretation may be adversely affected Sinus rhythm with Premature atrial complexes Right bundle branch block Left anterior fascicular block Bifascicular block Left ventricular hypertrophy with repolarization abnormality Cannot rule out Septal infarct (cited on or before 14-MAR-2022) Abnormal ECG When compared with ECG of 14-MAR-2022 11:51, Premature atrial complexes are now Present Confirmed by Boris Blanchard ([id number]) on 11/28/2022 3:16:00 PM Referred By: Confirmed By:Boris Blanchard
[2022-11-28] MEDS: ACETAMINOPHEN 325 MG TAB PO PRN ×2 (17:26→22:36)
--- NOTE | 2022-11-28 18:45 | Cardiology Consultation ---
Date of Consultation November 28, 2022 Assessment & Plan (1) Exertional dyspnea: (2) Valvular heart disease: (3) Abnormal EKG: (4) Left ventricular hypertrophy: Plan 1. Dyspnea: The etiology of her shortness of breath is unclear. No evidence of recurrent pulmonary embolus. No evidence of right heart failure. Echocardiogram did not demonstrate left ventricular dysfunction although she likely has an element of diastolic dysfunction. Her lung examination was clear. No evidence of pulmonary vascular congestion. No documented arrhythmia other than PACs. Unclear association with nortriptyline. He had a curiosity is that her symptoms seem to have resolved almost entirely over the past 24 hours without any specific intervention. There was some concern that she required testing for cardiac ischemia. However, I do not think this is indicated in the absence of recurrent symptoms. There was no objective evidence of ischemia and again, her symptoms have resolved without any specific intervention. She likely has an element of coronary disease based exclusively on her age. I will continue aggressive risk factor modification. 2. Valvular heart disease: Mild aortic insufficiency and mitral regurgitation on her current echocardiogram. This is not appear to have worsened from prior echocardiograms. This can be followed over time and is likely not to be an issue during the course of her lifetime. 3. Pulmonary embolus: Evidence of right ventricular dysfunction and pulmonary hypertension at the time of her PE. However, this appears to have resolved. Normal function on echo today. Normal pulmonary pressures. No evidence of right heart failure. Continue systemic anticoagulation. 4. Conduction disease: She has a known right bundle branch block and left anterior fascicular block. Normal [place] interval. No symptoms consistent with conduction disease. She does have frequent atrial ectopy. No documented atrial fibrillation or other arrhythmia. Given the fact that her symptoms were present at presentation without documented arrhythmia, correlation is unlikely. History of Present Illness Reason for Consultation: Dyspnea Requesting Physician: Alejandro Attending Physician: Varghese Allen MD History of Present Illness The patient is an 87-year-old woman with a cardiac history significant for massive pulmonary embolism in 2016. At that time she had evidence of right ventricular dysfunction and associated pulmonary hypertension. She has been followed annually with occasional echocardiography. Generally speaking she does not have symptoms of cardiac disease recently she has been experiencing progressive dyspnea. Initially this seemed to occur only with activity but more recently has been present even at rest. The patient was not known to have hypoxia or abnormal vital signs at home. She had been started on nortriptyline and was concerned that her breathing difficulty was a side effect of that medication. Based on the progressive nature of her symptoms she presented to the hospital for evaluation. Patient states that most her limitations are associated with arthritis. However, generally speaking she is not dyspneic doing normal activity at home. She denies any associated chest pain. No sense of palpitation. She denies dizziness or lightheadedness. No presyncope or syncope. Shortness of breath seems to be improved with sitting up, but lying down is difficult for her due to chronic arthritis. No lower extremity edema. Curiously, she states that over the past 24 hours or symptoms have affectively resolved. Today she was ambulatory around her room with physical therapy and did not have dyspnea. No shortness of breath at rest currently. Allergies Allergy/AdvReac Type Severity Reaction Status Date / Time fentanyl Allergy Intermediate VERY SICK Verified 11/19/22 14:43 Iodinated Contrast Media Allergy Intermediate HIVES Verified 11/19/22 14:43 dicyclomine Allergy Mild nausea Verified 11/19/22 14:43 duloxetine AdvReac Intermediate GI SYMPTOMS Verified 11/19/22 14:43 metronidazole AdvReac Intermediate Vomiting Verified 11/19/22 14:43 oxycodone AdvReac Intermediate NAUSEA, Verified 11/19/22 14:43 DIARRHEA promethazine AdvReac Intermediate MAKES HER Verified 11/19/22 14:43 LOOPY sertraline AdvReac Intermediate SHAKEY, Verified 11/19/22 14:43 DIARRHEA Home Medications Medication Instructions Recorded Confirmed Type cholecalciferol (vitamin D3) 50 2,000 unit PO QAM 08/01/18 11/27/22 History mcg (2,000 unit) tablet (Vitamin D3) cyanocobalamin (vitamin B-12) 2,500 mcg PO QAM 08/01/18 11/27/22 History 2,500 mcg chewable tablet fluticasone propionate 50 2 spray intranasal BID PRN Allergy 08/01/18 11/27/22 History mcg/actuation nasal Symptoms spray,suspension (Flonase Allergy Relief) lorazepam 0.5 mg tablet 0.5 mg PO BID PRN Anxiety 12/16/18 11/27/22 History multivitamin 1 tab PO QAM 12/16/18 11/27/22 History pantoprazole 40 mg tablet,delayed 40 mg PO QAM 12/16/18 11/27/22 History release (Protonix) azelastine 137 mcg (0.1 %) nasal 1 spray intranasal BID Allergic 05/23/19 11/27/22 History spray aerosol Symptoms buprenorphine 20 mcg/hour weekly 20 mcg transdermal Q7D 09/03/20 11/27/22 History transdermal patch (Butrans) apixaban 2.5 mg tablet 2.5 mg PO Q12H 05/27/21 11/27/22 History diltiazem HCl 240 mg capsule,24 240 mg PO DAILY 08/15/21 11/27/22 History hr,extended release polyethylene glycol 3350 17 17 g PO DAILY PRN constipation 08/15/21 11/27/22 History gram/dose oral powder (Miralax) diclofenac sodium 1 % topical gel 2 g topical QID PRN Pain 03/14/22 11/27/22 History psyllium husk 3.4 gram/5.4 gram 1 tbsp PO DAILY 03/14/22 11/27/22 History oral powder (Metamucil) nortriptyline 25 mg capsule 25 mg PO DAILY #30 caps 11/19/22 11/27/22 Rx ondansetron 4 mg disintegrating 4 mg PO UD PRN Nausea 11/27/22 11/27/22 History tablet Patient History Medical History (Updated 11/28/22 @ 18:40 by Artur Bennett MD) Anxiety Arthritis Blindness of right eye CKD (chronic kidney disease), stage III Diverticular disease DVT (deep venous thrombosis) legs Epidermal cyst GERD (gastroesophageal reflux disease) Hypertension IBS (irritable bowel syndrome) Kidney stones Monoclonal gammopathy Nephrolithiasis On anticoagulant therapy eliquis Pulmonary embolism Right ventricular cardiac abnormality Sleep apnea cpap Vitamin D deficiency Surgical History History of bilateral cataract extraction History of cholecystectomy History of colonoscopy History of cystoscopy History of dilatation and curettage x3 History of epidermal inclusion cyst excision (04/27/20) Excision of chest wall cyst in clinic on [address] Santiago History of esophagogastroduodenoscopy (EGD) History of tooth extraction upper teeth Hx of left breast biopsy benign Hx of right breast biopsy benign S/P foot surgery, right benign nodule Family History Father Myocardial infarction Hypertension Other No family history of adverse response to anesthesia Social History Smoking Status: Never smoker Second Hand Exposure: Yes ( smoked, but not in the home); Hx Alcohol Use: No Hx Substance Use: No Preferred Language: Samoan Communication Ability: Effective Chief Meteorologist Required: No Beliefs That Will Affect Care: None marital status: Current Living Situation: Spouse current occupational status: retired Other Information That Helps Us Care for You: No Feels Safe at Home: Yes Safety Concerns: Feels Safe At This Time Assistive Devices: Cane Review of Systems Review of Systems: Per HPI. Some weakness in the legs until recently. She did not have difficulty with physical therapy today. Physical Exam Physical Exam: She is alert and oriented x3. Mood affect appear normal. She answered all questions appropriately. HEENT: Sclerae are anicteric. Pupils are equal and reactive to light and accommodation. Extraocular movements were intact. Neuro: Cranial nerves intact Lungs: Lungs are clear to auscultation bilaterally. There are no rales wheezes or rhonchi. She has normal respiratory effort without use of accessory muscles. There is normal pulmonary excursion. Cardiac: The rhythm was regular with frequent ectopy. S1 and S2 were normal. Soft crescendo systolic murmur The PMI was not markedly displaced on palpation. Abdomen: The abdomen was soft and nontender. Extremities: Patient has bilateral radial pulses that are equal in intensity. There is no evidence cyanosis or clubbing. There was no evidence of significant peripheral edema bilaterally. Skin: There are no rashes noted on examination today. Some ecchymosis on her lower extremities Results & Data ([facility]) Vital Signs (Past 12 Hours) Vital Signs Temp Pulse Pulse Resp BP Pulse Ox O2 Del Method 11/28/22 16:26 36.8 C 71 18 145/83 H 94 Room Air 11/28/22 15:02 80 11/28/22 11:30 36.6 C 89 18 145/81 H 94 Room Air 11/28/22 07:45 36.6 C 83 18 155/80 H 96 Room Air 11/28/22 07:11 102 H Laboratory Results Abnormal Lab Results 11/27/22 11/27/22 11/27/22 16:33 18:56 Unknown WBC RBC Hgb Hct MCV MCH MCHC RDW Std Deviation RDW Coeff of Deny Plt Count MPV D-Dimer 2110 H* Sodium Potassium Chloride Carbon Dioxide Anion Gap BUN Creatinine Est Cr Clr Drug Dosing Est GFR ( Amer) Est GFR (Non-Af Amer) BUN/Creatinine Ratio Glucose Calcium Magnesium Troponin I High Sens 14.8 H B-Natriuretic Peptide SARS-CoV-2 (PCR) NEGATIVE Influenza Type A (PCR) Negative Influenza Type B (PCR) Negative RSV (RT-PCR) Negative 11/28/22 11/28/22 11/28/22 07:15 07:15 15:30 WBC 8.30 RBC 4.86 Hgb 14.0 Hct 43.6 MCV 89.7 MCH 28.8 MCHC 32.1 RDW Std Deviation 51.5 H RDW Coeff of Deny 15.6 H Plt Count 310 MPV 10.2 D-Dimer Sodium 141 Potassium 3.9 Chloride 105 Carbon Dioxide 27 Anion Gap 9 BUN 26 H Creatinine 1.13 Est Cr Clr Drug Dosing 31.4 Est GFR ( Amer) 51.3 Est GFR (Non-Af Amer) 44.3 BUN/Creatinine Ratio 23.0 H Glucose 92 Calcium 9.7 Magnesium 1.9 Troponin I High Sens B-Natriuretic Peptide 158 H SARS-CoV-2 (PCR) Influenza Type A (PCR) Influenza Type B (PCR) RSV (RT-PCR) Diagnostic Findings Echocardiogram performed today revealed ejection fraction greater than 70% without regional wall motion abnormalities. Severe LVH. Mild aortic regurgitation. Mild mitral regurgitation. Mild left atrial dilation. Normal RV systolic pressure and function of the right ventricle. Reported stress test in 2019 which did not demonstrate ischemia ECG Additional Comments: EKG demonstrated normal sinus rhythm with right bundle branch block, left anterior fascicular block and frequent atrial ectopy PG Care Time/CCT Total # of Minutes Spent Total Time Spent with Patient: Total time spent is greater than 50% in coordination of care (as documented) at patient's floor/unit and/or counseling patient: Coding Level of Care Code 75209 INT INP/OBS CARE 3/75MIN Diagnoses Exertional dyspnea R06.09 Valvular heart disease I38 Abnormal EKG R94.31 Left ventricular hypertrophy I51.7
[2022-11-29] MEDS: PANTOprazole 40 MG TAB PO SCH (07:26)
[2022-11-29] MEDS: dilTIAZem HCL 240 MG CAPCR PO SCH (07:26)
[2022-11-29] MEDS: APIXABAN 2.5 MG TAB PO SCH (07:26)
[2022-11-29] MEDS: PSYLLIUM or GUAR GUM FIBER POWDER PACKET PO SCH (07:57)
--- NOTE | 2022-11-29 11:46 | Discharge Summary ---
Date of Service November 29, 2022 Admission HPI Per Admitting Provider 87yo female with a history of HTN, RBBB, history of PE (2016, on eliquis), RA, and CKD3 presents with a few-day history of dyspnea on exertion. Symptoms started gradually and are occurring with less and less exertion over the past few days. Patient saw her PCP earlier today, who referred patient to the ED due to possible concerning EKG changes. Patient denies palpitations or chest pain. Patient does have a history of PE for which she is on eliquis - patient notes she has not missed a dose. Of note, patient started nortriptyline one week ago for arthritis pain; patient stopped taking nortriptyline today out of concern it was causing her ESQUIVEL. Patient denies fever, chills, vision changes, CP, edema, abdominal pain, nausea, vomiting, dysuria, numbness, tingling, or other symptoms. Upon arrival, vitals were notable for elevated BP (140-190s/80-90s); no tachycardia, no tachypnea, patient afebrile, spO2 adequate on room air. Initial labs were notable for elevated creatinine (1.42, baseline ~1.3), mildly- elevated alkphos (110), and minimally-elevated hsTroponin (15.1); no leukocytosis, no anemia, platelets wnl, no electrolyte abnormalities, Tbili not elevated, covid/flu/RSV negative. EKG: sinus rhythm with PACs, RBBB noted, no overt ischemic change CXR: no acute process Surrogate decision-maker in case of an emergency: daughter Aubree Youssef (land: [phone], cell: [phone]) Principal Diagnosis Dyspnea on exertion Discharge Exam General-alert and oriented x3, no fevers, no chills HEENT-head atraumatic and normocephalic, pupils equal and reactive to light, extraocular muscles intact Neck-no lymphadenopathy or thyromegaly, trachea midline Chest-clear to auscultation percussion. No rales wheezing or rhonchi Cardiac-regular rate and rhythm, normal S1 and S2 Abdomen-normal bowel sounds, nontender, no hepatosplenomegaly Extremities-no cyanosis, clubbing, or edema. Some bruising in the left biceps area noted. No fracture. Normal range of motion Neuro-cranial nerves II through XII intact, motor and sensory function within normal limits, strength symmetrical , no focal deficits Psych-normal affect, normal mood Discharge Data Allergies Allergy/AdvReac Type Severity Reaction Status Date / Time fentanyl Allergy Intermediate VERY SICK Verified 11/19/22 14:43 Iodinated Contrast Media Allergy Intermediate HIVES Verified 11/19/22 14:43 dicyclomine Allergy Mild nausea Verified 11/19/22 14:43 duloxetine AdvReac Intermediate GI SYMPTOMS Verified 11/19/22 14:43 metronidazole AdvReac Intermediate Vomiting Verified 11/19/22 14:43 oxycodone AdvReac Intermediate NAUSEA, Verified 11/19/22 14:43 DIARRHEA promethazine AdvReac Intermediate MAKES HER Verified 11/19/22 14:43 LOOPY sertraline AdvReac Intermediate SHAKEY, Verified 11/19/22 14:43 DIARRHEA Consultations 11/27/22 18:12 ED Decision to Admit Stat 11/27/22 18:27 ED Decision to Admit Stat 11/28/22 12:08 Consult Cardiology Routine Ordered Studies 11/27/22 21:28 US venous doppler [facility] Urgent Hospital Course (1) Dyspnea: No evidence of congestive heart failure. Chest x-ray is unremarkable. Ventilation/perfusion scan is negative for acute PE. Oxygen saturation 96% on room air. I suppose this could represent underlying occult coronary artery disease. Cardiology consultation appreciated. She probably will undergo outpatient stress testing. Venous Doppler studies of the legs are negative for DVT. (2) Osteoarthritis: Stable with current medical management (3) Hypertension: Stable with current medical management (4) CKD (chronic kidney disease), stage III: Monitor intake and output. Serial labs (5) Chronic renal insufficiency: Monitor intake and output. Serial labs Plan Home today, November 29. Follow-up with PCP Total Time Total Time Spent Total Time Spent (In Minutes): 35 minutes Discharge Plan Discharge Items Patient Disposition: Home - Self-Care Reason For Visit: esquivel Discharge Diagnosis: Dyspnea on exertion Activity: Resume your previous activity Non-emergency contact: Primary Care Provider Call non-emergency contact if: your symptoms worsen Follow-up/Referrals: Christiane Islas DO [Primary Care Provider] - Diet: Heart Healthy Addtl Attending Provider Instructions: No new medications Pending Studies at Discharge: No Stand-Alone Forms: My [facility] [place], Smoking Cessation Medications and DC Order Prescriptions: Continued apixaban 2.5 mg tablet 2.5 mg PO Q12H lorazepam 0.5 mg tablet 0.5 mg PO BID PRN (Reason: Anxiety) multivitamin tablet 1 tab PO QAM pantoprazole [Protonix] 40 mg tablet,delayed release (DR/EC) 40 mg PO QAM diltiazem HCl 240 mg capsule,extended release 24 hr 240 mg PO DAILY polyethylene glycol 3350 [Miralax] 17 gram/dose powder 17 g PO DAILY PRN (Reason: constipation) cholecalciferol (vitamin D3) [Vitamin D3] 2,000 unit Tablet 2,000 unit PO QAM cyanocobalamin (vitamin B-12) 2,500 mcg Tablet,Chewable 2,500 mcg PO QAM fluticasone propionate [Flonase Allergy Relief] 50 mcg/actuation [place],Suspension 2 spray INTRANASAL BID PRN (Reason: Allergy Symptoms) azelastine 137 mcg (0.1 %) aerosol,spray 1 spray Intranasal BID buprenorphine [Butrans] 20 mcg/hour patch weekly 20 mcg transdermal Q7D Rx Instructions: "allergic to off brand patch" ondansetron 4 mg tablet,disintegrating 4 mg PO UD PRN (Reason: Nausea) diclofenac sodium [Voltaren] 1 % Gel 2 g TOPICAL QID PRN (Reason: Pain) Metamucil 3.4 gram/5.4 gram Powder 1 tbsp PO DAILY Discontinued nortriptyline 25 mg capsule 25 mg PO DAILY Qty: 30 2RF Discharge Orders: Discharge Order (Routine); Ordered 11/29/22 Ordered By: Varghese Coats/Other Patient Handouts: Arthritis: Exercise, ED Heart Disease Education Admission Data Admit Date/Time: 11/27/22 19:31 Attending Provider: Varghese Allen Admit Provider: Vitaliy Falcon Primary Care Provider: Christiane Islas Other Providers: Manuel Cobos ; Slade Blancas ; [facility] ; [facility] Other Interventions: Discharge Summary Assessment (RN) Last Done: 11/29/22 11:18 Coding Level of Care Code HOSP INP/OBS DISCH >30 MIN Diagnoses Dyspnea R06.00 Osteoarthritis M19.90 Hypertension I10 Hypertension type: essential hypertension CKD (chronic kidney disease), stage III N18.3 Chronic renal insufficiency N18.9
[2022-11-29] MEDS: ACETAMINOPHEN 325 MG TAB PO PRN (12:01)
== END 2022-11-29 12:59 | disposition home or self-care (01) ==
LOC: ED 15:57 → EDINP 15:57 → SUATTDRO 19:31 → 2N 22:04
DX: Z79.01 Long term (current) use of anticoagulants; R77.8 Other specified abnormalities of plasma proteins; Z91.041 Radiographic dye allergy status; Z88.8 Allergy status to other drugs, medicaments and biological substances; Z88.5 Allergy status to narcotic agent; N18.30 Chronic kidney disease, stage 3 unspecified; R06.09 Other forms of dyspnea; I12.9 Hypertensive chronic kidney disease with stage 1 through stage 4 chronic kidney disease, or unspecified chronic kidney disease; Z79.899 Other long term (current) drug therapy; Z86.711 Personal history of pulmonary embolism